=== PATIENT | male | born 1980 | race Caucasian/White ===

== ENCOUNTER 2024-11-15 09:41 | Emergency (ER) | payer MEDICAID, SELFPAY ==
[2024-11-15 09:43] VITALS: PULSE 84; RESP 24; O2SAT 98; BMI 41.3
[2024-11-15 09:57] VITALS: BP 170/91; PULSE 86; RESP 16; TEMP 36.7; O2SAT 98
--- NOTE | 2024-11-15 10:27 | PC.NURSE ---
PT NOT IN ROOM WAS SEEN BY SECURITY WALK OUT THE FRONT DOORS OF THE ER AND HEAD WAST ON [employer].
== END 2024-11-15 10:33 | disposition left against medical advice (07) ==
LOC: SERX 10:55
PROVIDERS: Emergency Provider Emergency Medicine
DX: Z53.21 Procedure and treatment not carried out due to patient leaving prior to being seen by health care provider (principal)
CPT/HCPCS: 99281

== ENCOUNTER 2025-04-14 10:08 | Inpatient (IN) | payer MEDICAID, SELFPAY ==
[2025-04-14] VITALS (7 sets, daily range): BP systolic 150–188; BP diastolic 87–128; PULSE 74–104; RESP 19–26; TEMP 36.5–37.2; O2SAT 95–98
--- NOTE | 2025-04-14 10:14 | PD.EDSOB ---
ED SOB =RME/HPI General Chief Complaint: Extremity Problem,Nontraumatic Stated Complaint: LEG PAIN Time Seen by Provider: 04/14/25 10:31 Arrival date/time: 04/14/25 10:08 Limitations: no limitations RME / HPI RME / HPI Narrative: DR. DEIRDRE ARIZMENDI ED EVALUATION: 44-year-old homeless male with past medical history of hypertension, lower extremity DVT, polysubstance abuse (methamphetamine, tobacco), asthma, obesity hypoventilation syndrome with sleep apnea, and heart failure with preserved ejection fraction (HFpEF 55?60%) presents to the Emergency Department [facility] with complaints of bilateral foot pain and shortness of breath. Patient reports noncompliance with his prescribed Lasix. He denies fever, chills, dysuria, or other symptoms. Related Data Home Medications ?Medication ?Instructions ?Recorded ?Confirmed potassium chloride 20 mEq 20 meq PO BID 12/30/22 06/21/23 tablet,extended release (K-Tab) Previous Rx's ?Medication ?Instructions ?Recorded furosemide 40 mg tablet (Lasix) 40 mg PO QDAY #30 tabs 06/27/23 doxycycline hyclate 100 mg capsule 100 mg PO BID #2 caps 01/21/24 potassium chloride 20 mEq oral 20 meq PO QDAY #10 ea 02/01/24 packet Allergies Allergy/AdvReac Type Severity Reaction Status Date / Time clindamycin Allergy Mild DIARRHEA Verified 02/01/24 17:55 Review of Systems Review of Systems Systems Reviewed: All systems reviewed, normal except as documented Past Medical History Past Medical History CARDIAC: Positive Edema, Cellulitis, Deep Vein Thrombosis and Hypertension RESPIRATORY: Positive Chronic Obstructive Pulmonary Disease (COPD), Asthma and Sleep Apnea GASTROINTESTINAL: Positive Gastroesophageal Reflux Disease and Obesity PSYCHO/SOCIAL: Positive Recreational Drug Use OTHER HISTORY: Positive MRSA and Chicken Pox Family History FAMILY HISTORY: Positive Family Cardiac Disorders Social History SMOKING STATUS: Current some day smoker SECOND HAND EXPOSURE: No SUBSTANCE USE: amphetamines ED Exam General Limitations: Present no limitations General appearance: Present alert and other (Chronically ill appearing, with acute decompensation) Head Head exam: Present atraumatic and normocephalic Eye Eye exam: Present normal appearance, PERRL and EOMI ENT ENT exam: Present normal exam, normal oropharynx and mucous membranes moist Neck Neck exam: Present normal inspection, full ROM and trachea midline Chest Chest inspection: Present normal inspection and symmetric chest wall rise Respiratory Respiratory exam: Present respiratory distress (Tachypneic) Cardiovascular Cardiovascular exam: Present regular rate, normal rhythm and normal heart sounds Abdominal Exam Abdominal exam: Present soft and normal bowel sounds Extremities Exam Extremities exam: Present other (Bilateral legs' edema from bottom all the way up to the knees, venous stasis; also a left leg wound with maggots) Back Exam Back exam: Present normal inspection and full ROM Neurological Exam Neurological exam: Present alert, oriented X3 and CN II-XII intact Psychiatric Psychiatric exam: Present normal affect and normal mood Skin Skin exam: Present warm, dry, intact and normal color Course Quality Measures none Orders Category Date Time Status Bedside COVID-19 Antigen Test NOW Care 04/14/25 10:[address] Screening NOW Care 04/14/25 10:[address] Screening NOW Care 04/14/25 14:02 Active Notify provider NOW Care 04/14/25 18:[address] angio chest Stat Exams 04/14/25 14:[address] lower leg LT w con Stat Exams 04/14/25 10:32 Completed CXR [XR chest 1V] Stat Exams 04/14/25 10:33 Completed US venous duplex LE BI Stat Exams 04/14/25 10:32 Completed BNP [B-Type Natriuretic Peptide] Stat Lab 04/14/25 10:39 Completed CBC Stat Lab 04/14/25 10:39 Completed CMP [Comprehensive Metabolic Panel] Stat Lab 04/14/25 10:39 Completed D-Dimer Stat Lab 04/14/25 10:39 Completed Drug Screen,Urine Stat Lab 04/14/25 10:32 Ordered Influenza A & B Rapid Panel Stat Lab 04/14/25 17:10 Received PTT [Partial Thromboplastin Time] Stat Lab 04/14/25 18:31 Ordered Partial Thromboplastin Time AM DRAW Lab 04/16/25 05:00 Ordered Prothrombin Time with INR AM DRAW Lab 04/16/25 05:00 Ordered Troponin I Stat Lab 04/14/25 10:39 Completed UA, C/S IF [Urinalysis, C/S if Indicated] Stat Lab 04/14/25 10:32 Ordered Heparin Inj Med 04/14/25 18:31 Once 8,000 unit IV X1 ONE Heparin/D5w 25K 250 ML Ivpb [Heparin in D5w Ivpb] Med 04/14/25 18:45 Ordered 25,000 unit in 250 ml IV 18 units/kg/hr Morphine* Inj Med 04/14/25 13:57 Discontinued 2 mg IVP STAT STA Vancomycin Pharmacy to Dose Med 04/14/25 18:27 Active 1 each IV QDAY PRN Vital Signs Vital signs: Vital Signs Temperature 97.7 F 04/14/25 10:14 Pulse Rate 89 04/14/25 10:14 Respiratory Rate 24 H 04/14/25 10:14 Blood Pressure 156/103 H 04/14/25 10:14 Pulse Oximetry (%) 95 04/14/25 10:14 Oxygen Delivery Method Nasal Cannula 04/14/25 10:14 Oxygen Flow Rate 3 04/14/25 10:14 Shortness of Breath / Dyspnea MDM Narrative MDM Narrative:: Patient is a 44-year-old male with medical history notable for homelessness, polysubstance use, heart failure as an emergency, concerns for bilateral lower extremity pain and shortness of breath. Vital signs and exam as listed. Concern for ACS arrhythmia electrolyte abnormality viral syndrome pneumonia CHF exacerbation DVT lower extremities, cellulitis, deep space wound infection. Ordered labs, EKG, chest x-ray bilateral lower extremity ultrasounds, CT of the left lower extremity given patient's open wound with maggots on the lower extremity, also offered medication for symptom relief. Labs without leukocytosis, no left shift. Patient hemoglobin is 13. Patient without any acute metabolic abnormality. No transaminitis, troponin is not elevated, BNP is 56. Chest x-ray with evidence of early heart failure. Has cephalization of vessels. CT of the lower extremity with evidence of cellulitis, no deep space abscess. Provided patient with antibiotics. Lower extremity ultrasound with evidence of DVT. Partial nonocclusive thrombus in the left popliteal vein. Ordered heparin bolus and drip. Patient has a history of prior pulmonary embolus, ordered D-dimer which was elevated. Patient is requiring supplemental oxygen, and he is on oxygen at baseline. At this time my shift is now transition care over to Dr. Castillo. Patient is pending results of his CT angio and admission for hypoxic respiratory failure. I, Cass Alexander, am scribing for and in the presence of Dr. Lux. Patient data External records reviewed:: [facility] previous records and EMS form Clinical information provided by:: patient and EMS Social determinants that could affect healthcare access:: substance use (homelessness, methamphetamine abuse, tobacco use) Patient has the following chronic illnesses:: Homeless male with past medical history of hypertension, lower extremity DVT, polysubstance abuse (methamphetamine, tobacco), asthma, obesity hypoventilation syndrome with sleep apnea, and heart failure with preserved ejection fraction (HFpEF 55?60%). How is presenting disease/condition affected by chronic disease/condition?: exacerbated by Evaluation data The following diagnostics were reviewed and interpreted by me:: lab results and radiology exam(s) Lab and/or radiology exams considered but not ordered:: none Interpretation Summary: See MDM narrative above. RADIOLOGY Procedure(s): XR chest 1V Accession Number(s): [id number] cc: Manny Banegas MD; NO PRIMARY/FAMILY,PHYSICIAN; Heather Lux MD~ Examination: AP chest single view Technique: Portable AP chest single view Date and time: April 14, 2025, 1045 hrs., Comparison January 19, 2024 Indications: Shortness of breath today. Findings: Moderate enlargement cardiac contour Moderate prominence pulmonary vasculature. Suspicious for early septal edema the lung bases. No lobar pneumonia Impression: Early heart failure Dictated By: Manny Banegas MD Procedure(s): US venous duplex LE BI Accession Number(s): [id number] cc: Manny Banegas MD; NO PRIMARY/FAMILY,PHYSICIAN; Heather Lux MD~ Examination: Venous duplex lower extremity sonogram, bilateral. Date and time of exam: April 14, 2025, 1353 hrs. Indications: Leg pain and swelling this week Technique: Multiple sonographic images of the deep venous system have been obtained. B-mode/2-D grayscale imaging of vascular structures and Doppler spectral analysis (waveforms) and color performed Both legs are examined. Findings: Positive for nonocclusive thrombus in the left popliteal vein The visualization of the left posterior tibial vein Visualization right posterior tibial vein Right upper extremity DVT noted Impression: Positive for partial nonocclusive thrombus in the left popliteal vein Dictated By: Manny Banegas MD Procedure(s): CT lower leg LT w con Accession Number(s): [id number] cc: Manny Banegas MD; NO PRIMARY/FAMILY,PHYSICIAN; Heather Lux MD~ Examination: CT Examination: CT left lower leg with intravenous contrast, 2-D sagittal reconstructions. 2-D coronal reconstructions. 3-D reconstructions. Date and time of exam:April 14, 2025, 11:50 AM Indications: Left leg abscess swelling and pain this week CTDI: vol (mGy):9.38 DLP: (mGycm):649 Technique: Multiple 1.25 mm axial sections of the left lower extremity post intravenous ministration 60 cc Isovue-370 have been obtained. 2-D sagittal and coronal reconstructions have been obtained. 3-D reconstructions have been obtained. Low dose protocols were performed. One or more of the following dose reduction techniques were used; automated exposure control, adjustment of the mA and/or KV according to patient size, use of iterative reconstruction technique. Findings: Extensive edema in the subcutaneous fatty tissue with prominent skin thickening extending from the distal femur to the ankle However, no soft tissue fluid-filled abscess depicted Cortex of the distal femur femoral condyles, tibia, fibula and visualized bones of the ankle intact Soft tissue defects lower leg both anteriorly and laterally Impression: Negative for osteomyelitis Extensive cellulitis in the lower extremity No soft tissue abscess Consider MRI lower leg without contrast follow-up to best assess for early osteomyelitis Dictated By: Manny Banegas MD Medications / Prescriptions Medications or Prescriptions considered but not ordered:: none Medication administrations:: Medication Administration History Heparin Sodium (Porcine) (Heparin Sod Inj 5000 Unit/Ml Vial) 8,000 unit IV X1 ONE; Protocol Stop: 04/14/25 18:32 Heparin Sodium/Dextrose (Heparin In D5w Ivpb) 25,000 unit in 250 mls @ 0 mls/hr IV .Q0M JOSE; Protocol Stop: 04/28/25 18:44 Pharmacy Consult (Vancomycin Pharmacy To Dose 1 Each Each) 1 each IV QDAY PRN PRN Reason: PROTOCOL Stop: 05/14/25 18:26 Discontinued Medications Morphine Sulfate (Morphine Sulf Inj 4 Mg/Ml Vial) 2 mg IVP STAT STA Stop: 04/14/25 13:58 Last Admin: 04/14/25 14:07 Dose: 2 mg Documented By: CS see above if any Consultations Consultation(s) initiated? (list below): No Diagnosis Shortness of Breath Differential Diagnosis: other (CHF exacerbation, recurrent DVT with pulmonary embolism, and pneumonia.) Most likely diagnosis given after review of the tests above:: DVT, cellulitis, hypoxic respiratory failure Admission Indicated Admission indicated?: indicated Admission Request Was there a request for admission?: No Disposition Plan Disposition Plan: other (specify) (Signed out to oncoming provider) Discharge Plan Prescriptions/Referrals Prescriptions/Med Rec: No Action potassium chloride 20 mEq packet 20 meq PO QDAY Qty: 10 0RF potassium chloride [K-Tab] 20 mEq tablet extended release 20 meq PO BID Patient Comments: TAKE 1 TABLET BY MOUTH EVERY DAY furosemide [Lasix] 40 mg tablet 40 mg PO QDAY Qty: 30 0RF doxycycline hyclate 100 mg capsule 100 mg PO BID Qty: 2 0RF Referrals: No Primary/Family,Physician [Primary Care Provider] - In 1 week Problem List Clinical Impression: Acute hypoxic respiratory failure, DVT (deep venous thrombosis), Cellulitis Patient/Caregiver Discharge Instructions Print Language: Belarusian
--- NOTE | 2025-04-14 10:32 | XR_ITS ---
Examination: CT Examination: CT left lower leg with intravenous contrast, 2-D sagittal reconstructions. 2-D coronal reconstructions. 3-D reconstructions. Date and time of exam:April 14, 2025, 11:50 AM Indications: Left leg abscess swelling and pain this week CTDI: vol (mGy):9.38 DLP: (mGycm):649 Technique: Multiple 1.25 mm axial sections of the left lower extremity post intravenous ministration 60 cc Isovue-370 have been obtained. 2-D sagittal and coronal reconstructions have been obtained. 3-D reconstructions have been obtained. Low dose protocols were performed. One or more of the following dose reduction techniques were used; automated exposure control, adjustment of the mA and/or KV according to patient size, use of iterative reconstruction technique. Findings: Extensive edema in the subcutaneous fatty tissue with prominent skin thickening extending from the distal femur to the ankle However, no soft tissue fluid-filled abscess depicted Cortex of the distal femur femoral condyles, tibia, fibula and visualized bones of the ankle intact Soft tissue defects lower leg both anteriorly and laterally Impression: Negative for osteomyelitis Extensive cellulitis in the lower extremity No soft tissue abscess Consider MRI lower leg without contrast follow-up to best assess for early osteomyelitis
--- NOTE | 2025-04-14 10:32 | XR_ITS ---
Examination: Venous duplex lower extremity sonogram, bilateral. Date and time of exam: April 14, 2025, 1353 hrs. Indications: Leg pain and swelling this week Technique: Multiple sonographic images of the deep venous system have been obtained. B-mode/2-D grayscale imaging of vascular structures and Doppler spectral analysis (waveforms) and color performed Both legs are examined. Findings: Positive for nonocclusive thrombus in the left popliteal vein The visualization of the left posterior tibial vein Visualization right posterior tibial vein Right upper extremity DVT noted Impression: Positive for partial nonocclusive thrombus in the left popliteal vein
--- NOTE | 2025-04-14 10:33 | XR_ITS ---
Examination: AP chest single view Technique: Portable AP chest single view Date and time: April 14, 2025, 1045 hrs., Comparison January 19, 2024 Indications: Shortness of breath today. Findings: Moderate enlargement cardiac contour Moderate prominence pulmonary vasculature. Suspicious for early septal edema the lung bases. No lobar pneumonia Impression: Early heart failure
[2025-04-14 11:10] LABS: Alanine Aminotransferase 13 U/L (10-49); Albumin, Serum 4.0 gm/dL (3.5-5.0); Albumin/Globulin Ratio 1.1 (1.2-2.2); Alkaline Phosphatase 104 U/L (46-116); Anion Gap 8 (7-16); Aspartate Amino Transferase 22 U/L (0-34); BUN/Creatinine Ratio 10 Ratio (12-20); Bilirubin,Total 0.7 mg/dL (0.3-1.2); Blood Urea Nitrogen 9 mg/dL (9-23); Calcium 9.0 mg/dL (8.3-10.6); Calcium (Corrected) 9.0 mg/dL (8.5-10.1); Carbon Dioxide 28.0 mMol/L (20.0-31.0); Chloride 103 mMol/L (98-107); Creatinine (Component) 0.9 mg/dL (0.6-1.3); Globulin 3.6 gm/dL (2.3-3.5); Glucose 97 mg/dL (74-106); Osmolality,Calculated 276 (275-295); Potassium 4.3 mMol/L (3.4-5.1); Sodium 139 mMol/L (136-145); Total Protein 7.6 gm/dL (5.7-8.2); Troponin I < 0.020 ng/mL (0.0-0.045); eGFR > 60 See Note
[2025-04-14 11:18] LABS: Basophils # (Auto) 0.1 Thou/mm3 (0.0-0.2); Basophils % (Auto) 1 % (0-2.5); Eosinophils # (Auto) 0.2 Thou/mm3 (0.0-0.5); Eosinophils % (Auto) 2 % (0-10); Hematocrit 38.0 % (41.0-53.0); Hemoglobin 13.0 g/dL (13.5-16.0); Immature Granulocytes Auto 0.07 Thou/mm3 (0.00-0.00); Lymphocytes # (Auto) 1.2 Thou/mm3 (1.0-4.8); Lymphocytes % (Auto) 13 % (10-50); Mean Corpuscular HGB Conc 34.2 g/dl (31.0-37.0); Mean Corpuscular Hemoglobin 32.4 pg (25.0-35.0); Mean Corpuscular Volume 95 fL (80-100); Monocytes # (Auto) 0.9 Thou/mm3 (0.0-0.8); Monocytes % (Auto) 9 % (0-12); Neutrophils # (Auto) 6.9 Thou/mm3 (1.8-7.7); Neutrophils % (Auto) 74 % (37-80); Nucleated Red Blood Cell # 0.00 Thou/mm3 (0.00-0.00); Nucleated Red Blood Cell % 0 /100 WBC (0); Platelet Count 298 Thou/mm3 (140-440); RDW Standard Deviation 46.2 fL (35.1-43.9); Red Blood Count 4.01 Miln/mm3 (4.50-5.90); White Blood Count 9.3 Thou/mm3 (3.8-10.6)
[2025-04-14 13:06] LABS: B-Type Natriuretic Peptide 56 pg/mL (0-100)
--- NOTE | 2025-04-14 14:01 | XR_ITS ---
Examination: CTA chest with intravenous contrast 2-D reconstructions 3-D reconstructions, vascular Date and time of exam: April 14, 2025, 1759 hrs. Indications: Onset chest pain shortness of breath today CTDI: vol (mGy) 20.5 DLP: (mGycm) 541 Technique: Multiple axial sections of the thorax have been obtained. 3 mm slice thickness, from below the hemidiaphragms to above the apices of the lungs. Mediastinal and lung density settings have been obtained. 2-D sagittal and coronal reconstructions. 3-D angiographic renderings, 3-D volume renderings, 3D post processing, vascular maximum intensity projections obtained. Contrast administered is 100 cc Isovue-370. Intravenous Low dose protocols were performed. One or more of the following dose reduction techniques were used; automated exposure control, adjustment of the mA and/or KV according to patient size, use of iterative reconstruction technique. Findings: No thoracic aortic aneurysmal dilatation or dissection Main pulmonary artery segment 4.6 cm Multiple multiple pulmonary artery filling defects right pulmonary artery including the distal right main pulmonary artery, axial image 66 and multiple upper and lower lobe pulmonary artery branches on the right No pulmonary edema Mild opacity in the right lower lung zone which may represent pulmonary infarction No visualized liver or splenic lesion No gallstones No pancreatic edema Kidneys partially visualized no hydronephrosis Impression: Pulmonary artery hypertension Multiple pulmonary artery emboli on the right as above Possible mild pulmonary infarction right base
[2025-04-14] MEDS: MORPHINE SULF INJ 4 MG/ML VIAL 2 MG IVP (14:07)
[2025-04-14 14:26] LABS: D-Dimer 2240 ng/mL (<600)
--- NOTE | 2025-04-14 18:23 | PD.EDADDENDU ---
Emergency Room Addendum <Dana Hope - Last Filed: 04/14/25 22:22> Addendum Narrative: I took over the care from previous shift physician at 6 PM on 04/14/2025. See previous notes for complete H & P and ED course. I reviewed all diagnostic test results. My interpretation of the chest x-ray is Early heart failure. My review of the Venous Duplex US report is Positive for partial nonocclusive thrombus in the left popliteal vein. My review of the Lower Extremity CT report is Negative for osteomyelitis. Extensive cellulitis in the lower extremity. No soft tissue abscess. Consider MRI lower leg without contrast follow-up to best assess for early osteomyelitis. My review of the Chest CTA report is Pulmonary artery hypertension. Multiple pulmonary artery emboli on the right as above. Possible mild pulmonary infarction right base. Blood tests and urine tests Diagnoses include: Acute hypoxic respiratory failure Treatment here included Heparin in D5w Ivpb Vancomycin IV Heparin Inj 8,000 unit IV Morphine Inj 2 mg I discussed the case with our hospitalist. About the presentation and exam and diagnostics and treatments here. And need of further care in the hospital. Will accept the patient. Garth Castillo MD <Garth Castillo MD - Last Filed: 04/14/25 23:47> Addendum Narrative: I took over the care from previous shift physician, Dr. Lux, at 6 PM on 04/14/2025. See previous notes for complete H & P and ED course. I reviewed all diagnostic test results. Diagnoses include: Acute hypoxic respiratory failure Pulmonary embolism DVT Lower extremity cellulitis Methamphetamine use Treatment here included: Heparin I discussed the case with our hospitalist. About the presentation and exam and diagnostics and treatments here. And need of further care in the hospital. Will accept the patient. Garth Castillo MD
[2025-04-14 19:02] LABS: Influenza A Ag Negative; Influenza B Ag Negative
[2025-04-14 19:26] LABS: Collection Type, Urine Catheter
[2025-04-14 19:43] LABS: Bilirubin,Urine Negative (Negative); Blood,Urine 1+ (Negative); Clarity,Urine Clear (Clear/Hazy); Color,Urine Lt-Yellow (Lt Yel-Yel); Culture Indicated,Urine Not Indicated; Glucose, Urine Negative (Negative); Ketones,Urine Trace (Negative); Leukocyte Esterase,Urine Negative (Negative); Nitrite,Urine Negative (Negative); PH,Urine 6.0 (5.0-7.0); Protein,Urine Negative (Neg - Trace); RBC,Urine 11 /hpf (0-3); Specific Gravity,Urine 1.034 (1.001-1.035); Squamous Epithelial Cell,Urine 1 /hpf (0-5); Urobilinogen,Urine Negative mg/dL (0.0-1.0); WBC,Urine 2 /hpf (0-5)
[2025-04-14 19:50] LABS: Partial Thromboplastin Time 27.6 Seconds (22.0-36.0)
[2025-04-14] MEDS: VANCOMYCIN/D5W 1500 MG IVPB 300 ML 120 MG IV (19:53)
[2025-04-14 20:44] LABS: Amphetamine/Methamp Scrn,U Positive (Negative); Barbiturate Screen,Urine Negative (Negative); Benzodiazepines Screen,Urine Negative (Negative); Benzoylecgonine Screen, Ur Negative (Negative); Fentanyl Screen,Urine Negative (Negative); Opiate Screen,Urine Positive (Negative); THC Screen,Urine Negative (Negative)
[2025-04-14] MEDS: HEPARIN SOD INJ 5000 UNIT/ML VIAL 8000 UNIT IV (21:18)
[2025-04-14] MEDS: Heparin/D5w 25K 250 ML Ivpb 25,000 UNIT/250 ML BAG 18 UNIT IV (21:19)
[2025-04-14] MEDS: PIPER/TAZO INJ 4.5 GM in SODIUM CHLORIDE 0.9% (POP) 100 ML IV (23:03)
[2025-04-15] VITALS (58 sets, daily range): BP systolic 154–229; BP diastolic 92–136; PULSE 43–96; RESP 14–38; TEMP 36.2–37.6; O2SAT 90–100; BMI 44.0; BMI 42.7
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
--- NOTE | 2025-04-15 00:10 | ECHO_ITS ---
Transthoracic Echo Report Ht (in): Wt (lb): 292 Exam Location: Echo Lab Status: Inpatient Yarn Preparation Supervisor: Lalita Lnua Indications: Procedure Performed: BP: 171 / 109 HR: 61 Rhythm: Sinus Technical Quality: Poor MEASUREMENTS (Male / Female) Normal Values 2D ECHO LV Diastolic Diameter PLAX 5.5 cm 4.2 - 5.9 / 3.9 - 5.3 cm LV Systolic Diameter PLAX 3.4 cm IVS Diastolic Thickness 1.0 cm 0.6 - 1.0 / 0.6 - 0.9 cm LVPW Diastolic Thickness 1.1 cm 0.6 - 1.0 / 0.6 - 0.9 cm LV Relative Wall Thickness 0.4 LVOT Diameter 2.1 cm Aortic Root Diameter 3.6 cm LV Ejection Fraction MOD BP 44.7 % >= 55 % LV Ejection Fraction MOD 4C 51.9 % LV Ejection Fraction 4C AL 52.5 % LV Ejection Fraction MOD 2C 38.9 % LV Ejection Fraction 2C AL 41.3 % M-MODE Aortic Root Diameter MM 3.3 cm AV Cusp Separation MM 2.2 cm DOPPLER AV Peak Velocity 142.0 cm/s AV Peak Gradient 8.1 mmHg AV Mean Gradient 5.0 mmHg AV Velocity Time Integral 27.0 cm LVOT Peak Velocity 142.0 cm/s LVOT Peak Gradient 8.1 mmHg LVOT Velocity Time Integral 25.0 cm AV Area Cont Eq vti 3.2 cm? AV Area Cont Eq pk 3.5 cm? MV Area PHT 4.0 cm? Mitral E Point Velocity 72.8 cm/s Mitral A Point Velocity 103.0 cm/s Mitral E to A Ratio 0.7 LV E' Lateral Velocity 8.3 cm/s Mitral E to LV E' Lateral Ratio 8.8 LV E' Septal Velocity 7.3 cm/s Mitral E to LV E' Septal Ratio 10.0 PV Peak Velocity 124.0 cm/s PV Peak Gradient 6.2 mmHg FINDINGS Left Ventricle The left ventricular cavity size is mildly increased with normal wall thickness. Normal systolic function. There is grade I diastolic dysfunction of the left ventricle (impaired relaxation pattern). The ejection fraction is visually estimated at 55-60%. Right Ventricle The right ventricular size is mildy increased with normal systolic function. Left Atrium The left atrium is normal by two-dimensional, color flow and Doppler imaging with no structural abnormalities, no thrombus formation present. Right Atrium The right atrium is normal by two-dimensional imaging, color flow and Doppler imaging with no structural abnormalities, no thrombus formation present. Atrial Septum The interatrial septum appears normal with no evidence of a shunt. Aorta The aorta is normal by two-dimensional, color flow and Doppler interrogation. Mitral Valve The mitral valve is normal by two-dimensional, color flow and Doppler interrogation. Trace mitral regurgitation. Aortic Valve The aortic valve is trileaflet and normal by two-dimensional, color flow and Doppler interrogation. There is no significant aortic valve regurgitation. Tricuspid Valve The tricuspid valve is normal by two-dimensional, color flow and Doppler interrogation. There is trace tricuspid valve regurgitation. Pulmonic Valve The pulmonic valve is not well visualized. There is no significant pulmonic valve regurgitation. Vessels The pulmonary artery appears normal. The inferior vena cava pulmonary and hepatic veins appear normal. Pericardium The pericardium is normal by two-dimensional imaging. There is no significant pericardial effusion. CONCLUSIONS Indication: PE Normal LV size and wall thickness. Normal LV function with an EF of 55 to 60%. Grade 1 diastolic dysfunction. Mildly dilated RV with normal RV function. RVSP could not be measured because of insufficient TR jet but septum appears flat during systole indicating mildly elevated pressure. Trace MR and TR. No pericardial effusion. Alfred Chau (Electronically Signed) Final Date: 15 April 2025 19:31
--- NOTE | 2025-04-15 00:53 | PD.RESEVENT ---
Documentation for date of: 04/15/25 Event Note Event Note: Rapid response called at 00:50 for bradycardia 30-40s. VS: HR 30s, spO2 70% --> 96% 4L --> 95% on oxymask 5L. T 97.1 F, 167/113. BG 98. Ordered CMP, Mg, EKG, troponin, ABG. Rhythm strip showed Mobitz type 2, resolved on repeat EKG. CMP, Mg showed no electrolyte abnormalities. Troponin negative. ABG pH 7.37/CO2 52/O2 85/CO3 30. Plan to upgrade to ICU for transcutaneous pacing discussed with Dr. Howard (senior resident), Dr. Miner (senior resident on ICU), and Dr. Cuadra (attending). Kimberly Davidson MD PGY1
--- NOTE | 2025-04-15 00:54 | EKG_ITS ---
[facility] Test Date: 2025-04-15 Pat Name: CHEYANNE WALDEN [facility] Male [employer]: [facility] : 1980 Requested By: Kimberly Davidson Order Number: [id number] Reading MD: Kimberly Davidson Measurements Intervals [place] Rate: 76 P: 72 AK: 172 QRS: 74 QRSD: 112 T: 66 QT: 412 QTc: 465 Interpretive Statements SINUS RHYTHM WITH SINUS ARRHYTHMIA MODERATE INTRAVENTRICULAR CONDUCTION DELAY Compared to ECG 01/16/2024 07:48:39 Intraventricular conduction delay now present Atrial abnormality no longer present /store/S0/[id number]
[2025-04-15 01:09] LABS: Base Excess 4 (-3-3); HCO3 30 mEq/L (20-26); Inspired O2, VO2 Liters 5 L/min; Inspired Oxygen, FIO2 21 %; O2 Saturation 97 % (91-98); PCO2 52 mmHg (32.0-48.0); PO2 85 mmHg (83-108); pH, Arterial 7.37 (7.35-7.45)
[2025-04-15 01:11] LABS: Allen Test Performed/OK; Puncture Site Right Radial
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
--- NOTE | 2025-04-15 01:45 | PC.NURSE ---
Noted patients heart rate at 30 and oxygen saturations at 70%, went to patients room, called a [employer]PER at 0050. Physicians to bedside. EKG completed which showed a 2nd degree heart block. Decision to transfer patient to ICU to be put on external pacing.
[2025-04-15 01:56] LABS: Alanine Aminotransferase 8 U/L (10-49); Albumin, Serum 3.7 gm/dL (3.5-5.0); Albumin/Globulin Ratio 1.1 (1.2-2.2); Alkaline Phosphatase 96 U/L (46-116); Anion Gap 10 (7-16); Aspartate Amino Transferase 14 U/L (0-34); BUN/Creatinine Ratio 6 Ratio (12-20); Bilirubin,Total 0.6 mg/dL (0.3-1.2); Blood Urea Nitrogen < 5 mg/dL (9-23); Calcium 8.8 mg/dL (8.3-10.6); Calcium (Corrected) 9.0 mg/dL (8.5-10.1); Carbon Dioxide 25.4 mMol/L (20.0-31.0); Chloride 102 mMol/L (98-107); Creatinine (Component) 0.8 mg/dL (0.6-1.3); Globulin 3.5 gm/dL (2.3-3.5); Glucose 98 mg/dL (74-106); Magnesium 1.9 mg/dL (1.6-2.6); Osmolality,Calculated 271 (275-295); Potassium 3.9 mMol/L (3.4-5.1); Sodium 137 mMol/L (136-145); Total Protein 7.2 gm/dL (5.7-8.2); Troponin I < 0.020 ng/mL (0.0-0.045); eGFR > 60 See Note
[2025-04-15] MEDS: Magnesium Sulfate 2 GM Ivpb 2 GM/50 ML BAG IV ×2 (02:07→02:25)
[2025-04-15] MEDS: RINGERS LACTATED 500 ML 500 ML 125 ML IV (02:14)
[2025-04-15] MEDS: POTASSIUM CHL 10 mEq IVPB 10 MEQ/100 ML BAG 100 MEQ IV ×2 (02:30→03:24)
[2025-04-15] MEDS: hydrALAZINE INJ 20 MG/ML VIAL 10 MG IVP ×2 (03:22→09:31)
[2025-04-15 03:56] LABS: Basophils # (Auto) 0.1 Thou/mm3 (0.0-0.2); Basophils % (Auto) 1 % (0-2.5); Eosinophils # (Auto) 0.2 Thou/mm3 (0.0-0.5); Eosinophils % (Auto) 2 % (0-10); Hematocrit 41.3 % (41.0-53.0); Hemoglobin 13.8 g/dL (13.5-16.0); Immature Granulocytes Auto 0.05 Thou/mm3 (0.00-0.00); Lymphocytes # (Auto) 1.1 Thou/mm3 (1.0-4.8); Lymphocytes % (Auto) 12 % (10-50); Mean Corpuscular HGB Conc 33.4 g/dl (31.0-37.0); Mean Corpuscular Hemoglobin 31.8 pg (25.0-35.0); Mean Corpuscular Volume 95 fL (80-100); Monocytes # (Auto) 0.8 Thou/mm3 (0.0-0.8); Monocytes % (Auto) 9 % (0-12); Neutrophils # (Auto) 6.8 Thou/mm3 (1.8-7.7); Neutrophils % (Auto) 76 % (37-80); Nucleated Red Blood Cell # 0.00 Thou/mm3 (0.00-0.00); Nucleated Red Blood Cell % 0 /100 WBC (0); Platelet Count 260 Thou/mm3 (140-440); RDW Standard Deviation 45.7 fL (35.1-43.9); Red Blood Count 4.34 Miln/mm3 (4.50-5.90); White Blood Count 8.9 Thou/mm3 (3.8-10.6)
[2025-04-15 04:17] LABS: Partial Thromboplastin Time 39.6 Seconds (22.0-36.0)
[2025-04-15 04:20] LABS: HIV (1&2) Antibody Rapid Non-Reactive
[2025-04-15 04:24] LABS: Anion Gap 9 (7-16); BUN/Creatinine Ratio 6 Ratio (12-20); Blood Urea Nitrogen 6 mg/dL (9-23); Calcium 9.1 mg/dL (8.3-10.6); Carbon Dioxide 29.8 mMol/L (20.0-31.0); Cardiac Risk Estimate 3.4 RATIO (4.0-6.7); Chloride 99 mMol/L (98-107); Cholesterol 168 mg/dL (132-200); Creatinine (Component) 1.0 mg/dL (0.6-1.3); Estimated Creatinine Clearance 127.4 mL/min (>60); Glucose 93 mg/dL (74-106); HDL Cholesterol 50 mg/dL (40-60); LDL Cholesterol,Calculated 100 mg/dL (0-130); Magnesium 2.6 mg/dL (1.6-2.6); Osmolality,Calculated 273 (275-295); Phosphorous 3.5 mg/dL (2.4-5.1); Potassium 4.1 mMol/L (3.4-5.1); Sodium 138 mMol/L (136-145); Thyroid Stimulating Hormone 1.47 uIU/mL (0.55-4.78); Triglycerides 91 mg/dL (30-150); eGFR > 60 See Note
[2025-04-15] MEDS: HEPARIN SOD INJ 5000 UNIT/ML VIAL 4000 UNIT IVP ×2 (05:34→14:09)
[2025-04-15] MEDS: PIPER/TAZO INJ 4.5 GM in SODIUM CHLORIDE 0.9% (POP) 100 ML IV (06:28)
[2025-04-15] MEDS: hydrALAZINE INJ 20 MG/ML VIAL 5 MG IVP (06:30)
[2025-04-15] MEDS: Heparin/D5w 25K 250 ML Ivpb 25,000 UNIT/250 ML BAG 20.662 UNIT IV (08:55)
[2025-04-15] MEDS: VANCOMYCIN/D5W 1500 MG IVPB 300 ML 120 MG IV ×2 (09:06→21:13)
[2025-04-15] MEDS: RINGERS LACTATED 1000 ML 1,000 ML 999 ML IV (09:31)
[2025-04-15] MEDS: cefTRIAXone/D5w 1gm IV premix 1 GM/50 ML BAG IV (09:39)
--- NOTE | 2025-04-15 09:52 | ESCONSULT_ITS ---
HPI Data of Consult Requesting Physician: Azael Cuadra MD Admitting Provider: Azael Cuadra MD Attending Provider: Azael Cuadra MD Primary Care Provider: Physician No Primary/Family Consult Narrative History of present illness: Patient is a 44 year old male with past medical history of HFpEF (55-60%), morbid obesity, substance abuse including methamphetamine abuse, chronic smoker with more than 77-16-zijz-year smoking history, alcohol use, homeless, history of chronic leg swelling on Lasix previously, medical noncompliance, previous lower extremity DVT and bilateral PE, and chronic venous stasis changes on bilateral limbs who presented to [facility] ED for bilateral foot pain and shortness of breath. In the ED, was noted to have multiple episodes of second degree type II heartblock lasting 1-1.5 minute. CXR showed enlarged cardiac silhouette and pulmonary vascular congestion. CTA chest showed pulmonary artery hypertension, as well as multiple pulmonary artery emboli on the right with possible mild pulmonary infarction right base. Utox positive for opiates and meth. Overnight, rapid response was called for HR in 30s-40s and oxygen desaturation. EKG showed Mobitz type 2, which later resolved on repeat EKG. CMP, Mg showed no electrolyte abnormalities. Troponin negative. ABG pH 7.37/CO2 52/O2 85/CO3 30. Patient was upgraded to ICU for pacer pad placement at 60-80 mA. Was decreased to 20 mA and eventually removed after a couple of hours. Per chart review, patient was previously admitted for similar cardiac issues in January 2024. Did not decompensate or require pacer pads at the time but had been found to have mulitple intermittent episodes of Mobitz type II heartblock, attributed to metabolic disturbances with history of drug abuse. Was counseled on cessation of meth and tobacco abuse. Was also previously admitted in 06/2023 for DVT and bilateral PEs. Was started on Xarelto but has also been noncomplaint with this as well. Was started on heparin drip overnight. Cardiology consulted for management of Mobitz type II heart block, DVT, and PE. cc:: cc: Azael Cuadra MD Exam Vital Signs Temp Pulse Resp BP Pulse Ox O2 Del Method O2 Flow Rate 97.5 F 72 29 H 185/109 H 99 BiPAP 3 04/15/25 08:00 04/15/25 09:31 04/15/25 09:08 04/15/25 09:31 04/15/25 09:08 04/15/25 08:00 04/15/25 00:50 FiO2 3 04/15/25 05:51 Narrative Exam Physical Exam General: Awake and in no acute distress. Lethargic. Morbidly obese male. BiPAP in place. HEENT: Normocephalic, atraumatic, mucous membranes moist. Heart: Regular rate and rhythm, normal S1 and S2, no murmurs appreciated. Lungs: Clear to auscultation with no wheezing or crackles. Abdomen: Soft, nondistended, nontender, positive bowel sounds. No guarding or rebound tenderness. Neurologic: Alert and oriented x3, no gross neurological deficit, and patient able to move all 4 extremities. Extremities: 2+ pitting edema below ankles bilaterally. Circumferential open wound at above left ankle. Dressing clean dry and intact. Skin: Chronic venous stasis changes bilaterally. No rashes or ecchymosis. Results Labs 04/15/25 03:40 04/15/25 03:40 Labs: Short CBC 04/14/25 04/15/25 Range/Units 10:39 03:40 WBC 9.3 8.9 (3.8-10.6) Thou/mm3 Hgb 13.0 L 13.8 (13.5-16.0) g/dL Hct 38.0 L 41.3 (41.0-53.0) % Plt Count 298 260 D (140-440) Thou/mm3 BMP 04/14/25 04/15/25 04/15/25 10:39 01:15 03:40 Sodium 139 137 138 Potassium 4.3 3.9 4.1 Chloride 103 102 99 Carbon Dioxide 28.0 25.4 29.8 BUN 9 < 5 L 6 L Creatinine 0.9 0.8 1.0 Glucose 97 98 93 Calcium 9.0 8.8 9.1 Cardiac Enzymes 04/14/25 04/15/25 Range/Units 10:39 01:15 Troponin I < 0.020 < 0.020 (0.0-0.045) ng/mL Liver Function 04/14/25 04/15/25 Range/Units 10:39 01:15 Total Bilirubin 0.7 0.6 (0.3-1.2) mg/dL AST 22 14 (0-34) U/L ALT 13 8 L (10-49) U/L Alkaline Phosphatase 104 96 (46-116) U/L Albumin 4.0 3.7 (3.5-5.0) gm/dL Urine 04/14/25 Range/Units 19:15 Urine Color Lt-Yellow (Lt Yel-Yel) Urine Clarity Clear (Clear/Hazy) Urine pH 6.0 (5.0-7.0) Ur Specific [place] 1.034 (1.001-1.035) Urine Protein Negative (Neg - Trace) Urine Glucose (UA) Negative (Negative) ABG Interpretation ABG results: 04/15/25 01:00 ABG pH 7.37 ABG pCO2 52 H ABG pO2 85 ABG HCO3 30 H ABG O2 Saturation 97 ABG Base Excess 4 H Quality Measures Quality Measures none Medications Home Medications and Allergies Home Medications ?Medication ?Instructions ?Recorded ?Confirmed ?Type potassium chloride 20 mEq 20 meq PO BID 12/30/2204/15 History tablet,extended release (K-Tab) Allergies Allergy/AdvReac Type Severity Reaction Status Date / Time clindamycin Allergy Mild DIARRHEA Verified 02/01/24 17:55 Visit Medications Acetaminophen (Acetaminophen 325 Mg Tablet) 650 mg PO Q6H PRN PRN Reason: Fever >99.9 Stop: 05/14/25 22:34 Heparin Sodium/Dextrose (Heparin In D5w Ivpb) 25,000 unit in 250 mls @ 18 mls/hr IV .[id number] [facility]; Protocol Stop: 04/28/25 18:44 Last Admin: 04/15/25 08:55 Dose: 15.6 units/kg/hr, 20.662 mls/hr Vancomycin HCl/Dextrose (Vancomycin/D5w 1500 Mg Ivpb) 300 mls @ 120 mls/hr IV BID@1000,2200 [facility]; Protocol Stop: 04/22/25 09:59 Last Admin: 04/15/25 09:06 Dose: 120 mls/hr Lactated Ringer's (Lactated Ringers) 1,000 mls @ 999 mls/hr IV .Q1H1M ONE Stop: 04/15/25 10:23 Last Admin: 04/15/25 09:31 Dose: 999 mls/hr Ceftriaxone Sodium/Dextrose (Rocephin/D5w 1gm Iv Premix) 1 gm in 50 mls @ 100 mls/hr IV QDAY JOSE Stop: 04/22/25 09:29 Last Admin: 04/15/25 09:39 Dose: 100 mls/hr Ondansetron HCl (Ondansetron Inj 2 Mg/Ml Inj 2 Ml) 4 mg IVP Q6H PRN; Protocol PRN Reason: NAUSEA OR VOMITING Stop: 05/14/25 22:34 Pantoprazole Sodium (Pantoprazole Inj 40 Mg Vial) 40 mg IVP QDAY [facility] Stop: 05/15/25 02:34 Last Admin: 04/15/25 08:55 Dose: 40 mg Pharmacy Consult (Vancomycin Pharmacy To Dose 1 Each Each) 1 each IV QDAY PRN PRN Reason: PROTOCOL Stop: 05/15/25 08:59 Discontinued Medications Acetaminophen (Acetaminophen 325 Mg Tablet) 650 mg PO Q6H PRN PRN Reason: Fever >101.5 Stop: 05/14/25 22:34 Acetaminophen (Acetaminophen 325 Mg Tablet) 650 mg PO Q6H PRN PRN Reason: PAIN SCALE 1-3 (mild Stop: 05/14/25 22:34 Heparin Sodium (Porcine) (Heparin Sod Inj 5000 Unit/Ml Vial) 8,000 unit IV X1 ONE; Protocol Stop: 04/14/25 18:32 Last Admin: 04/14/25 21:18 Dose: 8,000 unit Heparin Sodium (Porcine) (Heparin Sod Inj 5000 Unit/Ml Vial) 4,000 unit IVP X1 ONE Stop: 04/15/25 05:19 Last Admin: 04/15/25 05:34 Dose: 4,000 unit Hydralazine HCl (Hydralazine Inj 20 Mg/Ml Vial) 10 mg IVP X1 ONE Stop: 04/15/25 03:18 Last Admin: 04/15/25 03:22 Dose: 10 mg Hydralazine HCl (Hydralazine Inj 20 Mg/Ml Vial) 5 mg IVP X1 ONE Stop: 04/15/25 06:16 Last Admin: 04/15/25 06:30 Dose: 5 mg Hydralazine HCl (Hydralazine Inj 20 Mg/Ml Vial) 10 mg IVP X1 ONE Stop: 04/15/25 09:23 Last Admin: 04/15/25 09:31 Dose: 10 mg Vancomycin HCl/Dextrose (Vancomycin/D5w 1500 Mg Ivpb) 300 mls @ 120 mls/hr IV X1 ONE Stop: 04/14/25 21:29 Last Infusion: 04/14/25 22:57 Dose: Infused Piperacillin Sod/Tazobactam (Sod 4.5 gm/ Sodium Chloride) 100 mls @ 200 mls/hr IV Q8HR JOSE; Protocol Stop: 04/21/25 22:59 Last Admin: 04/15/25 06:28 Dose: 200 mls/hr Piperacillin Sod/Tazobactam (Sod 4.5 gm/ Sodium Chloride) 100 mls @ 200 mls/hr IV X1 ONE; Protocol Stop: 04/14/25 23:29 Last Infusion: 04/14/25 23:45 Dose: Infused Magnesium Sulfate (Magnesium Sulfate Ivpb) 2 gm in 50 mls @ 25 mls/hr IV X1 ONE Stop: 04/15/25 03:23 Last Admin: 04/15/25 07:08 Dose: Not Given Lactated Ringer's (Lactated Ringers) 500 mls @ 125 mls/hr IV .Q4H ONE Stop: 04/15/25 05:30 Last Admin: 04/15/25 02:14 Dose: 125 mls/hr Magnesium Sulfate (Magnesium Sulfate Ivpb) 2 gm in 50 mls @ 25 mls/hr IV X1 ONE Stop: 04/15/25 03:23 Last Admin: 04/15/25 02:07 Dose: 25 mls/hr Magnesium Sulfate (Magnesium Sulfate Ivpb) 2 gm in 50 mls @ 25 mls/hr IV X1 ONE Stop: 04/15/25 04:29 Last Admin: 04/15/25 02:25 Dose: 25 mls/hr Potassium Chloride (Kcl Ivpb) 10 meq in 100 mls @ 100 mls/hr IV Q1H JOSE Stop: 04/15/25 04:22 Last Admin: 04/15/25 03:24 Dose: 100 mls/hr Morphine Sulfate (Morphine Sulf Inj 4 Mg/Ml Vial) 2 mg IVP STAT STA Stop: 04/14/25 13:58 Last Admin: 04/14/25 14:07 Dose: 2 mg Pharmacy Consult (Vancomycin Pharmacy To Dose 1 Each Each) 1 each IV QDAY PRN PRN Reason: PROTOCOL Stop: 05/14/25 18:26 Potassium Chloride (Potassium Chloride 10% 20 Meq/15 Ml Udc) 20 meq GT X1 ONE Stop: 04/15/25 01:26 Last Admin: 04/15/25 02:29 Dose: Not Given Potassium Chloride (Potassium Chloride 10% 20 Meq/15 Ml Udc) 20 meq PO X1 ONE Stop: 04/15/25 01:26 Last Admin: 04/15/25 02:29 Dose: Not Given Assessment & Plan Plan Patient is a 44 year old male with past medical history of HFpEF (55-60%), morbid obesity, substance abuse including methamphetamine abuse, chronic smoker with more than 87-19-xurc-year smoking history, alcohol use, homeless, history of chronic leg swelling on Lasix previously, medical noncompliance, previous lower extremity DVT and bilateral PE, and chronic venous stasis changes on bilateral limbs who presented to [facility] ED for bilateral foot pain and shortness of breath. Admitted for right PE, left popliteal DVT, and lower leg cellulitis. Upgraded to ICU for transcutaneous pacing for Mobitz type II heart block, for which cardiology was consulted for management of. #Second degree Mobitz type II heart block #Bradycardia, resolved #HFpEF (55-60%, 2023) Noted to have brief intermittent episodes of Mobitz type II heartblock on ED tele. RR was called for bradycardia that required transcutaneous pacing at 60 mA overnight. A rhythm strip printed showed Mobitz secondary type II AV block, which resolved on EKG during RR. Following removal of pacer pads after a couple of hours, HR now stable in 70-90s. On previous admission, patient was also to have episodes of similar heart block. This time also liekly secondary to metabolic disturbances with long history of drug abuse. 01/2024 TTE Normal LV size and function. Estimatd EF 55-60%. Mild RV and RA dilatation. Normal RV function. Possible mild PH. The aortic root is mildly dilated 3.6cm. The ascending aorta is mildly dilated 3.7cm. Trace to mild TR. Plan: - As per previous evaluation on last admission, patient is not a candidate for permanent pacemaker insertion at this time. - Echo ordered to rule out any regional wall motion abnormalities, evaluate LV function, RV function, diastolic function and any valvular abnormalities. - Lasix PO 40mg BID - Start on GDMT with Losartan, add spiranolactone if BP tolerates. - Avoid beta-blockers or calcium channel blockers or other medications which can cause bradycardia. - Keep K>4 and Mg>2 at all times #Multiple pulmonary artery emboli R lung #LLE popliteal DVT #Hx of multiple DVTs and PEs Presented with lethargy and RR called for desaturating requiring 5L oxymask, and was found to have multiple R PEs with LLE popliteal DVT. ABG 7.37/52/85/30 trops neg. Was previously admitted in 06/2023 for DVT and bilateral PEs. Was started on Xarelto but has also been noncomplaint with this as well. Chest CTA showed pulmonary artery hypertension, multiple pulmonary artery filling defects right pulmonary artery including the distal right main pulmonary artery and multiple upper and lower lobe, mild opacity in right lower lung zone which may resent pulmonary infection. LLE US partial nonocclusive thrombus in L popliteal vein. LLE CT showed extensive cellulitis, neg osteomyelitis, no soft tissue abscess. Are chronic/recurring problems for him that have not been resolved due to medication non adherence. Plan: - Continue heparin drip. Recommend transitioning to Eliquis after 48h. #HTN Likely exacerbated by CAMILLA and medication noncompliance. - Lasix and Losartan as above - Recommend starting on amlodipine 5 mg daily if BP continues to be elevated - CTM BP #PAH #CAMILLA #Obesity hypoventilation syndrome BMI 42.7. - Lasix as above - CPAP at night Replace electrolyte aggressively and keep potassium greater than 4 and magnesium greater than 2.0 at all times. #LLE cellulitis #Encephalopathy, improving, likely 2/2 #Methamphetamine use #Opiate use Thank you for your consultation, please do not hesitate to reach out if you have any question or concern Patient plan of care was discussed with the attending physician, Dr. Chau. Delfina Bach, PGY-1 Attending Provider Attestation/Addendum I have personally seen and examined the patient separately on the above date of service and discussed the plan of care with the resident. I reviewed the resident Dr. Delfina Bach consultation progress note and agree with the resident findings and plan in the note above and have also edited the documentation to reflect my findings and plan. Patient known to me from previous admission in 2023 and he has a similar presentation with intermittent type II AV block. Exactly similar to the previous admission patient's heart rate has the bradycardia and intermittent heart block improved and stable between 70s to 80s. Secondary to metabolic disturbances along with history of drug abuse. Recommend to continue to monitor telemetry. Avoid beta-blockers and calcium blockers like diltiazem or verapamil for heart rate lowering medications. Counseled again regarding the importance of quitting OF drug abuse. Patient also found to have left popliteal vein DVT as well as pulmonary embolism. Reviewed the CT closely and patient is only having right upper lobe as well as right middle lobe filling defects. Rest of the lobar branches and the subsegmental branches are free of any filling defects along with the main pulmonary artery. There is no significant evidence of any RV strain on the CT, troponin was negative. Recommend to check a BNP. Patient is not tachycardic and is not hypoxic the present point of time. No indication for any mechanical thrombectomy at the present point of time recommend to continue heparin drip for anticoagulation if any further procedures are planned. Can transition to Eliquis as per the DVT PE protocol to 10 mg twice daily and then 5 mg twice daily. He does have previous history of DVT and PE also in 2022. CT also shows evidence of pulmonary hypertension with dilated pulmonary artery up to 4 cm. Patient is obese at 130 kg also has possible underlying obstructive sleep apnea along with obesity hypoventilation syndrome and also has history of PE as noted above. Patient will need further evaluation of the same which can be continued as outpatient and recommended to follow-up with his senior capital markets specialist. Regarding uncontrolled blood pressure patient's systolic blood pressures was around 170-190 mmHg. Has been given IV hydralazine only for now. Started on lisinopril 10 mg by ICU team. Recommend to start the patient on losartan 25 mg once daily and continue to uptitrate to 100 mg once daily. Okay to give amlodipine after maximizing losartan dose. Recommend to aggressive replace electrolytes and keep potassium greater than 4 magnesium greater than 2.0 to. Continue to monitor telemetry Alfred Chau M.D. Interventional Cardiology
--- NOTE | 2025-04-15 10:04 | ESPR_ITS ---
<Statement entered by Ashutosh Marion MD - 04/15/25 13:37> Patient seen and examined at bedside. I discussed and supervised with the automotive internet sales manager physician who took care of this patient. I personally saw and examined the patient. I agree with most of the assessment and plan. Patient was upgraded overnight due to bradycardia, treated with transcutaneous pacing. Rhythm strip showed Mobitz type II block, however this is not picked up by EKG. Per telemonitoring, overnight patient had multiple short bouts of paced rhythm, spent significant amount of time in sinus rhythm overnight. Patient was placed on CPAP overnight due to history of obstructive sleep apnea. Patient was taken off transcutaneous pacer pads in the morning, has maintained sinus rhythm with heart rate 70?80. Intermittent drops and heart rate to 40s lasting few sevenths at a time. Patient remains on heparin drip for PE and DVT treatment. Examined left leg cellulitis, skin is not particularly erythematous or warm, but notably tender to touch especially around site of circumferential ulceration, due to a tight sock per patient. Skin findings complicated by bilateral lower extremity stasis dermatitis. Patient remains lethargic, however blood pressure is significantly elevated. Patient received IV pushes of hydralazine overnight, additional 10 mg IV hydralazine given this morning as well as initiation of 20 mg lisinopril p.o. As patient is no longer on pacing pads, does not require ICU level care, will be downgraded to telemetry for further management. Plan of care discussed with attending Dr. Tesfaye. Ashutosh Marion MD PGY-2 Documentation for date of: 04/15/25 Subjective Subjective Interval history: 44-year-old homeless male with a past medical history significant for hypertension, left lower extremity deep vein thrombosis, prior pulmonary embolism, left lower extremity cellulitis, obstructive sleep apnea, stage I diastolic heart failure with preserved ejection fraction (HFpEF, EF 55?60%), and polysubstance use (methamphetamine, tobacco), who presented to the ED on 04/14 with complaints of bilateral foot pain and shortness of breath. Per ED documentation, the patient is non-compliant with prescribed home medications. He was admitted for management of a right pulmonary artery embolism confirmed on CT angiography, a new left lower extremity deep vein thrombosis (left popliteal vein) on Doppler ultrasound, and left lower extremity cellulitis. After admission, rapid response team called at 1:00AM on 04/15 for bradycardia, with heart rates in the 30?40s. At the time, blood pressure was elevated at 167/113 mmHg. Rhythm strip suggested a possible Mobitz Type II heart block. Labs showed no electrolyte abnormalities and troponin was negative. The patient was transferred to the ICU for transcutaneous pacing. Cardiology was consulted. Surgery was consulted for assessment of left lower extremity cellulitis and potential need for debridement. 04/15/2025: Overnight, patient remained hypertensive with systolic blood pressures ranging 170?180s. IV Hydralazine 10 mg was administered at 3:22 AM, followed by 5 mg at 6:30 AM. Beta-blockers were avoided due to concern for underlying heart block. IV Lactated Ringers 500 cc bolus given. Magnesium 2 g x1 and potassium 10 mEq were repleted. CPAP initiated for obstructive sleep apnea. Urine output approximately 800 cc over the past 24 hours. This morning, per telemonitoring, patient had multiple short episodes of paced rhythm overnight but patient spent the majority of the night in sinus rhythm. Transcutaneous pacing was discontinued this morning. Patient has remained stable and in sinus rhythm with HRs in the 70-80s since removal. Patient remained hypertensive, IV Hydralazine 10mg was administered with no improvement. Lisinopril 20mg PO was started for ongoing blood pressure control. Patient remains lethargic, though arousable. Since patient no longer needs transcutaneous pacing, plan to downgrade to telemetry for further management. Exam Vital Signs Temp Pulse Resp BP Pulse Ox O2 Del Method O2 Flow Rate 97.5 F 72 29 H 185/109 H 99 BiPAP 3 04/15/25 08:00 04/15/25 09:31 04/15/25 09:08 04/15/25 09:31 04/15/25 09:08 04/15/25 08:00 04/15/25 00:50 FiO2 3 04/15/25 05:51 Narrative Exam Physical Exam General: Obese body habitus. Lethargic. BiPAP in place. Head: Normocephalic, atraumatic. Eyes: Pupils equally round and reactive to light. Anicteric. Mouth/Throat: Moist mucous membranes. Heart: Regular rate and rhythm, HR in the 80s with no pacing. No murmurs. No JVD. Lungs: Clear to auscultation with no wheezing or crackles. Non-labored respirations, symmetric chest rise, no use of accessory muscles. Abdomen: Soft, nontender. No guarding or rebound tenderness. Neurologic: Alert and oriented x2, no gross neurological deficit, and patient able to move all 4 extremities. Extremities: Lower extremity edema bilaterally. No clubbing or cyanosis. No mottling. Dirt present under the fingernails and toenails. Weak peripheral pulses. Skin: Stasis dermatitis extending bilaterally up to the knees. The skin appears tense, warm, and shiny, with yellow-brown discoloration and overlying scaling. Left lower extremity: Circumferential ulceration with patchy dry exudates over the anterior parnell. Dusky discoloration noted over the dorsal aspect of feet. No crepitus. Folliculitis on the back, shoulders, and right medial thigh. Sunburn on the face and upper back with clear stevens lines. Objective Labs 04/16/25 06:35 04/15/25 03:40 Labs: Laboratory Results - last 24 hr 04/14/25 04/14/25 04/14/25 10:39 17:10 19:13 WBC 9.3 RBC 4.01 L Hgb 13.0 L Hct 38.0 L MCV 95 MCH 32.4 MCHC 34.2 RDW Std Deviation 46.2 H Plt Count 298 Neut % (Auto) 74 Lymph % (Auto) 13 [place] % (Auto) 9 Eos % (Auto) 2 Baso % (Auto) 1 Neut # (Auto) 6.9 Lymph # (Auto) 1.2 [place] # (Auto) 0.9 H Eos # (Auto) 0.2 Baso # (Auto) 0.1 Immature Gran # (Auto) 0.07 H Absolute Nucleated RBC 0.00 Immature Gran % 1 H Nucleated RBC % 0 APTT 27.6 D-Dimer 2240 H Puncture Site ABG pH ABG pCO2 ABG pO2 ABG HCO3 ABG O2 Saturation ABG Base Excess Oxygen Liter Flow FiO2 Sodium 139 Potassium 4.3 Chloride 103 Carbon Dioxide 28.0 Anion Gap 8 BUN 9 Creatinine 0.9 Estim Creat Clear Calc Not Performed. eGFR > 60 BUN/Creatinine Ratio 10 L Glucose 97 Calculated Osmolality 276 Calcium 9.0 Corrected Calcium 9.0 Phosphorus Magnesium Total Bilirubin 0.7 AST 22 ALT 13 Alkaline Phosphatase 104 Troponin I < 0.020 B-Natriuretic Peptide 56 Total Protein 7.6 Albumin 4.0 Globulin 3.6 H Albumin/Globulin Ratio 1.1 L Triglycerides Cholesterol LDL Cholesterol, Calc HDL Cholesterol Cholesterol/HDL Ratio TSH Ur Collection Type Urine Color Urine Clarity Urine pH Ur Specific [place] Urine Protein Urine Glucose (UA) Urine Ketones Urine Blood Urine Nitrite Urine Bilirubin Urine Urobilinogen (Auto) Ur Leukocyte Esterase Urine RBC Urine WBC Ur Squamous Epith Cells Urine Bacteria Ur Culture Indicated? Urine Opiates Screen Urine Fentanyl Screen Ur Barbiturates Screen U Amphetamin/Meth Scrn U Benzodiazepines Scrn U Cocaine Metab Screen U Marijuana (THC) Screen HIV 1&2 Antibody Rapid Influenza A (Rapid) Negative Influenza B (Rapid) Negative 04/14/25 04/15/25 04/15/25 19:15 01:00 01:15 WBC RBC Hgb Hct MCV MCH MCHC RDW Std Deviation Plt Count Neut % (Auto) Lymph % (Auto) [place] % (Auto) Eos % (Auto) Baso % (Auto) Neut # (Auto) Lymph # (Auto) [place] # (Auto) Eos # (Auto) Baso # (Auto) Immature Gran # (Auto) Absolute Nucleated RBC Immature Gran % Nucleated RBC % APTT D-Dimer Puncture Site Right Radial ABG pH 7.37 ABG pCO2 52 H ABG pO2 85 ABG HCO3 30 H ABG O2 Saturation 97 ABG Base Excess 4 H Oxygen Liter Flow 5 FiO2 21 Sodium 137 Potassium 3.9 Chloride 102 Carbon Dioxide 25.4 Anion Gap 10 BUN < 5 L Creatinine 0.8 Estim Creat Clear Calc Not Performed. eGFR > 60 BUN/Creatinine Ratio 6 L Glucose 98 Calculated Osmolality 271 L Calcium 8.8 Corrected Calcium 9.0 Phosphorus Magnesium 1.9 Total Bilirubin 0.6 AST 14 ALT 8 L Alkaline Phosphatase 96 Troponin I < 0.020 B-Natriuretic Peptide Total Protein 7.2 Albumin 3.7 Globulin 3.5 Albumin/Globulin Ratio 1.1 L Triglycerides Cholesterol LDL Cholesterol, Calc HDL Cholesterol Cholesterol/HDL Ratio TSH Ur Collection Type Catheter Urine Color Lt-Yellow Urine Clarity Clear Urine pH 6.0 Ur Specific [place] 1.034 Urine Protein Negative Urine Glucose (UA) Negative Urine Ketones Trace Urine Blood 1+ A Urine Nitrite Negative Urine Bilirubin Negative Urine Urobilinogen (Auto) Negative Ur Leukocyte Esterase Negative Urine RBC 11 H Urine WBC 2 Ur Squamous Epith Cells 1 Urine Bacteria None Ur Culture Indicated? Not Indicated Urine Opiates Screen Positive A Urine Fentanyl Screen Negative Ur Barbiturates Screen Negative U Amphetamin/Meth Scrn Positive A U Benzodiazepines Scrn Negative U Cocaine Metab Screen Negative U Marijuana (THC) Screen Negative HIV 1&2 Antibody Rapid Influenza A (Rapid) Influenza B (Rapid) 04/15/25 03:40 WBC 8.9 RBC 4.34 L Hgb 13.8 Hct 41.3 MCV 95 MCH 31.8 MCHC 33.4 RDW Std Deviation 45.7 H Plt Count 260 D Neut % (Auto) 76 Lymph % (Auto) 12 [place] % (Auto) 9 Eos % (Auto) 2 Baso % (Auto) 1 Neut # (Auto) 6.8 Lymph # (Auto) 1.1 [place] # (Auto) 0.8 Eos # (Auto) 0.2 Baso # (Auto) 0.1 Immature Gran # (Auto) 0.05 H Absolute Nucleated RBC 0.00 Immature Gran % 1 H Nucleated RBC % 0 APTT 39.6 H D D-Dimer Puncture Site ABG pH ABG pCO2 ABG pO2 ABG HCO3 ABG O2 Saturation ABG Base Excess Oxygen Liter Flow FiO2 Sodium 138 Potassium 4.1 Chloride 99 Carbon Dioxide 29.8 Anion Gap 9 BUN 6 L Creatinine 1.0 Estim Creat Clear Calc 127.4 eGFR > 60 BUN/Creatinine Ratio 6 L Glucose 93 Calculated Osmolality 273 L Calcium 9.1 Corrected Calcium Phosphorus 3.5 Magnesium 2.6 Total Bilirubin AST ALT Alkaline Phosphatase Troponin I B-Natriuretic Peptide Total Protein Albumin Globulin Albumin/Globulin Ratio Triglycerides 91 Cholesterol 168 LDL Cholesterol, Calc 100 HDL Cholesterol 50 Cholesterol/HDL Ratio 3.4 L TSH 1.47 Ur Collection Type Urine Color Urine Clarity Urine pH Ur Specific [place] Urine Protein Urine Glucose (UA) Urine Ketones Urine Blood Urine Nitrite Urine Bilirubin Urine Urobilinogen (Auto) Ur Leukocyte Esterase Urine RBC Urine WBC Ur Squamous Epith Cells Urine Bacteria Ur Culture Indicated? Urine Opiates Screen Urine Fentanyl Screen Ur Barbiturates Screen U Amphetamin/Meth Scrn U Benzodiazepines Scrn U Cocaine Metab Screen U Marijuana (THC) Screen HIV 1&2 Antibody Rapid Non-Reactive Influenza A (Rapid) Influenza B (Rapid) ABG Interpretation ABG results: 04/15/25 01:00 ABG pH 7.37 ABG pCO2 52 H ABG pO2 85 ABG HCO3 30 H ABG O2 Saturation 97 ABG Base Excess 4 H Quality Measures Quality Measures none Assessment & Plan Assessment Current Active Medications: Generic Name Dose Route Start Last Admin Trade Name Freq PRN Reason Stop Dose Admin Acetaminophen 650 mg 04/15/25 01:57 Acetaminophen 325 Mg Tablet PO 05/14/25 22:34 Q6H PRN Fever >99.9 Heparin Sodium/Dextrose 25,000 unit in 250 mls @ 18 mls/hr 04/14/25 18:45 04/15/25 08:55 Heparin In D5w Ivpb IV 04/28/25 18:44 15.6 units/kg/hr .[id number] JOSE 20.662 mls/hr Protocol Administration 13.59 UNITS/KG/HR Vancomycin HCl/Dextrose 300 mls @ 120 mls/hr 04/15/25 10:00 04/15/25 09:06 Vancomycin/D5w 1500 Mg Ivpb IV 04/22/25 09:59 120 mls/hr BID@1000,2200 JOSE Administration Protocol Lactated Ringer's 1,000 mls @ 999 mls/hr 04/15/25 09:23 04/15/25 09:31 Lactated Ringers IV 04/15/25 10:23 999 mls/hr .Q1H1M ONE Administration Ceftriaxone Sodium/Dextrose 1 gm in 50 mls @ 100 mls/hr 04/15/25 09:30 04/15/25 09:39 Rocephin/D5w 1gm Iv Premix IV 04/22/25 09:29 100 mls/hr QDAY JOSE Administration Ondansetron HCl 4 mg 04/14/25 22:35 Ondansetron Inj 2 Mg/Ml Inj 2 Ml IVP 05/14/25 22:34 Q6H PRN NAUSEA OR VOMITING Protocol Pantoprazole Sodium 40 mg 04/15/25 02:35 04/15/25 08:55 Pantoprazole Inj 40 Mg Vial IVP 05/15/25 02:34 40 mg QDAY JOSE Administration Pharmacy Consult 1 each 04/15/25 09:00 Vancomycin Pharmacy To Dose 1 Each Each IV 05/15/25 08:59 QDAY PRN PROTOCOL Plan 44-year-old homeless male with multiple comorbidities including hypertension, prior PE/DVT, HFpEF, CAMILLA, polysubstance use, and chronic medication non- compliance, admitted for new right PE, left popliteal DVT, and left lower extremity cellulitis, upgraded to ICU for transcutaneous pacing for second degree type II heart block on rhythm strip. Neurology #Acute metabolic encephalopathy Likely due to substance use (urine tox positive for methamphetamine and opioids) or withdrawal. DDx: infectious vs electrolyte abnormalities vs hypoxia. Diagnostic Test: - Urine toxicology: positive for opiates and methamphetamines. - Lethargic, A&Ox2. - No leukocytosis. Afebrile. - Admission glucose 97. - Electrolytes within normal limits. - ABG: pH 7.37/pCO2 52/pO2 85/HCO3 30/O2 97. Treatment Plan: - IV fluids. - Monitor mentation as drug effects wears off. Cardiovascular #Possible intermittent second degree type II heart block #Stage 1 Diastolic HFpEF 55-60% #Hypertension urgency Diagnostic Test: - Rapid response called at 1:00AM for bradycardia (HR 30-40s). Rhythm strip showed Mobitz type II block, however this is not picked up by EKG. Patient was noted to by hypertensive and saturating well on 1L on NC. Patient upgraded to ICU for transcutaenous pacing as atropine unlikely to be effective since block is below AV node. - Per telemonitoring, patient had multiple short episodes of paced rhythm overnight but patient spent the majority of the night in sinus rhythm. Transcutaneous pacing was discontinued this morning. Patient has remained in sinus rhythm with HRs in the 70-80s since removal of pacer pads. Treatment Plan: - Discontinue transcutaneous pacing as patient has remained in sinus rhythm with HR in 70-80s. - Cardiology consulted - appreciate recs. - Echo pending. - Monitor K and Mg closely. Maintain K>4 and Mg>2 to reduce arrhythmia risk. Treatment Review: - Status post transcutaneous pacing. - IV KCL 20mEq x1. - IV Mg sulfate 2g over 15 minutes + 2g regular infusion. Respiratory #Right lung pulmonary emboli and infarct #Pulmonary artery hypertension #Chronic respiratory failure #Left lower extremity popliteal vein DVT #History of DVT Diagnostic Test: - CXR: enlarged cardiac silhouette, pulmonary vascular congestion. - CTA: pulmonary artery hypertension, multiple pulmonary artery emboli on the right with possible mild pulmonary infarction of right base. - Doppler ultrasound: positive for partial nonocclusive thrombus in the left popliteal vein. - CT LE: negative for osteomyelitis. - ABG: pH 7.37/pCO2 52/pO2 85/HCO3 30/O2 97. - D-dimer on admission: 2240. Treatment Plan: - On Heparin ggt with loading dose given in ED. PTT levels 27.6 --> 39.6 --> 46.6. #Obstructive sleep apea Diagnostic Test: - Previously diagnosed with CAMILLA, but is non compliant with CPAP. - BMI 42.7 kg/m2. Treatment Plan: - CPAP started in ICU. GI and F/E/N #No active problems Renal #No active problems Heme #No active problems Endo #No active problems ID #Left lower extremity cellulitis - Bilateral LE pain and edema for 4 days (L>R). - Patient endorses significant lower extremitity discomfort. - Per patient, he was previously hospitalized for the cellulitis at multiple hospitals and was in a coma at one point. - Per patient, circumferential wound of left lower leg was from a sock that was too tight, started 1 week ago. Diagnosis Test: - CT LE: negative for osteomyelitis. Treatment Plan: - IV Vancomycin PTD (04/15 -). Can discontinue if MRSA screen is negative. - IV Ceftriaxone 1 gram QD (04/15-) - Per surgery, no debridement is needed. Recommend wound care. Treatment Review: - IV Zosyn 4.5 gram discontinued (2 doses given) and deescalated to IV Ceftriaxone 1 gram QD. Health maintenance: Dispo: Tele Bed Diet: Cardiac low sodium DVT ppx: Heparin gtt GI ppx: Protonix 40mg qD IV lines: 2 pIV Central line: No Arterial line: No Code status: FULL CODE Patient discussed with my senior resident Dr. Marion and attending, Dr. Tesfaye. Krystal Ward DO, PGY 1 Attending Provider Attestation/Addendum pt seen and examined, d/w resident team. pt was admitted to the ICU overnight for transcutaneous pacing. A rapid response was called for bradycardia overnight though it is noted that pt was normotensive to hypertensive throughout. He was brought to the ICU and started on pacer pads with a rate of 60. This AM he was hypertensive with a SBP >180. He is intermittently sleepy however wakes up well with physical stimuli. He has a h/o HFpEF and drug abuse. His HR varies from 60s to 80s and thus pacer pads were stopped and removed. He will occasionally dip down to the 40s however does not sustain and it is not associated with AMS or hypotension. He is appropriate for tele. On exam he is noted to have an area of significant cellulitis on his LLE. He is on abx for this and a CT did not show any area of fluid collection to be drained. There is induration but no crepitations or fluctuance on exam today. His ABG is consistent with chronic resp acidosis and compensatory metabolic alkalosis. He is on a heparin gtt for his PE and DVT. case d/w ICU team labs, imaging, records reviewed ~38min required for eval, exam, review, intervention, discussion and formulation of POC for this pt
[2025-04-15 12:11] LABS: Partial Thromboplastin Time 46.6 Seconds (22.0-36.0)
--- NOTE | 2025-04-15 12:24 | PC.SS ---
Patient Wilfredo Owens is a 44 Year old male admitted for PE/DVT/Cellulitis. SS conducted bedside contact with the patient to conduct initial assessment and discuss discharge planning. Patient was lethargic at the time, however was able to answer questions.Patient confirmed demographic information. Patient states that he is homeless and reports he does have HX of meth use. Patient reports his cousin Betty Manuel is his surrogate decision maker, [phone]. Patient reports he does not utilize DME to assist with ambulation. Patient does not utilize oxygen. Patient describes ability to complete ADL?s independently. Patient utilizes [facility] for PCP services however has not followed up in a while. Choice of Pharmacy is [facility]. Patient will require half-way placement upon discharge, he is refusing [facility] area. If half-way placement is obtained social science research assistant will arrange transportation on behalf of the patient SS will provide resources for patient at the time patient is lethargic to go over resources. SS contacted Betty to verify if she is agreeable to be patient's decision maker. Betty reports she has not had any contact with patient in a while due to a fall out, however reports she is able to make decisions in case of an emergency. Next of Kin: Cousin, Betty Manuel D/C Plan: Prison
--- NOTE | 2025-04-15 13:57 | ESPR_ITS ---
Documentation for date of: 04/15/25 Senior resident attestation: Patient evaluated and examined at the bedside, plan of care discussed with rest of the team including my attending physician, except as noted. Patient was admitted to ICU for Mobitz type II AV block, transient bradycardia following a rapid response. Other problems of note during this admission include HFpEF, bilateral lower extremity cellulitis and DVT, acute hypoxic respiratory failure and pulmonary embolism, CAMILLA and homelessness status. At the time of evaluation patient is evaluated the bedside, he is currently sleepy and drowsy, per ICU resident patient does become hypoxic when he is asleep, hypoxia improves when patient is awake and on OxyMask. Will add CPAP when patient is sleeping. #Pulm embolism?CT angiogram chest shows right lung PE, cardiology was consulted and following the patient, per cardiology contrast timing defect, but did show clear main pulmonary arteries, recommended continuing IV heparin gtt. PTT per protocol. #Hypertensive urgency?poor response to IV hydralazine, started on amlodipine 5 mg daily and lisinopril 20 mg daily, #DVT?nonocclusive thrombus left renal vein, currently on heparin drip #Bradycardia?Mobitz type II, patient required pacing transiently, pacer pads were removed this morning, currently heart rate in the 80s. Continue to monitor. Quresh PGY3 Subjective Subjective Interval history: Wilfredo Owens is a 44 y/o male with PMH of medication noncompliance, HFpEF (LVEF 55-60%), hx of LE DVT, hx of PE, LLE cellulitis, polysubstance use (methamphetamine, tobacco, opiates), HTN, asthma, obesity, obesity hypoventilation syndrome, CAMILLA,, homelessness who presented to the ED on 04/14 with b/l foot pain, shortness of breath. On admission, patient was difficult to arouse. Patient was initially admitted to floors however rapid was later called for bradycardia HR 30s and hypoxia respiratory failure requiring 5 L OxyMask. Rhythm strip showed Mobitz type II bradycardia. Patient was then admitted to ICU for transcutaneous pacing for bradycardia. Patient was intermittently paced overnight and pads removed morning of 04/15. Patient was also found to have R lung PE and LLE popliteal vein DVT and is on heparin drip, and cardiology on board. Patient stable and downgraded to floors 04/15. Currently, patient is very drowsy, denies bodily pain or SOB at this time. Exam Vital Signs Temp Pulse Resp BP Pulse Ox O2 Del Method O2 Flow Rate 98.2 F 83 28 H 188/111 H 95 Nasal Cannula 2 04/15/25 12:00 04/15/25 12:31 04/15/25 12:31 04/15/25 12:31 04/15/25 12:31 04/15/25 12:00 04/15/25 12:00 FiO2 3 04/15/25 05:51 Narrative Exam GENERAL: AxOx2, no acute distress, very drowsy on 2L NC, eyes crusted shut HEENT: NC/AT, mucous membranes dry, bilateral sclera anicteric CARDIOVASCULAR: regular rate and rhythm, S1/S2 present, no murmurs appreciated PULMONARY: clear to auscultation bilaterally, no rales/rhonchi/wheezes ABDOMINAL: soft, non-tender, non-distended, no rebound/guarding, bowel sounds present EXTREMITIES: 2+ BLE edema, weak peripheral pulses, LLE above ankle circumfrential open wound wrapped in sterile gauze SKIN: venous stasis dermatitis BLE NEURO: CN II-XII grossly intact, alert, following commands Objective Labs 04/15/25 03:40 04/15/25 03:40 Labs: Laboratory Results - last 24 hr 04/14/25 04/14/25 04/14/25 10:39 17:10 19:13 WBC RBC Hgb Hct MCV MCH MCHC RDW Std Deviation Plt Count Neut % (Auto) Lymph % (Auto) [place] % (Auto) Eos % (Auto) Baso % (Auto) Neut # (Auto) Lymph # (Auto) [place] # (Auto) Eos # (Auto) Baso # (Auto) Immature Gran # (Auto) Absolute Nucleated RBC Immature Gran % Nucleated RBC % APTT 27.6 D-Dimer 2240 H Puncture Site ABG pH ABG pCO2 ABG pO2 ABG HCO3 ABG O2 Saturation ABG Base Excess Oxygen Liter Flow FiO2 Sodium Potassium Chloride Carbon Dioxide Anion Gap BUN Creatinine Estim Creat Clear Calc eGFR BUN/Creatinine Ratio Glucose Calculated Osmolality Calcium Corrected Calcium Phosphorus Magnesium Total Bilirubin AST ALT Alkaline Phosphatase Troponin I Total Protein Albumin Globulin Albumin/Globulin Ratio Triglycerides Cholesterol LDL Cholesterol, Calc HDL Cholesterol Cholesterol/HDL Ratio TSH Ur Collection Type Urine Color Urine Clarity Urine pH Ur Specific [place] Urine Protein Urine Glucose (UA) Urine Ketones Urine Blood Urine Nitrite Urine Bilirubin Urine Urobilinogen (Auto) Ur Leukocyte Esterase Urine RBC Urine WBC Ur Squamous Epith Cells Urine Bacteria Ur Culture Indicated? Urine Opiates Screen Urine Fentanyl Screen Ur Barbiturates Screen U Amphetamin/Meth Scrn U Benzodiazepines Scrn U Cocaine Metab Screen U Marijuana (THC) Screen HIV 1&2 Antibody Rapid Influenza A (Rapid) Negative Influenza B (Rapid) Negative 04/14/25 04/15/25 04/15/25 19:15 01:00 01:15 WBC RBC Hgb Hct MCV MCH MCHC RDW Std Deviation Plt Count Neut % (Auto) Lymph % (Auto) [place] % (Auto) Eos % (Auto) Baso % (Auto) Neut # (Auto) Lymph # (Auto) [place] # (Auto) Eos # (Auto) Baso # (Auto) Immature Gran # (Auto) Absolute Nucleated RBC Immature Gran % Nucleated RBC % APTT D-Dimer Puncture Site Right Radial ABG pH 7.37 ABG pCO2 52 H ABG pO2 85 ABG HCO3 30 H ABG O2 Saturation 97 ABG Base Excess 4 H Oxygen Liter Flow 5 FiO2 21 Sodium 137 Potassium 3.9 Chloride 102 Carbon Dioxide 25.4 Anion Gap 10 BUN < 5 L Creatinine 0.8 Estim Creat Clear Calc Not Performed. eGFR > 60 BUN/Creatinine Ratio 6 L Glucose 98 Calculated Osmolality 271 L Calcium 8.8 Corrected Calcium 9.0 Phosphorus Magnesium 1.9 Total Bilirubin 0.6 AST 14 ALT 8 L Alkaline Phosphatase 96 Troponin I < 0.020 Total Protein 7.2 Albumin 3.7 Globulin 3.5 Albumin/Globulin Ratio 1.1 L Triglycerides Cholesterol LDL Cholesterol, Calc HDL Cholesterol Cholesterol/HDL Ratio TSH Ur Collection Type Catheter Urine Color Lt-Yellow Urine Clarity Clear Urine pH 6.0 Ur Specific [place] 1.034 Urine Protein Negative Urine Glucose (UA) Negative Urine Ketones Trace Urine Blood 1+ A Urine Nitrite Negative Urine Bilirubin Negative Urine Urobilinogen (Auto) Negative Ur Leukocyte Esterase Negative Urine RBC 11 H Urine WBC 2 Ur Squamous Epith Cells 1 Urine Bacteria None Ur Culture Indicated? Not Indicated Urine Opiates Screen Positive A Urine Fentanyl Screen Negative Ur Barbiturates Screen Negative U Amphetamin/Meth Scrn Positive A U Benzodiazepines Scrn Negative U Cocaine Metab Screen Negative U Marijuana (THC) Screen Negative HIV 1&2 Antibody Rapid Influenza A (Rapid) Influenza B (Rapid) 04/15/25 04/15/25 03:40 11:48 WBC 8.9 RBC 4.34 L Hgb 13.8 Hct 41.3 MCV 95 MCH 31.8 MCHC 33.4 RDW Std Deviation 45.7 H Plt Count 260 D Neut % (Auto) 76 Lymph % (Auto) 12 [place] % (Auto) 9 Eos % (Auto) 2 Baso % (Auto) 1 Neut # (Auto) 6.8 Lymph # (Auto) 1.1 [place] # (Auto) 0.8 Eos # (Auto) 0.2 Baso # (Auto) 0.1 Immature Gran # (Auto) 0.05 H Absolute Nucleated RBC 0.00 Immature Gran % 1 H Nucleated RBC % 0 APTT 39.6 H D 46.6 H D-Dimer Puncture Site ABG pH ABG pCO2 ABG pO2 ABG HCO3 ABG O2 Saturation ABG Base Excess Oxygen Liter Flow FiO2 Sodium 138 Potassium 4.1 Chloride 99 Carbon Dioxide 29.8 Anion Gap 9 BUN 6 L Creatinine 1.0 Estim Creat Clear Calc 127.4 eGFR > 60 BUN/Creatinine Ratio 6 L Glucose 93 Calculated Osmolality 273 L Calcium 9.1 Corrected Calcium Phosphorus 3.5 Magnesium 2.6 Total Bilirubin AST ALT Alkaline Phosphatase Troponin I Total Protein Albumin Globulin Albumin/Globulin Ratio Triglycerides 91 Cholesterol 168 LDL Cholesterol, Calc 100 HDL Cholesterol 50 Cholesterol/HDL Ratio 3.4 L TSH 1.47 Ur Collection Type Urine Color Urine Clarity Urine pH Ur Specific [place] Urine Protein Urine Glucose (UA) Urine Ketones Urine Blood Urine Nitrite Urine Bilirubin Urine Urobilinogen (Auto) Ur Leukocyte Esterase Urine RBC Urine WBC Ur Squamous Epith Cells Urine Bacteria Ur Culture Indicated? Urine Opiates Screen Urine Fentanyl Screen Ur Barbiturates Screen U Amphetamin/Meth Scrn U Benzodiazepines Scrn U Cocaine Metab Screen U Marijuana (THC) Screen HIV 1&2 Antibody Rapid Non-Reactive Influenza A (Rapid) Influenza B (Rapid) ABG Interpretation ABG results: 04/15/25 01:00 ABG pH 7.37 ABG pCO2 52 H ABG pO2 85 ABG HCO3 30 H ABG O2 Saturation 97 ABG Base Excess 4 H Quality Measures Quality Measures none Assessment & Plan Assessment Current Active Medications: Generic Name Dose Route Start Last Admin Trade Name Freq PRN Reason Stop Dose Admin Acetaminophen 650 mg 04/15/25 01:57 Acetaminophen 325 Mg Tablet PO 05/14/25 22:34 Q6H PRN Fever >99.9 Heparin Sodium/Dextrose 25,000 unit in 250 mls @ 18 mls/hr 04/14/25 18:45 04/15/25 08:55 Heparin In D5w Ivpb IV 04/28/25 18:44 15.6 units/kg/hr .[id number] JOSE 20.662 mls/hr Protocol Administration 13.59 UNITS/KG/HR Vancomycin HCl/Dextrose 300 mls @ 120 mls/hr 04/15/25 10:00 04/15/25 09:06 Vancomycin/D5w 1500 Mg Ivpb IV 04/22/25 09:59 120 mls/hr BID@1000,2200 JOSE Administration Protocol Ceftriaxone Sodium/Dextrose 1 gm in 50 mls @ 100 mls/hr 04/15/25 09:30 04/15/25 09:39 Rocephin/D5w 1gm Iv Premix IV 04/22/25 09:29 100 mls/hr QDAY JOSE Administration Lisinopril 20 mg 04/15/25 10:30 04/15/25 10:32 Lisinopril 20 Mg Tablet PO 05/15/25 10:29 20 mg QDAY JOSE Administration Ondansetron HCl 4 mg 04/14/25 22:35 Ondansetron Inj 2 Mg/Ml Inj 2 Ml IVP 05/14/25 22:34 Q6H PRN NAUSEA OR VOMITING Protocol Pantoprazole Sodium 40 mg 04/15/25 02:35 04/15/25 08:55 Pantoprazole Inj 40 Mg Vial IVP 05/15/25 02:34 40 mg QDAY JOSE Administration Pharmacy Consult 1 each 04/15/25 09:00 Vancomycin Pharmacy To Dose 1 Each Each IV 05/15/25 08:59 QDAY PRN PROTOCOL Plan Wilfredo Owens 44M with PMH of medication noncompliance, HFpEF (LVEF 55-60%), hx of LE DVT, hx of PE, LLE cellulitis, polysubstance use (methamphetamine, tobacco, opiates), HTN, asthma, obesity, obesity hypoventilation syndrome, CAMILLA, homelessness who [place] [facility] [place] with b/l foot pain, shortness of breath and encephalopathy, admitted for multiple R lung PEs, LLE DVT and cellulitis. #Acute hypoxic respiratory failure likely 2/2 #Multiple pulmonary artery emboli R lung #LLE popliteal DVT #LLE cellulitis #Hx of multiple DVTs and PEs #Primary HTN Presented with lethargy and RR called for desaturating requiring 5L oxymask, and was found to have multiple R PEs with LLE popliteal DVT. ABG 7.37/52/85/30 trops neg. Chest CTA showed pulmonary artery hypertension, multiple pulmonary artery filling defects right pulmonary artery including the distal right main pulmonary artery and multiple upper and lower lobe, mild opacity in right lower lung zone which may resent pulmonary infection. LLE US partial nonocclusive thrombus in L popliteal vein. LLE CT showed extensive cellulitis, neg osteomyelitis, no soft tissue abscess. Ddx: likely 2/2 polysubstance intoxication, immobilization and/or medication non adherence given prior DVTs and PEs. Zosyn (04/14) Plan: - Continue heparin drip, plan to transition to Eliquis after 48h - Cardiology consulted, recs appreciated: no acute intervention at this time - Restarted PO Lasix 40 mg QD - Stop lisinopril and start Losartan per cardiology - Start amlodipine 5 mg QD - Continue ceftriaxone (04/15 - ) and Vanc (04/14 - ) #Bradycardia, resolved #?Second degree Mobitz type II heart block, resolved #HFpEF (55-60%, 2023) On admission, heart rate was stable however RR was called for bradycardia that required transcutaneous pacing overnight. A rhythm strip printed showed Mobitz secondary type II AV block, which resolved on EKG during RR. Following removal of pacer pads 04/15, patient remains in sinus rhythm 70-90s. 01/2024 TTE Normal LV size and function. Estimatd EF 55-60%. Mild RV and RA dilatation. Normal RV function. Possible mild PH. The aortic root is mildly dilated 3.6cm. The ascending aorta is mildly dilated 3.7cm. Trace to mild TR. Likely 2/2 opiate use and polysubstance use. Plan: - Cardiology consulted, recs appreciated - Lasix as above - F/u echo - Keep K>4 and Mg>2 at all times #Encephalopathy, improving, likely 2/2 #Methamphetamine use #Opiate use On admission patient presented with extreme lethargy and AxOx2 likely 2/2 polysubstance use of methamphetamine and opiates as admission UDS was positive for those and/or infectious of extensive LLE cellulitis. Low suspicion for true metabolic source. Plan: - CTM mental status - Consider further laboratory workup if encephalopathy worsens #PAH #CAMILLA #Obesity hypoventilation syndrome Likely multifactorial from active PE, CAMILLA, OHS and cigarette/drug inhalation. Plan: - Cardiology consulted, recs appreciated - Lasix as above - CPAP qhs Hospital management: Lines: PIV Diet: 2g sodium Bowel: None GI prophylaxis: IV pantoprazole 40 mg QD DVT prophylaxis: heparin drip Disposition: tele, pending further med recs CODE STATUS: FULL CODE Plan of care discussed with attending Dr. Mojica, and PGY-3 Dr. Joyce. Neida Bach, DO PGY-1 Internal Medicine Attending Provider Attestation/Addendum I have examined the patient, reviewed labs and imaging findings, discussed the case with the resident(s), and reviewed entered orders. I agree with the plan of care as outlined in this note. Dr. Galina MD
--- NOTE | 2025-04-15 17:39 | PD.SURCONS ---
HPI Consult details Consult date: 04/15/25 Reason for consultation narrative: The patient was seen for ulceration over the left leg with magmyriam History of present illness: History personally reviewed that the patient has had multiple visits with the same problem and he has got stasis ulcers on both the lower extremities Meds Home Medications and Allergies Home Medications ?Medication ?Instructions ?Recorded ?Confirmed ?Type potassium chloride 20 mEq 20 meq PO BID 12/30/22 04/15/25 History tablet,extended release (K-Tab) Allergies Allergy/AdvReac Type Severity Reaction Status Date / Time clindamycin Allergy Mild DIARRHEA Verified 02/01/24 17:55 Exam Vital Signs Temp Pulse Resp BP Pulse Ox O2 Del Method O2 Flow Rate 98.0 F 89 29 H 160/107 H 97 Nasal Cannula 2 04/15/25 16:00 04/15/25 16:16 04/15/25 16:16 04/15/25 16:16 04/15/25 16:16 04/15/25 16:00 04/15/25 16:00 FiO2 3 04/15/25 05:51 Assessment & Plan Additional Assessment Additional comments: Impression ulceration left foot with bilateral stasis ulcers and venous insufficiency Plan Plan: Patient does not require any surgical intervention like a debridement. This can be managed with wound care nurses thank you
[2025-04-15] MEDS: Heparin/D5w 25K 250 ML Ivpb 25,000 UNIT/250 ML BAG 23.311 UNIT IV (21:12)
[2025-04-15 22:53] LABS: Partial Thromboplastin Time 48.1 Seconds (22.0-36.0)
[2025-04-16] VITALS (23 sets, daily range): BP systolic 130–185; BP diastolic 87–142; PULSE 54–101; RESP 16–40; TEMP 35.9–37.2; O2SAT 86–99
[2025-04-16] MEDS: HEPARIN SOD INJ 5000 UNIT/ML VIAL 4000 UNIT IVP (00:40)
[2025-04-16] MEDS: LOSARTAN POTASSIUM 25 MG TABLET 50 MG PO ×2 (00:57→08:25)
[2025-04-16 07:35] LABS: Basophils # (Auto) 0.1 Thou/mm3 (0.0-0.2); Basophils % (Auto) 1 % (0-2.5); Eosinophils # (Auto) 0.2 Thou/mm3 (0.0-0.5); Eosinophils % (Auto) 2 % (0-10); Hematocrit 40.7 % (41.0-53.0); Hemoglobin 14.1 g/dL (13.5-16.0); Immature Granulocytes Auto 0.21 Thou/mm3 (0.00-0.00); Lymphocytes # (Auto) 1.4 Thou/mm3 (1.0-4.8); Lymphocytes % (Auto) 13 % (10-50); Mean Corpuscular HGB Conc 34.6 g/dl (31.0-37.0); Mean Corpuscular Hemoglobin 32.2 pg (25.0-35.0); Mean Corpuscular Volume 93 fL (80-100); Monocytes # (Auto) 0.9 Thou/mm3 (0.0-0.8); Monocytes % (Auto) 9 % (0-12); Neutrophils # (Auto) 7.5 Thou/mm3 (1.8-7.7); Neutrophils % (Auto) 73 % (37-80); Nucleated Red Blood Cell # 0.00 Thou/mm3 (0.00-0.00); Nucleated Red Blood Cell % 0 /100 WBC (0); Platelet Count 237 Thou/mm3 (140-440); RDW Standard Deviation 43.8 fL (35.1-43.9); Red Blood Count 4.38 Miln/mm3 (4.50-5.90); White Blood Count 10.3 Thou/mm3 (3.8-10.6)
[2025-04-16] MEDS: ACETAMINOPHEN 325 MG TABLET 650 MG PO (08:21)
[2025-04-16] MEDS: Heparin/D5w 25K 250 ML Ivpb 25,000 UNIT/250 ML BAG 25.96 UNIT IV ×2 (08:23→19:15)
[2025-04-16] MEDS: cefTRIAXone/D5w 1gm IV premix 1 GM/50 ML BAG IV (08:24)
[2025-04-16 08:58] LABS: Anion Gap 8 (7-16); BUN/Creatinine Ratio 10 Ratio (12-20); Blood Urea Nitrogen 7 mg/dL (9-23); Calcium 9.5 mg/dL (8.3-10.6); Carbon Dioxide 31.1 mMol/L (20.0-31.0); Chloride 97 mMol/L (98-107); Creatinine (Component) 0.7 mg/dL (0.6-1.3); Estimated Creatinine Clearance 174.5 mL/min (>60); Glucose 106 mg/dL (74-106); Magnesium 1.8 mg/dL (1.6-2.6); Osmolality,Calculated 269 (275-295); Phosphorous 3.5 mg/dL (2.4-5.1); Potassium 3.7 mMol/L (3.4-5.1); Sodium 136 mMol/L (136-145); eGFR > 60 See Note
--- NOTE | 2025-04-16 08:58 | PC.SS ---
Update: Patient will be downgraded from ICU today.
[2025-04-16 09:08] LABS: INR 1.1 (0.9-1.3); Partial Thromboplastin Time 77.9 Seconds (22.0-36.0); Prothrombin Time 11.4 Seconds (9.0-12.2)
--- NOTE | 2025-04-16 09:31 | EKG_ITS ---
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
[2025-04-16 09:54] LABS: Vancomycin,Trough 10.3 mcg/mL (5.0-10.0)
[2025-04-16] MEDS: Vancomycin Inj 1,500 MG in SODIUM CHLORIDE 0.9% 500 ML 500 ML 200 MG IV ×2 (10:50→22:28)
--- NOTE | 2025-04-16 14:25 | PC.SS ---
Rounding Note: Plan is to address blood pressure. Possible d/c tomorrow.
--- NOTE | 2025-04-16 15:44 | PD.RESPRO ---
Documentation for date of: 04/16/25 Subjective Subjective Interval history: Patient was seen and assessed at bedside. Patient was not cooperative during exam. No new complaints besides pain in left lower leg wound site, feels like there is something wiggling inside. At bedside, counseled again regarding cessation of meth use. BP elevated at 150/99 this morning, SBP 150-170s. HR stable in 70-80s. WBC 10.3 (from 8.9). Bicarb 31.1, BUN 7, creatinine 0.7. Potassium 3.7, magnesium 1.8, repleted accordingly. Exam Vital Signs Temp Pulse Resp BP Pulse Ox O2 Del Method O2 Flow Rate 99.0 F 71 27 H 146/103 H 89 L Nasal Cannula 3 04/16/25 12:00 04/16/25 15:10 04/16/25 15:10 04/16/25 14:47 04/16/25 15:10 04/16/25 12:00 04/16/25 12:00 FiO2 3 04/15/25 05:51 Narrative Exam Physical Exam General: Awake and in no acute distress. Morbidly obese male. Sitting up eating breakfast. HEENT: Normocephalic, atraumatic, mucous membranes moist. Heart: Regular rate and rhythm, normal S1 and S2, no murmurs appreciated. Lungs: Clear to auscultation with no wheezing or crackles. Abdomen: Soft, nondistended, nontender, positive bowel sounds. No guarding or rebound tenderness. Neurologic: Alert and oriented x3, no gross neurological deficit, and patient able to move all 4 extremities. Extremities: 2+ pitting edema below ankles bilaterally. Circumferential open wound at above left ankle. Dressing clean dry and intact. Skin: Chronic venous stasis changes bilaterally. No rashes or ecchymosis. Objective Labs 04/16/25 06:35 04/16/25 08:15 Labs: Laboratory Results - last 24 hr 04/15/25 04/16/25 04/16/25 22:19 06:35 08:15 WBC 10.3 RBC 4.38 L Hgb 14.1 Hct 40.7 L MCV 93 MCH 32.2 MCHC 34.6 RDW Std Deviation 43.8 Plt Count 237 Neut % (Auto) 73 Lymph % (Auto) 13 [place] % (Auto) 9 Eos % (Auto) 2 Baso % (Auto) 1 Neut # (Auto) 7.5 Lymph # (Auto) 1.4 [place] # (Auto) 0.9 H Eos # (Auto) 0.2 Baso # (Auto) 0.1 Immature Gran # (Auto) 0.21 H Absolute Nucleated RBC 0.00 Immature Gran % 2 H Nucleated RBC % 0 PT 11.4 INR 1.1 APTT 48.1 H 77.9 H D Sodium 136 Potassium 3.7 Chloride 97 L Carbon Dioxide 31.1 H Anion Gap 8 BUN 7 L Creatinine 0.7 Estim Creat Clear Calc 174.5 eGFR > 60 BUN/Creatinine Ratio 10 L Glucose 106 Calculated Osmolality 269 L Calcium 9.5 Phosphorus 3.5 Magnesium 1.8 Vancomycin Trough 04/16/25 09:23 WBC RBC Hgb Hct MCV MCH MCHC RDW Std Deviation Plt Count Neut % (Auto) Lymph % (Auto) [place] % (Auto) Eos % (Auto) Baso % (Auto) Neut # (Auto) Lymph # (Auto) [place] # (Auto) Eos # (Auto) Baso # (Auto) Immature Gran # (Auto) Absolute Nucleated RBC Immature Gran % Nucleated RBC % PT INR APTT Sodium Potassium Chloride Carbon Dioxide Anion Gap BUN Creatinine Estim Creat Clear Calc eGFR BUN/Creatinine Ratio Glucose Calculated Osmolality Calcium Phosphorus Magnesium Vancomycin Trough 10.3 H ABG Interpretation ABG results: 04/15/25 01:00 ABG pH 7.37 ABG pCO2 52 H ABG pO2 85 ABG HCO3 30 H ABG O2 Saturation 97 ABG Base Excess 4 H Quality Measures Quality Measures none Assessment & Plan Assessment Current Active Medications: Generic Name Dose Route Start Last Admin Trade Name Lucio PRN Reason Stop Dose Admin Acetaminophen 650 mg 04/15/25 01:57 04/16/25 08:21 Acetaminophen 325 Mg Tablet PO 05/14/25 22:34 650 mg Q6H PRN Administration Fever >99.9 Amlodipine Besylate 10 mg 04/16/25 09:00 04/16/25 08:25 Amlodipine Besylate 5 Mg Tablet PO 05/16/25 08:59 10 mg QDAY JOSE Administration Furosemide 40 mg 04/15/25 14:15 04/16/25 08:21 Furosemide 40 Mg Tablet PO 05/15/25 14:14 40 mg QDAY JOSE Administration Hydrochlorothiazide 12.5 mg 04/16/25 10:05 04/16/25 10:23 Hydrochlorothiazide 12.5 Mg Capsule PO 05/16/25 10:04 12.5 mg QDAY JOSE Administration Heparin Sodium/Dextrose 25,000 unit in 250 mls @ 18 mls/hr 04/14/25 18:45 04/16/25 08:23 Heparin In D5w Ivpb IV 04/28/25 18:44 19.6 units/kg/hr .[id number] JOSE 25.96 mls/hr Protocol Administration 13.59 UNITS/KG/HR Ceftriaxone Sodium/Dextrose 1 gm in 50 mls @ 100 mls/hr 04/15/25 09:30 04/16/25 08:24 Rocephin/D5w 1gm Iv Premix IV 04/22/25 09:29 100 mls/hr QDAY JOSE Administration Vancomycin HCl 1,500 mg/ 500 mls @ 200 mls/hr 04/16/25 10:30 04/16/25 10:50 Sodium Chloride IV 04/23/25 10:29 200 mls/hr BID@1000,2200 JOSE Administration Protocol Losartan Potassium 100 mg 04/17/25 09:00 Losartan Potassium 25 Mg Tablet PO 05/17/25 08:59 QDAY JOSE Ondansetron HCl 4 mg 04/14/25 22:35 Ondansetron Inj 2 Mg/Ml Inj 2 Ml IVP 05/14/25 22:34 Q6H PRN NAUSEA OR VOMITING Protocol Pantoprazole Sodium 40 mg 04/15/25 02:35 04/16/25 08:23 Pantoprazole Inj 40 Mg Vial IVP 05/15/25 02:34 40 mg QDAY JOSE Administration Pharmacy Consult 1 each 04/15/25 09:00 Vancomycin Pharmacy To Dose 1 Each Each IV 05/15/25 08:59 QDAY PRN PROTOCOL Plan Patient is a 44 year old male with past medical history of HFpEF (55-60%), morbid obesity, substance abuse including methamphetamine abuse, chronic smoker with more than 23-72-tqmx-year smoking history, alcohol use, homeless, history of chronic leg swelling on Lasix previously, medical noncompliance, previous lower extremity DVT and bilateral PE, and chronic venous stasis changes on bilateral limbs who presented to [facility] ED for bilateral foot pain and shortness of breath. Admitted for right PE, left popliteal DVT, and lower leg cellulitis. Upgraded to ICU for transcutaneous pacing for Mobitz type II heart block, for which cardiology was consulted for management of. #Second degree Mobitz type II heart block #Bradycardia, resolved #HFpEF (55-60%, 2023) Noted to have brief intermittent episodes of Mobitz type II heartblock on ED tele. RR was called for bradycardia that required transcutaneous pacing at 60 mA overnight. A rhythm strip printed showed Mobitz secondary type II AV block, which resolved on EKG during RR. Following removal of pacer pads after a couple of hours, HR now stable in 70-90s. On previous admission, patient was also to have episodes of similar heart block. This time also liekly secondary to metabolic disturbances with long history of drug abuse. 01/2024 TTE Normal LV size and function. Estimatd EF 55-60%. Mild RV and RA dilatation. Normal RV function. Possible mild PH. The aortic root is mildly dilated 3.6cm. The ascending aorta is mildly dilated 3.7cm. Trace to mild TR. Echo 04/15/25 showed Normal LV size and wall thickness. Normal LV function with an EF of 55 to 60%. Grade 1 diastolic dysfunction. Mildly dilated RV with normal RV function. RVSP could not be measured because of insufficient TR jet but septum appears flat during systole indicating mildly elevated pressure. Trace MR and TR. No pericardial effusion. Plan: - As per previous evaluation on last admission, patient is not a candidate for permanent pacemaker insertion at this time. - Echo ordered to rule out any regional wall motion abnormalities, evaluate LV function, RV function, diastolic function and any valvular abnormalities. - Recommend to check BNP - Lasix PO 40mg BID - Start on GDMT with Losartan, add spiranolactone if BP tolerates. - Avoid beta-blockers or calcium channel blockers like diltiazem or verapamil or other heart rate lowering medications which can cause bradycardia. - Continue to monitor telemetry - Keep K>4 and Mg>2 at all time #Multiple pulmonary artery emboli R lung #LLE popliteal DVT #Hx of multiple DVTs and PEs Presented with lethargy and RR called for desaturating requiring 5L oxymask, and was found to have multiple R PEs with LLE popliteal DVT. ABG 7.37/52/85/30 trops neg. Was previously admitted in 06/2023 for DVT and bilateral PEs. Was started on Xarelto but has also been noncomplaint with this as well. Chest CTA showed pulmonary artery hypertension, multiple pulmonary artery filling defects right pulmonary artery including the distal right main pulmonary artery and multiple upper and lower lobe, mild opacity in right lower lung zone which may resent pulmonary infection. Upon close review of CT, patient is only having right upper lobe as well as right middle lobe filling defects. Rest of the lobar branches and the subsegmental branches are free of any filling defects along with the main pulmonary artery. CT also shows evidence of pulmonary hypertension with dilated pulmonary artery up to 4 cm. LLE US partial nonocclusive thrombus in L popliteal vein. LLE CT showed extensive cellulitis, neg osteomyelitis, no soft tissue abscess. Are chronic/recurring problems for him that have not been resolved due to medication non adherence. Plan: - Continue heparin drip. Recommend transitioning to Eliquis after 48h. - Patient is not tachycardic and is not hypoxic the present point of time. No indication for any mechanical thrombectomy at the present point of time recommend to continue heparin drip for anticoagulation if any further procedures are planned. Can transition to Eliquis as per the DVT PE protocol to 10 mg twice daily and then 5 mg twice daily. #HTN Likely exacerbated by CAMILLA and medication noncompliance. - Lasix and Losartan as above. Continue to uptitrate Losartan to 100 mg once daily. Okay to give amlodipine after maximizing losartan dose. - CTM BP #PAH #CAMILLA #Obesity hypoventilation syndrome BMI 42.7. - Lasix as above - CPAP at night #LLE cellulitis #Encephalopathy, improving, likely 2/2 #Methamphetamine use #Opiate use Thank you for your consultation, please do not hesitate to reach out if you have any question or concern Patient plan of care was discussed with the attending physician, Dr. Chau. Delfina Bach, PGY-1 Attending Provider Attestation/Addendum I have personally seen and examined the patient separately on the above date of service and discussed the plan of care with the resident. I reviewed the resident Dr. Delfina Bach consultation progress note and agree with the resident findings and plan in the note above and have also edited the documentation to reflect my findings and plan. Alfred Chau M.D. Interventional Cardiology
--- NOTE | 2025-04-16 15:46 | ESPR_ITS ---
<Statement entered by Clinton Azul MD - 04/16/25 17:31> Patient was seen and evaluated at bedside this morning. Patient again was noted to be in the heart rates in the low 40s to high 30s throughout the night while he was sleeping, but he was asymptomatic. Today started the patient on 100 of losartan, hydrochlorothiazide 12.5, and amlodipine 10 mg as patient's blood pressure was still significantly elevated. Will continue with current blood pressure regimen and with p.o. Lasix for now we will also continue heparin and transition to Eliquis likely tomorrow. Continue ceftriaxone and vancomycin for now. I have reviewed the note and agree with the resident's assessment & plan with exceptions as below. I have personally reviewed labs, imaging, home meds/prior records, examined the patient, formulated and discussed management plan with my attending Case disclosed with attending Dr. Galina Azul PGY2 Disclaimer: Even though this this note was dictated by speech recognition and even though it was carefully revised there may still be minor errors in mash tub cooker operator due to voice recognition software. Documentation for date of: 04/16/25 Subjective Subjective Interval history: Overnight, patient received losartan 50 mg for SBP 180s. Patient seen and examined at bedside in ICU on 3L O2 NC. Patient is still drowsy, denies some left lower leg discomfort, denies bodily pain. Reports good appetite. Denies urinary symptoms. Vitals and labs reviewed. BP still elevated SBP 150-180. Telemetry reviewed, lowest HR 37 overnight with low 40s. K 3.7 repleted with 40 mEq, Cl 97, bicarb 31. Mg 1.8 repleted with 2 g IV. Uptitrate losartan to 100 mg and amlodipine to 10 mg. Start HCTZ 12.5 mg and continue PO Lasix 40 mg. Continue heparin and transition to Eliquis tomorrow. Continue ceftriaxone and vancomycin. CTM bradycardia. Exam Vital Signs Temp Pulse Resp BP Pulse Ox O2 Del Method O2 Flow Rate 99.0 F 71 27 H 146/103 H 89 L Nasal Cannula 3 04/16/25 12:00 04/16/25 15:10 04/16/25 15:10 04/16/25 14:47 04/16/25 15:10 04/16/25 12:00 04/16/25 12:00 FiO2 3 04/15/25 05:51 Narrative Exam GENERAL: AxOx2, no acute distress, very drowsy on 3L NC HEENT: NC/AT, mucous membranes dry, bilateral sclera anicteric CARDIOVASCULAR: regular rate and rhythm, S1/S2 present, no murmurs appreciated PULMONARY: clear to auscultation bilaterally, no rales/rhonchi/wheezes ABDOMINAL: soft, non-tender, non-distended, no rebound/guarding, bowel sounds present EXTREMITIES: 2+ BLE edema, weak peripheral pulses, LLE above ankle circumfrential open wound wrapped in sterile gauze SKIN: venous stasis dermatitis BLE NEURO: CN II-XII grossly intact, alert, following commands Objective Labs 04/16/25 06:35 04/16/25 08:15 Labs: Laboratory Results - last 24 hr 04/15/25 04/16/25 04/16/25 22:19 06:35 08:15 WBC 10.3 RBC 4.38 L Hgb 14.1 Hct 40.7 L MCV 93 MCH 32.2 MCHC 34.6 RDW Std Deviation 43.8 Plt Count 237 Neut % (Auto) 73 Lymph % (Auto) 13 [place] % (Auto) 9 Eos % (Auto) 2 Baso % (Auto) 1 Neut # (Auto) 7.5 Lymph # (Auto) 1.4 Sullivan # (Auto) 0.9 H Eos # (Auto) 0.2 Baso # (Auto) 0.1 Immature Gran # (Auto) 0.21 H Absolute Nucleated RBC 0.00 Immature Gran % 2 H Nucleated RBC % 0 PT 11.4 INR 1.1 APTT 48.1 H 77.9 H D Sodium 136 Potassium 3.7 Chloride 97 L Carbon Dioxide 31.1 H Anion Gap 8 BUN 7 L Creatinine 0.7 Estim Creat Clear Calc 174.5 eGFR > 60 BUN/Creatinine Ratio 10 L Glucose 106 Calculated Osmolality 269 L Calcium 9.5 Phosphorus 3.5 Magnesium 1.8 Vancomycin Trough 04/16/25 09:23 WBC RBC Hgb Hct MCV MCH MCHC RDW Std Deviation Plt Count Neut % (Auto) Lymph % (Auto) [place] % (Auto) Eos % (Auto) Baso % (Auto) Neut # (Auto) Lymph # (Auto) Sullivan # (Auto) Eos # (Auto) Baso # (Auto) Immature Gran # (Auto) Absolute Nucleated RBC Immature Gran % Nucleated RBC % PT INR APTT Sodium Potassium Chloride Carbon Dioxide Anion Gap BUN Creatinine Estim Creat Clear Calc eGFR BUN/Creatinine Ratio Glucose Calculated Osmolality Calcium Phosphorus Magnesium Vancomycin Trough 10.3 H ABG Interpretation ABG results: 04/15/25 01:00 ABG pH 7.37 ABG pCO2 52 H ABG pO2 85 ABG HCO3 30 H ABG O2 Saturation 97 ABG Base Excess 4 H Quality Measures Quality Measures none Assessment & Plan Assessment Current Active Medications: Generic Name Dose Route Start Last Admin Trade Name Freq PRN Reason Stop Dose Admin Acetaminophen 650 mg 04/15/25 01:57 04/16/25 08:21 Acetaminophen 325 Mg Tablet PO 05/14/25 22:34 650 mg Q6H PRN Administration Fever >99.9 Amlodipine Besylate 10 mg 04/16/25 09:00 04/16/25 08:25 Amlodipine Besylate 5 Mg Tablet PO 05/16/25 08:59 10 mg QDAY JOSE Administration Furosemide 40 mg 04/15/25 14:15 04/16/25 08:21 Furosemide 40 Mg Tablet PO 05/15/25 14:14 40 mg QDAY JOSE Administration Hydrochlorothiazide 12.5 mg 04/16/25 10:05 04/16/25 10:23 Hydrochlorothiazide 12.5 Mg Capsule PO 05/16/25 10:04 12.5 mg QDAY JOSE Administration Heparin Sodium/Dextrose 25,000 unit in 250 mls @ 18 mls/hr 04/14/25 18:45 04/16/25 08:23 Heparin In D5w Ivpb IV 04/28/25 18:44 19.6 units/kg/hr .[id number] JOSE 25.96 mls/hr Protocol Administration 13.59 UNITS/KG/HR Ceftriaxone Sodium/Dextrose 1 gm in 50 mls @ 100 mls/hr 04/15/25 09:30 04/16/25 08:24 Rocephin/D5w 1gm Iv Premix IV 04/22/25 09:29 100 mls/hr QDAY JOSE Administration Vancomycin HCl 1,500 mg/ 500 mls @ 200 mls/hr 04/16/25 10:30 04/16/25 10:50 Sodium Chloride IV 04/23/25 10:29 200 mls/hr BID@1000,2200 JOSE Administration Protocol Losartan Potassium 100 mg 04/17/25 09:00 Losartan Potassium 25 Mg Tablet PO 05/17/25 08:59 QDAY [facility] Ondansetron HCl 4 mg 04/14/25 22:35 Ondansetron Inj 2 Mg/Ml Inj 2 Ml IVP 05/14/25 22:34 Q6H PRN NAUSEA OR VOMITING Protocol Pantoprazole Sodium 40 mg 04/15/25 02:35 04/16/25 08:23 Pantoprazole Inj 40 Mg Vial IVP 05/15/25 02:34 40 mg QDAY [facility] Administration Pharmacy Consult 1 each 04/15/25 09:00 Vancomycin Pharmacy To Dose 1 Each Each IV 05/15/25 08:59 QDAY PRN PROTOCOL Plan Wilfredo Owens 44M with PMH of medication noncompliance, HFpEF (LVEF 55-60%), hx of LE DVT, hx of PE, LLE cellulitis, polysubstance use (methamphetamine, tobacco, opiates), HTN, asthma, obesity, obesity hypoventilation syndrome, CAMILLA, homelessness who presented to [facility] ED 04/14 with b/l foot pain, shortness of breath and encephalopathy, admitted for multiple R lung PEs, LLE DVT and cellulitis. #Acute hypoxic respiratory failure likely 2/2 #Multiple pulmonary artery emboli R lung #LLE popliteal DVT #LLE cellulitis #Hx of multiple DVTs and PEs #Primary HTN Presented with lethargy and RR called for desaturating requiring 5L oxymask, and was found to have multiple R PEs with LLE popliteal DVT. ABG 7.37/52/85/30 trops neg. Chest CTA showed pulmonary artery hypertension, multiple pulmonary artery filling defects right pulmonary artery including the distal right main pulmonary artery and multiple upper and lower lobe, mild opacity in right lower lung zone which may resent pulmonary infection. LLE US partial nonocclusive thrombus in L popliteal vein. LLE CT showed extensive cellulitis, neg osteomyelitis, no soft tissue abscess. Ddx: likely 2/2 polysubstance intoxication, immobilization and/or medication non adherence given prior DVTs and PEs. Zosyn (04/14) Plan: - Continue heparin drip, plan to transition to Eliquis tomorrow - Cardiology consulted, recs appreciated: no acute intervention at this time - Continue PO Lasix 40 mg QD and start PO HCTZ 12.5 mg QD - Start Losartan 100 mg QD and amlodipine 10 mg QD - Continue ceftriaxone (04/15 - ) and Vanc (04/14 - ) #Bradycardia, resolved #Second degree Mobitz type II heart block, resolved #HFpEF (55-60%, 2023) On admission, heart rate was stable however RR was called for bradycardia that required transcutaneous pacing overnight. A rhythm strip printed showed Mobitz secondary type II AV block, which resolved on EKG during RR. Following removal of pacer pads 04/15, patient remains in sinus rhythm 70-90s. 01/2024 TTE Normal LV size and function. Estimatd EF 55-60%. Mild RV and RA dilatation. Normal RV function. Possible mild PH. The aortic root is mildly dilated 3.6cm. The ascending aorta is mildly dilated 3.7cm. Trace to mild TR. 04/16/25 TTE Normal LV size and wall thickness. Normal LV function with an EF of 55 to 60%. Grade 1 diastolic dysfunction. Mildly dilated RV with normal RV function. RVSP could not be measured because of insufficient TR jet but septum appears flat during systole indicating mildly elevated pressure. Trace MR and TR. No pericardial effusion. Likely 2/2 opiate use and polysubstance use. Plan: - Cardiology consulted, recs appreciated: bradycardia likely 2/2 metabolic derangements and substance use - Lasix and HCTZ as above - Keep K>4 and Mg>2 at all times #Encephalopathy, improving, likely 2/2 #Methamphetamine use #Opiate use On admission patient presented with extreme lethargy and AxOx2 likely 2/2 polysubstance use of methamphetamine and opiates as admission UDS was positive for those and/or infectious of extensive LLE cellulitis. Low suspicion for true metabolic source. Plan: - CTM mental status - Consider further laboratory workup if encephalopathy worsens #PAH #CAMILLA #Obesity hypoventilation syndrome Likely multifactorial from active PE, CAMILLA, OHS and cigarette/drug inhalation. Plan: - Cardiology consulted, recs appreciated - Lasix as above - CPAP qhs Hospital management: Lines: PIV Diet: 2g sodium Bowel: None GI prophylaxis: IV pantoprazole 40 mg QD DVT prophylaxis: heparin drip Disposition: tele hypertension management, heparin drip CODE STATUS: FULL CODE Plan of care discussed with attending Dr. Mojica, and PGY-2 Dr. Jackson. Neida Bach, DO PGY-1 Internal Medicine Attending Provider Attestation/Addendum I have examined the patient, reviewed labs and imaging findings, discussed the case with the resident(s), and reviewed entered orders. I agree with the plan of care as outlined in this note, with these additional summaries/recommendations: Patient seen at bedside. Overnight patient had an episode of bradycardia but remained asymptomatic. He is very somnolent at bedside today. Patient admitted for acute hypoxic respiratory failure secondary to pulmonary embolisms. This is apparently patient's second episode of blood clots. Pulmonary embolism does appear provoked in the setting of cellulitis and substance abuse although given that this is patient's second DVT/PE he will need to be anticoagulated for at least a year and may even require indefinite anticoagulation. Continue heparin GTT. APTT is at therapeutic range today and we will continue for an additional 24 hours and transition to NOAC. Defer hypercoagulable panel to outpatient. In-house cardiology following, recommendations appreciated. Continue supplemental oxygen and wean as tolerated. Patient has a history of Mobitz type II heart block and did develop an episode of bradycardia overnight but appeared to be sinus. Cardiology following. Patient's blood pressure remains uncontrolled and I suspect component of methamphetamine withdrawal and CPAP noncompliance are contributing to patient's elevated blood pressure. Patient counseled on wearing CPAP mask. Counseled on substance abuse cessation. We will continue to adjust antihypertensive regimen as needed. Continue diuresis for HFpEF. Patient updated on the plan and in agreement. All questions answered to satisfaction. Please see residents note for additional details and management. Dr. Galina MD
[2025-04-16] MEDS: Magnesium Sulfate 2 GM Ivpb 2 GM/50 ML BAG IV (17:19)
[2025-04-17] VITALS (13 sets, daily range): BP systolic 127–160; BP diastolic 90–101; PULSE 67–93; RESP 20–28; TEMP 36.1–36.5; O2SAT 93–99; BMI 13.0
[2025-04-17] MEDS: Heparin/D5w 25K 250 ML Ivpb 25,000 UNIT/250 ML BAG 25.96 UNIT IV (05:26)
[2025-04-17 05:33] LABS: Basophils # (Auto) 0.1 Thou/mm3 (0.0-0.2); Basophils % (Auto) 1 % (0-2.5); Eosinophils # (Auto) 0.2 Thou/mm3 (0.0-0.5); Eosinophils % (Auto) 3 % (0-10); Hematocrit 38.8 % (41.0-53.0); Hemoglobin 13.3 g/dL (13.5-16.0); Immature Granulocytes Auto 0.07 Thou/mm3 (0.00-0.00); Lymphocytes # (Auto) 1.2 Thou/mm3 (1.0-4.8); Lymphocytes % (Auto) 19 % (10-50); Mean Corpuscular HGB Conc 34.3 g/dl (31.0-37.0); Mean Corpuscular Hemoglobin 32.4 pg (25.0-35.0); Mean Corpuscular Volume 95 fL (80-100); Monocytes # (Auto) 0.6 Thou/mm3 (0.0-0.8); Monocytes % (Auto) 9 % (0-12); Neutrophils # (Auto) 4.3 Thou/mm3 (1.8-7.7); Neutrophils % (Auto) 67 % (37-80); Nucleated Red Blood Cell # 0.00 Thou/mm3 (0.00-0.00); Nucleated Red Blood Cell % 0 /100 WBC (0); Platelet Count 309 Thou/mm3 (140-440); RDW Standard Deviation 45.3 fL (35.1-43.9); Red Blood Count 4.10 Miln/mm3 (4.50-5.90); White Blood Count 6.4 Thou/mm3 (3.8-10.6)
[2025-04-17 07:20] LABS: Anion Gap 7 (7-16); BUN/Creatinine Ratio 11 Ratio (12-20); Blood Urea Nitrogen 9 mg/dL (9-23); Calcium 9.0 mg/dL (8.3-10.6); Carbon Dioxide 32.9 mMol/L (20.0-31.0); Chloride 97 mMol/L (98-107); Creatinine (Component) 0.8 mg/dL (0.6-1.3); Estimated Creatinine Clearance 152.7 mL/min (>60); Glucose 105 mg/dL (74-106); Magnesium 2.0 mg/dL (1.6-2.6); Osmolality,Calculated 272 (275-295); Phosphorous 3.7 mg/dL (2.4-5.1); Potassium 4.2 mMol/L (3.4-5.1); Sodium 137 mMol/L (136-145); eGFR > 60 See Note
[2025-04-17 07:29] LABS: Partial Thromboplastin Time 51.3 Seconds (22.0-36.0)
[2025-04-17] MEDS: LOSARTAN POTASSIUM 25 MG TABLET 100 MG PO (08:29)
[2025-04-17] MEDS: APIXABAN 2.5 MG TABLET 10 MG PO ×2 (08:30→20:48)
[2025-04-17] MEDS: cefTRIAXone/D5w 1gm IV premix 1 GM/50 ML BAG IV (08:31)
--- NOTE | 2025-04-17 09:02 | PC.SS ---
Addendum entered by Stephanie Hawkins 04/17/25 09:40: SS spoke to patient at bedside and updated on d/c options. Patient states he prefers to go to [facility] and he will speak with Prema about receiving a bottom bunk bed. Prior to hospitalization patient states he was living out in the community and was not at a nursing home. Patient does not receive any income. No [place]. He is ambultory. Prior to hospitalization patient was independent and ambulatory with no AD. Patient is agreeable to discharging to a nursing home. Original Note: Follow up note: Patient is ready for d/c. He worked with PT on 04/16/25 and ambulated 10 feet x 2 with standby assist. Patient is homeless and can return to nursing home. SS will discuss with patient. Patient tox report was positive for meth and opiates. Notes indicate prior function he was independent with ADL's.
--- NOTE | 2025-04-17 09:19 | PD.RESPRO ---
Documentation for date of: 04/17/25 Subjective Subjective Interval history: Patient was seen and assessed at bedside. Has no new complaints this morning. The patient continues to be slightly elevated around 140-150 mmHg. Patient does started already on losartan 100 mg p.o. daily as well as amlodipine 10 mg once daily. If blood pressure still uncontrolled recommend to start spironolactone 25 mg once daily rather than hydrochlorothiazide as the patient is already on a diuretic and patient does have diastolic heart failure. If the blood pressure is still high after the spironolactone then consider hydralazine 25 mg every 8 hours and then continue to increase it as tolerated. Has been noncompliant with CPAP, likely reason for persistent hypertension (SBP 150s) and respiratory acidosis with compensating metabolic alkalosis. Patient is also on lasix 40 mg daily but creatinine continues to be at baseline. Exam Vital Signs Temp Pulse Resp BP Pulse Ox O2 Del Method O2 Flow Rate 97.4 F 93 28 H 152/101 H 95 Nasal Cannula 2 04/17/25 08:00 04/17/25 08:31 04/17/25 08:00 04/17/25 08:31 04/17/25 08:00 04/17/25 08:00 04/17/25 08:00 FiO2 3 04/15/25 05:51 Narrative Exam Physical Exam General: Awake and in no acute distress. Morbidly obese male. Sitting up eating breakfast. HEENT: Normocephalic, atraumatic, mucous membranes moist. Heart: Regular rate and rhythm, normal S1 and S2, no murmurs appreciated. Lungs: Difficult to auscultate due to obese habitus however no wheezing or crackles appreciated. Abdomen: Soft, nondistended, nontender, positive bowel sounds. No guarding or rebound tenderness. Neurologic: Alert and oriented x3, no gross neurological deficit, and patient able to move all 4 extremities. Extremities: Mild pitting edema below ankles bilaterally. Circumferential open wound at above left ankle. Dressing clean dry and intact. Skin: Chronic venous stasis changes bilaterally. No rashes or ecchymosis. Objective Labs 04/17/25 05:08 04/17/25 06:27 Labs: Laboratory Results - last 24 hr 04/16/25 04/16/25 04/17/25 08:15 09:23 05:08 WBC 6.4 RBC 4.10 L Hgb 13.3 L Hct 38.8 L MCV 95 MCH 32.4 MCHC 34.3 RDW Std Deviation 45.3 H Plt Count 309 D Neut % (Auto) 67 Lymph % (Auto) 19 [place] % (Auto) 9 Eos % (Auto) 3 Baso % (Auto) 1 Neut # (Auto) 4.3 Lymph # (Auto) 1.2 [place] # (Auto) 0.6 Eos # (Auto) 0.2 Baso # (Auto) 0.1 Immature Gran # (Auto) 0.07 H Absolute Nucleated RBC 0.00 Immature Gran % 1 H Nucleated RBC % 0 PT 11.4 INR 1.1 APTT 77.9 H D Sodium Potassium Chloride Carbon Dioxide Anion Gap BUN Creatinine Estim Creat Clear Calc eGFR BUN/Creatinine Ratio Glucose Calculated Osmolality Calcium Phosphorus Magnesium Vancomycin Trough 10.3 H 04/17/25 06:27 WBC RBC Hgb Hct MCV MCH MCHC RDW Std Deviation Plt Count Neut % (Auto) Lymph % (Auto) [place] % (Auto) Eos % (Auto) Baso % (Auto) Neut # (Auto) Lymph # (Auto) [place] # (Auto) Eos # (Auto) Baso # (Auto) Immature Gran # (Auto) Absolute Nucleated RBC Immature Gran % Nucleated RBC % PT INR APTT 51.3 H D Sodium 137 Potassium 4.2 D Chloride 97 L Carbon Dioxide 32.9 H Anion Gap 7 BUN 9 Creatinine 0.8 Estim Creat Clear Calc 152.7 eGFR > 60 BUN/Creatinine Ratio 11 L Glucose 105 Calculated Osmolality 272 L Calcium 9.0 Phosphorus 3.7 Magnesium 2.0 Vancomycin Trough ABG Interpretation ABG results: 04/15/25 01:00 ABG pH 7.37 ABG pCO2 52 H ABG pO2 85 ABG HCO3 30 H ABG O2 Saturation 97 ABG Base Excess 4 H Quality Measures Quality Measures none Assessment & Plan Assessment Current Active Medications: Generic Name Dose Route Start Last Admin Trade Name Freq PRN Reason Stop Dose Admin Acetaminophen 650 mg 04/15/25 01:57 04/16/25 08:21 Acetaminophen 325 Mg Tablet PO 05/14/25 22:34 650 mg Q6H PRN Administration Fever >99.9 Amlodipine Besylate 10 mg 04/16/25 09:00 04/17/25 08:30 Amlodipine Besylate 5 Mg Tablet PO 05/16/25 08:59 10 mg QDAY JOSE Administration Apixaban 10 mg 04/17/25 09:00 04/17/25 08:30 Apixaban 2.5 Mg Tablet PO 04/23/25 21:01 10 mg BID JOSE Administration Furosemide 40 mg 04/15/25 14:15 04/17/25 08:29 Furosemide 40 Mg Tablet PO 05/15/25 14:14 40 mg QDAY JOSE Administration Hydrochlorothiazide 25 mg 04/17/25 09:00 04/17/25 08:31 Hydrochlorothiazide 12.5 Mg Capsule PO 05/17/25 08:59 25 mg BID JOSE Administration Ceftriaxone Sodium/Dextrose 1 gm in 50 mls @ 100 mls/hr 04/15/25 09:30 04/17/25 08:31 Rocephin/D5w 1gm Iv Premix IV 04/22/25 09:29 100 mls/hr QDAY JOSE Administration Losartan Potassium 100 mg 04/17/25 09:00 04/17/25 08:29 Losartan Potassium 25 Mg Tablet PO 05/17/25 08:59 100 mg QDAY JOSE Administration Ondansetron HCl 4 mg 04/14/25 22:35 Ondansetron Inj 2 Mg/Ml Inj 2 Ml IVP 05/14/25 22:34 Q6H PRN NAUSEA OR VOMITING Protocol Pantoprazole Sodium 40 mg 04/15/25 02:35 04/16/25 08:23 Pantoprazole Inj 40 Mg Vial IVP 05/15/25 02:34 40 mg QDAY JOSE Administration Plan Patient is a 44 year old male with past medical history of HFpEF (55-60%), morbid obesity, substance abuse including methamphetamine abuse, chronic smoker with more than 09-26-wwgm-year smoking history, alcohol use, homeless, history of chronic leg swelling on Lasix previously, medical noncompliance, previous lower extremity DVT and bilateral PE, and chronic venous stasis changes on bilateral limbs who presented to [facility] ED for bilateral foot pain and shortness of breath. Admitted for right PE, left popliteal DVT, and lower leg cellulitis. Upgraded to ICU for transcutaneous pacing for Mobitz type II heart block, for which cardiology was consulted for management of. #Second degree Mobitz type II heart block #Bradycardia, resolved #HFpEF (55-60%, 2023) Noted to have brief intermittent episodes of Mobitz type II heartblock on ED tele. RR was called for bradycardia that required transcutaneous pacing at 60 mA overnight. A rhythm strip printed showed Mobitz secondary type II AV block, which resolved on EKG during RR. Following removal of pacer pads after a couple of hours, HR now stable in 70-90s. On previous admission, patient was also to have episodes of similar heart block. BNP 58. This time also liekly secondary to metabolic disturbances with long history of drug abuse. 01/2024 TTE Normal LV size and function. Estimatd EF 55-60%. Mild RV and RA dilatation. Normal RV function. Possible mild PH. The aortic root is mildly dilated 3.6cm. The ascending aorta is mildly dilated 3.7cm. Trace to mild TR. Echo 04/15/25 showed Normal LV size and wall thickness. Normal LV function with an EF of 55 to 60%. Grade 1 diastolic dysfunction. Mildly dilated RV with normal RV function. RVSP could not be measured because of insufficient TR jet but septum appears flat during systole indicating mildly elevated pressure. Trace MR and TR. No pericardial effusion. Plan: - As per previous evaluation on last admission, patient is not a candidate for permanent pacemaker insertion at this time. - Lasix PO 40mg QD - Start on GDMT with Losartan, consider adding spiranolactone if BP tolerates. - Avoid beta-blockers or calcium channel blockers like diltiazem or verapamil or other heart rate lowering medications which can cause bradycardia. - Continue to monitor telemetry - Keep K>4 and Mg>2 at all time #Multiple pulmonary artery emboli R lung #LLE popliteal DVT #Hx of multiple DVTs and PEs Presented with lethargy and RR called for desaturating requiring 5L oxymask, and was found to have multiple R PEs with LLE popliteal DVT. ABG 7.37/52/85/30 trops neg. Was previously admitted in 06/2023 for DVT and bilateral PEs. Was started on Xarelto but has also been noncomplaint with this as well. Chest CTA showed pulmonary artery hypertension, multiple pulmonary artery filling defects right pulmonary artery including the distal right main pulmonary artery and multiple upper and lower lobe, mild opacity in right lower lung zone which may resent pulmonary infection. Upon close review of CT, patient is only having right upper lobe as well as right middle lobe filling defects. Rest of the lobar branches and the subsegmental branches are free of any filling defects along with the main pulmonary artery. CT also shows evidence of pulmonary hypertension with dilated pulmonary artery up to 4 cm. LLE US partial nonocclusive thrombus in L popliteal vein. LLE CT showed extensive cellulitis, neg osteomyelitis, no soft tissue abscess. Are chronic/recurring problems for him that have not been resolved due to medication non adherence. Plan: - Patient is not tachycardic and is not hypoxic the present point of time. No indication for any mechanical thrombectomy at the present point of time recommend to continue heparin drip for anticoagulation if any further procedures are planned. - Can transition to Eliquis as per the DVT PE protocol to 10 mg twice daily and then 5 mg twice daily. #HTN Likely exacerbated by CAMILLA and medication noncompliance. - Lasix and Losartan as above. Continue to uptitrate Losartan to 100 mg once daily. - The patient continues to be slightly elevated around 140-150 mmHg. Patient does started already on losartan 100 mg p.o. daily as well as amlodipine 10 mg once daily. If blood pressure still uncontrolled recommend to start spironolactone 25 mg once daily rather than hydrochlorothiazide as the patient is already on a diuretic and patient does have diastolic heart failure. If the blood pressure is still high after the spironolactone then consider hydralazine 25 mg every 8 hours and then continue to increase it as tolerated. - CTM BP #PAH #CAMILLA #Obesity hypoventilation syndrome BMI 42.7. - Lasix as above - CPAP at night #LLE cellulitis #Encephalopathy, improving, likely 2/2 #Methamphetamine use #Opiate use Thank you for your consultation, please do not hesitate to reach out if you have any question or concern Patient plan of care was discussed with the attending physician, Dr. Chau. Delfina Bach, PGY-1 Attending Provider Attestation/Addendum I have personally seen and examined the patient separately on the above date of service and discussed the plan of care with the resident. I reviewed the resident Dr. Delfina Bach consultation progress note and agree with the resident findings and plan in the note above and have also edited the documentation to reflect my findings and plan. Alfred Chau M.D. Interventional Cardiology
--- NOTE | 2025-04-17 12:04 | PC.SS ---
Addendum entered by Stephanie Hawkins 04/17/25 15:14: Patient was accepted at [facility]. They will start working on authorization. Pending auth for short term SNF. Original Note: Follow up note: SS spoke to physician team who states patient needs SNF if possible for wound care and PT. SS spoke to PT and they worked with patient again today. SS sent out inquiry on [employer]. SS spoke to [facility] who is here for an on site for patient. Patient's insurance will review information for short term placement.
--- NOTE | 2025-04-17 14:44 | ESPR_ITS ---
<Statement entered by Clinton Azul MD - 04/17/25 17:22> Patient was seen and evaluated at bedside this morning. No acute overnight events. Patient still having some lower extremity pain and discomfort, but looks much more awake and alert today. Patient worked with PT, but given his wound care and given his housing conditions patient would benefit from longterm facility due to need of wound care as well as antibiotics. Patient's blood pressure was still not well-controlled today therefore increase hydrochlorothiazide to 25 mg twice daily. Switch to Keflex and will switch to Eliquis 10 mg twice daily. Pending SNF authorization. I have reviewed the note and agree with the resident's assessment & plan with exceptions as below. I have personally reviewed labs, imaging, home meds/prior records, examined the patient, formulated and discussed management plan with my attending Case disclosed with attending Dr. Edith Azul PGY2 Disclaimer: Even though this this note was dictated by speech recognition and even though it was carefully revised there may still be minor errors in sales architect due to voice recognition software. Documentation for date of: 04/17/25 Subjective Subjective Interval history: No acute overnight events. Patient seen and examined at bedside. Patient reports left lower leg pain and discomfort, denies shortness of breath, chest pain, abdominal pain or urinary symptoms. Patient does report feeling sleepy and requests to be discharged to a rehab facility. Vitals and labs reviewed. Patient saturating 95% on 3 L. WBC count 13.3, bicarb 32. IV antibiotics discontinued and Keflex 500 mg 4 times a day started. Increased HCTZ from 12.5 mg to 25 mg BID, continue lasix 40 mg QD. Continue amlodipine 100 mg daily and amlodipine 10 mg daily. Pending SNF placement. Exam Vital Signs Temp Pulse Resp BP Pulse Ox O2 Del Method O2 Flow Rate 97.1 F 91 20 146/91 H 99 Nasal Cannula 2 04/17/25 12:00 04/17/25 12:00 04/17/25 12:00 04/17/25 12:00 04/17/25 12:00 04/17/25 12:00 04/17/25 12:00 FiO2 3 04/15/25 05:51 Narrative Exam GENERAL: AxOx3, no acute distress, drowsy on 3L NC HEENT: NC/AT, mucous membranes dry, bilateral sclera anicteric CARDIOVASCULAR: regular rate and rhythm, S1/S2 present, no murmurs appreciated PULMONARY: clear to auscultation bilaterally, no rales/rhonchi/wheezes ABDOMINAL: soft, non-tender, non-distended, no rebound/guarding, bowel sounds present EXTREMITIES: 2+ BLE edema, weak peripheral pulses, LLE above ankle circumfrential open wound wrapped in sterile gauze SKIN: venous stasis dermatitis BLE NEURO: CN II-XII grossly intact, alert, following commands Objective Labs 04/17/25 05:08 04/17/25 06:27 Labs: Laboratory Results - last 24 hr 04/17/25 04/17/25 05:08 06:27 WBC 6.4 RBC 4.10 L Hgb 13.3 L Hct 38.8 L MCV 95 MCH 32.4 MCHC 34.3 RDW Std Deviation 45.3 H Plt Count 309 D Neut % (Auto) 67 Lymph % (Auto) 19 [place] % (Auto) 9 Eos % (Auto) 3 Baso % (Auto) 1 Neut # (Auto) 4.3 Lymph # (Auto) 1.2 [place] # (Auto) 0.6 Eos # (Auto) 0.2 Baso # (Auto) 0.1 Immature Gran # (Auto) 0.07 H Absolute Nucleated RBC 0.00 Immature Gran % 1 H Nucleated RBC % 0 APTT 51.3 H D Sodium 137 Potassium 4.2 D Chloride 97 L Carbon Dioxide 32.9 H Anion Gap 7 BUN 9 Creatinine 0.8 Estim Creat Clear Calc 152.7 eGFR > 60 BUN/Creatinine Ratio 11 L Glucose 105 Calculated Osmolality 272 L Calcium 9.0 Phosphorus 3.7 Magnesium 2.0 ABG Interpretation ABG results: 04/15/25 01:00 ABG pH 7.37 ABG pCO2 52 H ABG pO2 85 ABG HCO3 30 H ABG O2 Saturation 97 ABG Base Excess 4 H Quality Measures Quality Measures none Assessment & Plan Assessment Current Active Medications: Generic Name Dose Route Start Last Admin Trade Name Freq PRN Reason Stop Dose Admin Acetaminophen 650 mg 04/15/25 01:57 04/16/25 08:21 Acetaminophen 325 Mg Tablet PO 05/14/25 22:34 650 mg Q6H PRN Administration Fever >99.9 Amlodipine Besylate 10 mg 04/16/25 09:00 04/17/25 08:30 Amlodipine Besylate 5 Mg Tablet PO 05/16/25 08:59 10 mg QDAY JOSE Administration Apixaban 10 mg 04/17/25 09:00 04/17/25 08:30 Apixaban 2.5 Mg Tablet PO 04/23/25 21:01 10 mg BID JOSE Administration Cephalexin HCl 500 mg 04/17/25 12:00 04/17/25 12:20 Cephalexin 250 Mg Capsule PO 04/24/25 11:59 500 mg QID JOSE Administration Furosemide 40 mg 04/15/25 14:15 04/17/25 08:29 Furosemide 40 Mg Tablet PO 05/15/25 14:14 40 mg QDAY JOSE Administration Hydrochlorothiazide 25 mg 04/17/25 09:00 04/17/25 08:31 Hydrochlorothiazide 12.5 Mg Capsule PO 05/17/25 08:59 25 mg BID JOSE Administration Losartan Potassium 100 mg 04/17/25 09:00 04/17/25 08:29 Losartan Potassium 25 Mg Tablet PO 05/17/25 08:59 100 mg QDAY JOSE Administration Ondansetron HCl 4 mg 04/14/25 22:35 Ondansetron Inj 2 Mg/Ml Inj 2 Ml IVP 05/14/25 22:34 Q6H PRN NAUSEA OR VOMITING Protocol Pantoprazole Sodium 40 mg 04/15/25 02:35 04/17/25 08:30 Pantoprazole Inj 40 Mg Vial IVP 05/15/25 02:34 40 mg QDAY JOSE Administration Plan Wilfredo Owens 44M with PMH of medication noncompliance, HFpEF (LVEF 55-60%), hx of LE DVT, hx of PE, LLE cellulitis, polysubstance use (methamphetamine, tobacco, opiates), HTN, asthma, obesity, obesity hypoventilation syndrome, CAMILLA, homelessness who presented to [facility] ED 04/14 with b/l foot pain, shortness of breath and encephalopathy, admitted for multiple R lung PEs, LLE DVT and cellulitis. #Acute hypoxic respiratory failure likely 2/ #Multiple pulmonary artery emboli R lung #LLE popliteal DVT #LLE cellulitis #Hx of multiple DVTs and PEs #Primary HTN Presented with lethargy and RR called for desaturating requiring 5L oxymask, and was found to have multiple R PEs with LLE popliteal DVT. ABG 7.37/52/85/30 trops neg. Chest CTA showed pulmonary artery hypertension, multiple pulmonary artery filling defects right pulmonary artery including the distal right main pulmonary artery and multiple upper and lower lobe, mild opacity in right lower lung zone which may resent pulmonary infection. LLE US partial nonocclusive thrombus in L popliteal vein. LLE CT showed extensive cellulitis, neg osteomyelitis, no soft tissue abscess. Ddx: likely 2/2 polysubstance intoxication, immobilization and/or medication non adherence given prior DVTs and PEs. Zosyn (04/14), ceftriaxone (04/15-04/17), vanc (04/14-04/17) Plan: - Discontinued heparin and started Eliquis 100 mg BID - Cardiology consulted, recs appreciated: no acute intervention at this time - Continue PO Lasix 40 mg QD and increase PO HCTZ from 12.5 to 25 mg BID - Continue Losartan 100 mg QD and amlodipine 10 mg QD - Started Keflex 500 mg QID #Bradycardia, resolved #Second degree Mobitz type II heart block, resolved #HFpEF (55-60%, 2023) On admission, heart rate was stable however RR was called for bradycardia that required transcutaneous pacing overnight. A rhythm strip printed showed Mobitz secondary type II AV block, which resolved on EKG during RR. Following removal of pacer pads 04/15, patient remains in sinus rhythm 70-90s. 01/2024 TTE Normal LV size and function. Estimatd EF 55-60%. Mild RV and RA dilatation. Normal RV function. Possible mild PH. The aortic root is mildly dilated 3.6cm. The ascending aorta is mildly dilated 3.7cm. Trace to mild TR. 04/16/25 TTE Normal LV size and wall thickness. Normal LV function with an EF of 55 to 60%. Grade 1 diastolic dysfunction. Mildly dilated RV with normal RV function. RVSP could not be measured because of insufficient TR jet but septum appears flat during systole indicating mildly elevated pressure. Trace MR and TR. No pericardial effusion. Likely 2/2 opiate use and polysubstance use. Plan: - Cardiology consulted, recs appreciated: bradycardia likely 2/2 metabolic derangements and substance use - Lasix and HCTZ as above - Telemetry for cardiac monitoring - Keep K>4 and Mg>2 at all times #Encephalopathy, improving, likely 2/2 #Methamphetamine use #Opiate use On admission patient presented with extreme lethargy and AxOx2 likely 2/2 polysubstance use of methamphetamine and opiates as admission UDS was positive for those and/or infectious of extensive LLE cellulitis. Low suspicion for true metabolic source. Plan: - CTM mental status - Consider further laboratory workup if encephalopathy worsens #PAH #CAMILLA #Obesity hypoventilation syndrome Likely multifactorial from active PE, CAMILLA, OHS and cigarette/drug inhalation. Plan: - Cardiology consulted, recs appreciated - Lasix as above - CPAP qhs Hospital management: Lines: PIV Diet: 2g sodium Bowel: None GI prophylaxis: IV pantoprazole 40 mg QD DVT prophylaxis: heparin drip Disposition: tele hypertension management, heparin drip CODE STATUS: FULL CODE Plan of care discussed with attending Dr. Sharma, and PGY-2 Dr. Jackson. Neida Bach DO PGY-1 Internal Medicine Attending Provider Attestation/Addendum I have discussed and was present for the essential components of the history, physical examination, diagnosis, and treatment plan with the resident. I agree with the patient's care as documented by the resident and amended herein by me. Sen Sharma DO. Although this document has been carefully reviewed, there may still be some phonetic and other typographical errors. These errors are purely grammatical due to imperfections in the software program and should not be construed in any way to compromise the substance of the patient's medical care during this visit. Patient seen and evaluated this AM. No acute events overnight, vital signs stable, patient afebrile, BP slightly elevated in the morning 160/100 mmHg however patient has yet to receive BP medications. I did examine the patient's left lower extremity cellulitis, some serous drainage however wound looks clean, will continue ceftriaxone at this time for left lower extremity cellulitis, will also continue Eliquis 10 mg p.o. twice daily, will transition to 5 mg p.o. twice daily after 7-day loading period. SNF placement is pending, patient was able to walk with PT slowly however due to the patient being homeless and his comorbidities to include DVT, now PE, cellulitis and polysubstance abuse I do feel it would be safer to discharge the patient to SNF for short duration to ensure he receives all of his medications appropriately or I feel he will return to the hospital relatively quickly. Likely discharge tomorrow on 04/18 pending placement.
[2025-04-17] MEDS: Magnesium Sulfate 2 GM Ivpb 2 GM/50 ML BAG IV (18:06)
[2025-04-18] VITALS (14 sets, daily range): BP systolic 106–132; BP diastolic 71–88; PULSE 6–88; RESP 14–26; TEMP 36–36.4; O2SAT 92–98; BMI 13.0
[2025-04-18 06:01] LABS: Basophils # (Auto) 0.1 Thou/mm3 (0.0-0.2); Basophils % (Auto) 1 % (0-2.5); Eosinophils # (Auto) 0.2 Thou/mm3 (0.0-0.5); Eosinophils % (Auto) 4 % (0-10); Hematocrit 44.4 % (41.0-53.0); Hemoglobin 14.7 g/dL (13.5-16.0); Immature Granulocytes Auto 0.07 Thou/mm3 (0.00-0.00); Lymphocytes # (Auto) 1.0 Thou/mm3 (1.0-4.8); Lymphocytes % (Auto) 17 % (10-50); Mean Corpuscular HGB Conc 33.1 g/dl (31.0-37.0); Mean Corpuscular Hemoglobin 31.5 pg (25.0-35.0); Mean Corpuscular Volume 95 fL (80-100); Monocytes # (Auto) 0.7 Thou/mm3 (0.0-0.8); Monocytes % (Auto) 12 % (0-12); Neutrophils # (Auto) 3.7 Thou/mm3 (1.8-7.7); Neutrophils % (Auto) 66 % (37-80); Nucleated Red Blood Cell # 0.00 Thou/mm3 (0.00-0.00); Nucleated Red Blood Cell % 0 /100 WBC (0); Platelet Count 299 Thou/mm3 (140-440); RDW Standard Deviation 45.0 fL (35.1-43.9); Red Blood Count 4.67 Miln/mm3 (4.50-5.90); White Blood Count 5.7 Thou/mm3 (3.8-10.6)
[2025-04-18 06:44] LABS: Alanine Aminotransferase 25 U/L (10-49); Albumin, Serum 4.1 gm/dL (3.5-5.0); Albumin/Globulin Ratio 1.1 (1.2-2.2); Alkaline Phosphatase 98 U/L (46-116); Anion Gap 12 (7-16); Aspartate Amino Transferase 92 U/L (0-34); BUN/Creatinine Ratio 18 Ratio (12-20); Bilirubin,Total 0.3 mg/dL (0.3-1.2); Blood Urea Nitrogen 16 mg/dL (9-23); Calcium 9.7 mg/dL (8.3-10.6); Calcium (Corrected) 9.7 mg/dL (8.5-10.1); Carbon Dioxide 31.4 mMol/L (20.0-31.0); Chloride 92 mMol/L (98-107); Creatinine (Component) 0.9 mg/dL (0.6-1.3); Estimated Creatinine Clearance 135.7 mL/min (>60); Globulin 3.7 gm/dL (2.3-3.5); Glucose 112 mg/dL (74-106); Magnesium 2.2 mg/dL (1.6-2.6); Osmolality,Calculated 272 (275-295); Potassium 5.1 mMol/L (3.4-5.1); Sodium 135 mMol/L (136-145); Total Protein 7.8 gm/dL (5.7-8.2); eGFR > 60 See Note
[2025-04-18] MEDS: APIXABAN 2.5 MG TABLET 10 MG PO ×2 (09:29→21:49)
[2025-04-18] MEDS: LOSARTAN POTASSIUM 25 MG TABLET 100 MG PO (09:29)
--- NOTE | 2025-04-18 10:20 | ESPR_ITS ---
Documentation for date of: 04/18/25 Subjective Subjective Interval history: Patient was seen and assess at bedside. Had no complaints this morning. Patient was given diphenhydramine overnight, blood pressure this morning was 129/80 when, usually systolics in 130s to 140s. Heart rate 79. On telemetry in sinus rhythm, continues to have intermittent episodes of heart block. Potassium was elevated 5.1, given IV Lasix 20 mg. Bicarbonate 31.4, creatinine 0.9, magnesium 2.2. Continues to be noncompliant with CPAP. Continue Eliquis 10 mg Exam Vital Signs Temp Pulse Resp BP Pulse Ox O2 Del Method O2 Flow Rate 97.3 F 80 14 0132/81 H 93 L Nasal Cannula 4 04/18/25 08:00 04/18/25 09:29 04/18/25 08:00 04/18/25 09:29 04/18/25 08:00 04/18/25 08:00 04/18/25 08:00 FiO2 3 04/18/25 08:00 Narrative Exam Physical Exam General: Awake and in no acute distress. Morbidly obese male. HEENT: Normocephalic, atraumatic, mucous membranes moist. Heart: Regular rate and rhythm, normal S1 and S2, no murmurs appreciated. Lungs: Difficult to auscultate due to obese habitus however no wheezing or crackles appreciated. Abdomen: Soft, nondistended, nontender, positive bowel sounds. No guarding or rebound tenderness. Neurologic: Alert and oriented x3, no gross neurological deficit, and patient able to move all 4 extremities. Extremities: Mild pitting edema below ankles bilaterally. Circumferential open wound at above left ankle. Dressing clean dry and intact. Skin: Chronic venous stasis changes bilaterally. No rashes or ecchymosis. Objective Labs 04/18/25 05:28 04/18/25 05:27 Labs: Laboratory Results - last 24 hr 04/18/25 04/18/25 05:27 05:28 WBC 5.7 RBC 4.67 Hgb 14.7 Hct 44.4 MCV 95 MCH 31.5 MCHC 33.1 RDW Std Deviation 45.0 H Plt Count 299 Neut % (Auto) 66 Lymph % (Auto) 17 [place] % (Auto) 12 Eos % (Auto) 4 Baso % (Auto) 1 Neut # (Auto) 3.7 Lymph # (Auto) 1.0 [place] # (Auto) 0.7 Eos # (Auto) 0.2 Baso # (Auto) 0.1 Immature Gran # (Auto) 0.07 H Absolute Nucleated RBC 0.00 Immature Gran % 1 H Nucleated RBC % 0 Sodium 135 L Potassium 5.1 D Chloride 92 L Carbon Dioxide 31.4 H Anion Gap 12 BUN 16 Creatinine 0.9 Estim Creat Clear Calc 135.7 eGFR > 60 BUN/Creatinine Ratio 18 Glucose 112 H Calculated Osmolality 272 L Calcium 9.7 Corrected Calcium 9.7 Magnesium 2.2 Total Bilirubin 0.3 AST 92 H ALT 25 Alkaline Phosphatase 98 Total Protein 7.8 Albumin 4.1 Globulin 3.7 H Albumin/Globulin Ratio 1.1 L ABG Interpretation ABG results: 04/15/25 01:00 ABG pH 7.37 ABG pCO2 52 H ABG pO2 85 ABG HCO3 30 H ABG O2 Saturation 97 ABG Base Excess 4 H Quality Measures Quality Measures none Assessment & Plan Assessment Current Active Medications: Generic Name Dose Route Start Last Admin Trade Name Freq PRN Reason Stop Dose Admin Acetaminophen 650 mg 04/15/25 01:57 04/16/25 08:21 Acetaminophen 325 Mg Tablet PO 05/14/25 22:34 650 mg Q6H PRN Administration Fever >99.9 Amlodipine Besylate 10 mg 04/16/25 09:00 04/18/25 09:27 Amlodipine Besylate 5 Mg Tablet PO 05/16/25 08:59 10 mg QDAY JOSE Administration Apixaban 10 mg 04/17/25 09:00 04/18/25 09:29 Apixaban 2.5 Mg Tablet PO 04/23/25 21:01 10 mg BID JOSE Administration Cephalexin HCl 500 mg 04/17/25 12:00 04/18/25 05:56 Cephalexin 250 Mg Capsule PO 04/24/25 11:59 500 mg QID JOSE Administration Furosemide 40 mg 04/15/25 14:15 04/18/25 09:28 Furosemide 40 Mg Tablet PO 05/15/25 14:14 40 mg QDAY JOSE Administration Hydrochlorothiazide 25 mg 04/17/25 09:00 04/18/25 09:28 Hydrochlorothiazide 12.5 Mg Capsule PO 05/17/25 08:59 25 mg BID JOSE Administration Losartan Potassium 100 mg 04/17/25 09:00 04/18/25 09:29 Losartan Potassium 25 Mg Tablet PO 05/17/25 08:59 100 mg QDAY JOSE Administration Ondansetron HCl 4 mg 04/14/25 22:35 Ondansetron Inj 2 Mg/Ml Inj 2 Ml IVP 05/14/25 22:34 Q6H PRN NAUSEA OR VOMITING Protocol Pantoprazole Sodium 40 mg 04/15/25 02:35 04/18/25 09:29 Pantoprazole Inj 40 Mg Vial IVP 05/15/25 02:34 40 mg QDAY JOSE Administration Plan Patient is a 44 year old male with past medical history of HFpEF (55-60%), morbid obesity, substance abuse including methamphetamine abuse, chronic smoker with more than 97-12-zbcg-year smoking history, alcohol use, homeless, history of chronic leg swelling on Lasix previously, medical noncompliance, previous lower extremity DVT and bilateral PE, and chronic venous stasis changes on bilateral limbs who presented to [facility] ED for bilateral foot pain and shortness of breath. Admitted for right PE, left popliteal DVT, and lower leg cellulitis. Upgraded to ICU for transcutaneous pacing for Mobitz type II heart block, for which cardiology was consulted for management of. #Second degree Mobitz type II heart block #Bradycardia, resolved #HFpEF (55-60%, 2023) Noted to have brief intermittent episodes of Mobitz type II heartblock on ED tele. RR was called for bradycardia that required transcutaneous pacing at 60 mA overnight. A rhythm strip printed showed Mobitz secondary type II AV block, which resolved on EKG during RR. Following removal of pacer pads after a couple of hours, HR now stable in 70-90s. On previous admission, patient was also to have episodes of similar heart block. BNP 58. This time also liekly secondary to metabolic disturbances with long history of drug abuse. 01/2024 TTE Normal LV size and function. Estimatd EF 55-60%. Mild RV and RA dilatation. Normal RV function. Possible mild PH. The aortic root is mildly dilated 3.6cm. The ascending aorta is mildly dilated 3.7cm. Trace to mild TR. Echo 04/15/25 showed Normal LV size and wall thickness. Normal LV function with an EF of 55 to 60%. Grade 1 diastolic dysfunction. Mildly dilated RV with normal RV function. RVSP could not be measured because of insufficient TR jet but septum appears flat during systole indicating mildly elevated pressure. Trace MR and TR. No pericardial effusion. Plan: - As per previous evaluation on last admission, patient is not a candidate for permanent pacemaker insertion at this time. - Lasix PO 40mg QD - Start on GDMT with Losartan, recommend spiranolactone 25mg if BP permits - Avoid beta-blockers or calcium channel blockers like diltiazem or verapamil or other heart rate lowering medications which can cause bradycardia. - Continue to monitor telemetry - Keep K>4 and Mg>2 at all time #Multiple pulmonary artery emboli R lung #LLE popliteal DVT #Hx of multiple DVTs and PEs Presented with lethargy and RR called for desaturating requiring 5L oxymask, and was found to have multiple R PEs with LLE popliteal DVT. ABG 7.37/52/85/30 trops neg. Was previously admitted in 06/2023 for DVT and bilateral PEs. Was started on Xarelto but has also been noncomplaint with this as well. Chest CTA showed pulmonary artery hypertension, multiple pulmonary artery filling defects right pulmonary artery including the distal right main pulmonary artery and multiple upper and lower lobe, mild opacity in right lower lung zone which may resent pulmonary infection. Upon close review of CT, patient is only having right upper lobe as well as right middle lobe filling defects. Rest of the lobar branches and the subsegmental branches are free of any filling defects along with the main pulmonary artery. CT also shows evidence of pulmonary hypertension with dilated pulmonary artery up to 4 cm. LLE US partial nonocclusive thrombus in L popliteal vein. LLE CT showed extensive cellulitis, neg osteomyelitis, no soft tissue abscess. Are chronic/recurring problems for him that have not been resolved due to medication non adherence. Plan: - Patient is not tachycardic and is not hypoxic the present point of time. No indication for any mechanical thrombectomy at the present point of time recommend to continue heparin drip for anticoagulation if any further procedures are planned. - Transition to Eliquis as per the DVT PE protocol to 10 mg twice daily and then 5 mg twice daily. #HTN Likely exacerbated by CAMILLA and medication noncompliance. - Lasix and Losartan as above. Continue to uptitrate Losartan to 100 mg once daily. - The patient continues to be slightly elevated around 140-150 mmHg. Patient does started already on losartan 100 mg p.o. daily as well as amlodipine 10 mg once daily. If blood pressure still uncontrolled recommend to start spironolactone 25 mg once daily rather than hydrochlorothiazide as the patient is already on a diuretic and patient does have diastolic heart failure. If the blood pressure is still high after the spironolactone then consider hydralazine 25 mg every 8 hours and then continue to increase it as tolerated. - CTM BP #PAH #CAMILLA #Obesity hypoventilation syndrome BMI 42.7. - Lasix as above - CPAP at night #LLE cellulitis #Encephalopathy, improving, likely 2/2 #Methamphetamine use #Opiate use Thank you for your consultation, please do not hesitate to reach out if you have any question or concern Patient plan of care was discussed with the attending physician, Dr. Chau. Delfina Bach, PGY-1 Attending Provider Attestation/Addendum I have personally seen and examined the patient separately on the above date of service and discussed the plan of care with the resident. I reviewed the resident Dr. Delfina Bach consultation progress note and agree with the resident findings and plan in the note above and have also edited the documentation to reflect my findings and plan. Alfred Chau M.D. Interventional Cardiology
--- NOTE | 2025-04-18 11:39 | ESCONSULT_ITS ---
<Statement entered by Alonzo Perez MD - 04/23/25 11:53> pt seen with resident. all findings confirmed. see additional notes for details HPI Data of Consult Requesting Physician: Rohan Sharma DO Admitting Provider: Azael Cuadra MD Attending Provider: Rohan Sharma DO Primary Care Provider: Physician No Primary/Family Consult Narrative Reason for consult: LLE cellulitis History of present illness: Mr. Owens is a 44-year-old male with past medical history significant for medication noncompliance, HFpEF, history of lower extremity DVT, PE, left lower extremity cellulitis, polysubstance use, hypertension, asthma, obesity, OHS versus CAMILLA, homelessness who presented to the ED on 05/05 with shortness of breath and bilateral foot pain. Patient evidently found to have multiple pulmonary embolisms in the right lung, left lower extremity DVT and associated cellulitis. In addition, chest imaging showed possible pulmonary hypertension in addition to his multiple pulmonary artery emboli. Patient has been on anticoagulation since hospitalization and transitioned to Eliquis. Patient has been on IV Zosyn, and recently on vancomycin and ceftriaxone. Patient was transition to p.o. Keflex at 500 mg 4 times daily. Though his wound culture grew Proteus Mirabella's is resistant to Cefazolin patient has not spiked any fevers and patient's white count has been within normal limits. Patient's positive for MRSA screen. ID was consulted for patient's cellulitis of left lower extremity. cc:: cc: Rohan Sharma DO Review of Systems Review of Systems Systems Reviewed: All systems reviewed, normal except as documented Exam Vital Signs Temp Pulse Resp BP Pulse Ox O2 Del Method O2 Flow Rate 97.3 F 74 18 0132/81 H 96 Nasal Cannula 4 04/18/25 08:00 04/18/25 11:15 04/18/25 11:15 04/18/25 09:29 04/18/25 11:15 04/18/25 08:00 04/18/25 11:15 FiO2 3 04/18/25 08:00 Narrative Exam General Appearance: Pt appears older than stated age, morbidly obese, somnolent but alert, conversational to questions, seen with nasal cannula. HEENT: NC/AT, no scleral icterus, no conjunctival pallor, dry mucous membranes Lungs: Clear to also Tatian bilaterally CVS: RRR, S1/S2 heard, no murmurs or rubs appreciated ABD: Soft, non-tender, non-distended, BS + in all 4 quadrants EXT: no deformity/edema/lesions/cyanosis/clubbing, radial pulses 2+ BL, DP pulses 2 + BL SKIN: Skin exam normal without any rashes except for his venous stasis noted in bilateral lower extremities Neuro: A&O x 3. No gross neurological deficits. Motor and sensory grossly intact in B/L UL. Limited exam of motor strength to left lower extremity due to pain. Left lower extremity also noted to have gauze dressing, and wound underneath seems to be healing with no fluctuance or pus draining. Psych: Appropriate mood and affect Results Labs 04/19/25 05:20 04/19/25 09:40 Labs: Short CBC 04/18/25 Range/Units 05:28 WBC 5.7 (3.8-10.6) Thou/mm3 Hgb 14.7 (13.5-16.0) g/dL Hct 44.4 (41.0-53.0) % Plt Count 299 (140-440) Thou/mm3 BMP 04/18/25 05:27 Sodium 135 L Potassium 5.1 D Chloride 92 L Carbon Dioxide 31.4 H BUN 16 Creatinine 0.9 Glucose 112 H Calcium 9.7 Liver Function 04/18/25 Range/Units 05:27 Total Bilirubin 0.3 (0.3-1.2) mg/dL AST 92 H (0-34) U/L ALT 25 (10-49) U/L Alkaline Phosphatase 98 (46-116) U/L Albumin 4.1 (3.5-5.0) gm/dL ABG Interpretation ABG results: 04/15/25 01:00 ABG pH 7.37 ABG pCO2 52 H ABG pO2 85 ABG HCO3 30 H ABG O2 Saturation 97 ABG Base Excess 4 H Quality Measures Quality Measures none Medications Home Medications and Allergies Allergies Allergy/AdvReac Type Severity Reaction Status Date / Time clindamycin Allergy Mild DIARRHEA Verified 02/01/24 17:55 Visit Medications Acetaminophen (Acetaminophen 325 Mg Tablet) 650 mg PO Q6H PRN PRN Reason: Fever >99.9 Stop: 05/14/25 22:34 Last Admin: 04/16/25 08:21 Dose: 650 mg Amlodipine Besylate (Amlodipine Besylate 5 Mg Tablet) 10 mg [facility] Stop: 05/16/25 08:59 Last Admin: 04/18/25 09:27 Dose: 10 mg Apixaban (Apixaban 2.5 Mg Tablet) 10 mg PO BID JOSE Stop: 04/23/25 21:01 Last Admin: 04/18/25 09:29 Dose: 10 mg Cephalexin HCl (Cephalexin 250 Mg Capsule) 500 mg PO QID JOSE Stop: 04/24/25 11:59 Last Admin: 04/18/25 05:56 Dose: 500 mg Furosemide (Furosemide 40 Mg Tablet) 40 mg PO [facility] Stop: 05/15/25 14:14 Last Admin: 04/18/25 09:28 Dose: 40 mg Hydrochlorothiazide (Hydrochlorothiazide 12.5 Mg Capsule) 25 mg PO BID JOSE Stop: 05/17/25 08:59 Last Admin: 04/18/25 09:28 Dose: 25 mg Losartan Potassium (Losartan Potassium 25 Mg Tablet) 100 mg PO [facility] Stop: 05/17/25 08:59 Last Admin: 04/18/25 09:29 Dose: 100 mg Ondansetron HCl (Ondansetron Inj 2 Mg/Ml Inj 2 Ml) 4 mg IVP Q6H PRN; Protocol PRN Reason: NAUSEA OR VOMITING Stop: 05/14/25 22:34 Pantoprazole Sodium (Pantoprazole Inj 40 Mg Vial) 40 mg IVP [facility] Stop: 05/15/25 02:34 Last Admin: 04/18/25 09:29 Dose: 40 mg Discontinued Medications Acetaminophen (Acetaminophen 325 Mg Tablet) 650 mg PO Q6H PRN PRN Reason: Fever >101.5 Stop: 05/14/25 22:34 Acetaminophen (Acetaminophen 325 Mg Tablet) 650 mg PO Q6H PRN PRN Reason: PAIN SCALE 1-3 (mild Stop: 05/14/25 22:34 Amlodipine Besylate (Amlodipine Besylate 5 Mg Tablet) 5 mg PO QDAY JOSE Stop: 05/15/25 15:34 Last Admin: 04/15/25 15:47 Dose: 5 mg Diphenhydramine HCl (Diphenhydramine 25 Mg Capsule) 25 mg PO X1 ONE Stop: 04/17/25 20:15 Last Admin: 04/17/25 21:08 Dose: 25 mg Furosemide (Furosemide Inj 10 Mg/Ml Vial 2 Ml) 20 mg IVP X1 ONE Stop: 04/18/25 09:58 Heparin Sodium (Porcine) (Heparin Sod Inj 5000 Unit/Ml Vial) 8,000 unit IV X1 ONE; Protocol Stop: 04/14/25 18:32 Last Admin: 04/14/25 21:18 Dose: 8,000 unit Heparin Sodium (Porcine) (Heparin Sod Inj 5000 Unit/Ml Vial) 4,000 unit IVP X1 ONE Stop: 04/15/25 05:19 Last Admin: 04/15/25 05:34 Dose: 4,000 unit Heparin Sodium (Porcine) (Heparin Sod Inj 5000 Unit/Ml Vial) 4,000 unit IVP X1 ONE Stop: 04/15/25 13:47 Last Admin: 04/15/25 14:09 Dose: 4,000 unit Heparin Sodium (Porcine) (Heparin Sod Inj 5000 Unit/Ml Vial) 4,000 unit IVP X1 ONE Stop: 04/16/25 00:29 Last Admin: 04/16/25 00:40 Dose: 4,000 unit Hydralazine HCl (Hydralazine Inj 20 Mg/Ml Vial) 10 mg IVP X1 ONE Stop: 04/15/25 03:18 Last Admin: 04/15/25 03:22 Dose: 10 mg Hydralazine HCl (Hydralazine Inj 20 Mg/Ml Vial) 5 mg IVP X1 ONE Stop: 04/15/25 06:16 Last Admin: 04/15/25 06:30 Dose: 5 mg Hydralazine HCl (Hydralazine Inj 20 Mg/Ml Vial) 10 mg IVP X1 ONE Stop: 04/15/25 09:23 Last Admin: 04/15/25 09:31 Dose: 10 mg Hydrochlorothiazide (Hydrochlorothiazide 12.5 Mg Capsule) 12.5 mg PO QDAY JOSE Stop: 05/16/25 10:04 Last Admin: 04/16/25 10:23 Dose: 12.5 mg Heparin Sodium/Dextrose (Heparin In D5w Ivpb) 25,000 unit in 250 mls @ 18 mls/hr IV .[id number] JOSE; Protocol Stop: 04/28/25 18:44 Last Titration: 04/17/25 08:38 Dose: 0 units/kg/hr, 0 mls/hr Vancomycin HCl/Dextrose (Vancomycin/D5w 1500 Mg Ivpb) 300 mls @ 120 mls/hr IV X1 ONE Stop: 04/14/25 21:29 Last Infusion: 04/14/25 22:57 Dose: Infused Piperacillin Sod/Tazobactam (Sod 4.5 gm/ Sodium Chloride) 100 mls @ 200 mls/hr IV Q8HR JOSE; Protocol Stop: 04/21/25 22:59 Last Admin: 04/15/25 06:28 Dose: 200 mls/hr Piperacillin Sod/Tazobactam (Sod 4.5 gm/ Sodium Chloride) 100 mls @ 200 mls/hr IV X1 ONE; Protocol Stop: 04/14/25 23:29 Last Infusion: 04/14/25 23:45 Dose: Infused Magnesium Sulfate (Magnesium Sulfate Ivpb) 2 gm in 50 mls @ 25 mls/hr IV X1 ONE Stop: 04/15/25 03:23 Last Admin: 04/15/25 07:08 Dose: Not Given Lactated Ringer's (Lactated Ringers) 500 mls @ 125 mls/hr IV .Q4H ONE Stop: 04/15/25 05:30 Last Admin: 04/15/25 02:14 Dose: 125 mls/hr Magnesium Sulfate (Magnesium Sulfate Ivpb) 2 gm in 50 mls @ 25 mls/hr IV X1 ONE Stop: 04/15/25 03:23 Last Admin: 04/15/25 02:07 Dose: 25 mls/hr Magnesium Sulfate (Magnesium Sulfate Ivpb) 2 gm in 50 mls @ 25 mls/hr IV X1 ONE Stop: 04/15/25 04:29 Last Admin: 04/15/25 02:25 Dose: 25 mls/hr Potassium Chloride (Kcl Ivpb) 10 meq in 100 mls @ 100 mls/hr IV Q1H JOSE Stop: 04/15/25 04:22 Last Admin: 04/15/25 03:24 Dose: 100 mls/hr Vancomycin HCl/Dextrose (Vancomycin/D5w 1500 Mg Ivpb) 300 mls @ 120 mls/hr IV BID@1000,2200 JOSE; Protocol Stop: 04/22/25 09:59 Last Admin: 04/16/25 10:25 Dose: Not Given Lactated Ringer's (Lactated Ringers) 1,000 mls @ 999 mls/hr IV .Q1H1M ONE Stop: 04/15/25 10:23 Last Admin: 04/15/25 09:31 Dose: 999 mls/hr Ceftriaxone Sodium/Dextrose (Rocephin/D5w 1gm Iv Premix) 1 gm in 50 mls @ 100 mls/hr IV QDAY JOSE Stop: 04/22/25 09:29 Last Admin: 04/17/25 08:31 Dose: 100 mls/hr Vancomycin HCl 1,500 mg/ (Sodium Chloride) 500 mls @ 200 mls/hr IV BID@1000,2200 JOSE; Protocol Stop: 04/23/25 10:29 Last Admin: 04/16/25 22:28 Dose: 200 mls/hr Magnesium Sulfate (Magnesium Sulfate Ivpb) 2 gm in 50 mls @ 25 mls/hr IV X1 ONE Stop: 04/16/25 17:56 Last Admin: 04/16/25 17:19 Dose: 25 mls/hr Magnesium Sulfate (Magnesium Sulfate Ivpb) 2 gm in 50 mls @ 25 mls/hr IV X1 ONE Stop: 04/17/25 19:43 Last Admin: 04/17/25 18:06 Dose: 25 mls/hr Lisinopril (Lisinopril 20 Mg Tablet) 20 mg PO QDAY JOSE Stop: 05/15/25 10:29 Last Admin: 04/15/25 10:32 Dose: 20 mg Losartan Potassium (Losartan Potassium 25 Mg Tablet) 50 mg PO QDAY JOSE Stop: 05/16/25 00:54 Last Admin: 04/16/25 08:25 Dose: 50 mg Morphine Sulfate (Morphine Sulf Inj 4 Mg/Ml Vial) 2 mg IVP STAT STA Stop: 04/14/25 13:58 Last Admin: 04/14/25 14:07 Dose: 2 mg Pharmacy Consult (Vancomycin Pharmacy To Dose 1 Each Each) 1 each IV QDAY PRN PRN Reason: PROTOCOL Stop: 05/14/25 18:26 Pharmacy Consult (Vancomycin Pharmacy To Dose 1 Each Each) 1 each IV QDAY PRN PRN Reason: PROTOCOL Stop: 05/15/25 08:59 Potassium Chloride (Potassium Chloride 10% 20 Meq/15 Ml Udc) 20 meq GT X1 ONE Stop: 04/15/25 01:26 Last Admin: 04/15/25 02:29 Dose: Not Given Potassium Chloride (Potassium Chloride 10% 20 Meq/15 Ml Udc) 20 meq PO X1 ONE Stop: 04/15/25 01:26 Last Admin: 04/15/25 02:29 Dose: Not Given Potassium Chloride (Potassium Chloride 20 Meq Tabcr) 40 meq PO X1 ONE Stop: 04/16/25 15:58 Last Admin: 04/16/25 17:19 Dose: 40 meq Assessment & Plan Plan Mr. Owens is a 44-year-old male with past medical history significant for medication noncompliance, HFpEF, history of lower extremity DVT, PE, left lower extremity cellulitis, polysubstance use, hypertension, asthma, obesity, OHS versus CAMILLA, homelessness who presented to the ED on 05/05 with shortness of breath and bilateral foot pain. ID was consulted for patient's cellulitis of left lower extremity. #Cellulitis of left lower extremity Patient's wound culture grew Proteus Mirabella's but resistant to cefazolin. However Gram stain grew gram-positive cocci and gram-negative rods. Due to patient's significant improvement with this transition to Keflex, will just adjust dose per patient's weight. Patient will be on Keflex 1000 mg 3 times daily for 3 more days. #Acute hypoxic respiratory failure likely secondary to multiple pulmonary emboli to right lung #Left lower extremity popliteal DVT #History of multiple DVTs and PEs #Primary hypertension #Bradycardia #Second-degree Mobitz type II heart block #HFpEF #Encephalopathy?improving #Polysubstance use #PAH #CAMILLA versus OHS - Treatment as per primary team Patient's plan and care discussed with my attending, Dr. Ana Lewis MD PGY-3
[2025-04-18] MEDS: FUROSEMIDE INJ 10 MG/ML VIAL 2 ML 20 MG IVP (11:52)
[2025-04-18] MEDS: ACETAMINOPHEN 325 MG TABLET 650 MG PO (11:52)
--- NOTE | 2025-04-18 16:14 | ESPR_ITS ---
Documentation for date of: 04/18/25 Subjective Subjective Interval history: Patient was seen and evaluated at bedside this morning. No acute overnight events. No spikes in fevers or WBC. Blood pressures better controlled with current regimen. Patient got SNF authorization and placement. Still pending ID recommendations prior to discharge given Proteus mirabilis on patient's cultures of the wound. Patient will likely be discharged in the next 24 to 48 hours. Exam Vital Signs Temp Pulse Resp BP Pulse Ox O2 Del Method O2 Flow Rate 97.4 F 66 16 122/88 H 95 Nasal Cannula 2 04/18/25 12:00 04/18/25 12:00 04/18/25 12:00 04/18/25 12:00 04/18/25 12:00 04/18/25 12:00 04/18/25 12:00 FiO2 3 04/18/25 12:00 Narrative Exam General: A/O x3, no acute distress, on NC Eyes: PERRL, EOMI. Anicteric, vision grossly intact. Ears: No ear pain, no ear discharge, Hearing grossly intact. Nose: No nasal discharge. Mouth/Throat: Moist mucous membranes, no redness, no lesions. Neck: Neck supple, non-tender, no cervical lymphadenopathy. Lungs: Clear SATINDER to auscultation and percussion, No accessory muscle use. Cardio: Normal S1/S2, regular rhythm, no murmurs, no JVD or carotid bruits. Abdomen: Soft, non-tender, no palpable masses, peristalsis present, no guarding or rebound. Extremities: Symmetrical, no significant deformities, 2+ peripheral edema , non-tender, peripheral pulses presents. Skin: No rashes, no lesions, warm to touch. venous stasis changes in SATINDER LE. LLE wound with dressing Neuro: No focal neurological deficits. Psych: Cooperative, appropriate mood and effect. Objective Labs 04/18/25 05:28 04/18/25 05:27 Labs: Laboratory Results - last 24 hr 04/18/25 04/18/25 05:27 05:28 WBC 5.7 RBC 4.67 Hgb 14.7 Hct 44.4 MCV 95 MCH 31.5 MCHC 33.1 RDW Std Deviation 45.0 H Plt Count 299 Neut % (Auto) 66 Lymph % (Auto) 17 [place] % (Auto) 12 Eos % (Auto) 4 Baso % (Auto) 1 Neut # (Auto) 3.7 Lymph # (Auto) 1.0 [place] # (Auto) 0.7 Eos # (Auto) 0.2 Baso # (Auto) 0.1 Immature Gran # (Auto) 0.07 H Absolute Nucleated RBC 0.00 Immature Gran % 1 H Nucleated RBC % 0 Sodium 135 L Potassium 5.1 D Chloride 92 L Carbon Dioxide 31.4 H Anion Gap 12 BUN 16 Creatinine 0.9 Estim Creat Clear Calc 135.7 eGFR > 60 BUN/Creatinine Ratio 18 Glucose 112 H Calculated Osmolality 272 L Calcium 9.7 Corrected Calcium 9.7 Magnesium 2.2 Total Bilirubin 0.3 AST 92 H ALT 25 Alkaline Phosphatase 98 Total Protein 7.8 Albumin 4.1 Globulin 3.7 H Albumin/Globulin Ratio 1.1 L ABG Interpretation ABG results: 04/15/25 01:00 ABG pH 7.37 ABG pCO2 52 H ABG pO2 85 ABG HCO3 30 H ABG O2 Saturation 97 ABG Base Excess 4 H Quality Measures Quality Measures none Assessment & Plan Assessment Current Active Medications: Generic Name Dose Route Start Last Admin Trade Name Freq PRN Reason Stop Dose Admin Acetaminophen 650 mg 04/15/25 01:57 04/18/25 11:52 Acetaminophen 325 Mg Tablet PO 05/14/25 22:34 650 mg Q6H PRN Administration Fever >99.9 Amlodipine Besylate 10 mg 04/16/25 09:00 04/18/25 09:27 Amlodipine Besylate 5 Mg Tablet PO 05/16/25 08:59 10 mg QDAY JOSE Administration Apixaban 10 mg 04/17/25 09:00 04/18/25 09:29 Apixaban 2.5 Mg Tablet PO 04/23/25 21:01 10 mg BID JOSE Administration Cephalexin HCl 500 mg 04/17/25 12:00 04/18/25 11:52 Cephalexin 250 Mg Capsule PO 04/24/25 11:59 500 mg QID JOSE Administration Furosemide 40 mg 04/15/25 14:15 04/18/25 09:28 Furosemide 40 Mg Tablet PO 05/15/25 14:14 40 mg QDAY JOSE Administration Hydrochlorothiazide 25 mg 04/17/25 09:00 04/18/25 09:28 Hydrochlorothiazide 12.5 Mg Capsule PO 05/17/25 08:59 25 mg BID JOSE Administration Losartan Potassium 100 mg 04/17/25 09:00 04/18/25 09:29 Losartan Potassium 25 Mg Tablet PO 05/17/25 08:59 100 mg QDAY JOSE Administration Ondansetron HCl 4 mg 04/14/25 22:35 Ondansetron Inj 2 Mg/Ml Inj 2 Ml IVP 05/14/25 22:34 Q6H PRN NAUSEA OR VOMITING Protocol Pantoprazole Sodium 40 mg 04/19/25 09:00 Pantoprazole 40 Mg Tablet PO 05/19/25 08:59 QDAY JOSE Plan Wilfredo Owens 44M with PMH of medication noncompliance, HFpEF (LVEF 55-60%), hx of LE DVT, hx of PE, LLE cellulitis, polysubstance use (methamphetamine, tobacco, opiates), HTN, asthma, obesity, obesity hypoventilation syndrome, CAMILLA, homelessness who presented to [facility] ED 04/14 with b/l foot pain, shortness of breath and encephalopathy, admitted for multiple R lung PEs, LLE DVT and cellulitis. #Acute hypoxic respiratory failure likely 2/2 #Multiple pulmonary artery emboli R lung #LLE popliteal DVT #LLE cellulitis #Hx of multiple DVTs and PEs #Primary HTN, improving Presented with lethargy and RR called for desaturating requiring 5L oxymask, and was found to have multiple R PEs with LLE popliteal DVT. ABG 7.37/52/85/30 trops neg. Chest CTA showed pulmonary artery hypertension, multiple pulmonary artery filling defects right pulmonary artery including the distal right main pulmonary artery and multiple upper and lower lobe, mild opacity in right lower lung zone which may resent pulmonary infection. LLE US partial nonocclusive thrombus in L popliteal vein. LLE CT showed extensive cellulitis, neg osteomyelitis, no soft tissue abscess. Ddx: likely 2/2 polysubstance intoxication, immobilization and/or medication non adherence given prior DVTs and PEs. Zosyn (04/14), ceftriaxone (04/15-04/17), vanc (04/14-04/17) Plan: - Continue Eliquis 100 mg BID - Cardiology consulted, recs appreciated: no acute intervention at this time - ID consulted, appreciate recs - Continue PO Lasix 40 mg QD and PO HCTZ 25 mg BID - Continue Losartan 100 mg QD and amlodipine 10 mg QD - Continue Keflex 500 mg QID, pending ID recs #Bradycardia, resolved #Second degree Mobitz type II heart block, resolved #HFpEF (55-60%, 2023) On admission, heart rate was stable however RR was called for bradycardia that required transcutaneous pacing overnight. A rhythm strip printed showed Mobitz secondary type II AV block, which resolved on EKG during RR. Following removal of pacer pads 04/15, patient remains in sinus rhythm 70-90s. 01/2024 TTE Normal LV size and function. Estimatd EF 55-60%. Mild RV and RA dilatation. Normal RV function. Possible mild PH. The aortic root is mildly dilated 3.6cm. The ascending aorta is mildly dilated 3.7cm. Trace to mild TR. 04/16/25 TTE Normal LV size and wall thickness. Normal LV function with an EF of 55 to 60%. Grade 1 diastolic dysfunction. Mildly dilated RV with normal RV function. RVSP could not be measured because of insufficient TR jet but septum appears flat during systole indicating mildly elevated pressure. Trace MR and TR. No pericardial effusion. Likely 2/2 opiate use and polysubstance use. Plan: - Cardiology consulted, recs appreciated: bradycardia likely 2/2 metabolic derangements and substance use - Lasix and HCTZ as above - Telemetry for cardiac monitoring - Keep K>4 and Mg>2 at all times #Encephalopathy, improving, likely 2/2 #Methamphetamine use #Opiate use On admission patient presented with extreme lethargy and AxOx2 likely 2/2 polysubstance use of methamphetamine and opiates as admission UDS was positive for those and/or infectious of extensive LLE cellulitis. Low suspicion for true metabolic source. Plan: - CTM mental status - Consider further laboratory workup if encephalopathy worsens #PAH #CAMILLA #Obesity hypoventilation syndrome Likely multifactorial from active PE, CAMILLA, OHS and cigarette/drug inhalation. Plan: - Cardiology consulted, recs appreciated - Lasix as above - CPAP qhs Disposition: Pending ID recs Diet: low sodium GI prophylaxis: protonix DVT prophylaxis: Eliquis Code: Full Case disclosed with Attending Dr. Edith Azul PGY2 Disclaimer: Even though this this note was dictated by speech recognition and even though it was carefully revised there may still be minor errors in office manager receptionist due to voice recognition software. Attending Provider Attestation/Addendum I have discussed and was present for the essential components of the history, physical examination, diagnosis, and treatment plan with the resident. I agree with the patient's care as documented by the resident and amended herein by me. Sen Sharma DO. Although this document has been carefully reviewed, there may still be some phonetic and other typographical errors. These errors are purely grammatical due to imperfections in the software program and should not be construed in any way to compromise the substance of the patient's medical care during this visit. Patient seen and evaluated this AM, no acute overnights vss pt afebrile. Wound Cx demonstrating MDR proteus limiting PO options for Abx, ID consulted recomends Keflex which we will add. Likely dc to snf tomorrow 04/19 pending continued improvement
--- NOTE | 2025-04-18 16:15 | PD.IDPROG ---
Subjective Subjective Interval history: du with pos cx of uncertain issue as proteus will overgrow any gpc, including mrsa Exam Vital Signs Temp Pulse Resp BP Pulse Ox O2 Del Method O2 Flow Rate 97.4 F 66 16 122/88 H 95 Nasal Cannula 2 04/18/25 12:00 04/18/25 12:00 04/18/25 12:00 04/18/25 12:00 04/18/25 12:00 04/18/25 12:00 04/18/25 12:00 FiO2 3 04/18/25 12:00 Objective - Internal Medicine Labs 04/18/25 05:28 04/18/25 05:27 Labs: Laboratory Results - last 24 hr 04/18/25 04/18/25 05:27 05:28 WBC 5.7 RBC 4.67 Hgb 14.7 Hct 44.4 MCV 95 MCH 31.5 MCHC 33.1 RDW Std Deviation 45.0 H Plt Count 299 Neut % (Auto) 66 Lymph % (Auto) 17 [place] % (Auto) 12 Eos % (Auto) 4 Baso % (Auto) 1 Neut # (Auto) 3.7 Lymph # (Auto) 1.0 [place] # (Auto) 0.7 Eos # (Auto) 0.2 Baso # (Auto) 0.1 Immature Gran # (Auto) 0.07 H Absolute Nucleated RBC 0.00 Immature Gran % 1 H Nucleated RBC % 0 Sodium 135 L Potassium 5.1 D Chloride 92 L Carbon Dioxide 31.4 H Anion Gap 12 BUN 16 Creatinine 0.9 Estim Creat Clear Calc 135.7 eGFR > 60 BUN/Creatinine Ratio 18 Glucose 112 H Calculated Osmolality 272 L Calcium 9.7 Corrected Calcium 9.7 Magnesium 2.2 Total Bilirubin 0.3 AST 92 H ALT 25 Alkaline Phosphatase 98 Total Protein 7.8 Albumin 4.1 Globulin 3.7 H Albumin/Globulin Ratio 1.1 L ABG Interpretation ABG results: 04/15/25 01:00 ABG pH 7.37 ABG pCO2 52 H ABG pO2 85 ABG HCO3 30 H ABG O2 Saturation 97 ABG Base Excess 4 H Assessment & Plan A&P Narrative du, co2 retention htn chf substance use hx homelessness changed keflex dose. L leg not that impressive. am wondering what was cultured as we usually do not culture wounds. he is improved so ok to stay on the keflex for 3d more at high dose and go to rehab . please do not repeat the wound cx. I will be away on wednesday and back on wednesday, so please do not mess him up with micro and ultra broad abx Time Spent With Patient Time: Total time spent is greater than 50% in coordination of care (as documented) at patient's floor/unit and/or counseling patient:
--- NOTE | 2025-04-18 19:14 | ESCONSULT_ITS ---
RE: CHEYANNE WALDEN : 1980 DATE OF CONSULTATION: 04/18/2025 REFERRING PHYSICIAN: Dr. Chelsea Tesfaye and Dr. Azael Cuadra. REASON FOR CONSULTATION: DVT and pulmonary embolus in a patient with stasis dermatitis and wound culture that was done on the third. It was positive for Proteus that is resistant to what he is currently receiving, but Gram stain showed GPCs and GNRs and Proteus tends to swarm over everything else, so there may be in there we just do not know about. The patient reports he has improved on the Keflex with leg elevation too. He does tend to sleep behind the [place] where he reports that he can be able to keep his legs elevated. His medical problems are as listed. He is on some oxygen, I am not sure the reason for that. He does have some CO2 retention as noted. His CO2 is a bit high. We have to be careful about oxygen administration in that setting because some people have hypoxic drive and some have hypercarbic drive. So if he has more hypoxic drive and you try to replace the oxygen to get sats up, you will then raise his CO2, so be careful about that. His CO2 was normal as his pH was okay a couple of years ago. It is a little higher now and so he may be heading in that direction. He does not appear to have pneumonia grossly. He is not coughing. Chest imaging is mostly clear without any obvious pneumonia. There is possible pulmonary hypertension noted and multiple pulmonary artery emboli noted as well. The patient is not bacteremic so infarction in the right base noted. Antibiotics will not help with that. Antibiotics will only kill germs. They do not fix other problems. The patient's Proteus is of uncertain significance. ASSESSMENT: 1. Cellulitis of the left lower extremity with wound culture showing resistant germ but gram stain showing Gram-positive cocci and gram negative rods. This gram negative rods are as results of resistant agent he is getting, but the Gram-positive cocci may not be. Gram-positive cocci may be the big player. it is hard to know. 2. multiple pulmonary emboli with hypoxemia. RECOMMENDATIONS: The patient may need some oxygen for his pulmonary emboli. For his Keflex I am going to increase his dose of Keflex to 1000 t.i.d. for the remainder of 7 days and he can finish that as planned. I will see him again p.r.n. I will be away Wednesday, but if he is still here Wednesday, I will . DT: 16:34:38 TT: 17:58:00 Ref: [id number] - TID: [id number]
[2025-04-19] VITALS (8 sets, daily range): BP systolic 106–142; BP diastolic 60–95; PULSE 53–88; RESP 16–21; TEMP 36.1–36.8; O2SAT 91–94; BMI 41.4
[2025-04-19 06:01] LABS: Basophils # (Auto) 0.1 Thou/mm3 (0.0-0.2); Basophils % (Auto) 1 % (0-2.5); Eosinophils # (Auto) 0.3 Thou/mm3 (0.0-0.5); Eosinophils % (Auto) 3 % (0-10); Hematocrit 43.2 % (41.0-53.0); Hemoglobin 14.5 g/dL (13.5-16.0); Immature Granulocytes Auto 0.10 Thou/mm3 (0.00-0.00); Lymphocytes # (Auto) 1.3 Thou/mm3 (1.0-4.8); Lymphocytes % (Auto) 17 % (10-50); Mean Corpuscular HGB Conc 33.6 g/dl (31.0-37.0); Mean Corpuscular Hemoglobin 31.7 pg (25.0-35.0); Mean Corpuscular Volume 95 fL (80-100); Monocytes # (Auto) 0.9 Thou/mm3 (0.0-0.8); Monocytes % (Auto) 12 % (0-12); Neutrophils # (Auto) 5.2 Thou/mm3 (1.8-7.7); Neutrophils % (Auto) 66 % (37-80); Nucleated Red Blood Cell # 0.00 Thou/mm3 (0.00-0.00); Nucleated Red Blood Cell % 0 /100 WBC (0); Platelet Count 314 Thou/mm3 (140-440); RDW Standard Deviation 44.7 fL (35.1-43.9); Red Blood Count 4.57 Miln/mm3 (4.50-5.90); White Blood Count 7.8 Thou/mm3 (3.8-10.6)
[2025-04-19 06:48] LABS: Alanine Aminotransferase 25 U/L (10-49); Albumin, Serum 4.4 gm/dL (3.5-5.0); Albumin/Globulin Ratio 1.1 (1.2-2.2); Alkaline Phosphatase 95 U/L (46-116); Anion Gap 12 (7-16); Aspartate Amino Transferase 34 U/L (0-34); BUN/Creatinine Ratio 16 Ratio (12-20); Bilirubin,Total 0.4 mg/dL (0.3-1.2); Blood Urea Nitrogen 32 mg/dL (9-23); Calcium 10.4 mg/dL (8.3-10.6); Calcium (Corrected) 10.4 mg/dL (8.5-10.1); Carbon Dioxide 34.1 mMol/L (20.0-31.0); Chloride 88 mMol/L (98-107); Creatinine (Component) 2.0 mg/dL (0.6-1.3); Estimated Creatinine Clearance 60.6 mL/min (>60); Globulin 4.1 gm/dL (2.3-3.5); Glucose 98 mg/dL (74-106); Magnesium 2.0 mg/dL (1.6-2.6); Osmolality,Calculated 275 (275-295); Potassium 4.1 mMol/L (3.4-5.1); Sodium 134 mMol/L (136-145); Total Protein 8.5 gm/dL (5.7-8.2); eGFR 41 See Note
[2025-04-19] MEDS: APIXABAN 2.5 MG TABLET 10 MG PO (10:29)
[2025-04-19] MEDS: SODIUM CHLORIDE 0.9% 500 ML 500 ML 999 ML IV (10:29)
[2025-04-19] MEDS: PANTOPRAZOLE 40 MG TABLET PO (10:30)
--- NOTE | 2025-04-19 10:34 | PD.RESPRO ---
Documentation for date of: 04/19/25 Subjective Subjective Interval history: Patient was seen and assessed at bedside. Net -800 cc. BP 106/68 this morning, systolics in 100s to 110s overnight. Heart rate 53. Bicarb increased to 34.1, possible overdiuresis. Agree with primary team to hold Lasix and losartan today, possibly normotensive due to abstinence from meth during hospitalization. Is still noncompliant with CPAP machine overnight. 4.1, magnesium 2.0, creatinine 2.0. Continue Eliquis 10 mg twice daily for DVT and PE treatment for at least 2 weeks, recommend decreasing to 5 mg twice daily after. Patient is recommended to follow-up outpatient for blood pressure checks. Exam Vital Signs Temp Pulse Resp BP Pulse Ox O2 Del Method O2 Flow Rate 97.2 F 70 20 126/76 91 L Nasal Cannula 3 04/19/25 08:00 04/19/25 10:04/19/25 08:00 04/19/25 10:04/19/25 08:00 04/19/25 08:00 04/19/25 08:00 FiO2 3 04/18/25 16:00 Narrative Exam Physical Exam General: Awake and in no acute distress. Morbidly obese male. HEENT: Normocephalic, atraumatic, mucous membranes moist. Heart: Regular rate and rhythm, normal S1 and S2, no murmurs appreciated. Lungs: Difficult to auscultate due to obese habitus however no wheezing or crackles appreciated. Abdomen: Soft, nondistended, nontender, positive bowel sounds. No guarding or rebound tenderness. Neurologic: Alert and oriented x3, no gross neurological deficit, and patient able to move all 4 extremities. Extremities: Mild pitting edema below ankles bilaterally. Circumferential open wound at above left ankle. Dressing clean dry and intact. Skin: Chronic venous stasis changes bilaterally. No rashes or ecchymosis. Objective Labs 04/19/25 05:20 04/19/25 09:40 Labs: Laboratory Results - last 24 hr 04/19/25 05:20 WBC 7.8 RBC 4.57 Hgb 14.5 Hct 43.2 MCV 95 MCH 31.7 MCHC 33.6 RDW Std Deviation 44.7 H Plt Count 314 Neut % (Auto) 66 Lymph % (Auto) 17 [place] % (Auto) 12 Eos % (Auto) 3 Baso % (Auto) 1 Neut # (Auto) 5.2 Lymph # (Auto) 1.3 [place] # (Auto) 0.9 H Eos # (Auto) 0.3 Baso # (Auto) 0.1 Immature Gran # (Auto) 0.10 H Absolute Nucleated RBC 0.00 Immature Gran % 1 H Nucleated RBC % 0 Sodium 134 L Potassium 4.1 D Chloride 88 L Carbon Dioxide 34.1 H Anion Gap 12 BUN 32 H Creatinine 2.0 H D Estim Creat Clear Calc 60.6 L eGFR 41 L BUN/Creatinine Ratio 16 Glucose 98 Calculated Osmolality 275 Calcium 10.4 Corrected Calcium 10.4 H Magnesium 2.0 Total Bilirubin 0.4 AST 34 ALT 25 Alkaline Phosphatase 95 Total Protein 8.5 H Albumin 4.4 Globulin 4.1 H Albumin/Globulin Ratio 1.1 L ABG Interpretation ABG results: 04/15/25 01:00 ABG pH 7.37 ABG pCO2 52 H ABG pO2 85 ABG HCO3 30 H ABG O2 Saturation 97 ABG Base Excess 4 H Quality Measures Quality Measures none Assessment & Plan Assessment Current Active Medications: Generic Name Dose Route Start Last Admin Trade Name Freq PRN Reason Stop Dose Admin Acetaminophen 650 mg 04/15/25 01:57 04/18/25 11:52 Acetaminophen 325 Mg Tablet PO 05/14/25 22:34 650 mg Q6H PRN Administration Fever >99.9 Amlodipine Besylate 10 mg 04/16/25 09:00 04/19/25 10:29 Amlodipine Besylate 5 Mg Tablet PO 05/16/25 08:59 10 mg QDAY JOSE Administration Apixaban 10 mg 04/17/25 09:00 04/19/25 10:29 Apixaban 2.5 Mg Tablet PO 04/23/25 21:01 10 mg BID JOSE Administration Cephalexin HCl 1,000 mg 04/18/25 22:00 04/19/25 06:03 Cephalexin 250 Mg Capsule PO 04/21/25 15:00 1,000 mg TID JOSE Administration Furosemide 40 mg 04/15/25 14:15 04/18/25 09:28 Furosemide 40 Mg Tablet PO 05/15/25 14:14 40 mg On Hold: 04/19/25 06:54 QDAY JOSE Administration Hydrochlorothiazide 25 mg 04/17/25 09:00 04/18/25 21:48 Hydrochlorothiazide 12.5 Mg Capsule PO 05/17/25 08:59 25 mg On Hold: 04/19/25 07:54 BID JOSE Administration Losartan Potassium 100 mg 04/17/25 09:00 04/18/25 09:29 Losartan Potassium 25 Mg Tablet PO 05/17/25 08:59 100 mg On Hold: 04/19/25 06:53 QDAY JOSE Administration Ondansetron HCl 4 mg 04/14/25 22:35 Ondansetron Inj 2 Mg/Ml Inj 2 Ml IVP 05/14/25 22:34 Q6H PRN NAUSEA OR VOMITING Protocol Pantoprazole Sodium 40 mg 04/19/25 09:00 04/19/25 10:30 Pantoprazole 40 Mg Tablet PO 05/19/25 08:59 40 mg QDAY JOSE Administration Plan Patient is a 44 year old male with past medical history of HFpEF (55-60%), morbid obesity, substance abuse including methamphetamine abuse, chronic smoker with more than 61-86-xzwy-year smoking history, alcohol use, homeless, history of chronic leg swelling on Lasix previously, medical noncompliance, previous lower extremity DVT and bilateral PE, and chronic venous stasis changes on bilateral limbs who presented to [facility] ED for bilateral foot pain and shortness of breath. Admitted for right PE, left popliteal DVT, and lower leg cellulitis. Upgraded to ICU for transcutaneous pacing for Mobitz type II heart block, for which cardiology was consulted for management of. #Transient and intermittent Second degree Mobitz type II heart block - resolved #Bradycardia, resolved #HFpEF (55-60%, 2023) Noted to have brief intermittent episodes of Mobitz type II heartblock on ED tele. RR was called for bradycardia that required transcutaneous pacing at 60 mA overnight. A rhythm strip printed showed Mobitz secondary type II AV block, which resolved on EKG during RR. Following removal of pacer pads after a couple of hours, HR now stable in 70-90s. On previous admission, patient was also to have episodes of similar heart block. BNP 58. This time also likely secondary to metabolic disturbances with long history of drug abuse. 01/2024 TTE Normal LV size and function. Estimatd EF 55-60%. Mild RV and RA dilatation. Normal RV function. Possible mild PH. The aortic root is mildly dilated 3.6cm. The ascending aorta is mildly dilated 3.7cm. Trace to mild TR. Echo 04/15/25 showed Normal LV size and wall thickness. Normal LV function with an EF of 55 to 60%. Grade 1 diastolic dysfunction. Mildly dilated RV with normal RV function. RVSP could not be measured because of insufficient TR jet but septum appears flat during systole indicating mildly elevated pressure. Trace MR and TR. No pericardial effusion. 04/19/25: No heart block noted on telemetry. Occasional PVCs. Plan: - As per previous evaluation on last admission, patient is not a candidate for permanent pacemaker insertion at this time. - Hold Lasix PO 40mg QD and losartan 100 mg daily in light of normal blood pressures and elevated creatinine. - Still recommend to start GDMT outpatient if blood pressure permits, would add spironolactone 25 mg daily. - Avoid beta-blockers or calcium channel blockers like diltiazem or verapamil or other heart rate lowering medications which can cause bradycardia. - Continue to monitor telemetry - Keep K>4 and Mg>2 at all time #Pulmonary embolism - Multiple pulmonary artery emboli right side - 04/2025 #LLE popliteal DVT - 04/2025 #Hx of multiple DVTs and PEs Presented with lethargy and RR called for desaturating requiring 5L oxymask, and was found to have multiple R PEs with LLE popliteal DVT. ABG 7.37/52/85/30 trops neg. Was previously admitted in 06/2023 for DVT and bilateral PEs. Was started on Xarelto but has also been noncomplaint with this as well. Chest CTA showed pulmonary artery hypertension, multiple pulmonary artery filling defects right pulmonary artery including the distal right main pulmonary artery and multiple upper and lower lobe, mild opacity in right lower lung zone which may resent pulmonary infection. Upon close review of CT, patient is only having right upper lobe as well as right middle lobe filling defects. Rest of the lobar branches and the subsegmental branches are free of any filling defects along with the main pulmonary artery. CT also shows evidence of pulmonary hypertension with dilated pulmonary artery up to 4 cm. LLE US partial nonocclusive thrombus in L popliteal vein. LLE CT showed extensive cellulitis, neg osteomyelitis, no soft tissue abscess. Are chronic/recurring problems for him that have not been resolved due to medication non adherence. Plan: - Patient is not tachycardic and is not hypoxic the present point of time. No indication for any mechanical thrombectomy at the present point of time recommend to continue heparin drip for anticoagulation if any further procedures are planned. - Continue Eliquis 10 mg twice daily for 2 weeks and then 5 mg twice daily. #HTN Likely exacerbated by CAMILLA and medication noncompliance. Has been in systolics 140?150. BP has decreased to systolic 110s to 120s, likely secondary to abstinence from meth. - Hold Lasix and Losartan as above. If blood pressure still uncontrolled recommend to start spironolactone 25 mg once daily rather than hydrochlorothiazide as the patient is already on a diuretic and patient does have diastolic heart failure. If the blood pressure is still high after the spironolactone then consider hydralazine 25 mg every 8 hours and then continue to increase it as tolerated. - Amlodipine 10 mg daily - CTM BP #PAH #CAMILLA #Obesity hypoventilation syndrome BMI 42.7. - Lasix as above - CPAP at night #LLE cellulitis #Encephalopathy, improving, likely 2/2 #Methamphetamine use #Opiate use Thank you for your consultation, please do not hesitate to reach out if you have any question or concern Patient plan of care was discussed with the attending physician, Dr. Chau. Delfina Bach, PGY-1 Attending Provider Attestation/Addendum I have personally seen and examined the patient separately on the above date of service and discussed the plan of care with the resident. I reviewed the resident Dr. Delfina Bach consultation progress note and agree with the resident findings and plan in the note above and have also edited the documentation to reflect my findings and plan. Alfred Chau M.D. Interventional Cardiology
[2025-04-19 10:39] LABS: Albumin, Serum 4.2 gm/dL (3.5-5.0); Anion Gap 9 (7-16); BUN/Creatinine Ratio 19 Ratio (12-20); Blood Urea Nitrogen 30 mg/dL (9-23); Calcium 9.8 mg/dL (8.3-10.6); Calcium (Corrected) 9.8 mg/dL (8.5-10.1); Carbon Dioxide 35.7 mMol/L (20.0-31.0); Chloride 90 mMol/L (98-107); Creatinine (Component) 1.6 mg/dL (0.6-1.3); Estimated Creatinine Clearance 75.7 mL/min (>60); Glucose 109 mg/dL (74-106); Osmolality,Calculated 277 (275-295); Phosphorous 4.7 mg/dL (2.4-5.1); Potassium 4.3 mMol/L (3.4-5.1); Sodium 135 mMol/L (136-145); eGFR 54 See Note
--- NOTE | 2025-04-19 13:54 | ESDS_ITS ---
<Statement entered by Clinton Azul MD - 04/19/25 19:06> Patient was seen examined bedside this morning. No acute overnight events. Patient's creatinine did jump up to 2 from 0.9 previously on repeat was 1.6 after IV fluids. At this time patient's creatinine seems to be heading in the right direction and was likely in the setting of diuresis therefore we will hold patient's Lasix and his losartan at this time. Will need to follow-up with a renal function panel between 2 to 3 days and follow-up with primary care physician. Otherwise patient stable enough to be discharged to [facility] facility. I have reviewed the note and agree with the resident's assessment & plan with exceptions as below. I have personally reviewed labs, imaging, home meds/prior records, examined the patient, formulated and discussed management plan with my attending Clinton Azul PGY2 Disclaimer: Even though this this note was dictated by speech recognition and ev en though it was carefully revised there may still be minor errors in cyber security systems engineer due to voice recognition software. Planned Discharge Date 04/19/25 DS: Providers Provider Date of admission: 04/14/25 22:35 Primary care physician: Physician No Primary/Family Admitting Provider: Azael Cuadra MD Attending Provider on Admission: Rohan Sharma DO Consults: 04/14/25 23:02 Referral Wound Care Stat Comment: 04/15/25 00:48 Consult to General Surgery Routine Comment: Consulting Provider: Raquel Marie 04/15/25 01:40 Consult to Cardiology Routine Comment: 2nd degree type 2 Consulting Provider: Alfred Chau 04/15/25 02:31 Health Equity Referral - Knowledge Deficit Routine Comment: Positive screening for knowledge deficit needs. Health Equity Referral - Safety Routine Comment: Positive screening for safety needs. 04/15/25 02:40 Health Equity Referral - Knowledge Deficit Routine Comment: Positive screening for knowledge deficit needs. Instructions: patient homeless Health Equity Referral - Nutrition Routine Comment: Positive screening for nutrition needs. Instructions: patient homeless Health Equity Referral - Safety Routine Comment: Positive screening for safety needs. Instructions: patient homeless 04/16/25 11:56 Referral Physical Therapy Routine Comment: Physician Instructions: 04/18/25 08:02 Consult to Infectious Diseases Routine Comment: Consulting Provider: Alonzo Perez Attending Provider on DC: Rohan Sharma DO Discharging Provider: Rohan Sharma DO DS: Diagnosis Problem List Completed Was Problem List Reviewed/Reconciled?: Yes Hospital Course Hospital Course Hospital course: Summary: Wilfredo Owens 44M with PMH of medication noncompliance, HFpEF (LVEF 55-60%), hx of LE DVT, hx of PE, LLE cellulitis, polysubstance use (methamphetamine, tobacco, opiates), HTN, asthma, obesity, obesity hypoventilation syndrome, CAMILLA, homelessness who presented to [facility] ED 04/14 with b/l foot pain, shortness of breath and encephalopathy, admitted for multiple R lung PEs, LLE DVT and cellulitis. Patient presented to ED for bilateral foot pain L>R and shortness of breath with known noncompliance of medications. Patient was not initially admitted to floors however rapid response was called for hypoxia and type II heart block requiring transcutaneous pacing. Pacer pads eventually discontinued as bradycardia resolved, likely secondary to polysubstance use. Patient was also found to have multiple pulmonary emboli in right lung as well as a left lower extremity DVT and left lower extremity cellulitis. Patient was subsequently put on heparin and later transitioned to Eliquis for anticoagulation and requires lifelong anticoagulation due to hx of PE and DVTs. During hospital stay, patient was noted to be very hypertensive and was started on losartan, amlodipine, Lasix and hydrochlorothiazide. For left lower extremity cellulitis with circumferential wound, patient was treated with antibiotics. Altered mental status likely secondary to polysubstance use disorder as well as extensive lower left extremity cellulitis. On discharge, labs and vitals reviewed to be stable however patient will require supplemental O2, and patient is feeling ready be discharged home to SNF Imagin04/16/25 TTE Normal LV size and wall thickness. Normal LV function with an EF of 55 to 60%. Grade 1 diastolic dysfunction. Mildly dilated RV with normal RV function. RVSP could not be measured because of insufficient TR jet but septum appears flat during systole indicating mildly elevated pressure. Trace MR and TR. No pericardial effusion. Chest CTA showed pulmonary artery hypertension, multiple pulmonary artery filling defects right pulmonary artery including the distal right main pulmonary artery and multiple upper and lower lobe, mild opacity in right lower lung zone which may resent pulmonary infection. LLE US partial nonocclusive thrombus in L popliteal vein. LLE CT showed extensive cellulitis, neg osteomyelitis, no soft tissue abscess. Discharge Recommendations: - Please take all medications as prescribed - START Eliquis 10 mg twice daily until 04/23/2025 and after that 5 mg twice daily indefinitely given your history of recurrent PEs and DVT - Hold your losartan 100 mg nicholas until you follow up with cardiology and renal panel, continue hydrochlorothiazide 25 mg twice daily and amlodipine 10 mg daily for blood pressure. - Hold Lasix 40 mg daily for your lower extremity swelling until you follow up with cardiology and renal panel - START Keflex 1000 mg more tablet this evening and then 3 times a day for 2 more days. - Continue all home medications except as above - Please follow up with your PCP within one week of discharge - If your symptoms worsen, please seek immediate medical attention and return to your nearest emergency room. - If you do not have a PCP, you may follow up at the [facility] [address], [facility] [id number], Hospital Diagnoses: #Acute hypoxic respiratory failure likely 2/2 #Multiple pulmonary artery emboli R lung #LLE popliteal DVT #LLE cellulitis #Hx of multiple DVTs and PEs #Primary HTN, improving #Bradycardia, resolved #Second degree Mobitz type II heart block, resolved #HFpEF (55-60%, 2023) #Encephalopathy, improving, likely 2/2 #Methamphetamine use #Opiate use #PAH #CAMILLA #Obesity hypoventilation syndrome Neida Bach, DO Internal Medicine, PGY-1 Time Spent with Patient Time attestation: Total time spent providing and/or coordinating discharge services: Time spent: Greater than 30 minutes Exam Vital Signs Temp Pulse Resp BP Pulse Ox O2 Del Method O2 Flow Rate 97.0 F 66 20 142/95 H 94 L Nasal Cannula 3 04/19/25 12:00 04/19/25 12:00 04/19/25 12:00 04/19/25 12:00 04/19/25 12:00 04/19/25 12:00 04/19/25 12:00 FiO2 3 04/18/25 16:00 Narrative Exam GENERAL: AxOx3, no acute distress, drowsy on 3L NC HEENT: NC/AT, mucous membranes dry, bilateral sclera anicteric CARDIOVASCULAR: regular rate and rhythm, S1/S2 present, no murmurs appreciated PULMONARY: clear to auscultation bilaterally, no rales/rhonchi/wheezes ABDOMINAL: soft, non-tender, non-distended, no rebound/guarding, bowel sounds present EXTREMITIES: 2+ BLE edema, weak peripheral pulses, LLE above ankle circumfr ential open wound wrapped in sterile gauze SKIN: venous stasis dermatitis BLE NEURO: CN II-XII grossly intact, alert, following commands Discharge Plan Plan Patient Disposition: Xfer Skilled Nsg Fac (SNF) Care Plan Goals: Please follow-up with primary care physician within 2 to 3 days upon discharge Please follow-up with pin sticker within 5 to 7 days upon discharge Please follow up with a repeat renal panel in 3-5 days to monitor kidney function You have been started on Eliquis 10 mg twice daily until 04/23/2025 and after that 5 mg twice daily indefinitely given your history of recurrent PEs and DVT. Hold your losartan 100 mg nicholas until you follow up with cardiology and renal panel, continue hydrochlorothiazide 25 mg twice daily and amlodipine 10 mg daily for blood pressure. Hold Lasix 40 mg daily for your lower extremity swelling until you follow up with cardiology and renal panel You have been started on Keflex 1000 mg more tablet this evening and then 3 times a day for 2 more days. Please continue taking your other home medications as prescribed Come back to the ED if symptoms persist or worsen Wound care: Left lower extremity cellulites: cleanse with wound cleanser, pat dry, apply zinc paste, apply adaptic over open wounds. Secure with kerlix roll lightly wrap from base of toes to below the knee. Change BID/PRN for saturating. Prescriptions/Referrals Prescriptions/Med Rec: New Eliquis 5 mg tablet 5 mg PO BID Qty: 60 0RF amlodipine 10 mg tablet 10 mg PO QDAY Qty: 30 0RF hydrochlorothiazide 25 mg tablet 25 mg PO BID Qty: 60 0RF cephalexin 500 mg capsule 1,000 mg PO TID Qty: 7 0RF Held furosemide [Lasix] 40 mg tablet 40 mg PO QDAY Qty: 30 0RF Hold Instructions: Resume on 04/26/25. Hold until repeat Renal panel and follow up with cardiology Discontinued potassium chloride 20 mEq packet 20 meq PO QDAY Qty: 10 0RF potassium chloride [K-Tab] 20 mEq tablet extended release 20 meq PO BID Patient Comments: TAKE 1 TABLET BY MOUTH EVERY DAY doxycycline hyclate 100 mg capsule 100 mg PO BID Qty: 2 0RF Referrals: Alfred Chau MD [Referring Provider, Cardiology] No Primary/Family,Physician [Primary Care Provider] Patient/Caregiver Discharge Instructions Other Discharge Activity Instructions:: Please follow-up with primary care physician within 2 to 3 days upon discharge Please follow-up with pin sticker within 5 to 7 days upon discharge Please follow up with a repeat renal panel in 3-5 days to monitor kidney function You have been started on Eliquis 10 mg twice daily until 04/23/2025 and after that 5 mg twice daily indefinitely given your history of recurrent PEs and DVT. Hold your losartan 100 mg daily until you follow up with cardiology and renal panel, continue hydrochlorothiazide 25 mg twice daily and amlodipine 10 mg daily for blood pressure. Hold Lasix 40 mg daily for your lower extremity swelling until you follow up with cardiology and renal panel You have been started on Keflex 1000 mg more tablet this evening and then 3 times a day for 2 more days. Please continue taking your other home medications as prescribed Come back to the ED if symptoms persist or worsen Education Materials: Understanding Deep Vein Thrombosis, Discharge Instructions for Cellulitis, Embolism Pulmonary Dc Print Language: Setswana Stand Alone Forms: [employer] Award Info., Patient Portal Info Letter Discharge Order Discharge Orders: Discharge (Routine); Ordered 04/19/25 Ordered By: Clinton Azul Quality Discharge Quality Measures VTE prophylaxis Attestestation MD Attestation I have discussed and was present for the essential components of the discharge history, physical examination, diagnosis, and discharge treatment plan with the resident. I agree with the patient's discharge care as documented by the resident and amended herein by me. Sen Sharma DO. The patient understood all discharge instructions, all questions were answered satisfactorily. The patient was instructed to return to the Emergency Department is symptoms worsened or persisted. Patient was stable, afebrile, tolerating p.o. intake and ambulatory at time of discharge to SNF. Patient will be discharged on a course of Keflex per infectious disease recommendations for cellulitis, see resident note above. Patient also discharged on Eliquis 5 mg p.o. twice daily patient will discharge Although this document has been carefully reviewed, there may still be some phonetic and other typographical errors. These errors are purely grammatical due to imperfections in the software program and should not be construed in any way to compromise the substance of the patient's medical care during this visit.
== END 2025-04-19 17:58 | disposition skilled nursing facility (03) | DRG 134 ==
LOC: SERX 19:53 → SERHOLD 23:35 → S2NX 04-15 00:11 → S2SX 04-15 10:13 → S2NX 04-16 15:18
PROVIDERS: Emergency Medicine; Student in an Organized Health Care Education/Training Program; Admitting Provider Student in an Organized Health Care Education/Training Program; Emergency Provider Emergency Medicine; Visit Provider Student in an Organized Health Care Education/Training Program
DX: I26.99 Other pulmonary embolism without acute cor pulmonale (principal); I16.0 Hypertensive urgency; I44.1 Atrioventricular block, second degree; I82.432 Acute embolism and thrombosis of left popliteal vein; I50.32 Chronic diastolic (congestive) heart failure; J45.909 Unspecified asthma, uncomplicated; Z91.148 Patient's other noncompliance with medication regimen for other reason; I11.0 Hypertensive heart disease with heart failure; Z59.00 Homelessness unspecified; E66.2 Morbid (severe) obesity with alveolar hypoventilation; Z68.41 Body mass index [BMI] 40.0-44.9, adult; J96.01 Acute respiratory failure with hypoxia; R00.1 Bradycardia, unspecified; G47.33 Obstructive sleep apnea (adult) (pediatric); L03.116 Cellulitis of left lower limb; Z86.718 Personal history of other venous thrombosis and embolism; I27.21 Secondary pulmonary arterial hypertension; G93.41 Metabolic encephalopathy; L97.929 Non-pressure chronic ulcer of unspecified part of left lower leg with unspecified severity; D64.89 Other specified anemias; R31.9 Hematuria, unspecified; F17.200 Nicotine dependence, unspecified, uncomplicated; B96.4 Proteus (mirabilis) (morganii) as the cause of diseases classified elsewhere; I87.2 Venous insufficiency (chronic) (peripheral); L03.115 Cellulitis of right lower limb; Z16.24 Resistance to multiple antibiotics; Z79.01 Long term (current) use of anticoagulants; Z79.899 Other long term (current) drug therapy
CPT/HCPCS: 36415; 36600; 71045; 71275; 73701; 80048; 80053; 80061; 80069; 80202; 80307; 81001; 82803; 83735; 83880; 84100; 84443; 84484; 85025; 85379; 85610; 85730; 86703; 87070; 87077; 87081; 87186; 87205; 87502; 87811; 93005; 93306; 93970; 94660; 94762; 96365; 96366; 96375; 97162; A4649; J0360; J0696; J1644; J1938; J2270; J2470; J2543; J3373; J3374; J3475; J3480; J7120; J7999; Q9967; A9270

== ENCOUNTER 2025-04-19 18:58 | Inpatient (IN) | payer MEDICAID, SELFPAY ==
[2025-04-19 19:03] VITALS: BP 104/65; PULSE 70; RESP 15; O2SAT 96
--- NOTE | 2025-04-19 19:03 | PD.EDSOB ---
ED SOB =RME/HPI General Chief Complaint: Shortness of Breath/Dyspnea Stated Complaint: HYPOTENSION Time Seen by Provider: 04/19/25 19:07 Arrival date/time: 04/19/25 18:58 RME / HPI RME / HPI Narrative: Dr. Alvarado?s Main ED Evaluation: 44yo male who was recently discharged earlier today after being treated for pneumonia, with history of diastolic stage I heart failure, DVT/PE, discharged to SNF for wound care of LLE presents after having a brief episode of unconsciousness. Blood pressure was noted to be in 80s systolic range and O2 in low 80s on room air, increased to low 90s on high-flow nonrebreather mask. EMS transported patient to the ED. No definite fever, vomiting, diarrhea, or chest pain. Related Data Previous Rx's ?Medication ?Instructions ?Recorded furosemide 40 mg tablet (Lasix) 40 mg PO QDAY #30 tabs 06/27/23 Held on 04/19/25. Instructions: Resume on 04/26/25. Hold until repeat Renal panel and follow up with cardiology amlodipine 10 mg tablet 10 mg PO QDAY #30 tabs 04/18/25 apixaban 5 mg tablet (Eliquis) 5 mg PO BID #60 tabs 04/18/25 hydrochlorothiazide 25 mg tablet 25 mg PO BID #60 tabs 04/18/25 Allergies Allergy/AdvReac Type Severity Reaction Status Date / Time clindamycin Allergy Mild DIARRHEA Verified 02/01/24 17:55 Review of Systems Review of Systems Systems Reviewed: All systems reviewed, normal except as documented ED Exam Narrative Physical exam: GENERAL APPEARANCE: alert and oriented x 4, morbidly obese, complains of shortness of breath, in mild distress VITALS: All vitals were reviewed and the pulse ox is % on room air, which is normal according to my interpretation. HEENT: Normocephalic, atraumatic; pupils equal, round, reactive to light; EOMI; mucous membranes pink, moist; oropharynx clear NECK: Supple, no JVD LUNGS: Coarse rhonchi throughout bilateral lung [place] HEART: Regular rate, regular rhythm; normal S1, S2; no murmurs ABDOMEN: non distended; normal BS; soft, no tenderness, no guarding, no rebound; no masses, no organomegaly, no hernia BACK: no CVA tenderness EXTREMITIES: atraumatic; wound to the LLE with BLE venous stasis NEUROLOGIC: awake; alert and oriented x4; cranial nerves II-XII grossly intact; no focal sensory or motor deficits PSYCHIATRIC: appropriate mood and affect SKIN: warm, dry, normal color; no rashes Course Course Course Narrative: CXR is ordered for determining the etiology of shortness of breath. 2251: Sepsis alert initiated. Orders made at this time are congruent with ED Adult Sepsis Order List. Re-evaluation is to be completed. LR IVF was infused at 2030. Quality Measures Possible source: pulmonary and genitourinary Blood cultures ordered: yes Antibiotic ordered: Yes Pertinent labs: 04/19/25 04/19/25 04/19/25 19:19 20:26 23:17 Lactic Acid 2.5 H mMol/L 0.9 mMol/L (0.4-2.0) (0.4-2.0) Procalcitonin 0.14 ng/ml (0.0-0.49) sepsis Orders Category Date Time Status Bedside COVID-19 Antigen Test NOW Care 04/19/25 19:30 Active Ordinary Seaman STAT Care 04/19/25 19:10 Active Continuous Pulse Oximetry STAT Care 04/19/25 19:10 Completed EKG (ED ONLY) *Do not use* NOW Care 04/19/25 19:10 Completed Insert IV NOW Care 04/19/25 19:10 Active NPO STAT Care 04/19/25 19:10 Completed Notify provider NOW Care 04/19/25 23:42 Active Strict Intake and Output Routine Care 04/19/25 19:[address] head/brain wo con Stat Exams 04/19/25 23:53 Completed EKG (ED Only) Stat Exams 04/19/25 19:10 Draft XR chest 1V SEPSIS PROTOCOL Stat Exams 04/19/25 19:13 Completed ABG [Arterial Blood Gas] Stat Lab 04/19/25 23:57 Completed B-Type Natriuretic Peptide Stat Lab 04/19/25 19:19 Completed Blood Culture (Lab) Stat Lab 04/19/25 19:19 Results CBC Stat Lab 04/19/25 19:19 Completed Comprehensive Metabolic Panel Stat Lab 04/19/25 20:26 Completed D-Dimer Stat Lab 04/19/25 19:19 Completed Lactate (Lactic Acid) Stat Lab 04/19/25 19:19 Completed Lactic Acid, 3 HR Stat Lab 04/19/25 23:17 Completed Magnesium Stat Lab 04/19/25 20:26 Completed Partial Thromboplastin Time Stat Lab 04/19/25 19:19 Completed Phosphorous Stat Lab 04/19/25 20:26 Completed Procalcitonin Stat Lab 04/19/25 20:26 Completed Prothrombin Time with INR Stat Lab 04/19/25 19:19 Completed Troponin I Stat Lab 04/19/25 20:26 Completed Urinalysis, C/S if Indicated Stat Lab 04/19/25 21:20 Completed Albuterol/Ipratr Rt Marium [Duoneb Rt Marium] Med 04/19/25 19:15 Discontinued 3 ml INH X1 ONE Heparin Inj Med 04/19/25 23:41 Discontinued 8,000 unit IV X1 ONE Heparin/D5w 25K 250 ML Ivpb [Heparin in D5w Ivpb] Med 04/19/25 23:45 Active 25,000 unit in 250 ml IV 15.26 units/kg/hr Ondansetron Inj [Zofran Inj] Med 04/19/25 19:09 Discontinued 4 mg IVP Q6HR PRN Piper/Tazo 3.375 gm Premix [Zosyn] Med 04/19/25 19:09 Discontinued 3.375 gm in 50 ml IV X1 Ringers Lactated 1000 ml [Lactated Ringers] 1,000 ml Med 04/19/25 19:09 Discontinued IV 999 mls/hr BiPAP / CPAP NOW RT 04/19/25 23:41 Active Oxygen Delivery NOW RT 04/19/25 19:10 Active Vital Signs Vital signs: Vital Signs Pulse Rate 70 04/19/25 19:03 Respiratory Rate 15 04/19/25 19:03 Blood Pressure 104/65 04/19/25 19:03 Pulse Oximetry (%) 96 04/19/25 19:03 Oxygen Delivery Method Oxy Mask 04/19/25 19:03 Shortness of Breath / Dyspnea MDM Narrative MDM Narrative:: Scribe Attestation: 04/19/25 Nemo Beal am scribing for and in the presence of Dr. Alvarado. 44yo male who was recently discharged earlier today after being treated for pneumonia, with history of diastolic stage I heart failure, DVT/PE, discharged to SNF for wound care of LLE presents after having a brief episode of unconsciousness. Blood pressure was noted to be in 80s systolic range and O2 in low 80s on room air, increased to low 90s on high-flow nonrebreather mask. Please see PE findings. Lab markers demonstrate normal CBC. Chemistries notable for elevated Creatinine 2.3 (baseline), troponin undetected, BNP 0, Lactic Acid elevated 2.5. CXR demonstrates mild vascular congestion and atelectasis without evidence of pneumonia. It also showed a basilar bronchitis pattern . Patient placed on vehicle monitor technician, placed on Hi-flow oxygen, and remained normaltensive throughout ED course with saturations in the mid 90s with Hi-Flow mask. EKG demonstrates sinus rhythm. Patient was observed for 90 min without signs of heart block. Concern for syncope in which patient became hypoxic and hypotensive. Will consider admission for observation to r/o underlying cardiac event. Dx: syncope, hypotensive episode, hypoxia Patient data External records reviewed:: [facility] previous records (Per chart review, patient was admitted here on 04/14/25 for acute hypoxic respiratory failure.) and EMS form Clinical information provided by:: EMS Social determinants that could affect healthcare access:: housing (SNF resident) Patient has the following chronic illnesses:: medication noncompliance, HFpEF (LVEF 55-60%), hx of LE DVT, hx of PE, LLE cellulitis, polysubstance use (methamphetamine, tobacco, opiates), HTN, asthma, obesity, obesity hypoventilation syndrome, CAMILLA How is presenting disease/condition affected by chronic disease/condition?: caused by Evaluation data The following diagnostics were reviewed and interpreted by me:: lab results, radiology exam(s) and EKG tracing(s) Lab and/or radiology exams considered but not ordered:: none Interpretation Summary: 1-view CXR: right perihilar prominence, no consolidation, no effusion, no pneumothorax, according to my interpretation. EKG done at 1935, sinus bradycardia, rate of 59, no ST segment elevations, right axis deviation, no ectopy, normal intervals, according to my interpretation. Medications / Prescriptions Medications or Prescriptions considered but not ordered:: none Medication administrations:: Medication Administration History Acetaminophen (Acetaminophen 325 Mg Tablet) 650 mg PO Q6H PRN PRN Reason: Fever >101.5 Stop: 05/20/25 00:03 Acetaminophen (Acetaminophen 325 Mg Tablet) 650 mg PO Q6H PRN PRN Reason: PAIN SCALE 1-3 (mild Stop: 05/20/25 00:03 Amlodipine Besylate (Amlodipine Besylate 5 Mg Tablet) 10 mg PO QDAY [facility] Stop: 05/21/25 08:59 Cephalexin HCl (Cephalexin 250 Mg Capsule) 1,000 mg PO TID [facility] Stop: 04/22/25 05:00 Last Admin: 04/20/25 22:03 Dose: 1,000 mg Documented By: Admin: 04/20/25 14:50 Dose: 1,000 mg Documented By: Admin: 04/20/25 05:59 Dose: 1,000 mg Documented By: LUIS Hydralazine HCl (Hydralazine Hcl 10 Mg Tablet) 10 mg PO TID [facility] Stop: 05/20/25 13:59 Last Admin: 04/20/25 22:03 Dose: 10 mg Documented By: Admin: 04/20/25 14:54 Dose: 10 mg Documented By: BRANDEE Heparin Sodium/Dextrose (Heparin In D5w Ivpb) 25,000 unit in 250 mls @ 17.997 mls/hr IV .[id number] [facility]; Protocol Stop: 05/03/25 23:44 Last Titration: 04/20/25 22:40 Dose: 17.26 units/kg/hr, 20.355 mls/hr Documented By: ANGIE Co-signed By: DILLAN Titration: 04/20/25 16:25 Dose: 17.26 units/kg/hr, 20.355 mls/hr Documented By: BRANDEE Co-signed By: JADEN Admin: 04/20/25 15:46 Dose: 15.26 units/kg/hr, 17.997 mls/hr Documented By: JADEN Co-signed By: MARY Titration: 04/20/25 14:45 Dose: Infused Documented By: JADEN Co-signed By: MARY Admin: 04/20/25 00:51 Dose: 15.26 units/kg/hr, 17.997 mls/hr Documented By: NIKA Co-signed By: SITA Ondansetron HCl (Ondansetron Inj 2 Mg/Ml Inj 2 Ml) 4 mg IVP Q6H PRN; Protocol PRN Reason: NAUSEA OR VOMITING Stop: 05/20/25 00:03 Pantoprazole Sodium (Pantoprazole 40 Mg Tablet) 40 mg PO QDAY [facility] Stop: 05/20/25 11:59 Last Admin: 04/20/25 12:55 Dose: 40 mg Documented By: BRANDEE Sennosides (Senna/Docusate Sod 1 Tab Tablet) 1 tab PO QDAY PRN; Protocol PRN Reason: CONSTIPATION Stop: 05/20/25 00:54 Discontinued Medications Albuterol/Ipratropium (Albuterol/Ipratropium (Duoneb) Rt Marium 3 Ml Nebu) 3 ml INH X1 ONE Stop: 04/19/25 19:16 Last Admin: 04/19/25 19:25 Dose: 3 ml Documented By: SITA(2) Amlodipine Besylate (Amlodipine Besylate 5 Mg Tablet) 10 mg PO QDAY [facility] Stop: 05/20/25 08:59 Heparin Sodium (Porcine) (Heparin Sod Inj 5000 Unit/Ml Vial) 8,000 unit IV X1 ONE; Protocol Stop: 04/19/25 23:42 Last Admin: 04/20/25 00:50 Dose: Not Given Documented By: NIKA Non-Admin Reason: Cancelled by Provider Heparin Sodium (Porcine) (Heparin Sod Inj 5000 Unit/Ml Vial) 4,000 unit IV X1 ONE Stop: 04/20/25 16:14 Last Admin: 04/20/25 16:23 Dose: 4,000 unit Documented By: BRANDEE Co-signed By: JADEN Hydralazine HCl (Hydralazine Hcl 10 Mg Tablet) 10 mg PO BID [facility] Stop: 05/20/25 11:29 Lactated Ringer's (Lactated Ringers) 1,000 mls @ 999 mls/hr IV .Q1H1M ONE Stop: 04/19/25 20:09 Last Infusion: 04/19/25 20:30 Dose: Infused Documented By: Admin: 04/19/25 19:28 Dose: 999 mls/hr Documented By: NIKA Piperacillin/Tazobactam/Dextrose (Zosyn) 3.375 gm in 50 mls @ 100 mls/hr IV X1 ONE Stop: 04/19/25 19:38 Last Infusion: 04/19/25 20:01 Dose: Infused Documented By: Admin: 04/19/25 19:27 Dose: 100 mls/hr Documented By: NIKA Ondansetron HCl (Ondansetron Inj 2 Mg/Ml Inj 2 Ml) 4 mg IVP Q6HR PRN PRN Reason: NAUSEA OR VOMITING Stop: 05/19/25 19:08 see above Consultations Consultation(s) initiated? (list below): Yes Consultation #1 (Physician, Specialty, Details): Discussed case with the resident physician, attending Dr. Gudino from Hospitalist service regarding admission. Discussed patients ED course, exam findings, labs, and radiology results. The Hospitalist agrees to accept the patient for admission. Time: 22:52 Diagnosis Shortness of Breath Differential Diagnosis: congestive heart failure, community acquired pneumonia, pulmonary embolism and other (COVID) Most likely diagnosis given after review of the tests above:: see clinical impression below Admission Indicated Admission indicated?: indicated Admission Request Was there a request for admission?: Yes Admission Attestation Admission request attestation: Discussed case with [] from Hospitalist service regarding admission. Discussed patients ED course, exam findings, labs, and radiology results. The Hospitalist [agrees,declines] to accept the patient for admission. Disposition Plan Disposition Plan: Admit Critical Care Time Critical Care Time Critical Care Time: Yes Total Critical Care Time (min.): 35 Attestation: The high probability of sudden, clinically significant deterioration in the patient?s condition required the highest level of my preparedness to intervene urgently. The services I provided to this patient were to treat and/or prevent clinically significant deterioration. Services included the following: chart data review, reviewing nursing notes and/or old charts, documentation time, peoplesoft consultant collaboration regarding findings and treatment options, medication orders and management, direct patient care, vital sign assessments and ordering, interpreting and reviewing diagnostic studies and lab tests. Aggregate critical care time includes only time during which I was engaged in work directly related to the patient?s care, as described above, whether at bedside or elsewhere in the Emergency Department. It did not include time spent performing other reported procedures or the services of residents, students, nurses or physician assistants. Discharge Plan Plan Patient Disposition: Admit Acute Care w/in Hospital Problem List Clinical Impression: Hypotensive episode, Hypoxia, Syncope
--- NOTE | 2025-04-19 19:10 | EKG_ITS ---
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1980 Requested By: Otilio Douglas Order Number: [id number] Reading MD: Otilio Douglas Measurements Intervals Coulters Rate: 59 P: 58 MO: 163 QRS: 106 QRSD: 118 T: 71 QT: 453 QTc: 450 Interpretive Statements SINUS BRADYCARDIA RIGHT AXIS DEVIATION [QRS AXIS > 100] MODERATE INTRAVENTRICULAR CONDUCTION DELAY [110+ ms QRS DURATION] Compared to ECG 04/16/2025 09:52:56 Right-axis deviation now present Intraventricular conduction delay now present Sinus rhythm no longer present ST (T wave) deviation no longer present Myocardial infarct finding no longer present /store/S0/[id number]/ecg/[id number].pdf
[2025-04-19 19:11] VITALS: TEMP 36.7
--- NOTE | 2025-04-19 19:13 | XR_ITS ---
EXAMINATION: AP chest single view TECHNIQUE: AP portable upright chest single view Date and time: April 191942 hours INDICATIONS: Sepsis alert, chest pain shortness of breath today FINDINGS: No significant cardiac enlargement Prominent upper thoracic levoscoliosis mid thoracic dextroscoliosis Mild vascular congestion. Moderate subsegmental atelectasis right base Accentuation of bronchovascular markings. No lobar pneumonia IMPRESSION: Basilar bronchitis pattern No lobar pneumonia
[2025-04-19 19:23] VITALS: PULSE 65
[2025-04-19] MEDS: ALBUTEROL/IPRATROPIUM (Duoneb) RT SOL 3 ML NEBU INH (19:25)
[2025-04-19] MEDS: PIPER/TAZO 3.375 GM PREMIX 3.375 GM/50 ML BAG IV (19:27)
[2025-04-19 19:28] VITALS: PULSE 56; RESP 18; O2SAT 97
[2025-04-19] MEDS: RINGERS LACTATED 1000 ML 1,000 ML 999 ML IV (19:28)
[2025-04-19 19:34] VITALS: PULSE 60; RESP 20; O2SAT 99
[2025-04-19 19:42] LABS: Lactate (Lactic Acid) 2.5 mMol/L (0.4-2.0)
[2025-04-19 19:46] LABS: Basophils # (Auto) 0.1 Thou/mm3 (0.0-0.2); Basophils % (Auto) 1 % (0-2.5); Eosinophils # (Auto) 0.2 Thou/mm3 (0.0-0.5); Eosinophils % (Auto) 3 % (0-10); Hematocrit 42.4 % (41.0-53.0); Hemoglobin 14.5 g/dL (13.5-16.0); Immature Granulocytes Auto 0.08 Thou/mm3 (0.00-0.00); Lymphocytes # (Auto) 2.0 Thou/mm3 (1.0-4.8); Lymphocytes % (Auto) 27 % (10-50); Mean Corpuscular HGB Conc 34.2 g/dl (31.0-37.0); Mean Corpuscular Hemoglobin 31.6 pg (25.0-35.0); Mean Corpuscular Volume 92 fL (80-100); Monocytes # (Auto) 0.9 Thou/mm3 (0.0-0.8); Monocytes % (Auto) 12 % (0-12); Neutrophils # (Auto) 4.3 Thou/mm3 (1.8-7.7); Neutrophils % (Auto) 56 % (37-80); Nucleated Red Blood Cell # 0.00 Thou/mm3 (0.00-0.00); Nucleated Red Blood Cell % 0 /100 WBC (0); Platelet Count 347 Thou/mm3 (140-440); RDW Standard Deviation 43.8 fL (35.1-43.9); Red Blood Count 4.59 Miln/mm3 (4.50-5.90); White Blood Count 7.6 Thou/mm3 (3.8-10.6)
[2025-04-19 20:00] LABS: INR 1.1 (0.9-1.3); Partial Thromboplastin Time 25.2 Seconds (22.0-36.0); Prothrombin Time 11.9 Seconds (9.0-12.2)
[2025-04-19 20:13] LABS: D-Dimer 2390 ng/mL (<600)
[2025-04-19 20:30] LABS: B-Type Natriuretic Peptide < 0 pg/mL (0-100)
[2025-04-19 21:02] LABS: Alanine Aminotransferase 25 U/L (10-49); Albumin, Serum 4.0 gm/dL (3.5-5.0); Albumin/Globulin Ratio 1.0 (1.2-2.2); Alkaline Phosphatase 84 U/L (46-116); Anion Gap 9 (7-16); Aspartate Amino Transferase 32 U/L (0-34); BUN/Creatinine Ratio 13 Ratio (12-20); Bilirubin,Total 0.3 mg/dL (0.3-1.2); Blood Urea Nitrogen 29 mg/dL (9-23); Calcium 9.9 mg/dL (8.3-10.6); Calcium (Corrected) 9.9 mg/dL (8.5-10.1); Carbon Dioxide 33.0 mMol/L (20.0-31.0); Chloride 90 mMol/L (98-107); Creatinine (Component) 2.3 mg/dL (0.6-1.3); Globulin 4.1 gm/dL (2.3-3.5); Glucose 95 mg/dL (74-106); Magnesium 1.8 mg/dL (1.6-2.6); Osmolality,Calculated 270 (275-295); Phosphorous 4.1 mg/dL (2.4-5.1); Potassium 4.5 mMol/L (3.4-5.1); Procalcitonin 0.14 ng/ml (0.0-0.49); Sodium 132 mMol/L (136-145); Total Protein 8.1 gm/dL (5.7-8.2); Troponin I < 0.020 ng/mL (0.0-0.045); eGFR 35 See Note
[2025-04-19 21:27] LABS: Collection Type, Urine Clean Catch
[2025-04-19 21:33] LABS: Bilirubin,Urine Negative (Negative); Blood,Urine Trace (Negative); Clarity,Urine Clear (Clear/Hazy); Color,Urine Lt-Yellow (Lt Yel-Yel); Culture Indicated,Urine Not Indicated; Glucose, Urine Negative (Negative); Hyaline Casts,Urine < 1 /hpf (0-1); Ketones,Urine Negative (Negative); Leukocyte Esterase,Urine Negative (Negative); Nitrite,Urine Negative (Negative); PH,Urine 6.0 (5.0-7.0); Protein,Urine Negative (Neg - Trace); RBC,Urine 4 /hpf (0-3); Specific Gravity,Urine 1.016 (1.001-1.035); Squamous Epithelial Cell,Urine 1 /hpf (0-5); Urobilinogen,Urine Negative mg/dL (0.0-1.0); WBC,Urine 1 /hpf (0-5)
[2025-04-19 22:39] LABS: Reflex Lactate? Y
[2025-04-19 23:19] LABS: Lactic Acid, 3 HR 0.9 mMol/L (0.4-2.0)
--- NOTE | 2025-04-19 23:53 | XR_ITS ---
Examination: CT brain head without contrast. 2-D sagittal coronal reconstructions Date and time of exam: April 20, 2025, 0010 hours, comparison January 15, 2024 INDICATIONS: Syncopal episode today, patient fell CTDI: vol (mGy): 48.90 DLP: (mGycm): 1010 Technique: Multiple CT axial sections of the brain have been obtained, 5 mm slice thickness. Contrast has not been administered. 2-D sagittal, coronal reconstructions have been obtained Low dose protocols were performed. One or more of the following dose reduction techniques were used; automated exposure control, adjustment of the mA and/or KV according to patient size, use of iterative reconstruction technique. Findings: No significant ventricular enlargement. Intra-axial or extra-axial hemorrhage density is not seen. No mass effect or midline shift Basal cisterns are not remarkable. Fourth ventricle is midline. Cranial vault intact. Impression: Negative for acute hemorrhage, mass effect or midline shift Advise clinical correlation and follow-up accordingly
[2025-04-19 23:58] LABS: Base Excess 8 (-3-3); HCO3 35 mEq/L (20-26); Inspired Oxygen, FIO2 21 %; O2 Saturation 94 % (91-98); PCO2 53 mmHg (32.0-48.0); PO2 70 mmHg (83-108); pH, Arterial 7.42 (7.35-7.45)
[2025-04-19 23:59] LABS: Puncture Site Right Radial
[2025-04-20] VITALS (14 sets, daily range): BP systolic 107–147; BP diastolic 62–83; PULSE 56–80; RESP 12–22; TEMP 35.9–36.9; O2SAT 93–99; BMI 38.4; BMI 13.0
[2025-04-20] LABS: Allen Test Performed/OK
--- NOTE | 2025-04-20 00:07 | ESHP_ITS ---
<Statement entered by Santiago Gudino MD - 04/20/25 06:00> I have discussed and was present for the essential components of the history, physical examination, diagnosis, and treatment plan with the resident. I agree with the patient's care as documented by the resident and amended herein by me. Santiago Gudino MD FACP. Documentation for date of: 04/20/25 HPI History of Present Illness History of present illness: Mr. Owens is a 44 y/o male with PMH of Mobitz type II (not candidate for permanent pacemaker), HTN, LE DVT, PE, LLE cellulitis, polysubstance use (methamphetamine, tobacco, opiates), asthma, obesity, obesity hypoventilation syndrome, CAMILLA, HFpEF (LVEF 55-60%, grade 1 diastolic dysfunction), medication noncompliance, homelessness who presented to the ED on 04/19 after syncopal episode and desat to 80s after being d/c from hospital to SNF. Patient was initially difficult to arouse with sternal rub, but was eventually awake enough to answer questions. Patient was discharged this AM after hospitalization requiring ICU stay for Mobitz type II requiring transcutaneous pacing. He was initially admitted for multiple right lung PEs, LLE DVT in L popliteal vein, and LE cellulitis. Patient was put on heparin and later transitioned to Eliquis for anticoagulation. Also started on osartan, amlodipine, Lasix and hydrochlorothiazide. For left lower extremity cellulitis with circumferential wound, no osteomyelitis or abscess, patient was treated with antibiotics. Echo showed LVEF ED course: Bradycardia 50s, spO2 92%, put on high flow nonrebreather. Labs significant for Ddimer 2390 known R PE). Na 132, Cl 90, bicarb 30, BUN 29, Cr 2.3. CXR showed basilar bronchitis pattern, no PNA. EKG showed sinus bracycardia HR 59, QTc 450. Given Duoneb, Zosyn IV, 1L LR. PMHx: Mobitz type II, HTN, LE DVT, PE, LLE cellulitis, polysubstance use (methamphetamine, tobacco), asthma, obesity, obesity hypoventilation syndrome, CAMILLA, HFpEF (LVEF 55-60%) Allergies: Clindamycin Home meds: Recently d/c from hospital on: - ELiquis 10 mg BID until 10/13/25 (then 5 mg BID indefinitely) - Losartan 100 mg daily (held) - Hydrochlorothiazide 25 mg BID - Amlodipine 10 mg daily - Lasix 30 mg daily (held) - Keflex 1000 mg TID x2 more days SgHx: unknown. No operative note listed in system SHx: UDS + opiates, methamphetamines. Previous UDS + meth. Denies EtOH. Patient has a 10-year old son who lives with his mom. Patient is homeless. FHx: none reported Review of Systems Constitutional Comments: 14 point ROS negative other than HPI Exam Vital Signs Temp Pulse Resp BP Pulse Ox O2 Del Method O2 Flow Rate 98.1 F 60 20 104/65 99 Oxy Mask 10 04/19/25 19:11 04/19/25 19:34 04/19/25 19:34 04/19/25 19:03 04/19/25 19:34 04/19/25 19:03 04/19/25 19:34 Narrative Exam General: Lying in bed, no acute distress, obese Eye: PERRL, EOMI, normal conjunctiva, no scleral icterus HENT: Normocephalic, atraumatic, normal hearing, moist oral mucosa Neck: Supple, non-tender, no JVD, no lymphadenopathy Lungs: Clear to auscultation bilaterally, non-labored respirations, symmetric chest rise, no use of accessory muscles Heart: Normal S1 and S2, no S3 or S4 appreciated. Normal rate and regular rhythm, no murmurs, rubs gallop. Weak peripheral pulses felt. Abdomen: Soft, non-tender, non-distended, normal bowel sounds. No guarding or rebound tenderness. Musculoskeletal: Normal range of motion and strength Skin: Circumferential ulceration with patchy dry exudates over the anterior parnell. Venous stasis dermatitis b/l LE to knee Neurologic: Alert, awake and oriented x3. CN II-XII grossly intact. No focal neuro deficits. No signs of meningeal irritation noted. Psychiatric: Cooperative, appropriate mood and affect Results: Labs 04/19/25 19:19 04/19/25 20:26 Labs: Short CBC 04/19/25 Range/Units 19: WBC 7.6 (3.8-10.6) Thou/mm3 Hgb 14.5 (13.5-16.0) g/dL Hct 42.4 (41.0-53.0) % Plt Count 347 D (140-440) Thou/mm3 BMP 04/19/25 20:26 Sodium 132 L Potassium 4.5 Chloride 90 L Carbon Dioxide 33.0 H BUN 29 H Creatinine 2.3 H D Glucose 95 Calcium 9.9 Cardiac Enzymes 04/19/25 Range/Units 20:26 Troponin I < 0.020 (0.0-0.045) ng/mL Liver Function 04/19/25 Range/Units 20:26 Total Bilirubin 0.3 (0.3-1.2) mg/dL AST 32 (0-34) U/L ALT 25 (10-49) U/L Alkaline Phosphatase 84 (46-116) U/L Albumin 4.0 (3.5-5.0) gm/dL Urine 04/19/25 Range/Units 21:20 Urine Color Lt-Yellow (Lt Yel-Yel) Urine Clarity Clear (Clear/Hazy) Urine pH 6.0 (5.0-7.0) Ur Specific [place] 1.016 (1.001-1.035) Urine Protein Negative (Neg - Trace) Urine Glucose (UA) Negative (Negative) ABG Interpretation ABG results: 04/19/25 23:57 ABG pH 7.42 ABG pCO2 53 H ABG pO2 70 L ABG HCO3 35 H ABG O2 Saturation 94 ABG Base Excess 8 H Quality Measures Quality Measures sepsis Current suspected stage: ruled out Possible source: skin/soft tissue Blood cultures ordered: yes Antibiotic ordered: Yes Medications Home Medications and Allergies Allergies Allergy/AdvReac Type Severity Reaction Status Date / Time clindamycin Allergy Mild DIARRHEA Verified 02/01/24 17:55 Visit Medications Heparin Sodium/Dextrose (Heparin In D5w Ivpb) 25,000 unit in 250 mls @ 0 mls/hr IV .Q0M [facility]; Protocol Stop: 05/03/25 23:44 Ondansetron HCl (Ondansetron Inj 2 Mg/Ml Inj 2 Ml) 4 mg IVP Q6HR PRN PRN Reason: NAUSEA OR VOMITING Stop: 05/19/25 19:08 Discontinued Medications Albuterol/Ipratropium (Albuterol/Ipratropium (Duoneb) Rt Marium 3 Ml Nebu) 3 ml INH X1 ONE Stop: 04/19/25 19:16 Last Admin: 04/19/25 19:25 Dose: 3 ml Heparin Sodium (Porcine) (Heparin Sod Inj 5000 Unit/Ml Vial) 8,000 unit IV X1 ONE; Protocol Stop: 04/19/25 23:42 Lactated Ringer's (Lactated Ringers) 1,000 mls @ 999 mls/hr IV .Q1H1M ONE Stop: 04/19/25 20:09 Last Infusion: 04/19/25 20:30 Dose: Infused Piperacillin/Tazobactam/Dextrose (Zosyn) 3.375 gm in 50 mls @ 100 mls/hr IV X1 ONE Stop: 04/19/25 19:38 Last Infusion: 04/19/25 20:01 Dose: Infused Assessment & Plan Plan Mr. Owens is a 44 y/o male with PMH of Mobitz type II (not candidate for permanent pacemaker), HTN, LE DVT, PE, LLE cellulitis, polysubstance use (methamphetamine, tobacco, opiates), asthma, obesity, obesity hypoventilation syndrome, CAMILLA, HFpEF (LVEF 55-60%, grade 1 diastolic dysfunction), medication noncompliance, homelessness who presented to the ED on 04/19 after syncopal episode and desat to 80s after being d/c from hospital to SNF. Admitted for syncopal episode i/s/o bradycardia. #Syncopal episode #Second degree Mobitz type II heart block #Bradycardia, resolved #HFpEF (55-60%, 2023) Noted to have brief intermittent episodes of Mobitz type II heartblock on ED tele. Syncopal episode most likely 2/2 bradycardia +/- heart block RR was called during previous admission for bradycardia that required transcutaneous pacing at 60 mA overnight. A rhythm strip printed showed Mobitz secondary type II AV block, which resolved on EKG. Following removal of pacer pads after a couple of hours, HR stable in 70-90s. On previous admission, patient was also to have episodes of similar heart block. 01/2024 TTE Normal LV size and function. Estimatd EF 55-60%. Mild RV and RA dilatation. Normal RV function. Possible mild PH. The aortic root is mildly dilated 3.6cm. The ascending aorta is mildly dilated 3.7cm. Trace to mild TR. 04/15/25 TTE showed Normal LV size and wall thickness. Normal LV function with an EF of 55 to 60%. Grade 1 diastolic dysfunction. Mildly dilated RV with normal RV function. RVSP could not be measured because of insufficient TR jet but septum appears flat during systole indicating mildly elevated pressure. Trace MR and TR. No pericardial effusion. 04/19/25: No heart block noted on telemetry. Occasional PVCs and PACs. EKG showed sinus bracycardia HR 59, QTc 450. CT head negative, given initial unresponsiveness. DDX: metabolic disturbances, polysubstance use Plan: - Patient is not a candidate for permanent pacemaker insertion at this time as HB lasted <6 seconds - Hold Lasix PO 40mg QD and losartan 100 mg daily given elevated Cr - Avoid beta-blockers or calcium channel blockers like diltiazem or verapamil or other heart rate lowering medications which can cause bradycardia. - Continue to monitor telemetry - Keep K>4 and Mg>2 at all time #Acute hypoxic respiratory failure likely 08/13 #Multiple pulmonary artery emboli R lung #LLE popliteal DVT #Hx of multiple DVTs and PEs Patient desatting to 80s at [facility] requiring high flow on nonrebreather in ED Was previously admitted in 06/2023 for DVT and bilateral PEs. Was started on Xarelto but has also been noncomplaint with this as well. Chest CTA showed pulmonary artery hypertension w/ dilated pulmonary artery up to 4 cm, right upper lobe as well as right middle lobe filling defects. LLE US partial nonocclusive thrombus in L popliteal vein. Complicated by medication non-compliance Plan: - Started heparin gtt as patient was initially nonresponsive on exam. Can consider switching to Eliquis 10 mg twice daily for 2 weeks and then 5 mg twice daily. - BiPAP #HTN Likely exacerbated by CAMILLA and medication noncompliance. BP WNL in ED Plan: - Hold Lasix and Losartan as above. If blood pressure still uncontrolled recommend to start spironolactone 25 mg once daily rather than hydrochlorothiazide as the patient is already on a diuretic and patient does have diastolic heart failure. If the blood pressure is still high after the spironolactone then consider hydralazine 25 mg every 8 hours and then continue to increase it as tolerated. - Amlodipine 10 mg daily - CTM BP #MYRON BUN 29, Cr 2.3 on admission Given 1L LR in ED Plan: - CTM with daily CMP - Conservative IVF management given hx HFpEF #LLE cellulitis LLE CT showed extensive cellulitis, neg osteomyelitis, no soft tissue abscess. Plan: - Keflex 1000 mg PO TID x2 more days #Methamphetamine use #Opiate use Chronic Plan: - CTM mental status - Counseled patient on cessation #PAH #CAMILLA #Obesity hypoventilation syndrome BMI 42.7. Plan: - CPAP at night Checklist Dispo: Admit to tele for cardiac monitoring Diet: Cardiac diet Bowel Reg: doc-senna PRN VTE ppx: heparin gtt GI ppx: n/a Pain mgmt: Tylenol PRN Code status: full Plan discussed with Dr. Howard and Dr. Shahab Davidson MD PGY1
[2025-04-20] MEDS: Heparin/D5w 25K 250 ML Ivpb 25,000 UNIT/250 ML BAG 17.997 UNIT IV ×2 (00:51→15:46)
--- NOTE | 2025-04-20 01:04 | PRELIM_ITS ---
CT scan of the head without intravenous contrast (axial sections with sagittal and coronal reformats) April 20, 2025 0015 hours Clinical History: Syncope/ Fall No prior study is available for comparison. Findings: There is no evidence of intracranial hemorrhage, mass effect or midline shift. There are mild periventricular and subcortical white matter hypodensities in bilateral frontoparietal lobes likely changes of small vessel ischemia. There is mild volume loss. The calvarium is intact. The mastoid air cells and the visualized paranasal sinuses are clear. Impression: No evidence of intracranial hemorrhage, midline shift or calvarial fracture. Periventricular and subcortical white matter hypodensities in bilateral frontoparietal lobes likely changes of small vessel ischemia, vasculitis or demyelination. Recommend clinical correlation and followup with MRI as indicated. Other findings as described above. Report Electronically Signed By: Vinh Palomino 04/20/2025 1:03:48 AM [EST]
[2025-04-20 01:14] LABS: Amphetamine/Methamp Scrn,U Negative (Negative); Barbiturate Screen,Urine Negative (Negative); Benzodiazepines Screen,Urine Negative (Negative); Benzoylecgonine Screen, Ur Negative (Negative); Fentanyl Screen,Urine Negative (Negative); Opiate Screen,Urine Negative (Negative); THC Screen,Urine Negative (Negative)
--- NOTE | 2025-04-20 01:53 | PC.NURSE ---
REPORT GIVEN TO JOSEPH ON TELE
[2025-04-20 06:23] LABS: Basophils # (Auto) 0.1 Thou/mm3 (0.0-0.2); Basophils % (Auto) 1 % (0-2.5); Eosinophils # (Auto) 0.2 Thou/mm3 (0.0-0.5); Eosinophils % (Auto) 2 % (0-10); Hematocrit 40.9 % (41.0-53.0); Hemoglobin 14.0 g/dL (13.5-16.0); Immature Granulocytes Auto 0.12 Thou/mm3 (0.00-0.00); Lymphocytes # (Auto) 1.5 Thou/mm3 (1.0-4.8); Lymphocytes % (Auto) 15 % (10-50); Mean Corpuscular HGB Conc 34.2 g/dl (31.0-37.0); Mean Corpuscular Hemoglobin 31.7 pg (25.0-35.0); Mean Corpuscular Volume 93 fL (80-100); Monocytes # (Auto) 0.9 Thou/mm3 (0.0-0.8); Monocytes % (Auto) 9 % (0-12); Neutrophils # (Auto) 7.0 Thou/mm3 (1.8-7.7); Neutrophils % (Auto) 72 % (37-80); Nucleated Red Blood Cell # 0.00 Thou/mm3 (0.00-0.00); Nucleated Red Blood Cell % 0 /100 WBC (0); Platelet Count 319 Thou/mm3 (140-440); RDW Standard Deviation 43.8 fL (35.1-43.9); Red Blood Count 4.42 Miln/mm3 (4.50-5.90); White Blood Count 9.7 Thou/mm3 (3.8-10.6)
[2025-04-20 06:48] LABS: Alanine Aminotransferase 25 U/L (10-49); Albumin, Serum 4.3 gm/dL (3.5-5.0); Albumin/Globulin Ratio 1.0 (1.2-2.2); Alkaline Phosphatase 89 U/L (46-116); Anion Gap 9 (7-16); Aspartate Amino Transferase 28 U/L (0-34); Bilirubin,Total 0.4 mg/dL (0.3-1.2); Blood Urea Nitrogen 31 mg/dL (9-23); Calcium 10.0 mg/dL (8.3-10.6); Calcium (Corrected) 10.0 mg/dL (8.5-10.1); Carbon Dioxide 34.1 mMol/L (20.0-31.0); Chloride 90 mMol/L (98-107); Globulin 4.4 gm/dL (2.3-3.5); Glucose 99 mg/dL (74-106); Magnesium 1.9 mg/dL (1.6-2.6); Osmolality,Calculated 272 (275-295); Potassium 4.0 mMol/L (3.4-5.1); Sodium 133 mMol/L (136-145); Total Protein 8.7 gm/dL (5.7-8.2)
[2025-04-20 06:49] LABS: BUN/Creatinine Ratio 21 Ratio (12-20); Creatinine (Component) 1.5 mg/dL (0.6-1.3); Estimated Creatinine Clearance 78.8 mL/min (>60); eGFR 58 See Note
--- NOTE | 2025-04-20 07:09 | XR_ITS ---
Examination: Retroperitoneal ultrasound, complete Technique: Multiple high resolution grayscale images of the retroperitoneum obtained, including kidneys and bladder. Exam date and time: April 20, 2025, 0751 hours INDICATIONS: Diagnosis obstructive uropathy, abnormal renal function on laboratory examination this week FINDINGS: Right kidney 10.4 cm renal cortex 2.3 cm Left kidney 11.2 cm renal cortex 2.7 cm Mild renal parenchymal scar formation No bladder mass or bladder calculi Prostate volume 16.9 cc no prostate nodules IMPRESSION: Mild bilateral renal parenchymal scar formation
--- NOTE | 2025-04-20 07:32 | ESPR_ITS ---
<Statement entered by Clinton Azul MD - 04/20/25 11:32> Patient was seen and examined at bedside this morning. No acute patient was discharged yesterday, but came back after having a syncopal episode with BP in the low 80s and hypoxia as well. Patient was restarted on heparin drip by night team and his losartan and hydrochlorothiazide were held given his MYRON. This morning patient creatinine is improving and we will start patient on hydralazine 3 times daily with holding parameters SBP less than 110. Ordered echo limited to rule out RV strain. EKG shows sinus bradycardia with heart rate 59. Will wait for further cardiology recommendations. I have reviewed the note and agree with the resident's assessment & plan with exceptions as below. I have personally reviewed labs, imaging, home meds/prior records, examined the patient, formulated and discussed management plan with my attending Clinton Azul PGY2 Disclaimer: Even though this this note was dictated by speech recognition and even though it was carefully revised there may still be minor errors in fishing tool technician oil well due to voice recognition software. Documentation for date of: 04/20/25 Subjective Subjective Interval history: Patient seen and examined bedside; no acute events overnight. Patient states that he does not remember what happened when he passed out. Exam Vital Signs Temp Pulse Resp BP Pulse Ox O2 Del Method O2 Flow Rate 97.0 F 67 12 107/64 98 Nasal Cannula 6 04/20/25 04:00 04/20/25 04:00 04/20/25 04:00 04/20/25 00:32 04/20/25 04:00 04/20/25 04:00 04/20/25 04:00 Narrative Exam General: A/O x3, no acute distress, well-nourished, well-developed Eyes: PERRL, EOMI. Anicteric, vision grossly intact. Ears: No ear pain, no ear discharge, Hearing grossly intact. Nose: No nasal discharge. Mouth/Throat: Moist mucous membranes, no redness, no lesions. Neck: Neck supple, non-tender, no cervical lymphadenopathy. Lungs: Clear SATINDER to auscultation and percussion, No accessory muscle use. Cardio: Normal S1/S2, regular rhythm, no murmurs, no JVD or carotid bruits. Abdomen: Soft, non-tender, no palpable masses, peristalsis present, no guarding or rebound. Extremities: Symmetrical, no significant deformities, no peripheral edema , non-tender, peripheral pulses present. Skin: bilateral venous stasis changes; L parnell ulceration. Neuro: No focal neurological deficits. Psych: Cooperative, appropriate mood and effect. Objective Labs 04/21/25 05:21 04/21/25 05:21 Labs: Laboratory Results - last 24 hr 04/19/25 04/19/25 04/19/25 19:19 20:26 21:20 WBC 7.6 RBC 4.59 Hgb 14.5 Hct 42.4 MCV 92 MCH 31.6 MCHC 34.2 RDW Std Deviation 43.8 Plt Count 347 D Neut % (Auto) 56 Lymph % (Auto) 27 Hunt % (Auto) 12 Eos % (Auto) 3 Baso % (Auto) 1 Neut # (Auto) 4.3 Lymph # (Auto) 2.0 Hunt # (Auto) 0.9 H Eos # (Auto) 0.2 Baso # (Auto) 0.1 Immature Gran # (Auto) 0.08 H Absolute Nucleated RBC 0.00 Immature Gran % 1 H Nucleated RBC % 0 PT 11.9 INR 1.1 APTT 25.2 D D-Dimer 2390 H Puncture Site ABG pH ABG pCO2 ABG pO2 ABG HCO3 ABG O2 Saturation ABG Base Excess FiO2 Sodium 132 L Potassium 4.5 Chloride 90 L Carbon Dioxide 33.0 H Anion Gap 9 BUN 29 H Creatinine 2.3 H D Estim Creat Clear Calc Not Performed. eGFR 35 L BUN/Creatinine Ratio 13 Glucose 95 Calculated Osmolality 270 L Lactic Acid 2.5 H Calcium 9.9 Corrected Calcium 9.9 Phosphorus 4.1 Magnesium 1.8 Total Bilirubin 0.3 AST 32 ALT 25 Alkaline Phosphatase 84 Troponin I < 0.020 B-Natriuretic Peptide < 0 L Total Protein 8.1 Albumin 4.0 Globulin 4.1 H Albumin/Globulin Ratio 1.0 L Procalcitonin 0.14 Ur Collection Type Clean Catch Urine Color Lt-Yellow Urine Clarity Clear Urine pH 6.0 Ur Specific [place] 1.016 Urine Protein Negative Urine Glucose (UA) Negative Urine Ketones Negative Urine Blood Trace Urine Nitrite Negative Urine Bilirubin Negative Urine Urobilinogen (Auto) Negative Ur Leukocyte Esterase Negative Urine RBC 4 H Urine WBC 1 Ur Squamous Epith Cells 1 Urine Bacteria None Hyaline Casts < 1 Ur Culture Indicated? Not Indicated Urine Opiates Screen Urine Fentanyl Screen Ur Barbiturates Screen U Amphetamin/Meth Scrn U Benzodiazepines Scrn U Cocaine Metab Screen U Marijuana (THC) Screen 04/19/25 04/19/25 04/20/25 23:17 23:57 00:45 WBC RBC Hgb Hct MCV MCH MCHC RDW Std Deviation Plt Count Neut % (Auto) Lymph % (Auto) Hunt % (Auto) Eos % (Auto) Baso % (Auto) Neut # (Auto) Lymph # (Auto) Hunt # (Auto) Eos # (Auto) Baso # (Auto) Immature Gran # (Auto) Absolute Nucleated RBC Immature Gran % Nucleated RBC % PT INR APTT D-Dimer Puncture Site Right Radial ABG pH 7.42 ABG pCO2 53 H ABG pO2 70 L ABG HCO3 35 H ABG O2 Saturation 94 ABG Base Excess 8 H FiO2 21 Sodium Potassium Chloride Carbon Dioxide Anion Gap BUN Creatinine Estim Creat Clear Calc eGFR BUN/Creatinine Ratio Glucose Calculated Osmolality Lactic Acid 0.9 Calcium Corrected Calcium Phosphorus Magnesium Total Bilirubin AST ALT Alkaline Phosphatase Troponin I B-Natriuretic Peptide Total Protein Albumin Globulin Albumin/Globulin Ratio Procalcitonin Ur Collection Type Urine Color Urine Clarity Urine pH Ur Specific [place] Urine Protein Urine Glucose (UA) Urine Ketones Urine Blood Urine Nitrite Urine Bilirubin Urine Urobilinogen (Auto) Ur Leukocyte Esterase Urine RBC Urine WBC Ur Squamous Epith Cells Urine Bacteria Hyaline Casts Ur Culture Indicated? Urine Opiates Screen Negative Urine Fentanyl Screen Negative Ur Barbiturates Screen Negative U Amphetamin/Meth Scrn Negative U Benzodiazepines Scrn Negative U Cocaine Metab Screen Negative U Marijuana (THC) Screen Negative 04/20/25 05:29 WBC 9.7 RBC 4.42 L Hgb 14.0 Hct 40.9 L MCV 93 MCH 31.7 MCHC 34.2 RDW Std Deviation 43.8 Plt Count 319 Neut % (Auto) 72 Lymph % (Auto) 15 Hunt % (Auto) 9 Eos % (Auto) 2 Baso % (Auto) 1 Neut # (Auto) 7.0 Lymph # (Auto) 1.5 Hunt # (Auto) 0.9 H Eos # (Auto) 0.2 Baso # (Auto) 0.1 Immature Gran # (Auto) 0.12 H Absolute Nucleated RBC 0.00 Immature Gran % 1 H Nucleated RBC % 0 PT INR APTT D-Dimer Puncture Site ABG pH ABG pCO2 ABG pO2 ABG HCO3 ABG O2 Saturation ABG Base Excess FiO2 Sodium 133 L Potassium 4.0 D Chloride 90 L Carbon Dioxide 34.1 H Anion Gap 9 BUN 31 H Creatinine 1.5 H D Estim Creat Clear Calc 78.8 eGFR 58 L BUN/Creatinine Ratio 21 H Glucose 99 Calculated Osmolality 272 L Lactic Acid Calcium 10.0 Corrected Calcium 10.0 Phosphorus Magnesium 1.9 Total Bilirubin 0.4 AST 28 ALT 25 Alkaline Phosphatase 89 Troponin I B-Natriuretic Peptide Total Protein 8.7 H Albumin 4.3 Globulin 4.4 H Albumin/Globulin Ratio 1.0 L Procalcitonin Ur Collection Type Urine Color Urine Clarity Urine pH Ur Specific [place] Urine Protein Urine Glucose (UA) Urine Ketones Urine Blood Urine Nitrite Urine Bilirubin Urine Urobilinogen (Auto) Ur Leukocyte Esterase Urine RBC Urine WBC Ur Squamous Epith Cells Urine Bacteria Hyaline Casts Ur Culture Indicated? Urine Opiates Screen Urine Fentanyl Screen Ur Barbiturates Screen U Amphetamin/Meth Scrn U Benzodiazepines Scrn U Cocaine Metab Screen U Marijuana (THC) Screen ABG Interpretation ABG results: 04/19/25 23:57 ABG pH 7.42 ABG pCO2 53 H ABG pO2 70 L ABG HCO3 35 H ABG O2 Saturation 94 ABG Base Excess 8 H Quality Measures Quality Measures sepsis Current suspected stage: ruled out Possible source: skin/soft tissue Blood cultures ordered: yes Antibiotic ordered: Yes Assessment & Plan Assessment Current Active Medications: Generic Name Dose Route Start Last Admin Trade Name Freq PRN Reason Stop Dose Admin Acetaminophen 650 mg 04/20/25 00:04 Acetaminophen 325 Mg Tablet PO 05/20/25 00:03 Q6H PRN Fever >101.5 Acetaminophen 650 mg 04/20/25 00:04 Acetaminophen 325 Mg Tablet PO 05/20/25 00:03 Q6H PRN PAIN SCALE 1-3 (mild Amlodipine Besylate 10 mg 04/21/25 09:00 Amlodipine Besylate 5 Mg Tablet PO 05/21/25 08:59 QDAY JOSE Cephalexin HCl 1,000 mg 04/20/25 06:00 04/20/25 05:59 Cephalexin 250 Mg Capsule PO 04/22/25 05:00 1,000 mg TID JOSE Administration Heparin Sodium/Dextrose 25,000 unit in 250 mls @ 17.997 mls/hr 04/19/25 23:45 04/20/25 00:51 Heparin In D5w Ivpb IV 05/03/25 23:44 15.26 units/kg/hr .[id number] JOSE 17.997 mls/hr Protocol Administration 15.26 UNITS/KG/HR Ondansetron HCl 4 mg 04/20/25 00:04 Ondansetron Inj 2 Mg/Ml Inj 2 Ml IVP 05/20/25 00:03 Q6H PRN NAUSEA OR VOMITING Protocol Sennosides 1 tab 04/20/25 00:55 Senna/Docusate Sod 1 Tab Tablet PO 05/20/25 00:54 QDAY PRN CONSTIPATION Protocol Plan Patient is a 44 yo M with PMH of medication noncompliance, HFpEF (LVEF 55-60%), hx of LE DVT, hx of PE, LLE cellulitis, polysubstance use (methamphetamine, tobacco, opiates), HTN, asthma, obesity, obesity hypoventilation syndrome, CAMILLA, homelessness who presented for syncope and hypotension and admitted for syncope and bradycardia. #Syncopal episode #Hypotension #Bradycardia #Mobitz Type 2 heart block #HfPef #Multiple pulmonary artery emboli #L leg DVT (popliteal) #History of multiple DVTs and PEs Patient had syncopal episode at SNF with hypotension; ED EKG showed bradycardia (59), BP on admission 104/65, last BP was 04/18/25 8:00 142/77. CT head negative. Last echo (04/19/25) showed LV function 55-60%. D-dimer admission 2390. Tox screen negative; CT head negative. Plan: Consulted cardiology, thank you for recommendations?Will get limited echo to check for RV strain for massive PE Consulted GI, appreciate recommendations Heparin Will monitor vitals, PT/PTT #HTN #MYRON Patient had syncopal episode at SNF with hypotension; creatinine on admission- 2.3 04/19/25 20:26; 1.5 04/20/25; BP on admission 104/65, last BP was 04/18/25 8:00 142/77 Plan: Amlodipine 10 mg Hydralazine 10 mg 3 times daily with holding criteria of systolic less than 110 Monitor BP Trend creatinine and eGFR Hold losartan and HCTZ #L leg cellulitis Patient had infection on previous discharge Plan: Cephalexin 1 g p.o. 3 times daily Blood cultures drawn awaiting results Referred to physical therapy and wound care Disposition: Pending echo Diet: Cardiac GI prophylaxis: DVT prophylaxis: Heparin Code: Full This case was discussed with my attending physician, Dr. Sharma, and senior resident, Dr. Jackson. Andi Ponce MD-PhD, PGY1 Attending Provider Attestation/Addendum I have discussed and was present for the essential components of the history, physical examination, diagnosis, and treatment plan with the resident. I agree with the patient's care as documented by the resident and amended herein by me. Sen Sharma, DO. Although this document has been carefully reviewed, there may still be some phonetic and other typographical errors. These errors are purely grammatical due to imperfections in the software program and should not be construed in any way to compromise the substance of the patient's medical care during this visit. Patient seen and evaluated this AM. No subjective complaints by the patient's, no overnight events on telemetry, no further syncopal or seizure-like episodes. Limited echo pending will follow with results and cardiology recommendations. Patient will remain on amlodipine, Eliquis however will hold other antihypertensives and diuretics for now pending further workup and specialist recommendations.
--- NOTE | 2025-04-20 08:24 | ECHO_ITS ---
Transthoracic Echo Report Ht (in): 69 Wt (lb): 260 Exam Location: 262 Status: Inpatient Care Professional: Patricia Ruth Indications: Procedure Performed: BP: 142 / 77 HR: 59 MEASUREMENTS (Male / Female) Normal Values 2D ECHO LV Diastolic Diameter PLAX 5.5 cm 4.2 - 5.9 / 3.9 - 5.3 cm LV Systolic Diameter PLAX 3.4 cm IVS Diastolic Thickness 1.3 cm 0.6 - 1.0 / 0.6 - 0.9 cm LVPW Diastolic Thickness 1.1 cm 0.6 - 1.0 / 0.6 - 0.9 cm LV Relative Wall Thickness 0.4 DOPPLER MV Area PHT 2.9 cm? Mitral E Point Velocity 61.1 cm/s Mitral A Point Velocity 69.4 cm/s Mitral E to A Ratio 0.9 TR Peak Velocity 202.0 cm/s TR Peak Gradient 16.3 mmHg FINDINGS Left Ventricle The left ventricular cavity size is mildly increased with normal wall thickness. Normal systolic function. There is grade I diastolic dysfunction of the left ventricle (impaired relaxation pattern). The ejection fraction is visually estimated at 55-60 %. Right Ventricle The right ventricular size is mildlu increased with normal systolic function. Left Atrium The left atrium is normal by two-dimensional, color flow and Doppler imaging with no structural abnormalities, no thrombus formation present. Right Atrium The right atrium is normal by two-dimensional imaging, color flow and Doppler imaging with no structural abnormalities, no thrombus formation present. Atrial Septum The interatrial septum appears normal with no evidence of a shunt. Aorta The aorta is normal by two-dimensional, color flow and Doppler interrogation. Mitral Valve The mitral valve is normal by two-dimensional, color flow and Doppler interrogation. Trace mitral regurgitation. Aortic Valve The aortic valve is trileaflet and normal by two-dimensional, color flow and Doppler interrogation. There is no significant aortic valve regurgitation. Tricuspid Valve The tricuspid valve is normal by two-dimensional, color flow and Doppler interrogation. There is trace tricuspid valve regurgitation. Pulmonic Valve The pulmonic valve is not well visualized. There is no significant pulmonic valve regurgitation. Vessels The pulmonary artery appears normal. The inferior vena cava pulmonary and hepatic veins appear normal. Pericardium The pericardium is normal by two-dimensional imaging. There is no significant pericardial effusion. CONCLUSIONS Indication: PE. R/o RV strain readmission hx of PE Mild dilated LV size and normal wall thickness. Normal LV function with an EF of 55-60%. Grade I diastolic dysfunction. Mild to moderately dilated RV with normal RV function. RVSP couldnt be measured because of insufficient TR jet. Septum appears flat during systole indicating elevated right ventricular systolic pressure RVSP. Trace mitral and trace tricuspid regurgitation noted. No change compared to prior study of 04/15/25 Alfred Chau (Electronically Signed) Final Date: 20 April 2025 23:15
[2025-04-20 09:26] LABS: Partial Thromboplastin Time 41.1 Seconds (22.0-36.0)
--- NOTE | 2025-04-20 09:45 | PD.RESCONSUL ---
HPI Data of Consult Requesting Physician: Cheri Bishop MD Admitting Provider: Santiago Gudino MD Attending Provider: Cheri Bishop MD Primary Care Provider: Physician No Primary/Family Consult Narrative History of present illness: Patient is a 44 year old male with past medical history of HFpEF (55-60%), morbid obesity, substance abuse including methamphetamine abuse, chronic smoker with more than 67-25-qvqh-year smoking history, alcohol use, homeless, history of chronic leg swelling on Lasix previously, medical noncompliance, previous lower extremity DVT and bilateral PE, and chronic venous stasis changes on bilateral limbs who was Readmitted on 04/19 overnight for syncopal episode and oxygen saturation to the 80s after being discharged from hospital to SNF. Patient had been discharged earlier that morning. Was admitted on 04/15 for Mobitz type II requiring transcutaneous pacing as well as multiple right lung pulmonary embolisms, left lower extremity DVT in left popliteal vein, and left lower extremity cellulitis. On exam, patient does not recall why he was admitted again. Denies any chest pain, shortness of breath, palpitations at this time. Patient was discharged on Eliquis 10 twice daily for PE and DVT treatment until 04/23/2025, was then instructed to switch to 5 mg twice daily. Also discharged on hydrochlorothiazide 25 mg twice daily and amlodipine 10 mg daily. Was started on Keflex 1000 mg 3 times daily, continue until 04/22. Blood pressure on admission was 104/65, previously systolics were in 130s to 140s. Required 15 L on oxy mask, saturating 96%. Has been weaned down to 6 L nasal cannula today. Was discharged on 3 L yesterday. CMP was unremarkable, WBC within normal limits. Lactic acid elevated 2.5. Sodium 132, potassium 4.5, chloride 98, bicarbonate 33, BUN 29, creatinine 2.3 this is baseline 0.9?1.2, magnesium 1.8. BNP was 0. No heart block noted on EKG on readmission. No patient does have history of frequent bigeminy and PVCs, some of which have been captured on telemetry this morning. Again no heart block. Cardiology was consulted due to history of Mobitz type II heart block and previous management of PE and DVT. Past Medical History: As above Family History: Denies family history of heart disease. Surgical History: None. Social History: Denies alcohol and tobacco use. Previous UDS was positive for opiates and methamphetamine, long history of use. Patient is homeless. Current Medications: Eliquis 10 mg twice daily, losartan 100 mg daily (held), hydrochlorothiazide 25 mg twice daily, amlodipine 10 mg daily, Lasix 30 mg daily (held), Keflex 1000 mg 3 times daily for 2 more days (Source: Previous admission) Allergies: Clindamycin cc:: cc: Cheri Bishop MD Exam Vital Signs Temp Pulse Resp BP Pulse Ox O2 Del Method O2 Flow Rate 97.1 F 73 20 142/77 H 93 L Nasal Cannula 6 04/20/25 08:00 04/20/25 08:00 04/20/25 08:00 04/20/25 08:00 04/20/25 08:00 04/20/25 08:00 04/20/25 08:00 Narrative Exam Physical Exam General: Awake and in no acute distress. Morbidly obese male. HEENT: Normocephalic, atraumatic, mucous membranes moist. Heart: Regular rate and rhythm, normal S1 and S2, no murmurs appreciated. Lungs: Difficult to auscultate due to obese habitus however no wheezing or crackles appreciated. Abdomen: Soft, nondistended, nontender, positive bowel sounds. No guarding or rebound tenderness. Neurologic: Alert and oriented x3, no gross neurological deficit, and patient able to move all 4 extremities. Extremities: Mild pitting edema below ankles bilaterally. Circumferential open wound at above left ankle. Dressing clean dry and intact. Skin: Chronic venous stasis changes bilaterally. No rashes or ecchymosis. Results Labs 04/20/25 05:29 04/20/25 05:29 Labs: Short CBC 04/19/25 04/20/25 Range/Units 19:19 05:29 WBC 7.6 9.7 (3.8-10.6) Thou/mm3 Hgb 14.5 14.0 (13.5-16.0) g/dL Hct 42.4 40.9 L (41.0-53.0) % Plt Count 347 D 319 (140-440) Thou/mm3 BMP 04/19/25 04/20/25 20:26 05:29 Sodium 132 L 133 L Potassium 4.5 4.0 D Chloride 90 L 90 L Carbon Dioxide 33.0 H 34.1 H BUN 29 H 31 H Creatinine 2.3 H D 1.5 H D Glucose 95 99 Calcium 9.9 10.0 Cardiac Enzymes 04/19/25 Range/Units 20:26 Troponin I < 0.020 (0.0-0.045) ng/mL Liver Function 04/19/25 04/20/25 Range/Units 20:26 05:29 Total Bilirubin 0.3 0.4 (0.3-1.2) mg/dL AST 32 28 (0-34) U/L ALT 25 25 (10-49) U/L Alkaline Phosphatase 84 89 (46-116) U/L Albumin 4.0 4.3 (3.5-5.0) gm/dL Urine 04/19/25 Range/Units 21:20 Urine Color Lt-Yellow (Lt Yel-Yel) Urine Clarity Clear (Clear/Hazy) Urine pH 6.0 (5.0-7.0) Ur Specific [place] 1.016 (1.001-1.035) Urine Protein Negative (Neg - Trace) Urine Glucose (UA) Negative (Negative) ABG Interpretation ABG results: 04/19/25 23:57 ABG pH 7.42 ABG pCO2 53 H ABG pO2 70 L ABG HCO3 35 H ABG O2 Saturation 94 ABG Base Excess 8 H Quality Measures Quality Measures sepsis Current suspected stage: ruled out Possible source: skin/soft tissue Blood cultures ordered: yes Antibiotic ordered: Yes Medications Home Medications and Allergies Allergies Allergy/AdvReac Type Severity Reaction Status Date / Time clindamycin Allergy Mild DIARRHEA Verified 02/01/24 17:55 Visit Medications Acetaminophen (Acetaminophen 325 Mg Tablet) 650 mg PO Q6H PRN PRN Reason: Fever >101.5 Stop: 05/20/25 00:03 Acetaminophen (Acetaminophen 325 Mg Tablet) 650 mg PO Q6H PRN PRN Reason: PAIN SCALE 1-3 (mild Stop: 05/20/25 00:03 Amlodipine Besylate (Amlodipine Besylate 5 Mg Tablet) 10 mg PO QDAY JOSE Stop: 05/21/25 08:59 Cephalexin HCl (Cephalexin 250 Mg Capsule) 1,000 mg PO TID JOSE Stop: 04/22/25 05:00 Last Admin: 04/20/25 05:59 Dose: 1,000 mg Heparin Sodium/Dextrose (Heparin In D5w Ivpb) 25,000 unit in 250 mls @ 17.997 mls/hr IV .[id number] [facility]; Protocol Stop: 05/03/25 23:44 Last Admin: 04/20/25 00:51 Dose: 15.26 units/kg/hr, 17.997 mls/hr Ondansetron HCl (Ondansetron Inj 2 Mg/Ml Inj 2 Ml) 4 mg IVP Q6H PRN; Protocol PRN Reason: NAUSEA OR VOMITING Stop: 05/20/25 00:03 Sennosides (Senna/Docusate Sod 1 Tab Tablet) 1 tab PO QDAY PRN; Protocol PRN Reason: CONSTIPATION Stop: 05/20/25 00:54 Discontinued Medications Albuterol/Ipratropium (Albuterol/Ipratropium (Duoneb) Rt Marium 3 Ml Nebu) 3 ml INH X1 ONE Stop: 04/19/25 19:16 Last Admin: 04/19/25 19:25 Dose: 3 ml Amlodipine Besylate (Amlodipine Besylate 5 Mg Tablet) 10 mg PO QDAY [facility] Stop: 05/20/25 08:59 Heparin Sodium (Porcine) (Heparin Sod Inj 5000 Unit/Ml Vial) 8,000 unit IV X1 ONE; Protocol Stop: 04/19/25 23:42 Last Admin: 04/20/25 00:50 Dose: Not Given Lactated Ringer's (Lactated Ringers) 1,000 mls @ 999 mls/hr IV .Q1H1M ONE Stop: 04/19/25 20:09 Last Infusion: 04/19/25 20:30 Dose: Infused Piperacillin/Tazobactam/Dextrose (Zosyn) 3.375 gm in 50 mls @ 100 mls/hr IV X1 ONE Stop: 04/19/25 19:38 Last Infusion: 04/19/25 20:01 Dose: Infused Ondansetron HCl (Ondansetron Inj 2 Mg/Ml Inj 2 Ml) 4 mg IVP Q6HR PRN PRN Reason: NAUSEA OR VOMITING Stop: 05/19/25 19:08 Assessment & Plan Plan Patient is a 44 year old male with past medical history of HFpEF (55-60%), morbid obesity, substance abuse including methamphetamine abuse, chronic smoker with more than 34-80-pext-year smoking history, alcohol use, homeless, history of chronic leg swelling on Lasix previously, medical noncompliance, previous lower extremity DVT and bilateral PE, and chronic venous stasis changes on bilateral limbs who presented to [facility] ED for bilateral foot pain and shortness of breath. Readmitted for syncopal episode and MYRON. Cardiology was consulted due to history of Mobitz type II heart block and previous management of right PEs and left leg DVT. #Syncope, orthostatic versus cardiogenic Was unconscious upon arrival. Patient does not recall what brought him into the hospital this morning. Patient is a poor historian and is uncooperative. DDx: Orthostatic hypotension from overdiuresis, arrhythmia (history of Mobitz type II episodes), PE (despite being discharged on Eliquis 10 mg twice daily). ?Per primary team, will repeat limited echo to rule out another PE ?Orthostatic vitals ? Heparin drip ?Continue to monitor telemetry ?Hold diuretics #Pulmonary embolism - Multiple pulmonary artery emboli right side - 04/14/2025 #LLE popliteal DVT - 04/14/2025 #Hx of multiple DVTs and PEs Was previously admitted in 06/2023 for DVT and bilateral PEs. Was started on Xarelto but has also been noncomplaint with this as well. Chest CTA 04/14 showed pulmonary artery hypertension, multiple pulmonary artery filling defects right pulmonary artery including the distal right main pulmonary artery and multiple upper and lower lobe, mild opacity in right lower lung zone which may resent pulmonary infection. Upon close review of CT, patient is only having right upper lobe as well as right middle lobe filling defects. Rest of the lobar branches and the subsegmental branches are free of any filling defects along with the main pulmonary artery. CT also shows evidence of pulmonary hypertension with dilated pulmonary artery up to 4 cm. LLE US 04/14 showed partial nonocclusive thrombus in L popliteal vein. LLE CT showed extensive cellulitis, neg osteomyelitis, no soft tissue abscess. Are chronic/recurring problems for him that have not been resolved due to medication non adherence. Plan: -Started on heparin drip overnight, appropriate to continue with drip and hold Eliquis for now. - Patient is not tachycardic and is not hypoxic the present point of time. No indication for any mechanical thrombectomy at this present point of time. #Transient and intermittent Second degree Mobitz type II heart block - resolved #Bradycardia, resolved #HFpEF (55-60%, 2023) Previously was admitted ICU for Mobitz type II AV block, requiring pacer pads. Was stable after couple hours and downgraded. Has history of brief episodes of similar heart block. No heart block noted on repeat EKG on 04/19 or on telemetry. Still has intermittent bigeminy and PVCs on telemetry. 01/2024 TTE Normal LV size and function. Estimatd EF 55-60%. Mild RV and RA dilatation. Normal RV function. Possible mild PH. The aortic root is mildly dilated 3.6cm. The ascending aorta is mildly dilated 3.7cm. Trace to mild TR. Echo 04/15/25 showed Normal LV size and wall thickness. Normal LV function with an EF of 55 to 60%. Grade 1 diastolic dysfunction. Mildly dilated RV with normal RV function. RVSP could not be measured because of insufficient TR jet but septum appears flat during systole indicating mildly elevated pressure. Trace MR and TR. No pericardial effusion. Plan: - As per previous evaluation on last admission, patient is not a candidate for permanent pacemaker insertion at this time. - Insetting of MYRON, hold Lasix 40 mg. If BP remains elevated and kidney function improves, recommend to start on losartan 50 mg. -If develops significant lower extremity edema, recommend hydrochlorothiazide 12.5 daily as needed. - Still recommend to start GDMT outpatient if blood pressure and kidney function permits, would add spironolactone 25 mg daily. - Avoid beta-blockers or calcium channel blockers like diltiazem or verapamil or other heart rate lowering medications which can cause bradycardia. - Continue to monitor telemetry - Keep K>4 and Mg>2 at all time #MYRON #Hx of HTN Presented with creatinine of 2.3, likely secondary to overdiuresis. BP was 104/65 on admission (previously systolics 130s?150s), likely more controlled due to abstinence from meth and substance abuse but still persistently high bc of CAMILLA. - Hold Lasix and Losartan as above. - Start Hydralazine 25 mg TID - Amlodipine 10 mg daily - If blood pressure still uncontrolled and renal function is stable, recommend to start spironolactone 25 mg once daily rather than hydrochlorothiazide as the patient is already on a diuretic and patient does have diastolic heart failure. - CTM BP #PAH #CAMILLA #Obesity hypoventilation syndrome BMI 42.7. - CPAP at night #LLE cellulitis #Encephalopathy, improving, likely 2/2 #Methamphetamine use #Opiate use Thank you for your consultation, please do not hesitate to reach out if you have any question or concern Patient plan of care was discussed with the attending physician, Dr. Chau. Delfina Bach, PGY-1 Attending Provider Attestation/Addendum I have personally seen and examined the patient separately on the above date of service and discussed the plan of care with the resident. I reviewed the resident Dr. Delfina Bach consultation progress note and agree with the resident findings and plan in the note above and have also edited the documentation to reflect my findings and plan. Alfred Chau M.D. Interventional Cardiology
--- NOTE | 2025-04-20 10:17 | PC.SS ---
Patient Wilfredo Owens is a 44 Year old male admitted for Syncope. SS conducted bedside contact with the patient to conduct initial assessment and discuss discharge planning.Patient confirmed demographic information. Patient was discharged to [facility] yesterday and was sent back within hours. Patient reports his cousin Betty Manuel is his surrogate decision maker, [phone]. Patient reports prior to admission he did not utilize DME to assist with ambulation. Patient is currently on 02. Patient describes ability to complete ADL?s independently. Patient utilizes [facility] for PCP services however has not followed up in a while. Choice of Pharmacy is [facility]. Patient Reported that he would like to discharge to [facility] and informed SS his cousin recommended [facility]. SS contacted Macrina from [facility] and she requested PT note. SS contacted Team C for PT order. At time of discharge patient will discharge to [facility] Next of Kin: CousinBetty Discharge plan: [facility] pending
[2025-04-20] MEDS: PANTOPRAZOLE 40 MG TABLET PO (12:55)
[2025-04-20] MEDS: HEPARIN SOD INJ 5000 UNIT/ML VIAL 4000 UNIT IV (16:23)
[2025-04-20 23:26] LABS: Partial Thromboplastin Time 56.2 Seconds (22.0-36.0)
[2025-04-21] VITALS (12 sets, daily range): BP systolic 109–175; BP diastolic 68–93; PULSE 58–78; RESP 15–29; TEMP 36–36.4; O2SAT 95–97
[2025-04-21] MEDS: Heparin/D5w 25K 250 ML Ivpb 25,000 UNIT/250 ML BAG 20.355 UNIT IV ×2 (04:59→17:27)
[2025-04-21 07:28] LABS: Basophils # (Auto) 0.1 Thou/mm3 (0.0-0.2); Basophils % (Auto) 1 % (0-2.5); Eosinophils # (Auto) 0.2 Thou/mm3 (0.0-0.5); Eosinophils % (Auto) 2 % (0-10); Hematocrit 43.5 % (41.0-53.0); Hemoglobin 14.4 g/dL (13.5-16.0); Immature Granulocytes Auto 0.19 Thou/mm3 (0.00-0.00); Lymphocytes # (Auto) 1.8 Thou/mm3 (1.0-4.8); Lymphocytes % (Auto) 22 % (10-50); Mean Corpuscular HGB Conc 33.1 g/dl (31.0-37.0); Mean Corpuscular Hemoglobin 31.0 pg (25.0-35.0); Mean Corpuscular Volume 94 fL (80-100); Monocytes # (Auto) 0.9 Thou/mm3 (0.0-0.8); Monocytes % (Auto) 11 % (0-12); Neutrophils # (Auto) 5.1 Thou/mm3 (1.8-7.7); Neutrophils % (Auto) 61 % (37-80); Nucleated Red Blood Cell # 0.00 Thou/mm3 (0.00-0.00); Nucleated Red Blood Cell % 0 /100 WBC (0); Platelet Count 314 Thou/mm3 (140-440); RDW Standard Deviation 43.9 fL (35.1-43.9); Red Blood Count 4.64 Miln/mm3 (4.50-5.90); White Blood Count 8.3 Thou/mm3 (3.8-10.6)
[2025-04-21 07:51] LABS: Alanine Aminotransferase 23 U/L (10-49); Albumin, Serum 4.2 gm/dL (3.5-5.0); Albumin/Globulin Ratio 1.1 (1.2-2.2); Alkaline Phosphatase 87 U/L (46-116); Anion Gap 8 (7-16); Aspartate Amino Transferase 24 U/L (0-34); BUN/Creatinine Ratio 23 Ratio (12-20); Bilirubin,Total 0.4 mg/dL (0.3-1.2); Blood Urea Nitrogen 28 mg/dL (9-23); Calcium 10.1 mg/dL (8.3-10.6); Calcium (Corrected) 10.1 mg/dL (8.5-10.1); Carbon Dioxide 35.6 mMol/L (20.0-31.0); Chloride 89 mMol/L (98-107); Creatinine (Component) 1.2 mg/dL (0.6-1.3); Estimated Creatinine Clearance 102.9 mL/min (>60); Globulin 3.8 gm/dL (2.3-3.5); Glucose 94 mg/dL (74-106); Magnesium 2.0 mg/dL (1.6-2.6); Osmolality,Calculated 271 (275-295); Phosphorous 3.4 mg/dL (2.4-5.1); Potassium 4.4 mMol/L (3.4-5.1); Sodium 133 mMol/L (136-145); Total Protein 8.0 gm/dL (5.7-8.2); eGFR > 60 See Note
--- NOTE | 2025-04-21 07:56 | ESPR_ITS ---
<Statement entered by Clinton Azul MD - 04/21/25 20:42> Patient was seen and examined at bedside this morning. No acute overnight events. Patient's bicarb is uptrending, but will hold off on acetazolamide at this time. Patient may benefit if bicarb continues to uptrend. Will can continue heparin drip as per cardiology recommendations for now. Still pending repeat echo. Patient today had an episode of blank staring where he ripped out his IVs and then was unresponsive patient is with low back stare that lasted a few seconds. Can consider EEG or MRI if symptoms persist. Patient's heart rate was still in the 60s today with no bradycardia and repeat EKG did not show any acute ST changes or any AV blocks. Patient will need to work more with physical therapy and encourage ambulation. I have reviewed the note and agree with the resident's assessment & plan with exceptions as below. I have personally reviewed labs, imaging, home meds/prior records, examined the patient, formulated and discussed management plan with my attending Clinton Azul PGY2 Disclaimer: Even though this this note was dictated by speech recognition and even though it was carefully revised there may still be minor errors in occupational psychologist due to voice recognition software. Documentation for date of: 04/21/25 Subjective Subjective Interval history: Patient was seen and examined at bedside; had no overnight events. Around 2 PM, patient had episode of staring, bloodshot eyes, and ripping out lines lasting less than a minute; patient recovered within 1 minute. EKG showed inverted P waves in lead III; otherwise no other changes from EKG on 04/19/2025. Telemonitoring showed no acute events today. Patient nasal swab positive today for MRSA. Exam Vital Signs Temp Pulse Resp BP Pulse Ox O2 Del Method O2 Flow Rate 97.0 F 60 17 120/72 95 Nasal Cannula 6 04/21/25 04:00 04/21/25 05:04 04/21/25 04:00 04/21/25 05:04 04/21/25 04:00 04/21/25 04:00 04/21/25 04:00 Narrative Exam General: A/O x3, no acute distress, well-nourished, well-developed Eyes: PERRL, EOMI. Anicteric, vision grossly intact. Ears: No ear pain, no ear discharge, Hearing grossly intact. Nose: No nasal discharge. Mouth/Throat: Moist mucous membranes, no redness, no lesions. Neck: Neck supple, non-tender, no cervical lymphadenopathy. Lungs: Clear SATINDER to auscultation and percussion, No accessory muscle use. Cardio: Normal S1/S2, regular rhythm, no murmurs, no JVD or carotid bruits. Abdomen: Soft, non-tender, no palpable masses, peristalsis present, no guarding or rebound. Extremities: Symmetrical, no significant deformities, no peripheral edema , non-tender, peripheral pulses present. Skin: bilateral venous stasis changes; L parnell cellultis. Neuro: No focal neurological deficits. Psych: Cooperative, appropriate mood and effect. Objective Labs 04/21/25 05:21 04/21/25 05:21 Labs: Laboratory Results - last 24 hr 04/20/25 04/20/25 04/21/25 07:33 22:40 05:21 WBC 8.3 RBC 4.64 Hgb 14.4 Hct 43.5 MCV 94 MCH 31.0 MCHC 33.1 RDW Std Deviation 43.9 Plt Count 314 Neut % (Auto) 61 Lymph % (Auto) 22 Mcintosh % (Auto) 11 Eos % (Auto) 2 Baso % (Auto) 1 Neut # (Auto) 5.1 Lymph # (Auto) 1.8 Mcintosh # (Auto) 0.9 H Eos # (Auto) 0.2 Baso # (Auto) 0.1 Immature Gran # (Auto) 0.19 H Absolute Nucleated RBC 0.00 Immature Gran % 2 H Nucleated RBC % 0 APTT 41.1 H D 56.2 H D Sodium 133 L Potassium 4.4 Chloride 89 L Carbon Dioxide 35.6 H Anion Gap 8 BUN 28 H Creatinine 1.2 Estim Creat Clear Calc 102.9 eGFR > 60 BUN/Creatinine Ratio 23 H Glucose 94 Calculated Osmolality 271 L Calcium 10.1 Corrected Calcium 10.1 Phosphorus 3.4 Magnesium 2.0 Total Bilirubin 0.4 AST 24 ALT 23 Alkaline Phosphatase 87 Total Protein 8.0 Albumin 4.2 Globulin 3.8 H Albumin/Globulin Ratio 1.1 L ABG Interpretation ABG results: 04/19/25 23:57 ABG pH 7.42 ABG pCO2 53 H ABG pO2 70 L ABG HCO3 35 H ABG O2 Saturation 94 ABG Base Excess 8 H Quality Measures Quality Measures sepsis Current suspected stage: ruled out Possible source: pulmonary and genitourinary Blood cultures ordered: yes Antibiotic ordered: Yes Assessment & Plan Assessment Current Active Medications: Generic Name Dose Route Start Last Admin Trade Name Freq PRN Reason Stop Dose Admin Acetaminophen 650 mg 04/20/25 00:04 Acetaminophen 325 Mg Tablet PO 05/20/25 00:03 Q6H PRN Fever >101.5 Acetaminophen 650 mg 04/20/25 00:04 Acetaminophen 325 Mg Tablet PO 05/20/25 00:03 Q6H PRN PAIN SCALE 1-3 (mild Amlodipine Besylate 10 mg 04/21/25 09:00 Amlodipine Besylate 5 Mg Tablet PO 05/21/25 08:59 QDAY JOSE Cephalexin HCl 1,000 mg 04/20/25 06:00 04/21/25 05:03 Cephalexin 250 Mg Capsule PO 04/22/25 05:00 1,000 mg TID JOSE Administration Hydralazine HCl 10 mg 04/20/25 14:00 04/21/25 05:04 Hydralazine Hcl 10 Mg Tablet PO 05/20/25 13:59 10 mg TID JOSE Administration Heparin Sodium/Dextrose 25,000 unit in 250 mls @ 17.997 mls/hr 04/19/25 23:45 04/21/25 04:59 Heparin In D5w Ivpb IV 05/03/25 23:44 17.26 units/kg/hr .[id number] JOSE 20.355 mls/hr Protocol Administration 15.26 UNITS/KG/HR Magnesium Sulfate/Dextrose 1 gm in 100 mls @ 100 mls/hr 04/21/25 07:14 Magnesium Sulfate Ivpb IV 04/21/25 08:13 X1 ONE Ondansetron HCl 4 mg 04/20/25 00:04 Ondansetron Inj 2 Mg/Ml Inj 2 Ml IVP 05/20/25 00:03 Q6H PRN NAUSEA OR VOMITING Protocol Pantoprazole Sodium 40 mg 04/20/25 12:00 04/20/25 12:55 Pantoprazole 40 Mg Tablet PO 05/20/25 11:59 40 mg QDAY JOSE Administration Sennosides 1 tab 04/20/25 00:55 Senna/Docusate Sod 1 Tab Tablet PO 05/20/25 00:54 QDAY PRN CONSTIPATION Protocol Plan Patient is a 44 yo M with PMH of medication noncompliance, HFpEF (LVEF 55-60%), hx of LE DVT, hx of PE, LLE cellulitis, polysubstance use (methamphetamine, tobacco, opiates), HTN, asthma, obesity, obesity hypoventilation syndrome, CAMILLA, homelessness who presented for syncope and hypotension and admitted for syncope and bradycardia. #Syncopal episode #Hypotension #Bradycardia #Mobitz Type 2 heart block #HfPef #Multiple pulmonary artery emboli #L leg DVT (popliteal) #History of multiple DVTs and PEs Patient had syncopal episode at SNF with hypotension; ED EKG showed bradycardia (59), BP on admission 104/65, last BP was 04/21/25 14:17 153/93. CT head negative. Last echo (04/19/25) showed LV function 55-60%. D-dimer admission 2390. Tox screen negative; CT head negative. Episode of blank staring and ripping out lines today; nothing noted on telemonitoring, and repeat EKG today 04/21/2025 only showed inverted T waves in lead III, with rate of 60. INR 04/21/2025?11.6, PTT 04/21/2025 56.1 Plan: Consulted cardiology, thank you for recommendations?Will get limited echo to check for RV strain for massive PE Consulted GI, appreciate recommendations Heparin Will monitor vitals #HTN #MYRON Patient had syncopal episode at SNF with hypotension; creatinine on admission- 2.3 04/19/25 20:26; 1.2 04/21/25; BP on admission 104/65, last BP was 04/21/25 14:17 153/93. Renal ultrasound 04/20/2025 negative. Plan: Amlodipine 10 mg Hydralazine 10 mg 3 times daily with holding criteria of systolic less than 110 Monitor BP Trend creatinine Hold losartan and HCTZ #L leg cellulitis Patient had infection on previous discharge Plan: Cephalexin 1 g p.o. 3 times daily Blood cultures drawn awaiting results Physical therapy and wound care on board Encourage ambulation and work with physical therapy #MRSA-positive nasal swab Plan: Mupirocin 1 time applied to both nares Disposition: Telemetry Diet: Cardiac GI prophylaxis: Pantoprazole DVT prophylaxis: Heparin Code: Full This case was discussed with my attending physician, Dr. Sharma, and senior resident, Dr. Jackson. Andi Ponce MD-PhD, PGY1 Attending Provider Attestation/Addendum I have discussed and was present for the essential components of the history, physical examination, diagnosis, and treatment plan with the resident. I agree with the patient's care as documented by the resident and amended herein by me. Sen Sharma, DO. Although this document has been carefully reviewed, there may still be some phonetic and other typographical errors. These errors are purely grammatical due to imperfections in the software program and should not be construed in any way to compromise the substance of the patient's medical care during this visit. Patient seen and evaluated this AM. No subjective complaints this morning to include chest pain, heart palpitations, blurry vision, headache or lightheadedness. Later in the afternoon, per the patient's cousin who was at bedside, stated the patient passed out quickly regained consciousness and had a blank stare for a few seconds. Overnight, the patient's vital signs were stable and he was afebrile, he is presently on 6 L NC his SpO2 95%, labs largely unremarkable with the exception of a bicarb of 35, creatinine is down trended to 1.2. We did perform a repeat EKG today which did show some inverted T waves in lead III which I have seen in the past on EKG dated 06/22/2023 but nothing recent. Will inform cardiology this finding. I have also ordered a VBG to assess for the patient's high bicarb which is compensatory, likely for respiratory acidosis but we will see what the study shows. Patient on Keflex, will continue for now for left lower extremity cellulitis, will also continue continue hydralazine 10 mg 3 times daily and amlodipine 10 mg daily per cardiology recommendations holding other antihypertensives and diuretics for now in the setting of syncopal episodes. Patient on heparin drip for PE. As stated above Limited echo pending. Likely discharge in 1 to 2 days pending clinical improvement and specialist recommendations. If the patient does worsen or has more episodes, may consider brain imaging and neurology consult.
[2025-04-21 08:09] LABS: INR 1.1 (0.9-1.3); Partial Thromboplastin Time 56.1 Seconds (22.0-36.0); Prothrombin Time 11.6 Seconds (9.0-12.2)
[2025-04-21] MEDS: PANTOPRAZOLE 40 MG TABLET PO (08:28)
--- NOTE | 2025-04-21 14:21 | EKG_ITS ---
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
[2025-04-21 15:40] LABS: Partial Thromboplastin Time 58.7 Seconds (22.0-36.0)
--- NOTE | 2025-04-21 16:10 | PC.SS ---
Rounding note: Patient needs to work more with PT before he can discharge. Discharging SNF-[facility] when medically clear.
[2025-04-21] MEDS: MUPIROCIN OINT 2% 15 GM TUBE TOP (17:28)
[2025-04-21 18:25] LABS: Base Excess, Venous 8 (-3-3); O2 Saturation, Venous 88 % (96-97); PCO2, Venous 50 mmHg (36-56); PO2, Venous 53 mmHg (15-58); pH, Venous 7.44 (7.33-7.66)
[2025-04-21 22:50] LABS: Partial Thromboplastin Time 55.5 Seconds (22.0-36.0)
[2025-04-22] VITALS (14 sets, daily range): BP systolic 104–133; BP diastolic 62–89; PULSE 55–92; RESP 13–23; TEMP 35.9–36.1; O2SAT 95–100
[2025-04-22] MEDS: Heparin/D5w 25K 250 ML Ivpb 25,000 UNIT/250 ML BAG 20.355 UNIT IV (05:59)
[2025-04-22 06:08] LABS: Basophils # (Auto) 0.1 Thou/mm3 (0.0-0.2); Basophils % (Auto) 1 % (0-2.5); Eosinophils # (Auto) 0.2 Thou/mm3 (0.0-0.5); Eosinophils % (Auto) 3 % (0-10); Hematocrit 41.1 % (41.0-53.0); Hemoglobin 13.9 g/dL (13.5-16.0); Immature Granulocytes Auto 0.19 Thou/mm3 (0.00-0.00); Lymphocytes # (Auto) 2.0 Thou/mm3 (1.0-4.8); Lymphocytes % (Auto) 25 % (10-50); Mean Corpuscular HGB Conc 33.8 g/dl (31.0-37.0); Mean Corpuscular Hemoglobin 31.9 pg (25.0-35.0); Mean Corpuscular Volume 94 fL (80-100); Monocytes # (Auto) 1.0 Thou/mm3 (0.0-0.8); Monocytes % (Auto) 12 % (0-12); Neutrophils # (Auto) 4.4 Thou/mm3 (1.8-7.7); Neutrophils % (Auto) 56 % (37-80); Nucleated Red Blood Cell # 0.00 Thou/mm3 (0.00-0.00); Nucleated Red Blood Cell % 0 /100 WBC (0); Platelet Count 287 Thou/mm3 (140-440); RDW Standard Deviation 44.1 fL (35.1-43.9); Red Blood Count 4.36 Miln/mm3 (4.50-5.90); White Blood Count 7.9 Thou/mm3 (3.8-10.6)
[2025-04-22 06:32] LABS: Partial Thromboplastin Time 65.5 Seconds (22.0-36.0)
[2025-04-22 06:43] LABS: Alanine Aminotransferase 22 U/L (10-49); Albumin, Serum 4.3 gm/dL (3.5-5.0); Albumin/Globulin Ratio 1.2 (1.2-2.2); Alkaline Phosphatase 85 U/L (46-116); Anion Gap 10 (7-16); Aspartate Amino Transferase 21 U/L (0-34); BUN/Creatinine Ratio 28 Ratio (12-20); Bilirubin,Total 0.4 mg/dL (0.3-1.2); Blood Urea Nitrogen 36 mg/dL (9-23); Calcium 9.7 mg/dL (8.3-10.6); Calcium (Corrected) 9.7 mg/dL (8.5-10.1); Carbon Dioxide 32.6 mMol/L (20.0-31.0); Chloride 90 mMol/L (98-107); Creatinine (Component) 1.3 mg/dL (0.6-1.3); Estimated Creatinine Clearance 95.0 mL/min (>60); Globulin 3.7 gm/dL (2.3-3.5); Glucose 102 mg/dL (74-106); Magnesium 2.3 mg/dL (1.6-2.6); Osmolality,Calculated 274 (275-295); Phosphorous 4.5 mg/dL (2.4-5.1); Potassium 4.4 mMol/L (3.4-5.1); Sodium 133 mMol/L (136-145); Total Protein 8.0 gm/dL (5.7-8.2); eGFR > 60 See Note
[2025-04-22] MEDS: PANTOPRAZOLE 40 MG TABLET PO (09:21)
[2025-04-22] MEDS: LACTULOSE SYRUP 20 GM/30 ML UDC PO ×3 (09:21→21:36)
--- NOTE | 2025-04-22 10:22 | ESPR_ITS ---
Documentation for date of: 04/22/25 Subjective Subjective Interval history: Patient was seen and assessed at bedside. No new complaints. Denies chest pain, shortness of breath, palpitations, pain with inspiration, new leg pain, dizziness with ambulation/standing. BP 115/69 this AM, occasionally systolic 140s overnight. Sinus rhythm with occasional PVCs, no episodes of heart block. Reports had similar seizure like episodes in the past, EEG today and neurology consulted per primary team. Noted T wave inversion in leads II, III, and aVF on EKG however they are not progressive and nonspecific. Troponins were negative on previous admission and there have been no changes to his repeat echo. Patient also remains asymptomatic, very unlikely that patient had OR. Exam Vital Signs Temp Pulse Resp BP Pulse Ox O2 Del Method O2 Flow Rate 97 F 68 21 H 115/69 100 Nasal Cannula 5 04/22/25 08:00 04/22/25 09:20 04/22/25 08:00 04/22/25 09:20 04/22/25 08:00 04/22/25 08:00 04/22/25 08:00 Narrative Exam Physical Exam General: Awake and in no acute distress. Morbidly obese male. HEENT: Normocephalic, atraumatic, mucous membranes moist. Heart: Regular rate and rhythm, normal S1 and S2, no murmurs appreciated. Lungs: Difficult to auscultate due to obese habitus however no wheezing or crackles appreciated. Abdomen: Soft, nondistended, nontender, positive bowel sounds. No guarding or rebound tenderness. Neurologic: Alert and oriented x3, no gross neurological deficit, and patient able to move all 4 extremities. Extremities: Mild pitting edema below ankles bilaterally. Circumferential open wound at above left ankle. Dressing clean dry and intact. Skin: Chronic venous stasis changes bilaterally. No rashes or ecchymosis. Objective Labs 04/23/25 09:17 04/23/25 06:12 Labs: Laboratory Results - last 24 hr 04/21/25 04/21/25 04/21/25 14:45 17:54 22:13 WBC RBC Hgb Hct MCV MCH MCHC RDW Std Deviation Plt Count Neut % (Auto) Lymph % (Auto) Randall % (Auto) Eos % (Auto) Baso % (Auto) Neut # (Auto) Lymph # (Auto) Randall # (Auto) Eos # (Auto) Baso # (Auto) Immature Gran # (Auto) Absolute Nucleated RBC Immature Gran % Nucleated RBC % APTT 58.7 H 55.5 H VBG pH 7.44 VBG pCO2 50 VBG pO2 53 VBG O2 Sat (Yisel) 88 L VBG Base Excess 8 H Sodium Potassium Chloride Carbon Dioxide Anion Gap BUN Creatinine Estim Creat Clear Calc eGFR BUN/Creatinine Ratio Glucose Calculated Osmolality Calcium Corrected Calcium Phosphorus Magnesium Total Bilirubin AST ALT Alkaline Phosphatase Total Protein Albumin Globulin Albumin/Globulin Ratio 04/22/25 05:15 WBC 7.9 RBC 4.36 L Hgb 13.9 Hct 41.1 MCV 94 MCH 31.9 MCHC 33.8 RDW Std Deviation 44.1 H Plt Count 287 Neut % (Auto) 56 Lymph % (Auto) 25 Randall % (Auto) 12 Eos % (Auto) 3 Baso % (Auto) 1 Neut # (Auto) 4.4 Lymph # (Auto) 2.0 Randall # (Auto) 1.0 H Eos # (Auto) 0.2 Baso # (Auto) 0.1 Immature Gran # (Auto) 0.19 H Absolute Nucleated RBC 0.00 Immature Gran % 2 H Nucleated RBC % 0 APTT 65.5 H D VBG pH VBG pCO2 VBG pO2 VBG O2 Sat (Yisel) VBG Base Excess Sodium 133 L Potassium 4.4 Chloride 90 L Carbon Dioxide 32.6 H Anion Gap 10 BUN 36 H Creatinine 1.3 Estim Creat Clear Calc 95.0 eGFR > 60 BUN/Creatinine Ratio 28 H Glucose 102 Calculated Osmolality 274 L Calcium 9.7 Corrected Calcium 9.7 Phosphorus 4.5 Magnesium 2.3 Total Bilirubin 0.4 AST 21 ALT 22 Alkaline Phosphatase 85 Total Protein 8.0 Albumin 4.3 Globulin 3.7 H Albumin/Globulin Ratio 1.2 ABG Interpretation ABG results: 04/19/25 04/21/25 23:57 17:54 ABG pH 7.42 ABG pCO2 53 H ABG pO2 70 L ABG HCO3 35 H ABG O2 Saturation 94 ABG Base Excess 8 H VBG pH 7.44 VBG pCO2 50 VBG pO2 53 VBG Base Excess 8 H Quality Measures Quality Measures sepsis Current suspected stage: ruled out Possible source: pulmonary and genitourinary Blood cultures ordered: yes Antibiotic ordered: No Assessment & Plan Assessment Current Active Medications: Generic Name Dose Route Start Last Admin Trade Name Freq PRN Reason Stop Dose Admin Acetaminophen 650 mg 04/20/25 00:04 Acetaminophen 325 Mg Tablet PO 05/20/25 00:03 Q6H PRN Fever >101.5 Acetaminophen 650 mg 04/20/25 00:04 Acetaminophen 325 Mg Tablet PO 05/20/25 00:03 Q6H PRN PAIN SCALE 1-3 (mild Amlodipine Besylate 10 mg 04/21/25 09:00 04/22/25 09:20 Amlodipine Besylate 5 Mg Tablet PO 05/21/25 08:59 10 mg QDAY JOSE Administration Hydralazine HCl 10 mg 04/20/25 14:00 04/22/25 05:58 Hydralazine Hcl 10 Mg Tablet PO 05/20/25 13:59 10 mg TID JOSE Administration Heparin Sodium/Dextrose 25,000 unit in 250 mls @ 17.997 mls/hr 04/19/25 23:45 04/22/25 07:09 Heparin In D5w Ivpb IV 05/03/25 23:44 17.26 units/kg/hr .[id number] JOSE 20.355 mls/hr Protocol Titration 15.26 UNITS/KG/HR Lactulose 20 gm 04/22/25 07:45 04/22/25 09:21 Lactulose Syrup 20 Gm/30 Ml Udc PO 05/22/25 07:44 20 gm TID JOSE Administration Protocol Ondansetron HCl 4 mg 04/20/25 00:04 Ondansetron Inj 2 Mg/Ml Inj 2 Ml IVP 05/20/25 00:03 Q6H PRN NAUSEA OR VOMITING Protocol Pantoprazole Sodium 40 mg 04/20/25 12:00 04/22/25 09:21 Pantoprazole 40 Mg Tablet PO 05/20/25 11:59 40 mg QDAY JOSE Administration Sennosides 1 tab 04/20/25 00:55 Senna/Docusate Sod 1 Tab Tablet PO 05/20/25 00:54 QDAY PRN CONSTIPATION Protocol Plan Patient is a 44 year old male with past medical history of HFpEF (55-60%), morbid obesity, substance abuse including methamphetamine abuse, chronic smoker with more than 89-76-onoh-year smoking history, alcohol use, homeless, history of chronic leg swelling on Lasix previously, medical noncompliance, previous lower extremity DVT and bilateral PE, and chronic venous stasis changes on bilateral limbs who presented to [facility] ED for bilateral foot pain and shortness of breath. Readmitted for syncopal episode and MYRON. Cardiology was consulted due to history of Mobitz type II heart block and previous management of right PEs and left leg DVT. #Syncope, orthostatic versus cardiogenic # ? Seizure Was unconscious upon arrival. Patient does not recall what brought him into the hospital this morning. Patient is a poor historian and is uncooperative. DDx: Orthostatic hypotension from overdiuresis, arrhythmia (history of Mobitz type II episodes), PE (despite being discharged on Eliquis 10 mg twice daily). ?Per primary team, will repeat limited echo to rule out another PE ? Consider orthostatic vitals ? Heparin drip while inpatient, transition back to Eliquis 5 mg BID prior to discharge ?Continue to monitor telemetry ?Hold diuretics #Pulmonary embolism - Multiple pulmonary artery emboli right side - 04/14/2025 #LLE popliteal DVT - 04/14/2025 #Hx of multiple DVTs and PEs Was previously admitted in 06/2023 for DVT and bilateral PEs. Was started on Xarelto but has also been noncomplaint with this as well. Chest CTA 04/14 showed pulmonary artery hypertension, multiple pulmonary artery filling defects right pulmonary artery including the distal right main pulmonary artery and multiple upper and lower lobe, mild opacity in right lower lung zone which may resent pulmonary infection. Upon close review of CT, patient is only having right upper lobe as well as right middle lobe filling defects. Rest of the lobar branches and the subsegmental branches are free of any filling defects along with the main pulmonary artery. CT also shows evidence of pulmonary hypertension with dilated pulmonary artery up to 4 cm. LLE US 04/14 showed partial nonocclusive thrombus in L popliteal vein. LLE CT showed extensive cellulitis, neg osteomyelitis, no soft tissue abscess. Are chronic/recurring problems for him that have not been resolved due to medication non adherence. Repeat limited echo 04/20/25 showed same findings as previous echo. No new pulmonary embolisms visualized. Plan: -Started on heparin drip overnight on admission, appropriate to continue with drip and hold Eliquis for now. - Patient is not tachycardic and is not hypoxic the present point of time. No indication for any mechanical thrombectomy at this present point of time. #Transient and intermittent Second degree Mobitz type II heart block - resolved #Bradycardia, resolved #HFpEF (55-60%, 2023) Previously was admitted ICU for Mobitz type II AV block, requiring pacer pads. Was stable after couple hours and downgraded. Has history of brief episodes of similar heart block. No heart block noted on repeat EKG on 04/19 or on telemetry. Still has intermittent bigeminy and PVCs on telemetry. 01/2024 TTE Normal LV size and function. Estimatd EF 55-60%. Mild RV and RA dilatation. Normal RV function. Possible mild PH. The aortic root is mildly dilated 3.6cm. The ascending aorta is mildly dilated 3.7cm. Trace to mild TR. Echo 04/15/25 showed Normal LV size and wall thickness. Normal LV function with an EF of 55 to 60%. Grade 1 diastolic dysfunction. Mildly dilated RV with normal RV function. RVSP could not be measured because of insufficient TR jet but septum appears flat during systole indicating mildly elevated pressure. Trace MR and TR. No pericardial effusion. Repeat limited echo 04/20/25 showed same findings as previous echo. No new pulmonary embolisms visualized. Plan: - As per previous evaluation on last admission, patient is not a candidate for permanent pacemaker insertion at this time. - In setting of MYRON, hold Lasix 40 mg. If BP remains elevated and kidney function improves, recommend to start on losartan 50 mg. - If develops significant lower extremity edema, recommend hydrochlorothiazide 12.5 daily as needed. - Still recommend to start GDMT outpatient if blood pressure and kidney function permits, would add spironolactone 25 mg daily. - Avoid beta-blockers or calcium channel blockers like diltiazem or verapamil or other heart rate lowering medications which can cause bradycardia. - Continue to monitor telemetry - Keep K>4 and Mg>2 at all time #MYRON, likely pre-renal, resolved #Hx of HTN Presented with creatinine of 2.3, likely secondary to overdiuresis. BP was 104/65 on admission (previously systolics 130s?150s), likely more controlled due to abstinence from meth and substance abuse but still persistently high bc of CAMILLA. - Hold Lasix and Losartan as above. - If BP remains elevated and kidney function improves, recommend to start on losartan 50 mg. - Hydralazine 25 mg TID - Amlodipine 10 mg daily - If blood pressure still uncontrolled and renal function is stable, recommend to start spironolactone 25 mg once daily rather than hydrochlorothiazide as the patient is already on a diuretic and patient does have diastolic heart failure. - CTM BP #PAH #CAMILLA #Obesity hypoventilation syndrome BMI 42.7. - CPAP at night #LLE cellulitis #Encephalopathy, improving, likely 2/2 #Methamphetamine use #Opiate use Thank you for your consultation, please do not hesitate to reach out if you have any question or concern Patient plan of care was discussed with the attending physician, Dr. Chau. Delfina Bach, PGY-1 Attending Provider Attestation/Addendum I have personally seen and examined the patient separately on the above date of service and discussed the plan of care with the resident. I reviewed the resident Dr. Delfina Bach consultation progress note and agree with the resident findings and plan in the note above and have also edited the documentation to reflect my findings and plan. Alfred Chau M.D. Interventional Cardiology
[2025-04-22] MEDS: APIXABAN 2.5 MG TABLET 5 MG PO (13:30)
--- NOTE | 2025-04-22 14:20 | PC.SS ---
Rounding note: Rapid was called 04/21. Currently on heparin drip, EEG pending. Discharging to [facility] when medically clear.
--- NOTE | 2025-04-22 15:00 | PD.RESPRO ---
Documentation for date of: 04/22/25 Subjective Subjective Interval history: Patient is evaluated the bedside, does seem more alert today, but expressed his disappointment for continued stay in hospital. Complains of itching bilateral lower extremity, added Benadryl 25 mg as needed. Given patient's episode of altered mentation yesterday, and brought up possible diagnosis of seizure, patient denied having past medical history of seizure or epilepsy, did agree to go ahead with diagnostic EEG to rule out seizures. Patient did endorse previous episodes of passing out but reportedly never sought medical evaluation. Currently on heparin drip, will switch to p.o. Eliquis, stable on 4 L oxygen via nasal cannula, cardiology following, at this point no further recommendations, patient's rhythm seems to be sinus bradycardia. No further recorded evidence of Mobitz type II, per cardiology not a candidate for pacemaker placement at this time, will continue to monitor. Exam Vital Signs Temp Pulse Resp BP Pulse Ox O2 Del Method O2 Flow Rate 96.6 F L 77 16 125/75 98 Nasal Cannula 5 04/22/25 12:00 04/22/25 13:36 04/22/25 12:08 04/22/25 13:36 04/22/25 12:08 04/22/25 08:00 04/22/25 12:08 Narrative Exam Physical Exam General: Awake and in no acute respiratory distress. Morbidly obese male. Laying in bed, occasionally itching his left leg with right foot. HEENT: Normocephalic, atraumatic, mucous membranes moist. Heart: Regular rate and rhythm, normal S1 and S2, no murmurs appreciated. Lungs: Difficult to auscultate due to obese habitus however no wheezing or crackles appreciated. Abdomen: Soft, nondistended, nontender, positive bowel sounds. No guarding or rebound tenderness. Neurologic: Alert and oriented x3, no gross neurological deficit, and patient able to move all 4 extremities. Extremities: Mild pitting edema below ankles bilaterally. Circumferential open wound at above left ankle. Dressing clean dry and intact. Skin: Chronic venous stasis changes bilaterally. No rashes or ecchymosis. Objective Labs 04/23/25 09:17 04/23/25 06:12 Labs: Laboratory Results - last 24 hr 04/21/25 04/21/25 04/21/25 14:45 17:54 22:13 WBC RBC Hgb Hct MCV MCH MCHC RDW Std Deviation Plt Count Neut % (Auto) Lymph % (Auto) Rolette % (Auto) Eos % (Auto) Baso % (Auto) Neut # (Auto) Lymph # (Auto) Rolette # (Auto) Eos # (Auto) Baso # (Auto) Immature Gran # (Auto) Absolute Nucleated RBC Immature Gran % Nucleated RBC % APTT 58.7 H 55.5 H VBG pH 7.44 VBG pCO2 50 VBG pO2 53 VBG O2 Sat (Yisel) 88 L VBG Base Excess 8 H Sodium Potassium Chloride Carbon Dioxide Anion Gap BUN Creatinine Estim Creat Clear Calc eGFR BUN/Creatinine Ratio Glucose Calculated Osmolality Calcium Corrected Calcium Phosphorus Magnesium Total Bilirubin AST ALT Alkaline Phosphatase Total Protein Albumin Globulin Albumin/Globulin Ratio 04/22/25 05:15 WBC 7.9 RBC 4.36 L Hgb 13.9 Hct 41.1 MCV 94 MCH 31.9 MCHC 33.8 RDW Std Deviation 44.1 H Plt Count 287 Neut % (Auto) 56 Lymph % (Auto) 25 Rolette % (Auto) 12 Eos % (Auto) 3 Baso % (Auto) 1 Neut # (Auto) 4.4 Lymph # (Auto) 2.0 Rolette # (Auto) 1.0 H Eos # (Auto) 0.2 Baso # (Auto) 0.1 Immature Gran # (Auto) 0.19 H Absolute Nucleated RBC 0.00 Immature Gran % 2 H Nucleated RBC % 0 APTT 65.5 H D VBG pH VBG pCO2 VBG pO2 VBG O2 Sat (Yisel) VBG Base Excess Sodium 133 L Potassium 4.4 Chloride 90 L Carbon Dioxide 32.6 H Anion Gap 10 BUN 36 H Creatinine 1.3 Estim Creat Clear Calc 95.0 eGFR > 60 BUN/Creatinine Ratio 28 H Glucose 102 Calculated Osmolality 274 L Calcium 9.7 Corrected Calcium 9.7 Phosphorus 4.5 Magnesium 2.3 Total Bilirubin 0.4 AST 21 ALT 22 Alkaline Phosphatase 85 Total Protein 8.0 Albumin 4.3 Globulin 3.7 H Albumin/Globulin Ratio 1.2 ABG Interpretation ABG results: 04/19/25 04/21/25 23:57 17:54 ABG pH 7.42 ABG pCO2 53 H ABG pO2 70 L ABG HCO3 35 H ABG O2 Saturation 94 ABG Base Excess 8 H VBG pH 7.44 VBG pCO2 50 VBG pO2 53 VBG Base Excess 8 H Quality Measures Quality Measures sepsis Current suspected stage: ruled out Possible source: pulmonary and genitourinary Blood cultures ordered: yes Antibiotic ordered: Yes Assessment & Plan Assessment Current Active Medications: Generic Name Dose Route Start Last Admin Trade Name Freq PRN Reason Stop Dose Admin Acetaminophen 650 mg 04/20/25 00:04 Acetaminophen 325 Mg Tablet PO 05/20/25 00:03 Q6H PRN Fever >101.5 Acetaminophen 650 mg 04/20/25 00:04 Acetaminophen 325 Mg Tablet PO 05/20/25 00:03 Q6H PRN PAIN SCALE 1-3 (mild Amlodipine Besylate 10 mg 04/21/25 09:00 04/22/25 09:20 Amlodipine Besylate 5 Mg Tablet PO 05/21/25 08:59 10 mg QDAY JOSE Administration Apixaban 5 mg 04/22/25 12:30 04/22/25 13:30 Apixaban 2.5 Mg Tablet PO 05/13/25 12:29 5 mg BID JOSE Administration Diphenhydramine HCl 25 mg 04/22/25 14:43 Diphenhydramine 25 Mg Capsule PO 05/22/25 14:42 Q6HR PRN ITCHING Hydralazine HCl 10 mg 04/20/25 14:00 04/22/25 13:36 Hydralazine Hcl 10 Mg Tablet PO 05/20/25 13:59 10 mg TID JOSE Administration Lactulose 20 gm 04/22/25 07:45 04/22/25 13:36 Lactulose Syrup 20 Gm/30 Ml Udc PO 05/22/25 07:44 20 gm TID JOSE Administration Protocol Ondansetron HCl 4 mg 04/20/25 00:04 Ondansetron Inj 2 Mg/Ml Inj 2 Ml IVP 05/20/25 00:03 Q6H PRN NAUSEA OR VOMITING Protocol Pantoprazole Sodium 40 mg 04/20/25 12:00 04/22/25 09:21 Pantoprazole 40 Mg Tablet PO 05/20/25 11:59 40 mg QDAY JOSE Administration Sennosides 1 tab 04/20/25 00:55 Senna/Docusate Sod 1 Tab Tablet PO 05/20/25 00:54 QDAY PRN CONSTIPATION Protocol Plan Patient is a 44 yo M with PMH of medication noncompliance, bounce back from SNF, was recently admitted to the hospital for acute submassive pulmonary embolism bilaterally and lower extremity DVT, past medical history includes HFpEF (LVEF 55-60%), hx of LE DVT, hx of PE, LLE cellulitis, polysubstance use (methamphetamine, tobacco, opiates), HTN, asthma, obesity, obesity hypoventilation syndrome, CAMILLA, homelessness. The patient was reportedly found to be hypoxic and hypotensive in the ED and found to have altered mental status, reported syncopal episode, the patient was admitted to medical floor for further workup and management of bradycardia, syncope, hypotension and hypoxic respiratory failure. #Syncope, cardiac versus neurologic etiology. #Acute encephalopathy #Rule out seizure Reported syncopal episode at residential facility once patient was discharged from the hospital. Patient did have transient AV block Mobitz type II during the hospitalization, also patient had an other episode of altered mental status with blank stare and ripping out his IV lines, in the presence of a visitor. Possible etiology for altered mental status/encephalopathy includes cardiac syncope secondary to AV block arrhythmias, versus neurologic etiology secondary to seizures. Patient has no focal neurological deficit, EEG findings consistent with seizure will consider MRI, at this point no indication for MRI. ? Orthostatic vitals ordered ? EEG ordered ? Continuous telemetry monitoring for arrhythmias or bradycardia #Paroxysmal AV block?Mobitz type II #Hypotension?now resolved #Bradycardia #HFpEF Cardiology was consulted, per cardiology patient is not a candidate for pacemaker at this point, patient continues to be normotensive in the hospital. On telemetry monitoring patient continues to have sinus bradycardia, heart rate in the 50s, but normotensive. EKG 04/21/2025 shows sinus rhythm, possible right ventricular hypertrophy T inversions in inferior leads. Echocardiogram 04/15/2025 showed LVEF 55 to 60%, trace MR and TR. ? Cardiology consult to Dr. Chau was placed, appreciate recommendations ? Cardiology recommends to avoid beta-jerrod or calcium channel jerrod and start losartan once renal function improves. #Multiple pulmonary emboli?recent diagnosis #Left leg DVT?recent diagnosis Initially started on IV heparin, patient was discharged home on Eliquis 10 mg to be continued until 04/23/2025, later to be continued on maintenance dose Eliquis 5 mg twice daily. Repeat limited echocardiogram was ordered to evaluate for increased RV strain as cause of hypotension, but it was negative for worsening RV strain. ? IV heparin discontinued, will transition to p.o. Eliquis 10 mg twice daily until 05/10/2025, will resume maintenance dose Eliquis 5 mg twice daily afterwards. ? Supplemental oxygen as needed #Acute kidney injury Patient had syncopal episode at SNF with hypotension; creatinine on admission- 2.3 04/19/25 20:26; 1.2 04/21/25; BP on admission 104/65, last BP was 04/21/25 14:17 153/93. Renal ultrasound 04/20/2025 negative. - Amlodipine 10 mg - Hydralazine 10 mg 3 times daily with holding criteria of systolic less than 110 - Monitor BP - Trend creatinine - Hold losartan and HCTZ #Chronic venous stasis changes #Bilateral lower extremity cellulitis Patient had infection on previous discharge - Cephalexin 1 g p.o. 3 times daily - Blood cultures drawn awaiting results - Physical therapy and wound care on board - Encourage ambulation and work with physical therapy Disposition: Telemetry Diet: Cardiac GI prophylaxis: Pantoprazole DVT prophylaxis: Heparin Code: Full This case was discussed with my attending physician, Isiah Villegas PGY 3 Attending Provider Attestation/Addendum I have discussed and was present for the essential components of the history, physical examination, diagnosis, and treatment plan with the resident. I agree with the patient's care as documented by the resident and amended herein by me. Sen Sharma DO. Although this document has been carefully reviewed, there may still be some phonetic and other typographical errors. These errors are purely grammatical due to imperfections in the software program and should not be construed in any way to compromise the substance of the patient's medical care during this visit. Patient seen and evaluated this AM. No subjective complaints this morning to include chest pain, heart palpitations, blurry vision, headache or lightheadedness. Later in the afternoon, per the patient's cousin who was at bedside, stated the patient passed out quickly regained consciousness and had a blank stare for a few seconds. Overnight, the patient's vital signs were stable and he was afebrile, he is presently on 6 L NC his SpO2 95%, labs largely unremarkable with the exception of a bicarb of 35, creatinine is down trended to 1.2. We did perform a repeat EKG today which did show some inverted T waves in lead III which I have seen in the past on EKG dated 06/22/2023 but nothing recent. Will inform cardiology this finding. I have also ordered a VBG to assess for the patient's high bicarb which is compensatory, likely for respiratory acidosis but we will see what the study shows. Patient on Keflex, will continue for now for left lower extremity cellulitis, will also continue continue hydralazine 10 mg 3 times daily and amlodipine 10 mg daily per cardiology recommendations holding other antihypertensives and diuretics for now in the setting of syncopal episodes. Patient on heparin drip for PE. As stated above Limited echo pending. Likely discharge in 1 to 2 days pending clinical improvement and specialist recommendations. If the patient does worsen or has more episodes, may consider brain imaging and neurology consult.
[2025-04-22] MEDS: APIXABAN 2.5 MG TABLET 10 MG PO (21:36)
[2025-04-23] VITALS (12 sets, daily range): BP systolic 117–145; BP diastolic 65–94; PULSE 51–83; RESP 12–26; TEMP 36.1–36.6; O2SAT 92–100; BMI 42.3; BMI 13.0
[2025-04-23] MEDS: LACTULOSE SYRUP 20 GM/30 ML UDC PO (06:04)
[2025-04-23 06:55] LABS: Partial Thromboplastin Time 21.7 Seconds (22.0-36.0)
--- NOTE | 2025-04-23 07:02 | ESPR_ITS ---
Documentation for date of: 04/23/25 Subjective Subjective Interval history: Patient was seen and assessed at bedside. No new complaints. Denies chest pain, shortness of breath, palpitations, pain with inspiration, new leg pain, dizziness with ambulation/standing. No events overnight. S/p EEG, pending read. Sinus rhythm on telemetry, HR 65-70. BP 117/66 this morning, holding parameters on hydralazine 25 TID if systolic less than 110, continue amlodipine. Echo same results as echo 04/15. No new PE. Creatinine 1.1, continues to improve off diuretic. Potassium 4.9, magnesium 1.9, replete accordingly. Transition back to [facility] upon discharge. Exam Vital Signs Temp Pulse Resp BP Pulse Ox O2 Del Method O2 Flow Rate 96.9 F 65 12 117/66 97 Nasal Cannula 3 04/23/25 04:00 04/23/25 06:04 04/23/25 04:00 04/23/25 06:04 04/23/25 04:00 04/23/25 04:00 04/23/25 04:00 Narrative Exam Physical Exam General: Awake and in no acute distress. Morbidly obese male. HEENT: Normocephalic, atraumatic, mucous membranes moist. Heart: Regular rate and rhythm, normal S1 and S2, no murmurs appreciated. Lungs: Difficult to auscultate due to obese habitus however no wheezing or crackles appreciated. Abdomen: Soft, nondistended, nontender, positive bowel sounds. No guarding or rebound tenderness. Neurologic: Alert and oriented x3, no gross neurological deficit, and patient able to move all 4 extremities. Extremities: Mild pitting edema below ankles bilaterally. Circumferential open wound at above left ankle. Dressing clean dry and intact. Skin: Chronic venous stasis changes bilaterally. No rashes or ecchymosis. Objective Labs 04/23/25 09:17 04/23/25 06:12 Labs: Laboratory Results - last 24 hr 04/23/25 06:12 APTT 21.7 L D ABG Interpretation ABG results: 04/19/25 04/21/25 23:57 17:54 ABG pH 7.42 ABG pCO2 53 H ABG pO2 70 L ABG HCO3 35 H ABG O2 Saturation 94 ABG Base Excess 8 H VBG pH 7.44 VBG pCO2 50 VBG pO2 53 VBG Base Excess 8 H Quality Measures Quality Measures sepsis Current suspected stage: ruled out Possible source: pulmonary and genitourinary Blood cultures ordered: yes Antibiotic ordered: Yes Assessment & Plan Assessment Current Active Medications: Generic Name Dose Route Start Last Admin Trade Name Freq PRN Reason Stop Dose Admin Acetaminophen 650 mg 04/20/25 00:04 Acetaminophen 325 Mg Tablet PO 05/20/25 00:03 Q6H PRN Fever >101.5 Acetaminophen 650 mg 04/20/25 00:04 Acetaminophen 325 Mg Tablet PO 05/20/25 00:03 Q6H PRN PAIN SCALE 1-3 (mild Amlodipine Besylate 10 mg 04/21/25 09:00 04/22/25 09:20 Amlodipine Besylate 5 Mg Tablet PO 05/21/25 08:59 10 mg QDAY JOSE Administration Apixaban 10 mg 04/22/25 21:00 04/22/25 21:36 Apixaban 2.5 Mg Tablet PO 04/23/25 20:59 10 mg BID JOSE Administration Diphenhydramine HCl 25 mg 04/22/25 14:43 04/23/25 06:16 Diphenhydramine 25 Mg Capsule PO 05/22/25 14:42 25 mg Q6HR PRN Administration ITCHING Hydralazine HCl 10 mg 04/20/25 14:00 04/23/25 06:04 Hydralazine Hcl 10 Mg Tablet PO 05/20/25 13:59 10 mg TID JOSE Administration Lactulose 20 gm 04/22/25 07:45 04/23/25 06:04 Lactulose Syrup 20 Gm/30 Ml Udc PO 05/22/25 07:44 20 gm TID JOSE Administration Protocol Ondansetron HCl 4 mg 04/20/25 00:04 Ondansetron Inj 2 Mg/Ml Inj 2 Ml IVP 05/20/25 00:03 Q6H PRN NAUSEA OR VOMITING Protocol Pantoprazole Sodium 40 mg 04/20/25 12:00 04/22/25 09:21 Pantoprazole 40 Mg Tablet PO 05/20/25 11:59 40 mg QDAY JOSE Administration Sennosides 1 tab 04/20/25 00:55 Senna/Docusate Sod 1 Tab Tablet PO 05/20/25 00:54 QDAY PRN CONSTIPATION Protocol Plan Patient is a 44 year old male with past medical history of HFpEF (55-60%), morbid obesity, substance abuse including methamphetamine abuse, chronic smoker with more than 41-71-uvaw-year smoking history, alcohol use, homeless, history of chronic leg swelling on Lasix previously, medical noncompliance, previous lower extremity DVT and bilateral PE, and chronic venous stasis changes on bilateral limbs who presented to [facility] ED for bilateral foot pain and shortness of breath. Readmitted for syncopal episode and MYRON. Cardiology was consulted due to history of Mobitz type II heart block and previous management of right PEs and left leg DVT. #Syncope, orthostatic versus cardiogenic # ? Seizure Was unconscious upon arrival. Patient does not recall what brought him into the hospital this morning. Patient is a poor historian and is uncooperative. DDx: Orthostatic hypotension from overdiuresis, arrhythmia (history of Mobitz type II episodes), PE (despite being discharged on Eliquis 10 mg twice daily). ?Per primary team, will repeat limited echo to rule out another PE ? Consider orthostatic vitals ? Heparin drip while inpatient, transition back to Eliquis 5 mg BID prior to discharge ?Continue to monitor telemetry ?Hold diuretics #Pulmonary embolism - Multiple pulmonary artery emboli right side - 04/14/2025 #LLE popliteal DVT - 04/14/2025 #Hx of multiple DVTs and PEs Was previously admitted in 06/2023 for DVT and bilateral PEs. Was started on Xarelto but has also been noncomplaint with this as well. Chest CTA 04/14 showed pulmonary artery hypertension, multiple pulmonary artery filling defects right pulmonary artery including the distal right main pulmonary artery and multiple upper and lower lobe, mild opacity in right lower lung zone which may resent pulmonary infection. Upon close review of CT, patient is only having right upper lobe as well as right middle lobe filling defects. Rest of the lobar branches and the subsegmental branches are free of any filling defects along with the main pulmonary artery. CT also shows evidence of pulmonary hypertension with dilated pulmonary artery up to 4 cm. LLE US 04/14 showed partial nonocclusive thrombus in L popliteal vein. LLE CT showed extensive cellulitis, neg osteomyelitis, no soft tissue abscess. Are chronic/recurring problems for him that have not been resolved due to medication non adherence. Repeat limited echo 04/20/25 showed same findings as previous echo. No new pulmonary embolisms visualized. Plan: -Started on heparin drip overnight on admission, appropriate to continue with drip and hold Eliquis for now. - Patient is not tachycardic and is not hypoxic the present point of time. No indication for any mechanical thrombectomy at this present point of time. #Transient and intermittent Second degree Mobitz type II heart block - resolved #Bradycardia, resolved #HFpEF (55-60%, 2023) Previously was admitted ICU for Mobitz type II AV block, requiring pacer pads. Was stable after couple hours and downgraded. Has history of brief episodes of similar heart block. No heart block noted on repeat EKG on 04/19 or on telemetry. Still has intermittent bigeminy and PVCs on telemetry. 01/2024 TTE Normal LV size and function. Estimatd EF 55-60%. Mild RV and RA dilatation. Normal RV function. Possible mild PH. The aortic root is mildly dilated 3.6cm. The ascending aorta is mildly dilated 3.7cm. Trace to mild TR. Echo 04/15/25 showed Normal LV size and wall thickness. Normal LV function with an EF of 55 to 60%. Grade 1 diastolic dysfunction. Mildly dilated RV with normal RV function. RVSP could not be measured because of insufficient TR jet but septum appears flat during systole indicating mildly elevated pressure. Trace MR and TR. No pericardial effusion. Repeat limited echo 04/20/25 showed same findings as previous echo. No new pulmonary embolisms visualized. Plan: - As per previous evaluation on last admission, patient is not a candidate for permanent pacemaker insertion at this time. - In setting of MYRON, hold Lasix 40 mg. If BP remains elevated and kidney function improves, recommend to start on losartan 50 mg. - If develops significant lower extremity edema, recommend hydrochlorothiazide 12.5 daily as needed. - Still recommend to start GDMT outpatient if blood pressure and kidney function permits, would add spironolactone 25 mg daily. - Avoid beta-blockers or calcium channel blockers like diltiazem or verapamil or other heart rate lowering medications which can cause bradycardia. - Continue to monitor telemetry - Keep K>4 and Mg>2 at all time #MYRON, likely pre-renal, resolved #Hx of HTN Presented with creatinine of 2.3, likely secondary to overdiuresis. BP was 104/65 on admission (previously systolics 130s?150s), likely more controlled due to abstinence from meth and substance abuse but still persistently high bc of CAMILLA. - Hold Lasix and Losartan as above. - If BP remains elevated and kidney function improves, recommend to start on losartan 50 mg. - Hydralazine 25 mg TID - Amlodipine 10 mg daily - If blood pressure still uncontrolled and renal function is stable, recommend to start spironolactone 25 mg once daily rather than hydrochlorothiazide as the patient is already on a diuretic and patient does have diastolic heart failure. - CTM BP #PAH #CAMILLA #Obesity hypoventilation syndrome BMI 42.7. - CPAP at night #LLE cellulitis #Encephalopathy, improving, likely 2/2 #Methamphetamine use #Opiate use Thank you for your consultation, please do not hesitate to reach out if you have any question or concern Patient plan of care was discussed with the attending physician, Dr. Chau. Delfina Bach, PGY-1 Attending Provider Attestation/Addendum I have personally seen and examined the patient separately on the above date of service and discussed the plan of care with the resident. I reviewed the resident Dr. Delfina Bach consultation progress note and agree with the resident findings and plan in the note above and have also edited the documentation to reflect my findings and plan. Alfred Chau M.D. Interventional Cardiology
[2025-04-23 07:13] LABS: Alanine Aminotransferase 28 U/L (10-49); Albumin, Serum 4.0 gm/dL (3.5-5.0); Albumin/Globulin Ratio 1.1 (1.2-2.2); Alkaline Phosphatase 83 U/L (46-116); Anion Gap 10 (7-16); Aspartate Amino Transferase 30 U/L (0-34); BUN/Creatinine Ratio 21 Ratio (12-20); Bilirubin,Total 0.4 mg/dL (0.3-1.2); Blood Urea Nitrogen 23 mg/dL (9-23); Calcium 9.6 mg/dL (8.3-10.6); Calcium (Corrected) 9.6 mg/dL (8.5-10.1); Carbon Dioxide 28.0 mMol/L (20.0-31.0); Chloride 94 mMol/L (98-107); Creatinine (Component) 1.1 mg/dL (0.6-1.3); Estimated Creatinine Clearance 113.0 mL/min (>60); Globulin 3.6 gm/dL (2.3-3.5); Glucose 106 mg/dL (74-106); Magnesium 1.9 mg/dL (1.6-2.6); Osmolality,Calculated 268 (275-295); Phosphorous 4.3 mg/dL (2.4-5.1); Potassium 4.9 mMol/L (3.4-5.1); Sodium 132 mMol/L (136-145); Total Protein 7.6 gm/dL (5.7-8.2); eGFR > 60 See Note
[2025-04-23] MEDS: PANTOPRAZOLE 40 MG TABLET PO (08:13)
[2025-04-23] MEDS: APIXABAN 2.5 MG TABLET 10 MG PO (08:13)
[2025-04-23 09:42] LABS: Basophils # (Auto) 0.1 Thou/mm3 (0.0-0.2); Basophils % (Auto) 1 % (0-2.5); Eosinophils # (Auto) 0.1 Thou/mm3 (0.0-0.5); Eosinophils % (Auto) 2 % (0-10); Hematocrit 39.6 % (41.0-53.0); Hemoglobin 13.4 g/dL (13.5-16.0); Immature Granulocytes Auto 0.09 Thou/mm3 (0.00-0.00); Lymphocytes # (Auto) 1.2 Thou/mm3 (1.0-4.8); Lymphocytes % (Auto) 19 % (10-50); Mean Corpuscular HGB Conc 33.8 g/dl (31.0-37.0); Mean Corpuscular Hemoglobin 31.5 pg (25.0-35.0); Mean Corpuscular Volume 93 fL (80-100); Monocytes # (Auto) 0.6 Thou/mm3 (0.0-0.8); Monocytes % (Auto) 10 % (0-12); Neutrophils # (Auto) 4.0 Thou/mm3 (1.8-7.7); Neutrophils % (Auto) 66 % (37-80); Nucleated Red Blood Cell # 0.00 Thou/mm3 (0.00-0.00); Nucleated Red Blood Cell % 0 /100 WBC (0); Platelet Count 266 Thou/mm3 (140-440); RDW Standard Deviation 43.5 fL (35.1-43.9); Red Blood Count 4.25 Miln/mm3 (4.50-5.90); White Blood Count 6.1 Thou/mm3 (3.8-10.6)
--- NOTE | 2025-04-23 11:38 | PC.SS ---
Follow up note: SS submitted PT eval and PASRR on [facility]. Patient ready for d/c. Pending auth
--- NOTE | 2025-04-23 13:35 | ESPR_ITS ---
<Statement entered by Clinton Azul MD - 04/23/25 14:33> Patient was seen and examined at bedside this morning. No acute overnight events. Pending EEG results. Possible discharge in the next 24 to 48 hours. I have reviewed the note and agree with the resident's assessment & plan with exceptions as below. I have personally reviewed labs, imaging, home meds/prior records, examined the patient, formulated and discussed management plan with my attending Clinton Azul PGY2 Disclaimer: Even though this this note was dictated by speech recognition and even though it was carefully revised there may still be minor errors in passenger coach driver due to voice recognition software. Documentation for date of: 04/23/25 Subjective Subjective Interval history: Patient was seen and examined at bedside today; no acute events overnight or any abnormal activity on telemetry. Patient reports that itching on left lower extremity wound is better with Benadryl, and expresses desire to go home. Neurology read EEG as abnormal; neurology consulted. Exam Vital Signs Temp Pulse Resp BP Pulse Ox O2 Del Method O2 Flow Rate 97.3 F 78 14 126/71 100 Nasal Cannula 2 04/23/25 12:00 04/23/25 12:00 04/23/25 12:00 04/23/25 12:00 04/23/25 12:00 04/23/25 12:00 04/23/25 12:00 Narrative Exam General: A/O x3, no acute distress, morbidly obese Eyes: PERRL, EOMI. Anicteric, vision grossly intact. Ears: No ear pain, no ear discharge, Hearing grossly intact. Nose: No nasal discharge. Mouth/Throat: Moist mucous membranes, no redness, no lesions. Neck: Neck supple, non-tender, no cervical lymphadenopathy. Lungs: Clear SATINDER to auscultation and percussion, No accessory muscle use. Cardio: Normal S1/S2, regular rhythm, no murmurs, no JVD or carotid bruits. Abdomen: Soft, non-tender, no palpable masses, peristalsis present, no guarding or rebound. Extremities: Symmetrical, no significant deformities, no peripheral edema , non-tender, peripheral pulses present. Skin: bilateral venous stasis changes; L parnell cellultis. Neuro: No focal neurological deficits. Psych: Cooperative, appropriate mood and effect. Objective Labs 04/23/25 09:17 04/23/25 06:12 Labs: Laboratory Results - last 24 hr 04/23/25 04/23/25 06:12 09:17 WBC 6.1 RBC 4.25 L Hgb 13.4 L Hct 39.6 L MCV 93 MCH 31.5 MCHC 33.8 RDW Std Deviation 43.5 Plt Count 266 Neut % (Auto) 66 Lymph % (Auto) 19 [place] % (Auto) 10 Eos % (Auto) 2 Baso % (Auto) 1 Neut # (Auto) 4.0 Lymph # (Auto) 1.2 [place] # (Auto) 0.6 Eos # (Auto) 0.1 Baso # (Auto) 0.1 Immature Gran # (Auto) 0.09 H Absolute Nucleated RBC 0.00 Immature Gran % 2 H Nucleated RBC % 0 APTT 21.7 L D Sodium 132 L Potassium 4.9 D Chloride 94 L Carbon Dioxide 28.0 Anion Gap 10 BUN 23 Creatinine 1.1 Estim Creat Clear Calc 113.0 eGFR > 60 BUN/Creatinine Ratio 21 H Glucose 106 Calculated Osmolality 268 L Calcium 9.6 Corrected Calcium 9.6 Phosphorus 4.3 Magnesium 1.9 Total Bilirubin 0.4 AST 30 ALT 28 Alkaline Phosphatase 83 Total Protein 7.6 Albumin 4.0 Globulin 3.6 H Albumin/Globulin Ratio 1.1 L ABG Interpretation ABG results: 04/19/25 04/21/25 23:57 17:54 ABG pH 7.42 ABG pCO2 53 H ABG pO2 70 L ABG HCO3 35 H ABG O2 Saturation 94 ABG Base Excess 8 H VBG pH 7.44 VBG pCO2 50 VBG pO2 53 VBG Base Excess 8 H Quality Measures Quality Measures sepsis Current suspected stage: ruled out Possible source: pulmonary and genitourinary Blood cultures ordered: yes Antibiotic ordered: Yes Assessment & Plan Assessment Current Active Medications: Generic Name Dose Route Start Last Admin Trade Name Freq PRN Reason Stop Dose Admin Acetaminophen 650 mg 04/20/25 00:04 Acetaminophen 325 Mg Tablet PO 05/20/25 00:03 Q6H PRN Fever >101.5 Acetaminophen 650 mg 04/20/25 00:04 Acetaminophen 325 Mg Tablet PO 05/20/25 00:03 Q6H PRN PAIN SCALE 1-3 (mild Amlodipine Besylate 10 mg 04/21/25 09:00 04/23/25 08:13 Amlodipine Besylate 5 Mg Tablet PO 05/21/25 08:59 10 mg QDAY JOSE Administration Apixaban 10 mg 04/22/25 21:00 04/23/25 08:13 Apixaban 2.5 Mg Tablet PO 04/23/25 20:59 10 mg BID JOSE Administration Diphenhydramine HCl 25 mg 04/22/25 14:43 04/23/25 06:16 Diphenhydramine 25 Mg Capsule PO 05/22/25 14:42 25 mg Q6HR PRN Administration ITCHING Hydralazine HCl 10 mg 04/20/25 14:00 04/23/25 06:04 Hydralazine Hcl 10 Mg Tablet PO 05/20/25 13:59 10 mg TID JOSE Administration Lactulose 20 gm 04/22/25 07:45 04/23/25 06:04 Lactulose Syrup 20 Gm/30 Ml Udc PO 05/22/25 07:44 20 gm TID JOSE Administration Protocol Ondansetron HCl 4 mg 04/20/25 00:04 Ondansetron Inj 2 Mg/Ml Inj 2 Ml IVP 05/20/25 00:03 Q6H PRN NAUSEA OR VOMITING Protocol Pantoprazole Sodium 40 mg 04/20/25 12:00 04/23/25 08:13 Pantoprazole 40 Mg Tablet PO 05/20/25 11:59 40 mg QDAY JOSE Administration Sennosides 1 tab 04/20/25 00:55 Senna/Docusate Sod 1 Tab Tablet PO 05/20/25 00:54 QDAY PRN CONSTIPATION Protocol Plan Patient is a 44 yo M with PMH of medication noncompliance, HFpEF (LVEF 55-60%), hx of LE DVT, hx of PE, LLE cellulitis, polysubstance use (methamphetamine, tobacco, opiates), HTN, asthma, obesity, obesity hypoventilation syndrome, CAMILLA, homelessness who presented for syncope and hypotension and admitted for syncope and bradycardia. #Syncopal episode #Hypotension #Bradycardia #Mobitz Type 2 heart block #HfPef #Multiple pulmonary artery emboli #L leg DVT (popliteal) #History of multiple DVTs and PEs #EEG abnormalities Patient had syncopal episode at SNF with hypotension; ED EKG showed bradycardia (59), BP on admission 104/65, last BP was 04/21/25 14:17 153/93. CT head negative. Last echo (04/19/25) showed LV function 55-60%. D-dimer admission 2390. Tox screen negative; CT head negative. Episode of blank staring and ripping out lines 04/21/25; nothing noted on telemonitoring, and repeat EKG 04/21/2025 only showed inverted T waves in lead III, with rate of 60. INR 04/21/2025?11.6, PTT 04/21/2025 56.1 Echo 04/20/25 shows no change from previous echo on 04/15/25- no evidence of PE Plan: Consulted cardiology, thank you for recommendations EEG abnormal on reading; consulted neurology, appreciate recommendations Heparin Will monitor vitals #HTN #MYRON Patient had syncopal episode at SNF with hypotension; creatinine on admission- 2.3 04/19/25 20:26; 1.1 04/23/25; BP on admission 104/65, last BP was 04/23/25 14:17 124/78. Renal ultrasound 04/20/2025 negative. Plan: Amlodipine 10 mg Hydralazine 10 mg 3 times daily with holding criteria of systolic less than 110 Monitor BP Trend creatinine Hold losartan and HCTZ #L leg cellulitis Patient had infection on previous discharge; itching improving Plan: Cephalexin 1 g p.o. 3 times daily- course completed Physical therapy and wound care on board Encourage ambulation and work with physical therapy Dietary orders- multivitamin, Vitamin C 500mg BID, zinc sulfate 220 QD 14 days #MRSA-positive nasal swab Plan: Mupirocin 1 time applied to both nares Disposition: Telemetry Diet: Cardiac GI prophylaxis: Pantoprazole DVT prophylaxis: Heparin Code: Full This case was discussed with my attending physician, Dr. Sharma, and senior resident, Dr. Jackson. Andi Ponce MD-PhD, PGY1 Attending Provider Attestation/Addendum I have discussed and was present for the essential components of the history, physical examination, diagnosis, and treatment plan with the resident. I agree with the patient's care as documented by the resident and amended herein by me. Sen Sharma DO. Although this document has been carefully reviewed, there may still be some phonetic and other typographical errors. These errors are purely grammatical due to imperfections in the software program and should not be construed in any way to compromise the substance of the patient's medical care during this visit. Patient seen and evaluated in the AM, no subjective complaints overnight, vital signs stable, patient afebrile overnight, no remarkable findings on telemetry. Labs largely unremarkable, sodium 132, potassium 4.7, chloride 94. An EEG was performed and did demonstrate paroxysmal multifocal and generalized spike and wave discharges indicating seizure disorder. Neurology is consulted, appreciate recommendations. Will continue Eliquis for the patient's DVT/PE and patient has completed a course of Keflex for his left lower extremity cellulitis. Cardiology is consulted, not a candidate for any ICD placement at this time due to substance abuse, patient will be discharged to [facility] likely tomorrow 04/24 pending neurology recommendations and continued clinical improvement.
--- NOTE | 2025-04-23 14:24 | PC.SS ---
rounding note: Patient has d/c orders. Patient is pending EEG results. Pending authorization as well.
[2025-04-23] MEDS: ASCORBIC ACID 250 MG TABLET 500 MG PO ×2 (15:21→21:12)
[2025-04-23] MEDS: MULTIVITAMINS TABLET 1 TAB PO (15:21)
[2025-04-23] MEDS: ZINC SULFATE 220 MG CAPSULE PO (15:21)
--- NOTE | 2025-04-23 16:29 | PD.RESCONSUL ---
HPI Data of Consult Patient: new to practice Consult date: 04/23/25 Requesting Physician: Rohan Sharma DO Admitting Provider: Santiago Gudino MD Attending Provider: Rohan Sharma DO Primary Care Provider: Physician No Primary/Family Consult Narrative Reason for consult: abnormal EEG results History of present illness: Wilfredo Owens is 44 yr male with PMH of Mobitz type II (not candidate for permanent pacemaker), HTN, LE DVT, PE, LLE cellulitis, polysubstance use (methamphetamine, tobacco, opiates), asthma, obesity, obesity hypoventilation syndrome, CAMILLA, HFpEF (LVEF 55-60%, grade 1 diastolic dysfunction), medication noncompliance, homelessness who presented to ED on 04/19 due a syncopal episode. He was discharged from the hospital the previous day. Patient was started on lifelong eliquis due to hx of recurrent clots. At SNF, patient was difficult to arrouse but improved once admitted and was assessed in the ED. Per chart review, sabrina'ts cousin was at bedside yesterday. Stating he noticed patient to pass out and regain consciousness quickly. These episodes were proceeded by gab hyde. This finding prompted primary care team to rule out possible seizure. Completed EEG resulted abnormal activity, suggesting seizure disorder. Vitals have been stable, labs unremarkable. 01/2024 TTE Normal LV size and function. Estimatd EF 55-60%. Mild RV and RA dilatation. His heart block has resolved as evidenced on repeated EKG and tele. Patient examined at bedside and was updated on EEG findings. States that he is not concerned about having any seizures. Describes them to be involuntary breath holding spells. Patient was encouraged to start Keppra but has declined starting treatment. Wants to do more research before putting anything bad in body. Order MRI. cc:: cc: Rohan Sharma DO Review of Systems Review of Systems Narrative Review of Systems: General: Obese middle age male, unkempt. No acute distress, cooperative HEENT: NCAT, No JVD noted. Mucosa moist. Pupils are equal and reactive to light bilaterally Cardiovascular: Normal S1 and S2. Regular rate and rhythm. Respiratory: Lungs are clear to auscultation bilaterally. No wheezing or crackles heard. Abdomen: Soft, nontender, not distended, normal bowel sounds. Skin: Warm to touch, dry, no rashes noted Musculoskeletal: No gross injuries. Able to move all 4 extremities. pitting edema, b/l LE stasis dermatitis. Neuro: Alert and oriented x3. Cranial nerves: II through XII grossly intact. Speech and language: Normal with no dysarthria or dysphasia. Motor system: Tone and bulk: Normal: Strength: 5 out of 5 in all 4 extremities; No pronator drift noted. Sensory system: Intact to all modalities of sensation bilaterally. No ataxia, no dysmetria, or dysdiadochokinesia noted. No intention tremors noted. Gait:normal. No signs of meningeal irritation noted. Psych: Normal affect and mood Exam Vital Signs Temp Pulse Resp BP Pulse Ox O2 Del Method O2 Flow Rate 97.3 F 72 14 119/82 100 Nasal Cannula 2 04/23/25 12:00 04/23/25 14:02 04/23/25 12:00 04/23/25 14:02 04/23/25 12:00 04/23/25 12:00 04/23/25 12:00 Results Labs 04/25/25 05:20 04/25/25 05:20 Labs: Short CBC 04/23/25 Range/Units 09:17 WBC 6.1 (3.8-10.6) Thou/mm3 Hgb 13.4 L (13.5-16.0) g/dL Hct 39.6 L (41.0-53.0) % Plt Count 266 (140-440) Thou/mm3 BMP 04/23/25 06:12 Sodium 132 L Potassium 4.9 D Chloride 94 L Carbon Dioxide 28.0 BUN 23 Creatinine 1.1 Glucose 106 Calcium 9.6 Liver Function 04/23/25 Range/Units 06:12 Total Bilirubin 0.4 (0.3-1.2) mg/dL AST 30 (0-34) U/L ALT 28 (10-49) U/L Alkaline Phosphatase 83 (46-116) U/L Albumin 4.0 (3.5-5.0) gm/dL ABG Interpretation ABG results: 04/19/25 04/21/25 23:57 17:54 ABG pH 7.42 ABG pCO2 53 H ABG pO2 70 L ABG HCO3 35 H ABG O2 Saturation 94 ABG Base Excess 8 H VBG pH 7.44 VBG pCO2 50 VBG pO2 53 VBG Base Excess 8 H Quality Measures Quality Measures sepsis Current suspected stage: sepsis Possible source: pulmonary and genitourinary Blood cultures ordered: yes Antibiotic ordered: Yes Medications Home Medications and Allergies Allergies Allergy/AdvReac Type Severity Reaction Status Date / Time clindamycin Allergy Mild DIARRHEA Verified 02/01/24 17:55 Visit Medications Acetaminophen (Acetaminophen 325 Mg Tablet) 650 mg PO Q6H PRN PRN Reason: Fever >101.5 Stop: 05/20/25 00:03 Acetaminophen (Acetaminophen 325 Mg Tablet) 650 mg PO Q6H PRN PRN Reason: PAIN SCALE 1-3 (mild Stop: 05/20/25 00:03 Amlodipine Besylate (Amlodipine Besylate 5 Mg Tablet) 10 mg PO QDAY [facility] Stop: 05/21/25 08:59 Last Admin: 04/23/25 08:13 Dose: 10 mg Apixaban (Apixaban 2.5 Mg Tablet) 10 mg PO BID [facility] Stop: 04/23/25 20:59 Last Admin: 04/23/25 08:13 Dose: 10 mg Ascorbic Acid (Ascorbic Acid 250 Mg Tablet) 500 mg PO BID [facility] Stop: 05/23/25 14:29 Last Admin: 04/23/25 15:21 Dose: 500 mg Diphenhydramine HCl (Diphenhydramine 25 Mg Capsule) 25 mg PO Q6HR PRN PRN Reason: ITCHING Stop: 05/22/25 14:42 Last Admin: 04/23/25 06:16 Dose: 25 mg Hydralazine HCl (Hydralazine Hcl 10 Mg Tablet) 10 mg PO TID [facility] Stop: 05/20/25 13:59 Last Admin: 04/23/25 14:02 Dose: 10 mg Lactulose (Lactulose Syrup 20 Gm/30 Ml Udc) 20 gm PO TID [facility]; Protocol Stop: 05/22/25 07:44 Last Admin: 04/23/25 14:03 Dose: Not Given Multivitamins (Multivitamins Tablet) 1 tab PO QDAY [facility] Stop: 05/23/25 14:29 Last Admin: 04/23/25 15:21 Dose: 1 tab Ondansetron HCl (Ondansetron Inj 2 Mg/Ml Inj 2 Ml) 4 mg IVP Q6H PRN; Protocol PRN Reason: NAUSEA OR VOMITING Stop: 05/20/25 00:03 Pantoprazole Sodium (Pantoprazole 40 Mg Tablet) 40 mg PO QDAY [facility] Stop: 05/20/25 11:59 Last Admin: 04/23/25 08:13 Dose: 40 mg Sennosides (Senna/Docusate Sod 1 Tab Tablet) 1 tab PO QDAY PRN; Protocol PRN Reason: CONSTIPATION Stop: 05/20/25 00:54 Zinc Sulfate (Zinc Sulfate 220 Mg Capsule) 220 mg PO QDAY [facility] Stop: 05/07/25 14:29 Last Admin: 04/23/25 15:21 Dose: 220 mg Discontinued Medications Albuterol/Ipratropium (Albuterol/Ipratropium (Duoneb) Rt Marium 3 Ml Nebu) 3 ml INH X1 ONE Stop: 04/19/25 19:16 Last Admin: 04/19/25 19:25 Dose: 3 ml Amlodipine Besylate (Amlodipine Besylate 5 Mg Tablet) 10 mg PO QDAY [facility] Stop: 05/20/25 08:59 Apixaban (Apixaban 2.5 Mg Tablet) 5 mg PO BID [facility] Stop: 05/13/25 12:29 Last Admin: 04/22/25 13:30 Dose: 5 mg Cephalexin HCl (Cephalexin 250 Mg Capsule) 1,000 mg PO TID [facility] Stop: 04/22/25 05:00 Last Admin: 04/21/25 21:07 Dose: 1,000 mg Diphenhydramine HCl (Diphenhydramine 25 Mg Capsule) 25 mg PO X1 ONE Stop: 04/21/25 20:23 Last Admin: 04/21/25 21:08 Dose: 25 mg Heparin Sodium (Porcine) (Heparin Sod Inj 5000 Unit/Ml Vial) 8,000 unit IV X1 ONE; Protocol Stop: 04/19/25 23:42 Last Admin: 04/20/25 00:50 Dose: Not Given Heparin Sodium (Porcine) (Heparin Sod Inj 5000 Unit/Ml Vial) 4,000 unit IV X1 ONE Stop: 04/20/25 16:14 Last Admin: 04/20/25 16:23 Dose: 4,000 unit Hydralazine HCl (Hydralazine Hcl 10 Mg Tablet) 10 mg PO BID [facility] Stop: 05/20/25 11:29 Lactated Ringer's (Lactated Ringers) 1,000 mls @ 999 mls/hr IV .Q1H1M ONE Stop: 04/19/25 20:09 Last Infusion: 04/19/25 20:30 Dose: Infused Piperacillin/Tazobactam/Dextrose (Zosyn) 3.375 gm in 50 mls @ 100 mls/hr IV X1 ONE Stop: 04/19/25 19:38 Last Infusion: 04/19/25 20:01 Dose: Infused Heparin Sodium/Dextrose (Heparin In D5w Ivpb) 25,000 unit in 250 mls @ 17.997 mls/hr IV .[id number] [facility]; Protocol Stop: 05/03/25 23:44 Last Titration: 04/22/25 19:30 Dose: Infused Magnesium Sulfate/Dextrose (Magnesium Sulfate Ivpb) 1 gm in 100 mls @ 100 mls/hr IV X1 ONE Stop: 04/21/25 08:13 Last Admin: 04/21/25 08:15 Dose: 100 mls/hr Magnesium Sulfate/Dextrose (Magnesium Sulfate Ivpb) 1 gm in 100 mls @ 100 mls/hr IV X1 ONE Stop: 04/23/25 08:29 Last Admin: 04/23/25 08:10 Dose: 100 mls/hr Mupirocin (Mupirocin Oint 2% 15 Gm Tube) 0 gm TOP X1 ONE Stop: 04/21/25 16:49 Last Admin: 04/21/25 17:28 Dose: 1 appln Ondansetron HCl (Ondansetron Inj 2 Mg/Ml Inj 2 Ml) 4 mg IVP Q6HR PRN PRN Reason: NAUSEA OR VOMITING Stop: 05/19/25 19:08 Assessment & Plan Plan Wilfredo Owens is 44 yr male with PMH of Mobitz type II (not candidate for permanent pacemaker), HTN, LE DVT, PE, LLE cellulitis, polysubstance use (methamphetamine, tobacco, opiates), asthma, obesity, obesity hypoventilation syndrome, CAMILLA, HFpEF (LVEF 55-60%, grade 1 diastolic dysfunction), medication noncompliance, homelessness who presented to ED on 04/19 due a syncopal episode. Neuro consulted for abnormal EEG. #Syncope EEG showed abnormal activity, suggesting seizure disorder. 01/2024 TTE Normal LV size and function. Estimatd EF 55-60%. Mild RV and RA dilatation. His heart block has resolved as evidenced on repeated EKG and tele. -recommend to start Keppra but patient refusing -Follow up with MRI head to evaluate for possible structural lesions -seizure precautions -IV midazolam for breakthrough seizure #Pulmonary embolism - Multiple pulmonary artery emboli right side - 04/14/2025 #LLE popliteal DVT - 04/14/2025 #Hx of multiple DVTs and PEs #Transient and intermittent Second degree Mobitz type II heart block - resolved #Bradycardia, resolved #HFpEF (55-60%, 2023) #MYRON, likely pre-renal, resolved #Hx of HTN #PAH #CAMILLA #Obesity hypoventilation syndrome #LLE cellulitis #Encephalopathy, improving, likely 2/2 #Methamphetamine use #Opiate use Primary care team to manage above conditions and ongoing care needs. The patient's management plan was discussed with my attending physician Dr. Lewis. Malina Mar, PGY-2 Attending Provider Attestation/Addendum I personally have seen and examined the patient at the bedside and I agreed with the resident's findings, assessment and plan of care. Patient examined at bedside and was updated on EEG findings. States that he is not concerned about having any seizures. Describes them to be involuntary breath holding spells. Patient was encouraged to start Keppra but has declined starting treatment. Wants to do more research before putting anything bad in body. Order MRI to evaluate further with contrast.
[2025-04-24] VITALS (10 sets, daily range): BP systolic 103–131; BP diastolic 59–88; PULSE 50–82; RESP 16–22; TEMP 36.1–36.6; O2SAT 95–99; BMI 42.3; BMI 13.0
--- NOTE | 2025-04-24 | XR_ITS ---
Examination: MRI of brain without intravenous contrast. MRI brain with intravenous contrast. Date and time of exam: April 24, 2025, 0456 hours INDICATIONS: Patient admitted for seizure this week, bradycardia, pulmonary emboli Technique: Multiple axial and sagittal images of the brain to been obtained. Siemens high-resolution 1.52 Opal short bore scanner utilized. Sagittal sections, T1 weighted images, TR 500, TE 14, are performed. Axial sections proton-density and T2-weighted images have been obtained. Inversion recovery axial images, TR 9260, TE 111, TR 2500. Diffusion weighted images, axial sections, TR 4800, TE 128, B value 1000. Axial sections, ADC map, TR 4800, TE 128. Axial and coronal images were also obtained post 20 cc gadolinium administered intravenously. Findings:: Enlargement of the sella turcica is not present. The optic chiasm and infundibular stalk are not remarkable. There is no localized enlargement of the medulla or mabel. Fourth ventricle and cerebellar tonsils appear normal in position. No subacute area of hemorrhage density is seen. Fourth ventricle is midline. Mass in the cerebellopontine angle region is not evident. 7th and 8th nerve complexes exhibit symmetry Globes are symmetrical Orbital musculature including medial lateral rectus muscles do not exhibit abnormality Increased white matter signal is very prominent Effacement of the cortical sulcal markings is not identified. Mass effect upon the ventricular system is not identified. Diffusion-weighted images demonstrate no foci of restricted diffusion Contrast images demonstrate no abnormal enhancement Impression: Negative for acute hemorrhage mass effect or midline shift No acute infarct Multiple punctate foci of increased signal in the white matter, demyelinating disease
[2025-04-24 05:28] LABS: Basophils # (Auto) 0.1 Thou/mm3 (0.0-0.2); Basophils % (Auto) 1 % (0-2.5); Eosinophils # (Auto) 0.2 Thou/mm3 (0.0-0.5); Eosinophils % (Auto) 3 % (0-10); Hematocrit 41.8 % (41.0-53.0); Hemoglobin 14.3 g/dL (13.5-16.0); Immature Granulocytes Auto 0.10 Thou/mm3 (0.00-0.00); Lymphocytes # (Auto) 1.7 Thou/mm3 (1.0-4.8); Lymphocytes % (Auto) 25 % (10-50); Mean Corpuscular HGB Conc 34.2 g/dl (31.0-37.0); Mean Corpuscular Hemoglobin 31.9 pg (25.0-35.0); Mean Corpuscular Volume 93 fL (80-100); Monocytes # (Auto) 0.7 Thou/mm3 (0.0-0.8); Monocytes % (Auto) 10 % (0-12); Neutrophils # (Auto) 4.1 Thou/mm3 (1.8-7.7); Neutrophils % (Auto) 59 % (37-80); Nucleated Red Blood Cell # 0.00 Thou/mm3 (0.00-0.00); Nucleated Red Blood Cell % 0 /100 WBC (0); Platelet Count 250 Thou/mm3 (140-440); RDW Standard Deviation 43.3 fL (35.1-43.9); Red Blood Count 4.48 Miln/mm3 (4.50-5.90); White Blood Count 6.9 Thou/mm3 (3.8-10.6)
[2025-04-24] MEDS: LACTULOSE SYRUP 20 GM/30 ML UDC PO (05:39)
[2025-04-24 05:49] LABS: Alanine Aminotransferase 31 U/L (10-49); Albumin, Serum 4.3 gm/dL (3.5-5.0); Albumin/Globulin Ratio 1.2 (1.2-2.2); Alkaline Phosphatase 86 U/L (46-116); Anion Gap 7 (7-16); Aspartate Amino Transferase 27 U/L (0-34); BUN/Creatinine Ratio 24 Ratio (12-20); Bilirubin,Total 0.4 mg/dL (0.3-1.2); Blood Urea Nitrogen 24 mg/dL (9-23); Calcium 9.5 mg/dL (8.3-10.6); Calcium (Corrected) 9.5 mg/dL (8.5-10.1); Carbon Dioxide 30.8 mMol/L (20.0-31.0); Chloride 95 mMol/L (98-107); Creatinine (Component) 1.0 mg/dL (0.6-1.3); Estimated Creatinine Clearance 122.5 mL/min (>60); Globulin 3.7 gm/dL (2.3-3.5); Glucose 104 mg/dL (74-106); Magnesium 2.0 mg/dL (1.6-2.6); Osmolality,Calculated 270 (275-295); Potassium 4.6 mMol/L (3.4-5.1); Sodium 133 mMol/L (136-145); Total Protein 8.0 gm/dL (5.7-8.2); eGFR > 60 See Note
[2025-04-24] MEDS: PANTOPRAZOLE 40 MG TABLET PO (09:20)
[2025-04-24] MEDS: ASCORBIC ACID 250 MG TABLET 500 MG PO ×2 (09:20→21:01)
[2025-04-24] MEDS: ZINC SULFATE 220 MG CAPSULE PO (09:20)
[2025-04-24] MEDS: MULTIVITAMINS TABLET 1 TAB PO (09:20)
[2025-04-24] MEDS: APIXABAN 2.5 MG TABLET 5 MG PO ×2 (10:22→21:01)
--- NOTE | 2025-04-24 13:28 | ESPR_ITS ---
<Statement entered by Clinton Azul MD - 04/24/25 17:53> I have reviewed the note and agree with the resident's assessment & plan with exceptions as below. I have personally reviewed labs, imaging, home meds/prior records, examined the patient, formulated and discussed management plan with my attending Patient was seen and evaluated at bedside this morning. No acute events. Patient's EEG was abnormal and neurology recommended to start patient on antiepileptic medication, but patient refused at this time. They also recommended MRI which patient was agreeable to get the MRI, but still stated that he did not want to be started on any antiepileptic medication at this time. He stated that if he did not leave the hospital by tonight that he would leave AGAINST MEDICAL ADVICE, it was explained to him that at this time we are still pending more imaging and given that he had refused to start antiepileptic medications we would like to rule out that there is any structural etiologies of the brain with the brain MRI. He was agreeable to stay with the brain MRI. Otherwise no other complaints. Repeat EKG showed sinus bradycardia with a rate of 59. Clinton Azul PGY2 Disclaimer: Even though this this note was dictated by speech recognition and even though it was carefully revised there may still be minor errors in supervisor paper testing due to voice recognition software. Documentation for date of: 04/24/25 Subjective Subjective Interval history: Patient seen and examined at bedside today; he states that he feels better and is having less itching with the Benadryl on his leg. Patient expresses desire to go to SNF, and states that if he is here there should be a good reason. Overnight, telemetry showed no significant findings. Exam Vital Signs Temp Pulse Resp BP Pulse Ox O2 Del Method O2 Flow Rate 97.3 F 54 L 22 H 123/76 99 Nasal Cannula 2 04/24/25 12:00 04/24/25 12:00 04/24/25 12:00 04/24/25 12:00 04/24/25 12:00 04/24/25 12:00 04/24/25 12:00 Narrative Exam General: A/O x3, no acute distress, morbidly obese Eyes: PERRL, EOMI. Anicteric, vision grossly intact. Ears: No ear pain, no ear discharge, Hearing grossly intact. Nose: No nasal discharge. Mouth/Throat: Moist mucous membranes, no redness, no lesions. Neck: Neck supple, non-tender, no cervical lymphadenopathy. Lungs: Clear SATINDER to auscultation and percussion, No accessory muscle use. Cardio: Normal S1/S2, regular rhythm, no murmurs, no JVD or carotid bruits. Abdomen: Soft, non-tender, no palpable masses, peristalsis present, no guarding or rebound. Extremities: Symmetrical, no significant deformities, no peripheral edema , non-tender, peripheral pulses present. Skin: bilateral venous stasis changes; L parnell cellultis, improving. Neuro: No focal neurological deficits. Psych: Cooperative, appropriate mood and effect. Objective Labs 04/24/25 04:50 04/24/25 04:50 Labs: Laboratory Results - last 24 hr 04/24/25 04:50 WBC 6.9 RBC 4.48 L Hgb 14.3 Hct 41.8 MCV 93 MCH 31.9 MCHC 34.2 RDW Std Deviation 43.3 Plt Count 250 Neut % (Auto) 59 Lymph % (Auto) 25 [place] % (Auto) 10 Eos % (Auto) 3 Baso % (Auto) 1 Neut # (Auto) 4.1 Lymph # (Auto) 1.7 [place] # (Auto) 0.7 Eos # (Auto) 0.2 Baso # (Auto) 0.1 Immature Gran # (Auto) 0.10 H Absolute Nucleated RBC 0.00 Immature Gran % 1 H Nucleated RBC % 0 Sodium 133 L Potassium 4.6 Chloride 95 L Carbon Dioxide 30.8 Anion Gap 7 BUN 24 H Creatinine 1.0 Estim Creat Clear Calc 122.5 eGFR > 60 BUN/Creatinine Ratio 24 H Glucose 104 Calculated Osmolality 270 L Calcium 9.5 Corrected Calcium 9.5 Magnesium 2.0 Total Bilirubin 0.4 AST 27 ALT 31 Alkaline Phosphatase 86 Total Protein 8.0 Albumin 4.3 Globulin 3.7 H Albumin/Globulin Ratio 1.2 ABG Interpretation ABG results: 04/19/25 04/21/25 23:57 17:54 ABG pH 7.42 ABG pCO2 53 H ABG pO2 70 L ABG HCO3 35 H ABG O2 Saturation 94 ABG Base Excess 8 H VBG pH 7.44 VBG pCO2 50 VBG pO2 53 VBG Base Excess 8 H Quality Measures Quality Measures sepsis Current suspected stage: ruled out Possible source: pulmonary and genitourinary Blood cultures ordered: yes Antibiotic ordered: Yes Assessment & Plan Assessment Current Active Medications: Generic Name Dose Route Start Last Admin Trade Name Freq PRN Reason Stop Dose Admin Acetaminophen 650 mg 04/20/25 00:04 Acetaminophen 325 Mg Tablet PO 05/20/25 00:03 Q6H PRN Fever >101.5 Acetaminophen 650 mg 04/20/25 00:04 Acetaminophen 325 Mg Tablet PO 05/20/25 00:03 Q6H PRN PAIN SCALE 1-3 (mild Amlodipine Besylate 10 mg 04/21/25 09:00 04/24/25 09:20 Amlodipine Besylate 5 Mg Tablet PO 05/21/25 08:59 10 mg QDAY JOSE Administration Apixaban 5 mg 04/24/25 09:45 04/24/25 10:22 Apixaban 2.5 Mg Tablet PO 05/15/25 09:44 5 mg BID JOSE Administration Ascorbic Acid 500 mg 04/23/25 14:30 04/24/25 09:20 Ascorbic Acid 250 Mg Tablet PO 05/23/25 14:29 500 mg BID JOSE Administration Diphenhydramine HCl 25 mg 04/22/25 14:43 04/24/25 09:20 Diphenhydramine 25 Mg Capsule PO 05/22/25 14:42 25 mg Q6HR PRN Administration ITCHING Hydralazine HCl 10 mg 04/20/25 14:00 04/24/25 05:17 Hydralazine Hcl 10 Mg Tablet PO 05/20/25 13:59 Not Given TID JOSE Lactulose 20 gm 04/22/25 07:45 04/24/25 05:39 Lactulose Syrup 20 Gm/30 Ml Udc PO 05/22/25 07:44 20 gm TID JOSE Administration Protocol Multivitamins 1 tab 04/23/25 14:30 04/24/25 09:20 Multivitamins Tablet PO 05/23/25 14:29 1 tab QDAY JOSE Administration Ondansetron HCl 4 mg 04/20/25 00:04 Ondansetron Inj 2 Mg/Ml Inj 2 Ml IVP 05/20/25 00:03 Q6H PRN NAUSEA OR VOMITING Protocol Pantoprazole Sodium 40 mg 04/20/25 12:00 04/24/25 09:20 Pantoprazole 40 Mg Tablet PO 05/20/25 11:59 40 mg QDAY JOSE Administration Sennosides 1 tab 04/20/25 00:55 Senna/Docusate Sod 1 Tab Tablet PO 05/20/25 00:54 QDAY PRN CONSTIPATION Protocol Zinc Sulfate 220 mg 04/23/25 14:30 04/24/25 09:20 Zinc Sulfate 220 Mg Capsule PO 05/07/25 14:29 220 mg QDAY JOSE Administration Plan Patient is a 44 yo M with PMH of medication noncompliance, HFpEF (LVEF 55-60%), hx of LE DVT, hx of PE, LLE cellulitis, polysubstance use (methamphetamine, tobacco, opiates), HTN, asthma, obesity, obesity hypoventilation syndrome, CAMILLA, homelessness who presented for syncope and hypotension and admitted for syncope and bradycardia. #Syncopal episode #Hypotension #Bradycardia #Mobitz Type 2 heart block #HfPef #Multiple pulmonary artery emboli #L leg DVT (popliteal) #History of multiple DVTs and PEs #EEG abnormalities Patient had syncopal episode at SNF with hypotension; ED EKG showed bradycardia (59), BP on admission 104/65, last BP was 04/24/25 12:00 123/76. CT head negative. Last echo (04/19/25) showed LV function 55-60%. D-dimer admission 2390. Tox screen negative; CT head negative. Episode of blank staring and ripping out lines 04/21/25; nothing noted on telemonitoring, and repeat EKG 04/21/2025 only showed inverted T waves in lead III, with rate of 60. INR 04/21/2025?11.6, PTT 04/21/2025 56.1 Echo 04/20/25 shows no change from previous echo on 04/15/25- no evidence of PE EEG 04/23/25- paroxysmal multifocal and general spike and wave discharges seen, activity suggestive of seizure disorder Plan: Consulted cardiology, thank you for recommendations Consulted neurology, thank you of recommendations- will obtain MRI to check for structural lesions Switched from heparin to eliquis Will monitor vitals #HTN #MYRON Patient had syncopal episode at SNF with hypotension; creatinine on admission- 2.3 04/19/25 20:26; 1.0 04/24/25; BP on admission 104/65, last BP was 04/24/25 12:00 123/76. Renal ultrasound 04/20/2025 negative. Plan: Amlodipine 10 mg Hydralazine 10 mg 3 times daily with holding criteria of systolic less than 110 Monitor BP Trend creatinine Hold losartan and HCTZ #L leg cellulitis Patient had infection on previous discharge; itching improving Plan: Cephalexin 1 g p.o. 3 times daily- course completed Physical therapy and wound care on board Encourage ambulation and work with physical therapy Dietary orders- multivitamin, Vitamin C 500mg BID, zinc sulfate 220 QD 14 days #MRSA-positive nasal swab Plan: Mupirocin 1 time applied to both nares Disposition: Telemetry Diet: Cardiac GI prophylaxis: Pantoprazole DVT prophylaxis: Eliquis Code: Full This case was discussed with my attending physician, Dr. Calle, and senior resident, Dr. Jackson. Andi Ponce MD-PhD, PGY1 Attending Provider Attestation/Addendum I reviewed labs, imaging, EKG, home medications and prior available records. Face to face evaluation was performed by me. I have personally examined the patient and discussed assessment and plan with the IM team. I reviewed the resident note and agree with the plan with exceptions as below. Syncope Bradycardia arrhythmia Seizure disorder Bilateral PE Continue Keppra Follow-up brain MRI Transition from heparin drip to Eliquis Consults cardiology: Concern for drug abuse for which no PPM was inserted. Outpatient follow-up with cardiology
--- NOTE | 2025-04-24 13:42 | EKG_ITS ---
[facility] Test Date: 2025-04-24 Pat Name: CHEYANNE WALDEN [facility] Call Center Support Representative: LUIS : 1980 Requested By: Clinton Azul Order Number: [id number] Reading MD: Clinton Azul Measurements Intervals Fellows Rate: 59 P: 33 WA: 180 QRS: 39 QRSD: 112 T: 31 QT: 410 QTc: 407 Interpretive Statements SINUS BRADYCARDIA MODERATE INTRAVENTRICULAR CONDUCTION DELAY Compared to ECG 04/21/2025 14:57:24 Intraventricular conduction delay now present Sinus rhythm no longer present Myocardial infarct finding no longer present /store/S0/[id number]/[id number]
[2025-04-24] MEDS: ONDANSETRON INJ 2 MG/ML INJ 2 ML 4 MG IVP (16:35)
--- NOTE | 2025-04-24 16:43 | PD.RESPRO ---
Documentation for date of: 04/24/25 Subjective Subjective Interval history: Patient was seen and assessed at bedside. No new complaints, denies any chest pain, shortness of breath, palpitations. BP 103/67, continues to be stable. Heart rate in 60s. Continues to be noncompliant with CPAP machine. No heart block observed on telemetry, continues to be in sinus rhythm. Potassium 4.6, magnesium 2.0, creatinine 1.0. Residential Eliquis 5 mg twice daily per primary team. Continue amlodipine 10 daily and hydralazine TID as needed. Exam Vital Signs Temp Pulse Resp BP Pulse Ox O2 Del Method O2 Flow Rate 97.3 F 60 22 H 131/88 H 99 Nasal Cannula 2 04/24/25 12:00 04/24/25 14:07 04/24/25 12:00 04/24/25 14:07 04/24/25 12:00 04/24/25 12:00 04/24/25 12:00 Narrative Exam Physical Exam General: Awake and in no acute distress. Morbidly obese male. HEENT: Normocephalic, atraumatic, mucous membranes moist. Heart: Regular rate and rhythm, normal S1 and S2, no murmurs appreciated. Lungs: Difficult to auscultate due to obese habitus however no wheezing or crackles appreciated. Abdomen: Soft, nondistended, nontender, positive bowel sounds. No guarding or rebound tenderness. Neurologic: Alert and oriented x3, no gross neurological deficit, and patient able to move all 4 extremities. Extremities: Mild pitting edema below ankles bilaterally. Circumferential open wound at above left ankle. Dressing clean dry and intact. Skin: Chronic venous stasis changes bilaterally. No rashes or ecchymosis. Objective Labs 04/25/25 05:20 04/25/25 05:20 Labs: Laboratory Results - last 24 hr 04/24/25 04:50 WBC 6.9 RBC 4.48 L Hgb 14.3 Hct 41.8 MCV 93 MCH 31.9 MCHC 34.2 RDW Std Deviation 43.3 Plt Count 250 Neut % (Auto) 59 Lymph % (Auto) 25 [place] % (Auto) 10 Eos % (Auto) 3 Baso % (Auto) 1 Neut # (Auto) 4.1 Lymph # (Auto) 1.7 [place] # (Auto) 0.7 Eos # (Auto) 0.2 Baso # (Auto) 0.1 Immature Gran # (Auto) 0.10 H Absolute Nucleated RBC 0.00 Immature Gran % 1 H Nucleated RBC % 0 Sodium 133 L Potassium 4.6 Chloride 95 L Carbon Dioxide 30.8 Anion Gap 7 BUN 24 H Creatinine 1.0 Estim Creat Clear Calc 122.5 eGFR > 60 BUN/Creatinine Ratio 24 H Glucose 104 Calculated Osmolality 270 L Calcium 9.5 Corrected Calcium 9.5 Magnesium 2.0 Total Bilirubin 0.4 AST 27 ALT 31 Alkaline Phosphatase 86 Total Protein 8.0 Albumin 4.3 Globulin 3.7 H Albumin/Globulin Ratio 1.2 ABG Interpretation ABG results: 04/19/25 04/21/25 23:57 17:54 ABG pH 7.42 ABG pCO2 53 H ABG pO2 70 L ABG HCO3 35 H ABG O2 Saturation 94 ABG Base Excess 8 H VBG pH 7.44 VBG pCO2 50 VBG pO2 53 VBG Base Excess 8 H Quality Measures Quality Measures sepsis Current suspected stage: ruled out Possible source: pulmonary and genitourinary Blood cultures ordered: yes Antibiotic ordered: Yes Assessment & Plan Assessment Current Active Medications: Generic Name Dose Route Start Last Admin Trade Name Freq PRN Reason Stop Dose Admin Acetaminophen 650 mg 04/20/25 00:04 Acetaminophen 325 Mg Tablet PO 05/20/25 00:03 Q6H PRN Fever >101.5 Acetaminophen 650 mg 04/20/25 00:04 Acetaminophen 325 Mg Tablet PO 05/20/25 00:03 Q6H PRN PAIN SCALE 1-3 (mild Amlodipine Besylate 10 mg 04/21/25 09:00 04/24/25 09:20 Amlodipine Besylate 5 Mg Tablet PO 05/21/25 08:59 10 mg QDAY JOSE Administration Apixaban 5 mg 04/24/25 09:45 04/24/25 10:22 Apixaban 2.5 Mg Tablet PO 05/15/25 09:44 5 mg BID JOSE Administration Ascorbic Acid 500 mg 04/23/25 14:30 04/24/25 09:20 Ascorbic Acid 250 Mg Tablet PO 05/23/25 14:29 500 mg BID JOSE Administration Diphenhydramine HCl 25 mg 04/22/25 14:43 04/24/25 09:20 Diphenhydramine 25 Mg Capsule PO 05/22/25 14:42 25 mg Q6HR PRN Administration ITCHING Hydralazine HCl 10 mg 04/20/25 14:00 04/24/25 14:07 Hydralazine Hcl 10 Mg Tablet PO 05/20/25 13:59 10 mg TID JOSE Administration Lactulose 20 gm 04/22/25 07:45 04/24/25 14:07 Lactulose Syrup 20 Gm/30 Ml Udc PO 05/22/25 07:44 Not Given TID JOSE Protocol Multivitamins 1 tab 04/23/25 14:30 04/24/25 09:20 Multivitamins Tablet PO 05/23/25 14:29 1 tab QDAY JOSE Administration Ondansetron HCl 4 mg 04/20/25 00:04 04/24/25 16:35 Ondansetron Inj 2 Mg/Ml Inj 2 Ml IVP 05/20/25 00:03 4 mg Q6H PRN Administration NAUSEA OR VOMITING Protocol Pantoprazole Sodium 40 mg 04/20/25 12:00 04/24/25 09:20 Pantoprazole 40 Mg Tablet PO 05/20/25 11:59 40 mg QDAY JOSE Administration Sennosides 1 tab 04/20/25 00:55 Senna/Docusate Sod 1 Tab Tablet PO 05/20/25 00:54 QDAY PRN CONSTIPATION Protocol Zinc Sulfate 220 mg 04/23/25 14:30 04/24/25 09:20 Zinc Sulfate 220 Mg Capsule PO 05/07/25 14:29 220 mg QDAY JOSE Administration Plan Patient is a 44 year old male with past medical history of HFpEF (55-60%), morbid obesity, substance abuse including methamphetamine abuse, chronic smoker with more than 66-40-dxnx-year smoking history, alcohol use, homeless, history of chronic leg swelling on Lasix previously, medical noncompliance, previous lower extremity DVT and bilateral PE, and chronic venous stasis changes on bilateral limbs who presented to [facility] ED for bilateral foot pain and shortness of breath. Readmitted for syncopal episode and MYRON. Cardiology was consulted due to history of Mobitz type II heart block and previous management of right PEs and left leg DVT. #Syncope, likely secondary to seizure Was unconscious upon arrival. Patient does not recall what brought him into the hospital this morning. Patient is a poor historian and is uncooperative. EEG shows abnormal spikes, suspicious for seizures. DDx: Orthostatic hypotension from overdiuresis, arrhythmia (history of Mobitz type II episodes), PE (despite being discharged on Eliquis 10 mg twice daily). ?Per primary team, will repeat limited echo to rule out another PE ? Consider orthostatic vitals ? Start Eliquis 5 mg BID ?Continue to monitor telemetry ?Hold diuretics #Pulmonary embolism - Multiple pulmonary artery emboli right side - 04/14/2025 #LLE popliteal DVT - 04/14/2025 #Hx of multiple DVTs and PEs Was previously admitted in 06/2023 for DVT and bilateral PEs. Was started on Xarelto but has also been noncomplaint with this as well. Chest CTA 04/14 showed pulmonary artery hypertension, multiple pulmonary artery filling defects right pulmonary artery including the distal right main pulmonary artery and multiple upper and lower lobe, mild opacity in right lower lung zone which may resent pulmonary infection. Upon close review of CT, patient is only having right upper lobe as well as right middle lobe filling defects. Rest of the lobar branches and the subsegmental branches are free of any filling defects along with the main pulmonary artery. CT also shows evidence of pulmonary hypertension with dilated pulmonary artery up to 4 cm. LLE US 04/14 showed partial nonocclusive thrombus in L popliteal vein. LLE CT showed extensive cellulitis, neg osteomyelitis, no soft tissue abscess. Are chronic/recurring problems for him that have not been resolved due to medication non adherence. Repeat limited echo 04/20/25 showed same findings as previous echo. No new pulmonary embolisms visualized. Plan: -Eliquis as above. - Patient is not tachycardic and is not hypoxic the present point of time. No indication for any mechanical thrombectomy at this present point of time. #Transient and intermittent Second degree Mobitz type II heart block - resolved #Bradycardia, resolved #HFpEF (55-60%, 2023) Previously was admitted ICU for Mobitz type II AV block, requiring pacer pads. Was stable after couple hours and downgraded. Has history of brief episodes of similar heart block. No heart block noted on repeat EKG on 04/19 or on telemetry. Still has intermittent bigeminy and PVCs on telemetry. 01/2024 TTE Normal LV size and function. Estimatd EF 55-60%. Mild RV and RA dilatation. Normal RV function. Possible mild PH. The aortic root is mildly dilated 3.6cm. The ascending aorta is mildly dilated 3.7cm. Trace to mild TR. Echo 04/15/25 showed Normal LV size and wall thickness. Normal LV function with an EF of 55 to 60%. Grade 1 diastolic dysfunction. Mildly dilated RV with normal RV function. RVSP could not be measured because of insufficient TR jet but septum appears flat during systole indicating mildly elevated pressure. Trace MR and TR. No pericardial effusion. Repeat limited echo 04/20/25 showed same findings as previous echo. No new pulmonary embolisms visualized. Plan: - As per previous evaluation on last admission, patient is not a candidate for permanent pacemaker insertion at this time. - In setting of MYRON, hold Lasix 40 mg. If BP remains elevated and kidney function improves, recommend to start on losartan 50 mg. - If develops significant lower extremity edema, recommend hydrochlorothiazide 12.5 daily as needed. - Still recommend to start GDMT outpatient if blood pressure and kidney function permits, would add spironolactone 25 mg daily. - Avoid beta-blockers or calcium channel blockers like diltiazem or verapamil or other heart rate lowering medications which can cause bradycardia. - Continue to monitor telemetry - Keep K>4 and Mg>2 at all time #MYRON, likely pre-renal, resolved #Hx of HTN Presented with creatinine of 2.3, likely secondary to overdiuresis. BP was 104/65 on admission (previously systolics 130s?150s), likely more controlled due to abstinence from meth and substance abuse but still persistently high bc of CAMILLA. - Hold Lasix and Losartan as above. - If BP remains elevated and kidney function improves, recommend to start on losartan 50 mg. - Hydralazine 25 mg TID - Amlodipine 10 mg daily - If blood pressure still uncontrolled and renal function is stable, recommend to start spironolactone 25 mg once daily rather than hydrochlorothiazide as the patient is already on a diuretic and patient does have diastolic heart failure. - CTM BP #PAH #CAMILLA #Obesity hypoventilation syndrome BMI 42.7. - CPAP at night #LLE cellulitis #Encephalopathy, improving, likely 2/2 #Methamphetamine use #Opiate use Thank you for your consultation, please do not hesitate to reach out if you have any question or concern Patient plan of care was discussed with the attending physician, Dr. Chau. Delfina Bach, PGY-1 Attending Provider Attestation/Addendum I have personally seen and examined the patient separately on the above date of service and discussed the plan of care with the resident. I reviewed the resident Dr. Delfina Bach consultation progress note and agree with the resident findings and plan in the note above and have also edited the documentation to reflect my findings and plan. Alfred Chau M.D. Interventional Cardiology
--- NOTE | 2025-04-24 19:12 | PD.RESPRO ---
Documentation for date of: 04/24/25 Subjective Subjective Interval history: Patient examined at bedside. Has no major complaints. Vitals are stable, labs fairly unremarkable. MRI negative for acute infarct or hemorrhage. Showed multiple punctate foci in white matter. Patient continues to refuse Keppra for seizures. Will talk with patient tomorrow in regards to possibly doing LP after finding seen on the MRI. At this time he does not agree with diagnosis of seizures stating that episodes are able to be controlled. Continue conservative management. Exam Vital Signs Temp Pulse Resp BP Pulse Ox O2 Del Method O2 Flow Rate 97.8 F 67 20 123/65 96 Nasal Cannula 2 04/24/25 16:00 04/24/25 16:00 04/24/25 16:00 04/24/25 16:00 04/24/25 16:00 04/24/25 16:00 04/24/25 16:00 Narrative Exam General: Obese middle age male, unkempt. No acute distress, cooperative HEENT: NCAT, No JVD noted. Mucosa moist. Pupils are equal and reactive to light bilaterally Cardiovascular: Normal S1 and S2. Regular rate and rhythm. Respiratory: Lungs are clear to auscultation bilaterally. No wheezing or crackles heard. Abdomen: Soft, nontender, not distended, normal bowel sounds. Skin: Warm to touch, dry, no rashes noted Musculoskeletal: No gross injuries. Able to move all 4 extremities. pitting edema, b/l LE stasis dermatitis. Neuro: Alert and oriented x3. Cranial nerves: II through XII grossly intact. Speech and language: Normal with no dysarthria or dysphasia. Motor system: Tone and bulk: Normal: Strength: 5 out of 5 in all 4 extremities; No pronator drift noted. Sensory system: Intact to all modalities of sensation bilaterally. No ataxia, no dysmetria, or dysdiadochokinesia noted. No intention tremors noted. Gait:normal. No signs of meningeal irritation noted. Psych: Normal affect and mood Objective Labs 04/25/25 05:20 04/25/25 05:20 Labs: Laboratory Results - last 24 hr 04/24/25 04:50 WBC 6.9 RBC 4.48 L Hgb 14.3 Hct 41.8 MCV 93 MCH 31.9 MCHC 34.2 RDW Std Deviation 43.3 Plt Count 250 Neut % (Auto) 59 Lymph % (Auto) 25 [place] % (Auto) 10 Eos % (Auto) 3 Baso % (Auto) 1 Neut # (Auto) 4.1 Lymph # (Auto) 1.7 Roberts # (Auto) 0.7 Eos # (Auto) 0.2 Baso # (Auto) 0.1 Immature Gran # (Auto) 0.10 H Absolute Nucleated RBC 0.00 Immature Gran % 1 H Nucleated RBC % 0 Sodium 133 L Potassium 4.6 Chloride 95 L Carbon Dioxide 30.8 Anion Gap 7 BUN 24 H Creatinine 1.0 Estim Creat Clear Calc 122.5 eGFR > 60 BUN/Creatinine Ratio 24 H Glucose 104 Calculated Osmolality 270 L Calcium 9.5 Corrected Calcium 9.5 Magnesium 2.0 Total Bilirubin 0.4 AST 27 ALT 31 Alkaline Phosphatase 86 Total Protein 8.0 Albumin 4.3 Globulin 3.7 H Albumin/Globulin Ratio 1.2 ABG Interpretation ABG results: 04/19/25 04/21/25 23:57 17:54 ABG pH 7.42 ABG pCO2 53 H ABG pO2 70 L ABG HCO3 35 H ABG O2 Saturation 94 ABG Base Excess 8 H VBG pH 7.44 VBG pCO2 50 VBG pO2 53 VBG Base Excess 8 H Quality Measures Quality Measures sepsis Current suspected stage: ruled out Possible source: pulmonary and genitourinary Blood cultures ordered: yes Antibiotic ordered: Yes Assessment & Plan Assessment Current Active Medications: Generic Name Dose Route Start Last Admin Trade Name Freq PRN Reason Stop Dose Admin Acetaminophen 650 mg 04/20/25 00:04 Acetaminophen 325 Mg Tablet PO 05/20/25 00:03 Q6H PRN Fever >101.5 Acetaminophen 650 mg 04/20/25 00:04 Acetaminophen 325 Mg Tablet PO 05/20/25 00:03 Q6H PRN PAIN SCALE 1-3 (mild Amlodipine Besylate 10 mg 04/21/25 09:00 04/24/25 09:20 Amlodipine Besylate 5 Mg Tablet PO 05/21/25 08:59 10 mg QDAY JOSE Administration Apixaban 5 mg 04/24/25 09:45 04/24/25 10:22 Apixaban 2.5 Mg Tablet PO 05/15/25 09:44 5 mg BID JOSE Administration Ascorbic Acid 500 mg 04/23/25 14:30 04/24/25 09:20 Ascorbic Acid 250 Mg Tablet PO 05/23/25 14:29 500 mg BID JOSE Administration Diphenhydramine HCl 25 mg 04/22/25 14:43 04/24/25 09:20 Diphenhydramine 25 Mg Capsule PO 05/22/25 14:42 25 mg Q6HR PRN Administration ITCHING Hydralazine HCl 10 mg 04/20/25 14:00 04/24/25 14:07 Hydralazine Hcl 10 Mg Tablet PO 05/20/25 13:59 10 mg TID JOSE Administration Lactulose 20 gm 04/22/25 07:45 04/24/25 14:07 Lactulose Syrup 20 Gm/30 Ml Udc PO 05/22/25 07:44 Not Given TID JOSE Protocol Multivitamins 1 tab 04/23/25 14:30 04/24/25 09:20 Multivitamins Tablet PO 05/23/25 14:29 1 tab QDAY JOSE Administration Ondansetron HCl 4 mg 04/20/25 00:04 04/24/25 16:35 Ondansetron Inj 2 Mg/Ml Inj 2 Ml IVP 05/20/25 00:03 4 mg Q6H PRN Administration NAUSEA OR VOMITING Protocol Pantoprazole Sodium 40 mg 04/20/25 12:00 04/24/25 09:20 Pantoprazole 40 Mg Tablet PO 05/20/25 11:59 40 mg QDAY JOSE Administration Sennosides 1 tab 04/20/25 00:55 Senna/Docusate Sod 1 Tab Tablet PO 05/20/25 00:54 QDAY PRN CONSTIPATION Protocol Zinc Sulfate 220 mg 04/23/25 14:30 04/24/25 09:20 Zinc Sulfate 220 Mg Capsule PO 05/07/25 14:29 220 mg QDAY JOSE Administration Plan roseanne Owens is 44 yr male with PMH of Mobitz type II (not candidate for permanent pacemaker), HTN, LE DVT, PE, LLE cellulitis, polysubstance use (methamphetamine, tobacco, opiates), asthma, obesity, obesity hypoventilation syndrome, CAMILLA, HFpEF (LVEF 55-60%, grade 1 diastolic dysfunction), medication noncompliance, homelessness who presented to ED on 04/19 due a syncopal episode. Neuro consulted for abnormal EEG. #Syncope EEG showed abnormal activity, suggesting seizure disorder. 01/2024 TTE Normal LV size and function. Estimatd EF 55-60%. Mild RV and RA dilatation. His heart block has resolved as evidenced on repeated EKG and tele. MRI negative for acute infarct or hemorrhage. Showed multiple punctate foci in white matter. -recommend to start Keppra but patient refusing -discuss with patient about possible LP after noted MRI findings -seizure precautions -IV midazolam for breakthrough seizure #Pulmonary embolism - Multiple pulmonary artery emboli right side - 04/14/2025 #LLE popliteal DVT - 04/14/2025 #Hx of multiple DVTs and PEs #Transient and intermittent Second degree Mobitz type II heart block - resolved #Bradycardia, resolved #HFpEF (55-60%, 2023) #MYRON, likely pre-renal, resolved #Hx of HTN #PAH #CAMILLA #Obesity hypoventilation syndrome #LLE cellulitis #Encephalopathy, improving, likely 2/2 #Methamphetamine use #Opiate use Primary care team to manage above conditions and ongoing care needs. The patient's management plan was discussed with my attending physician Dr. Lewis. Malina Mar, PGY-2 Attending Provider Attestation/Addendum I personally have seen and examined the patient at the bedside and I agreed with resident's findings, assessment and plan of care. As the MRI brain shows findings suspicious for demyelination, recommended lumbar puncture. Patient agreed to undergo procedure under fluoroscopy tomorrow by interventional.
[2025-04-25] VITALS: BP 124/73; PULSE 55; PULSE 66; RESP 23; TEMP 36.2; O2SAT 97
[2025-04-25 01:56] VITALS: PULSE 65; RESP 18; O2SAT 97
[2025-04-25 04:00] VITALS: BP 122/69; PULSE 54; PULSE 99; RESP 13; TEMP 36.1; O2SAT 95
[2025-04-25 05:41] VITALS: BP 120/72; PULSE 63
[2025-04-25] MEDS: LACTULOSE SYRUP 20 GM/30 ML UDC PO (05:41)
[2025-04-25 05:57] LABS: Basophils # (Auto) 0.1 Thou/mm3 (0.0-0.2); Basophils % (Auto) 1 % (0-2.5); Eosinophils # (Auto) 0.2 Thou/mm3 (0.0-0.5); Eosinophils % (Auto) 3 % (0-10); Hematocrit 38.7 % (41.0-53.0); Hemoglobin 13.1 g/dL (13.5-16.0); Immature Granulocytes Auto 0.09 Thou/mm3 (0.00-0.00); Lymphocytes # (Auto) 1.6 Thou/mm3 (1.0-4.8); Lymphocytes % (Auto) 22 % (10-50); Mean Corpuscular HGB Conc 33.9 g/dl (31.0-37.0); Mean Corpuscular Hemoglobin 32.0 pg (25.0-35.0); Mean Corpuscular Volume 94 fL (80-100); Monocytes # (Auto) 0.8 Thou/mm3 (0.0-0.8); Monocytes % (Auto) 11 % (0-12); Neutrophils # (Auto) 4.6 Thou/mm3 (1.8-7.7); Neutrophils % (Auto) 62 % (37-80); Nucleated Red Blood Cell # 0.00 Thou/mm3 (0.00-0.00); Nucleated Red Blood Cell % 0 /100 WBC (0); Platelet Count 242 Thou/mm3 (140-440); RDW Standard Deviation 43.4 fL (35.1-43.9); Red Blood Count 4.10 Miln/mm3 (4.50-5.90); White Blood Count 7.5 Thou/mm3 (3.8-10.6)
[2025-04-25 06:00] VITALS: BMI 43.0
[2025-04-25 06:22] LABS: Alanine Aminotransferase 27 U/L (10-49); Albumin, Serum 4.0 gm/dL (3.5-5.0); Albumin/Globulin Ratio 1.2 (1.2-2.2); Alkaline Phosphatase 81 U/L (46-116); Anion Gap 9 (7-16); Aspartate Amino Transferase 22 U/L (0-34); BUN/Creatinine Ratio 19 Ratio (12-20); Bilirubin,Total 0.3 mg/dL (0.3-1.2); Blood Urea Nitrogen 19 mg/dL (9-23); Calcium 9.0 mg/dL (8.3-10.6); Calcium (Corrected) 9.0 mg/dL (8.5-10.1); Carbon Dioxide 30.1 mMol/L (20.0-31.0); Chloride 97 mMol/L (98-107); Creatinine (Component) 1.0 mg/dL (0.6-1.3); Estimated Creatinine Clearance 123.6 mL/min (>60); Globulin 3.3 gm/dL (2.3-3.5); Glucose 103 mg/dL (74-106); Magnesium 1.9 mg/dL (1.6-2.6); Osmolality,Calculated 274 (275-295); Phosphorous 4.7 mg/dL (2.4-5.1); Potassium 4.4 mMol/L (3.4-5.1); Sodium 136 mMol/L (136-145); Total Protein 7.3 gm/dL (5.7-8.2); eGFR > 60 See Note
[2025-04-25 06:32] VITALS: PULSE 64; RESP 20; O2SAT 93
[2025-04-25 08:00] VITALS: BP 128/76; PULSE 57; RESP 21; TEMP 36.6; O2SAT 96
--- NOTE | 2025-04-25 09:01 | PD.RESPRO ---
Documentation for date of: 04/25/25 Subjective Subjective Interval history: Patient was seen and assessed at bedside. Complains of mild headache, however denies any chest pain, shortness of breath, palpitations, pain with inspiration, lower extremity pain. Blood pressure 120/72 this morning, continues to be under control on amlodipine 10 mg daily and hydralazine 10 mg 3 times daily. Heart rate 60s. Saturating well on 2 to 3 L oxygen nasal cannula. Continues to be in sinus rhythm on telemetry, no heart blocks noted. Potassium 4.4, magnesium 1.9, replete. Continue Eliquis 5 mg twice daily for PE and DVT treatment. Exam Vital Signs Temp Pulse Resp BP Pulse Ox O2 Del Method O2 Flow Rate 97.8 F 57 L 21 H 128/76 96 Nasal Cannula 5 04/25/25 08:00 04/25/25 08:00 04/25/25 08:00 04/25/25 08:00 04/25/25 08:00 04/25/25 08:00 04/25/25 08:00 Narrative Exam Physical Exam General: Awake and in no acute distress. Morbidly obese male. HEENT: Normocephalic, atraumatic, mucous membranes moist. Heart: Regular rate and rhythm, normal S1 and S2, no murmurs appreciated. Lungs: Difficult to auscultate due to obese habitus however no wheezing or crackles appreciated. Abdomen: Soft, nondistended, nontender, positive bowel sounds. No guarding or rebound tenderness. Neurologic: Alert and oriented x3, no gross neurological deficit, and patient able to move all 4 extremities. Extremities: Mild pitting edema below ankles bilaterally. Circumferential open wound at above left ankle. Dressing clean dry and intact. Skin: Chronic venous stasis changes bilaterally. No rashes or ecchymosis. Objective Labs 04/25/25 05:20 04/25/25 05:20 Labs: Laboratory Results - last 24 hr 04/25/25 05:20 WBC 7.5 RBC 4.10 L Hgb 13.1 L Hct 38.7 L MCV 94 MCH 32.0 MCHC 33.9 RDW Std Deviation 43.4 Plt Count 242 Neut % (Auto) 62 Lymph % (Auto) 22 [place] % (Auto) 11 Eos % (Auto) 3 Baso % (Auto) 1 Neut # (Auto) 4.6 Lymph # (Auto) 1.6 [place] # (Auto) 0.8 Eos # (Auto) 0.2 Baso # (Auto) 0.1 Immature Gran # (Auto) 0.09 H Absolute Nucleated RBC 0.00 Immature Gran % 1 H Nucleated RBC % 0 Sodium 136 Potassium 4.4 Chloride 97 L Carbon Dioxide 30.1 Anion Gap 9 BUN 19 Creatinine 1.0 Estim Creat Clear Calc 123.6 eGFR > 60 BUN/Creatinine Ratio 19 Glucose 103 Calculated Osmolality 274 L Calcium 9.0 Corrected Calcium 9.0 Phosphorus 4.7 Magnesium 1.9 Total Bilirubin 0.3 AST 22 ALT 27 Alkaline Phosphatase 81 Total Protein 7.3 Albumin 4.0 Globulin 3.3 Albumin/Globulin Ratio 1.2 ABG Interpretation ABG results: 04/19/25 04/21/25 23:57 17:54 ABG pH 7.42 ABG pCO2 53 H ABG pO2 70 L ABG HCO3 35 H ABG O2 Saturation 94 ABG Base Excess 8 H VBG pH 7.44 VBG pCO2 50 VBG pO2 53 VBG Base Excess 8 H Quality Measures Quality Measures sepsis Current suspected stage: ruled out Possible source: pulmonary and genitourinary Blood cultures ordered: yes Antibiotic ordered: No Assessment & Plan Assessment Current Active Medications: Generic Name Dose Route Start Last Admin Trade Name Freq PRN Reason Stop Dose Admin Acetaminophen 650 mg 04/20/25 00:04 Acetaminophen 325 Mg Tablet PO 05/20/25 00:03 Q6H PRN Fever >101.5 Acetaminophen 650 mg 04/20/25 00:04 Acetaminophen 325 Mg Tablet PO 05/20/25 00:03 Q6H PRN PAIN SCALE 1-3 (mild Amlodipine Besylate 10 mg 04/21/25 09:00 04/24/25 09:20 Amlodipine Besylate 5 Mg Tablet PO 05/21/25 08:59 10 mg QDAY JOSE Administration Apixaban 5 mg 04/24/25 09:45 04/24/25 21:01 Apixaban 2.5 Mg Tablet PO 05/15/25 09:44 5 mg BID JOSE Administration Ascorbic Acid 500 mg 04/23/25 14:30 04/24/25 21:01 Ascorbic Acid 250 Mg Tablet PO 05/23/25 14:29 500 mg BID JOSE Administration Diphenhydramine HCl 25 mg 04/22/25 14:43 04/24/25 09:20 Diphenhydramine 25 Mg Capsule PO 05/22/25 14:42 25 mg Q6HR PRN Administration ITCHING Hydralazine HCl 10 mg 04/20/25 14:00 04/25/25 05:41 Hydralazine Hcl 10 Mg Tablet PO 05/20/25 13:59 10 mg TID JOSE Administration Magnesium Sulfate 2 gm in 50 mls @ 25 mls/hr 04/25/25 07:32 Magnesium Sulfate Ivpb IV 04/25/25 09:31 X1 ONE Lactulose 20 gm 04/22/25 07:45 04/25/25 05:41 Lactulose Syrup 20 Gm/30 Ml Udc PO 05/22/25 07:44 20 gm TID JOSE Administration Protocol Multivitamins 1 tab 04/23/25 14:30 04/24/25 09:20 Multivitamins Tablet PO 05/23/25 14:29 1 tab QDAY JOSE Administration Ondansetron HCl 4 mg 04/20/25 00:04 04/24/25 16:35 Ondansetron Inj 2 Mg/Ml Inj 2 Ml IVP 05/20/25 00:03 4 mg Q6H PRN Administration NAUSEA OR VOMITING Protocol Pantoprazole Sodium 40 mg 04/20/25 12:00 04/24/25 09:20 Pantoprazole 40 Mg Tablet PO 05/20/25 11:59 40 mg QDAY JOSE Administration Sennosides 1 tab 04/20/25 00:55 Senna/Docusate Sod 1 Tab Tablet PO 05/20/25 00:54 QDAY PRN CONSTIPATION Protocol Zinc Sulfate 220 mg 04/23/25 14:30 04/24/25 09:20 Zinc Sulfate 220 Mg Capsule PO 05/07/25 14:29 220 mg QDAY JOSE Administration Plan Patient is a 44 year old male with past medical history of HFpEF (55-60%), morbid obesity, substance abuse including methamphetamine abuse, chronic smoker with more than 10-47-gsqy-year smoking history, alcohol use, homeless, history of chronic leg swelling on Lasix previously, medical noncompliance, previous lower extremity DVT and bilateral PE, and chronic venous stasis changes on bilateral limbs who presented to [facility] ED for bilateral foot pain and shortness of breath. Readmitted for syncopal episode and MYRON. Cardiology was consulted due to history of Mobitz type II heart block and previous management of right PEs and left leg DVT. #Syncope, likely secondary to seizure Was unconscious upon arrival. Patient does not recall what brought him into the hospital this morning. Patient is a poor historian and is uncooperative. Echo 04/15/25 showed Normal LV size and wall thickness. Normal LV function with an EF of 55 to 60%. Grade 1 diastolic dysfunction. Mildly dilated RV with normal RV function. RVSP could not be measured because of insufficient TR jet but septum appears flat during systole indicating mildly elevated pressure. Trace MR and TR. No pericardial effusion. Repeat limited echo showed same results as echo 04/15/25. No new PEs noted. EEG shows abnormal spikes, suspicious for seizures. Patient refuses to take seizure medications. ? Eliquis 5 mg BID - Neurology consulted ?Continue to monitor telemetry ?Hold diuretics #Pulmonary embolism - Multiple pulmonary artery emboli right side - 04/14/2025 #LLE popliteal DVT - 04/14/2025 #Hx of multiple DVTs and PEs Was previously admitted in 06/2023 for DVT and bilateral PEs. Was started on Xarelto but has also been noncomplaint with this as well. Chest CTA 04/14 showed pulmonary artery hypertension, multiple pulmonary artery filling defects right pulmonary artery including the distal right main pulmonary artery and multiple upper and lower lobe, mild opacity in right lower lung zone which may resent pulmonary infection. Upon close review of CT, patient is only having right upper lobe as well as right middle lobe filling defects. Rest of the lobar branches and the subsegmental branches are free of any filling defects along with the main pulmonary artery. CT also shows evidence of pulmonary hypertension with dilated pulmonary artery up to 4 cm. LLE US 04/14 showed partial nonocclusive thrombus in L popliteal vein. LLE CT showed extensive cellulitis, neg osteomyelitis, no soft tissue abscess. Are chronic/recurring problems for him that have not been resolved due to medication non adherence. Repeat limited echo 04/20/25 showed same findings as previous echo. No new pulmonary embolisms visualized. Plan: -Eliquis as above. - Patient is not tachycardic and is not hypoxic the present point of time. No indication for any mechanical thrombectomy at this present point of time. #Transient and intermittent Second degree Mobitz type II heart block - resolved #Bradycardia, resolved #HFpEF (55-60%, 2023) Previously was admitted ICU for Mobitz type II AV block, requiring pacer pads. Was stable after couple hours and downgraded. Has history of brief episodes of similar heart block. No heart block noted on repeat EKG on 04/19 or on telemetry. Still has intermittent bigeminy and PVCs on telemetry. 01/2024 TTE Normal LV size and function. Estimatd EF 55-60%. Mild RV and RA dilatation. Normal RV function. Possible mild PH. The aortic root is mildly dilated 3.6cm. The ascending aorta is mildly dilated 3.7cm. Trace to mild TR. Echo 04/15/25 showed Normal LV size and wall thickness. Normal LV function with an EF of 55 to 60%. Grade 1 diastolic dysfunction. Mildly dilated RV with normal RV function. RVSP could not be measured because of insufficient TR jet but septum appears flat during systole indicating mildly elevated pressure. Trace MR and TR. No pericardial effusion. Repeat limited echo 04/20/25 showed same findings as previous echo. No new pulmonary embolisms visualized. Plan: - As per previous evaluation on last admission, patient is not a candidate for permanent pacemaker insertion at this time. - In setting of MYRON, hold Lasix 40 mg. If BP remains elevated and kidney function improves, recommend to start on losartan 50 mg. - If develops significant lower extremity edema, recommend hydrochlorothiazide 12.5 daily as needed. - Still recommend to start GDMT outpatient if blood pressure and kidney function permits, would add spironolactone 25 mg daily. - Avoid beta-blockers or calcium channel blockers like diltiazem or verapamil or other heart rate lowering medications which can cause bradycardia. - Continue to monitor telemetry - Keep K>4 and Mg>2 at all time #MYRON, likely pre-renal, resolved #Hx of HTN Presented with creatinine of 2.3, likely secondary to overdiuresis. BP was 104/65 on admission (previously systolics 130s?150s), likely more controlled due to abstinence from meth and substance abuse but still persistently high bc of CAMILLA. - Hold Lasix and Losartan as above. - If BP remains elevated and kidney function improves, recommend to start on losartan 50 mg. - Hydralazine 25 mg TID - Amlodipine 10 mg daily - If blood pressure still uncontrolled and renal function is stable, recommend to start spironolactone 25 mg once daily rather than hydrochlorothiazide as the patient is already on a diuretic and patient does have diastolic heart failure. - CTM BP #PAH #CAMILLA #Obesity hypoventilation syndrome BMI 42.7. - CPAP at night #LLE cellulitis #Encephalopathy, improving, likely 2/2 #Methamphetamine use #Opiate use Thank you for your consultation, please do not hesitate to reach out if you have any question or concern Patient plan of care was discussed with the attending physician, Dr. Chau. Delfina Bach, PGY-1 Attending Provider Attestation/Addendum I have personally seen and examined the patient separately on the above date of service and discussed the plan of care with the resident. I reviewed the resident Dr. Delfina Bach consultation progress note and agree with the resident findings and plan in the note above and have also edited the documentation to reflect my findings and plan. Alfred Chau M.D. Interventional Cardiology
--- NOTE | 2025-04-25 09:07 | PC.NURSE ---
pt leaving Md ARIEL aware at bedside, education given, pt alert and oreinted x4 GCS
--- NOTE | 2025-04-25 09:14 | PC.SS ---
rounding note: SS spoke to physician team who states patient left this a.m. AMA. Patient signed paperwork. SS updated facility at [facility]
--- NOTE | 2025-04-25 09:26 | EVENTNT_ITS ---
<Statement entered by Clinton Azul MD - 04/25/25 11:19> I have reviewed the note and agree with the resident's assessment & plan with exceptions as below. I have personally reviewed labs, imaging, home meds/prior records, examined the patient, formulated and discussed management plan with my attending Patient was seen and evaluated bedside this morning. No acute overnight events. Patient had MRI yesterday which showed white matter changes and therefore neurology recommended that lumbar puncture to rule out any autoimmune disease at this time. Patient refused the procedure stating that he did not have any genetics for that and that did not align his family. He was also refusing antiepileptic medication at this time. Patient later this morning wanted to leave AGAINST MEDICAL ADVICE even after it was stated that he was cannot be discharged today as he had refused treatment, but that he could still be discharged to a detention facility for further care of his cellulitis as well as further work with physical therapy. Patient still refused and decided to leave AGAINST MEDICAL ADVICE as he did not want any more treatment at this time. He was AO x 4 and signed AMA paperwork. It was all to him that his medication will be sent to the pharmacy and that he needed to continue the Eliquis as well as all other medications prescribed. Clinton Azul PGY2 Disclaimer: Even though this this note was dictated by speech recognition and even though it was carefully revised there may still be minor errors in sweeper brush maker machine due to voice recognition software. Documentation for date of: 04/25/25 Event Note Event Note: The patient has decided to sign out against medical advice (AMA) after being explained the risks & benefits of leaving before medical clearance/discharge. The patient had the opportunity to ask questions about their condition which were answered to their satisfaction; the patient is aware that they may return for further care at any time as needed. Patient was alert and oriented x4 with ability to demonstrate understanding of the above and signed the AMA form. It was extensively discussed with the patient about the necessity of starting antiepileptic medication for management of his seizures as noted on EEG. It was discussed with the patient about the possibility of sudden unexpected in epilepsy (SUDEP) being significantly high risk if the patient is not taking any antiepileptic medication for management of his seizures. Furthermore, quality of life improvement with antiepileptic medication was discussed with the patient. Additionally, he was discussed with the patient about the possibility of the lumbar puncture as recommended by neurology given his MRI findings. The patient understood what was discussed and decided to reject both interventions as he does not want any intervention at this time and stated that it does not run in his family and so he does not want to take any medication as a result. The patient was plan for discharge later today, however the patient refused to wait for standardized protocol regarding discharge, and so he left AGAINST MEDICAL ADVICE. It is recommended that the patient continues Eliquis 5 mg twice daily indefinitely given his history of PEs and DVTs, continue hydralazine 10 mg 3 times daily and amlodipine 10 mg daily for his hypertension, and to follow-up with cardiology and neurology, however it is unclear if the patient will be able to follow-up with these recommendations outpatient as the patient has elected to leave AGAINST MEDICAL ADVICE instead of waiting for discharge to SNF. The patient was also given recommendations for seizure precautions as noted below. Seizure Precautions - No driving for three (3) months from the last episode (04/20) per guidelines for the [facility]. - Avoid large water bodies, fireplaces, high places, high altitudes. - Avoid climbing on ladders/heights. - Avoid using powered/heavy machinery tools. - Avoid using sharp instruments unattended. - Avoid tub bath or hot tub bath. Use only shower baths while standing. Patient plan of care was discussed with the senior resident Dr. Azul (PGY-2) and attending physician Dr. Sharma. Srinivasan Burciaga, PGY1
== END 2025-04-25 09:06 | disposition left against medical advice (07) | DRG 204 ==
LOC: SERX 22:56 → SERHOLD 04-20 00:19 → S2NX 04-20 02:17
PROVIDERS: Student in an Organized Health Care Education/Training Program; Admitting Provider Internal Medicine; Emergency Provider Emergency Medicine; Visit Provider Student in an Organized Health Care Education/Training Program
DX: R55 Syncope and collapse (principal); I50.32 Chronic diastolic (congestive) heart failure; I44.1 Atrioventricular block, second degree; I11.0 Hypertensive heart disease with heart failure; Z86.718 Personal history of other venous thrombosis and embolism; Z59.00 Homelessness unspecified; J96.01 Acute respiratory failure with hypoxia; I26.99 Other pulmonary embolism without acute cor pulmonale; I82.432 Acute embolism and thrombosis of left popliteal vein; Z91.148 Patient's other noncompliance with medication regimen for other reason; N17.9 Acute kidney failure, unspecified; L03.116 Cellulitis of left lower limb; F15.90 Other stimulant use, unspecified, uncomplicated; E66.2 Morbid (severe) obesity with alveolar hypoventilation; Z68.41 Body mass index [BMI] 40.0-44.9, adult; I27.21 Secondary pulmonary arterial hypertension; L03.115 Cellulitis of right lower limb; Z53.29 Procedure and treatment not carried out because of patient's decision for other reasons; Z79.01 Long term (current) use of anticoagulants; Z79.899 Other long term (current) drug therapy; Z86.711 Personal history of pulmonary embolism; Z87.891 Personal history of nicotine dependence; Z88.1 Allergy status to other antibiotic agents; G40.909 Epilepsy, unspecified, not intractable, without status epilepticus
CPT/HCPCS: 36415; 36600; 70450; 70553; 71045; 76770; 80053; 80307; 81001; 82803; 83605; 83735; 83880; 84100; 84145; 84484; 85025; 85379; 85610; 85730; 87040; 87081; 87811; 93005; 94640; 94762; 95816; 96365; 96366; 96375; 97162; 99285; 99308; A9270; A9577; J1644; J2405; J2543; J3475; J7120